=== PATIENT | female | born 1955 | race Caucasian/White ===

== ENCOUNTER 2022-12-22 07:47 | Outpatient (OUT) | payer MEDICARE, MEDICAID, SELFPAY ==
--- NOTE | 2022-12-22 07:56 | CT_ITS ---
[address] [address] Patient Name: TREASURE WOODARD MRN: [id number] date: 1955 Sex: F Assigned Patient Location: CT Current Patient Location: CT Accession/Order Number: [id number] Exam Date: 12/22/2022 08:10 Report Date: 12/22/2022 09:24 At the request of: NON-STAFF PHYSICIAN Procedure: CT chest wo con EXAMINATION: CT chest wo con HISTORY: Screening For Malignant Neoplasm Of Respiratory Organs Z12.2 , nodule COMPARISON: CT chest abdomen pelvis 04/10/2009 TECHNIQUE: Multi-planar CT images were obtained without and/or with IV contrast as indicated by examination type. Axial, Coronal, and Sagittal images. Dose reduction techniques were achieved by using automated exposure control and/or adjustment of mA and/or kV according to patient size and/or use of iterative reconstruction technique. FINDINGS: LUNGS: Stable 4 mm nodule within the anterior lateral left upper lobe. Mild-moderate emphysematous changes bilaterally. No acute infiltrates. PLEURA: No mass, effusion, or pneumothorax. VASCULATURE: No abnormality. RENETTA: No mass or adenopathy. MEDIASTINUM: No mass or adenopathy. CARDIAC: No enlargement, pericardial thickening, or significant calcification. AORTA: No aneurysm or dissection. CHEST WALL: Remote rupture of right breast implant with extravasation. BONES: No bone lesion or fracture. LIMITED ABDOMEN: No suspicious findings Limited images of the upper abdomen. OTHER: Negative. CT/CT chest wo con IMPRESSION: 1. Lung-RADS 2- Benign Appearance or Behavior. Nodules with a very low likelihood of becoming a clinically active cancer due to size or lack of growth. Follow-up CT Chest in 1 year. 2. Stable 4 mm nodule left upper lobe. 3. Remote right breast implant rupture with extravasation. Electronically authenticated by: CLARA BONILLA Date: 12/22/2022 09:24
== END 2022-12-22 07:48 | disposition home or self-care (01) ==
LOC: CT 07:47
DX: Z12.2 Encounter for screening for malignant neoplasm of respiratory organs (principal)
CPT/HCPCS: 71250

== ENCOUNTER 2023-02-23 09:17 | Outpatient (OUT) | payer MEDICARE, MEDICAID, SELFPAY ==
--- OUTSIDE RECORDS SUMMARY | 2023-02-23 09:33 | XMS_ITS | CCD ---
Author Name Unknown Address [address] [facility] [address] [place] [address] Organization [facility] Care Team Providers Care Corporate Vp [employer]vertising & Online Name Role Phone Nina Johnson Primary Care Provider Unavailable Primary Care Provider Unavaildanna schwartz Unavailable Unavailable Unavailable Unavailable Primary Care Provider UnavailMily Obregon Primary Care Provider FRANDY COCHRAN Attending Unavailable ANGELO CRAMER Attending Unavailab NINA Melendez Primary Care Unavailable CLARA SAGASTUME Admitting Unavailable CLARA DUNLAP Consulting Unavailable NINA JOHNSON Attending Unavailable CLARA SAGASTUME Consulting Unavailable JANE WELDON Referring Unavailable FRANDY COCHRAN Referring Unavailable NINA JOHNSON Primary Care Unavailable NILO ARREOLA Referring UnavailNINA Virk Primary Care Unavailable NINA JOHNSON Referring Unavailable NINA JOHNSON Primary Care Unavailable NINA JOHNSON Referring Unavailable NINA JOHNSON Primary Care Unavailable CHARLENE REGAN Admitting Unavailable CHARLENE REGAN Attending Unavailable NINA JOHNSON Admitting Unavailable NINA JOHNSON Attending Unavailable ANGELO CRAMER Attending Unavailab PIYUSH Forde Attending Unavailable NINA JOHNSON Primary Care Unavailable FRANDY COCHRAN Attending Unavailable Nina Johnson Primary Care Provider Mily Lainez CNP Primary Care Provider [phone] Unavailable Primary Care Provider Unavailabl e MISC, DR MARTINEZ Admitting Unavailable MISC, DR MARTINEZ Attending Unavailable MISC, DR MARTINEZ Consulting Unavailable MISC, DR MARTINEZ Admitting Unavailable MISC, DR MARTINEZ Attending Unavailable [place], DR CARLOZ Alcaraz Consulting Unavailable MISC, DR MARTINEZ Consulting Unavailable Mily Lainez CNP Unavailable [phone] Gemini Flores CNP Primary Care Provider GEMINI FLORES Referring Unavailable Mily Lainez CNP Primary Care Provider Allergies Allergy Classification Reported Allergen(s) Allergy Type Date of Onset Reaction(s) Facility (20 sources) Penicillins Propensity to adverse reactions to drug 0 Hives, Nausea And Vomiting [facility] [place], [place] Medications Current Medications Medication Drug Class(es) Dates Sig (Normalized) Sig (Original) acetaminophen 325 mg oral tablet (16 sources) Start: 10-14-2020 Acetaminophen 325 MG Oral Tablet 10/14/2020 Provider: Start: 09-11-2019 acetaminophen (TYLENOL) tablet 650 mg Start: 08-16-2019 acetaminophen (TYLENOL) tablet 650 mg Start: 08-09-2019 End: 08-09-2019 acetaminophen (TYLENOL) tabl et 650 mg ciprofloxacin 500 mg oral tablet (3 sources) Quinolone Antimicrobial Start: 09-12-2019 End: 09-22-2019 take 1 tablet by mouth every twelve hours ciprofloxacin (CIPRO) 500 MG tablet Take 1 tablet by mouth every 12 hours for 10 days 20 tablet 0 09/12/2019 09/22/2019 Active Daily Multivitamin Oral Capsule (20 sources) Start: 05-31-2022 Daily Multivitamin Oral Capsule 05/31/2022 Provider: Gemini Flores CNP Start: 11-16-2021 End: 05-31-2022 Daily Multivitamin Oral Caps ule 11/16/2021 - 05/31/2022 Provider: Gemini Flores CNP Start: 11-16-2021 Daily Multivit razo Oral Capsule 11/16/2021 Provider: Gemini Flores CNP Start: 10-14-2020 End: 11-16-2021 Daily Multivitamin Oral Caps ule 10/14/2020 - 11/16/2021 Provider: Mily Lainez CNP Start: 10-14-2020 Daily Multivit razo Oral Capsule 10/14/2020 Provider: Mily Lainez CNP Start: 10-14-2020 End: 10-14-2020 Daily Multivitamin Oral Caps ule 10/14/2020 - 10/14/2020 Provider: docusate sodium 50 mg / sennosides, fci 8.6 mg oral tablet (13 sources) Start: 01-16-2023 Senexon-S 8.6- 50 MG Oral Tablet 01/16/2023 Provider: Start: 08-06-2019 take 1 tablet by dai th twice daily sennosides-docusate sodium (SENOKOT-S) 8.6-50 MG tablet Take 1 tablet by mouth 2 times daily 60 tablet 1 08/08/2019 Active 0.4 ml enoxaparin sodium 100 mg/ml prefilled syringe (13 sources) Low Molecular Weight Heparin Start: 08-09-2019 enoxaparin (LOVENOX) 40 MG/0.4ML injection Inject 0.4 mLs into the skin daily 14 Syringe 0 08/09/2019 Active Start: 08-07-2019 enoxaparin (LO VENOX) 40 MG/0.4ML injection Inject 0.4 mLs into the skin daily 14 Syringe 0 08/09/2019 Active famotidine 20 mg oral tablet (1 source) Histamine-2 Receptor Antagonist Start: 08-16-2019 take 20 mg by mouth twice daily 20 mg, Oral, 2 TIMES DAILY, First dose on 08/16/19 at 2245 fludrocortisone 0.1 mg oral tablet (12 sources) Start: 08-07-2019 End: 12-07-2019 take 1 tablet by mouth once daily fludrocortisone (FLORINEF) 0.1 MG tablet Take 1 tablet by mouth daily 30 tablet 3 08/09/2019 12/07/2019 Active Handicap Placard MISC (15 sources) Start: 03-20-2016 Handicap Placard MISC by Does not apply route Dx: stroke 2009 Duration: 5 years 1 each 0 03/20/2016 Active LORazepam 0.5 mg oral tablet (20 sources) Benzodiazepine Start: 10-14-2020 Ativan 0.5 MG Oral Tablet 10/14/2020 Provider: Start: 08-16-2019 take 0.25 mg by mout h three times daily 0.25 mg, Oral, 3 TIMES DAILY, First dose on 08/16/19 at 2215 Start: 08-07-2019 take 0.5 mg by mouth twice irma ly 0.5 mg, Oral, 2 TIMES DAILY, First dose on Tamara 08/07/19 at 1415 Start: 07-30-2019 End: 08-29-2019 take 0.5 tablet by mouth three times daily LORazepam (ATIVAN) 0.5 MG tablet Indications: Anxiety Take 0.5 tablets by mouth 3 times daily for 30 days. 45 tablet 0 07/30/2019 08/29/2019 Active take 1 tablet by dai th once daily LORazepam (ATIVAN) 1 MG tablet Take 1 mg by mouth daily 0 Active magnesium hydroxide 80 mg/ml oral suspension (1 source) Start: 08-06-2019 take 30 mL by mouth once daily as needed for constipation 30 mL, Oral, DAILY PRN, Constipation, Starting Sun08/06/19 at 2256 First line therapy for constipation. Post-op Mucinex DM 30-600 MG Oral Tablet Extended Release 12 Hour (20 sources) Start: 10-14-2020 take 30-600 tablets by mouth every twelve hours Mucinex DM 30-600 MG Oral Tablet Extended Release 12 Hour 10/14/2020 Provider: Start: 10-14-2020 End: 10-14-2020 take 30-600 tablets by mouth every twelve hours Mucinex DM 30-600 MG Oral Tablet Extended Release 12 Hour 10/14/2020 - 10/14/2020 Provider: naproxen 500 mg oral tablet (3 sources) Nonsteroidal Anti-inflammatory Drug Start: 11-16-2021 Naproxen 500 MG Oral Tablet 11/16/2021 Provider: Gemini Flores CNP 24 hr nicotine 0.875 mg/hr transdermal system (2 sources) Cholinergic Nicotinic Agonist Start: 07-30-2019 End: 08-07-2019 apply 1 dose transdermal route once daily 1 patch, Transdermal, Administer over 24 Hours, DAILY, First dose on Sun08/07/19 at 0900 Apply new patch to nonhairy, clean, dry skin on the upper body or upper outer arm. Rotate patch sites. Notif y pharmacy if patient or provider prefers patch to be removed at bedtime and replaced in the morning. Haz ardous Medication -- Refer to facility policy for handling and disposal. &n bsp; omeprazole 40 mg delayed release oral capsule (5 sources) Proton Pump Inhibitor Start: 03-06-2016 take 1 capsule by mouth once daily omeprazole (PRILOSEC) 40 MG delayed release capsule TAKE ONE CAPSULE BY MOUTH ONCE DAILY 30 capsule 5 03/06/2016 Active ondansetron (ZOFRAN-ODT) disintegrating tablet 4 mg (1 source) Start: 08-06-2019 ondansetron (ZOFRAN-ODT) disintegrating tablet 4 mg oxyCODONE hydrochloride 5 mg oral tablet (5 sources) Opioid Agonist Start: 08-08-2019 End: 08-13-2019 take 1 tablet by mouth every six hours as needed for pain oxyCODONE (ROXICODONE) 5 MG immediate release tablet Indications: Closed fracture of left hip, initial encounter ([facility]) Take 1 tablet by mouth every 6 hours as needed for Pain for up to 5 days. 20 tablet 0 08/08/2019 08/13/2019 Active Start: 08-06-2019 oxyCODONE (LORI ICODONE) immediate release tablet 5 mg pantoprazole 20 mg delayed release oral tablet (3 sources) Proton Pump Inhibitor Start: 12-05-2022 End: 01-16-2023 Pantoprazole Sodium 20 MG Oral Tablet Delayed Release 01/16/2023 Provider: Mily Lainez CNP polyethylene glycol 3350 30968 mg powder for oral solution (10 sources) Osmotic Laxative Start: 09-11-2019 17 g, Oral, D AILY PRN, Constipation, Starting Tamara 09/11/19 at 2233 First line therapy for constipation Start: 08-06-2019 End: 09-07-2019 take 17 g by mouth once daily as needed for constipation polyethylene glycol (GLYCOLAX) 17 g packet Take 17 g by mouth daily as needed for Constipation 30 each 0 08/08/2019 09/07/2019 Active potassium bicarbonate 20 meq effervescent oral tablet (1 source) Start: 04-13-2019 potassium bica rb-citric acid (EFFER-K) effervescent tablet 40 mEq microencapsulated potassium chloride 20 meq extended release oral tablet (2 sources) Start: 08-17-2019 potassium chlo ride (KLOR-CON M) extended release tablet 20 mEq Start: 08-16-2019 End: 08-16-2019 potassium chloride (KLOR-CON M) extended release tablet 40 mEq Promethazine (3 sources) Phenothiazine Start: 09-11-2019 promethazine ( PHENERGAN) tablet 12.5 mg Start: 08-16-2019 promethazine ( PHENERGAN) tablet 12.5 mg Start: 08-06-2019 promethazine ( PHENERGAN) tablet 12.5 mg QUEtiapine 300 mg oral tablet (20 sources) Atypical Antipsychotic Start: 05-31-2022 SEROque l 300 MG Oral Tablet 05/31/2022 Provider: Start: 03-16-2020 End: 05-31-2022 SEROquel 200 MG Oral Tablet 10/14/2020 - 05/31/2022 Provider: Start: 09-12-2019 take 50 mg by mouth once daily in the morning 50 mg, Oral, EVERY MORNING, First dose on Sun09/12/19 at 0900 Start: 09-11-2019 take 200 mg by mouth once ced y 200 mg, Oral, NIGHTLY, First dose on Tamara 09/11/19 at 2300 Start: 08-17-2019 take 50 mg by mouth once daily in the morning 50 mg, Oral, EVERY MORNING, First dose on 08/17/19 at 0900 Start: 08-16-2019 take 200 mg by mouth once ced y 200 mg, Oral, NIGHTLY, First dose on 08/16/19 at 2245 Start: 08-08-2019 take 50 mg by mouth once daily in the morning 50 mg, Oral, EVERY MORNING, First dose on 08/08/19 at 0900 Start: 08-07-2019 take 200 mg by mouth once ced y 200 mg, Oral, NIGHTLY, First dose on Tamara 08/07/19 at 2100 Start: 07-30-2019 End: 05-31-2022 QUEtiapine Fumarate 50 MG Or al Tablet 09/01/2019 - 10/14/2020 Provider: Start: 07-30-2019 End: 08-07-2019 take 1 tablet by mouth once daily QUEtiapine (SEROQUEL) 200 MG tablet Take 1 tablet by mouth nightly 30 tablet 3 07/30/2019 08/07/2019 Discontinued (LIST CLEANUP) Start: 05-14-2014 End: 08-07-2019 take 2 tablets by mouth once daily QUEtiapine (SEROQUEL) 100 MG tablet Take 200 mg by mouth nightly 0 05/14/2014 08/07/2019 Discontinued (LIST CLEANUP) risperiDONE 2 mg oral tablet (20 sources) Atypical Antipsychotic Start: 10-14-2020 End: 05-31-2022 risperiDONE 2 MG Oral Tablet 07/10/2021 Provider: Start: 10-14-2020 End: 10-14-2020 risperiDONE 0.5 MG Oral Tabl et 10/14/2020 - 10/14/2020 Provider: Start: 09-12-2019 take 1.5 mg by mouth once daily in the morning 1.5 mg, Oral, EVERY MORNING, First dose on Sun09/12/19 at 0900 Start: 09-01-2019 End: 10-14-2020 RisperDAL 1 MG Oral Tablet 03/16/2020 - 10/14/2020 Provider: Start: 08-17-2019 take 1.5 mg by mouth once daily in the morning 1.5 mg, Oral, EVERY MORNING, First dose on Sun08/17/19 at 0900 Start: 08-08-2019 take 1.5 mg by mouth once daily in the morning 1.5 mg, Oral, EVERY MORNING, First dose on Sun08/08/19 at 0900 Start: 07-30-2019 take 1.5 tablets by mouth once daily in the morning risperiDONE (RISPERDAL) 1 MG tablet Take 1.5 tablets by mouth every morning 45 tablet 3 07/30/2019 Active Start: 01-18-2018 take 2 tablets by mo [facility] once daily risperiDONE (RISPERDAL) 3 MG tablet Take 2 tablets by mouth daily 60 tablet 0 01/18/2018 Active sertraline 100 mg oral tablet (20 sources) Serotonin Reuptake Inhibitor Start: 09-01-2019 Zoloft 100 MG Oral Tablet 09/01/2019 Provider: Start: 05-18-2015 End: 08-07-2019 Zoloft 100 MG Oral Tablet Provider: traMADol hydrochloride 50 mg oral tablet (12 sources) Opioid Agonist Start: 08-05-2019 End: 09-04-2019 take 50 mg by mouth four times daily as needed for pain 50 mg, Oral, 4 TIMES DAILY PRN, Pain Moderate (4-6), Pain Severe (7-10), Starting 08/16/19 at 2147 Start: 04-08-2019 End: 05-08-2019 take 1 tablet by mouth four times daily as needed for pain traMADol (ULTRAM) 50 MG tablet Indications: Other chronic pain Take 1 tablet by mouth 4 times daily as needed for Pain for up to 30 days. 120 tablet 0 04/08/2019 05/08/2019 Active take 1 tablet by dai th every six hours as needed for pain traMADol (ULTRAM) 50 MG tablet Take 50 mg by mouth every 6 hours as needed for Pain. 0 Active zinc oxide 0.4 mg/mg paste (4 sources) Start: 09-12-2019 zinc oxide 40 % PSTE paste Apply to buttocks and labia two times daily 0 09/12/2019 Active Start: 09-11-2019 zinc oxide 40 % paste Completed/Discontinued Medications Medication Drug Class(es) Dates Sig (Normalized) Sig (Original) acetaminophen 325 mg / HYDROcodone bitartrate 5 mg oral tablet (1 source) Opioid Agonist Start: 08-16-2019 End: 08-16-2019 HYDROcodone-acetam inophen (NORCO) 5-325 MG per tablet 2 tablet acetaminophen 325 mg / oxyCODONE hydrochloride 5 mg oral tablet (2 sources) Opioid Agonist Start: 08-16-2019 End: 08-16-2019 oxyCODONE-acetamin ophen (PERCOCET) 5-325 MG per tablet 1 tablet Start: 08-08-2019 End: 08-08-2019 oxyCODONE-acetaminophen (PER COCET) 5-325 MG per tablet 1 tablet [id number] 200 actuat albuterol 0.09 mg/actuat metered dose inhaler (20 sources) beta2-Adrenergic Agonist Start: 10-21-2020 End: 01-16-2023 Ventolin HFA 108 (90 Base) MCG/ACT Inhalation Aerosol Solution 10/21/2020 - 10/21/2020 Provider: Mily Lainez CNP Start: 03-16-2020 End: 05-31-2022 Albuterol Sulfate HFA 108 (9 0 Base) MCG/ACT Inhalation Aerosol Solution 10/14/2020 - 11/16/2021 Provider: Mily Lainez CNP Start: 08-07-2019 albuterol sulf ate HFA 108 (90 Base) MCG/ACT inhaler 2 puff Start: 08-07-2019 albuterol (PRO VENTIL) nebulizer solution 2.5 mg Start: 03-07-2019 End: 08-08-2019 take 2 puff(s) by inhalation four times daily albuterol sulfate HFA (PROVENTIL HFA) 108 (90 Base) MCG/ACT inhaler Inhale 2 puffs into the lungs 4 times daily for 7 days 1 Inhaler 0 03/07/2019 08/08/2019 Discontinued (Therapy completed) amoxicillin 500 mg oral tablet (13 sources) Penicillin-class Antibacterial Start: 10-14-2020 End: 10-14-2020 Amoxicillin 500 MG Oral Tablet 10/14/2020 - 10/14/2020 Provider: Mily Lainez CNP aspirin 81 mg oral capsule (20 sources) Platelet Aggregation Inhibitor, Nonsteroidal Anti-inflammatory Drug Start: 10-14-2020 End: 10-14-2020 Aspirin 81 MG Oral Capsule 10/14/2020 - 10/14/2020 Provider: Start: 05-20-2014 End: 05-31-2022 Aspirin 81 MG Oral Tablet De layed Release 10/14/2020 - 11/16/2021 Provider: Mily Lainez CNP atorvastatin 10 mg oral tablet (20 sources) HMG-CoA Reductase Inhibitor Start: 07-30-2019 End: 12-05-2022 Atorvastatin Calcium 10 MG Oral Tablet 09/01/2019 - 10/14/2020 Provider: Start: 04-08-2019 take 1 tablet by dai once daily atorvastatin (LIPITOR) 80 MG tablet Indications: Cerebrovascular accident (CVA) due to thrombosis of precerebral artery (HCC) , Mixed hyperlipidemia , Tobacco dependency Take 1 tablet by mouth daily 90 tablet 3 04/08/2019 Active carbamide peroxide 65 mg/ml otic solution (2 sources) Start: 12-05-2022 End: 01-16-2023 Debrox 6.5% Otic Solution 12/05/2022 - 01/16/2023 Provider: Gemini Flores CNP ceFAZolin 2000 mg injection (1 source) Cephalosporin Antibacterial Start: 08-06-2019 End: 08-06-2019 ceFAZolin (ANCEF) 2 g in dextrose 3 % 50 mL IVPB (duplex) ceFAZolin (ANCEF) 1 g in dextrose 5 % 50 mL IVPB (mini-bag) (1 source) Start: 08-06-2019 End: 08-07-2019 1 g, Intravenous, EVERY 8 HOURS, 3 doses, First dose on Sun08/06/19 at 2315, Last dose on Tamara 08/07/19 at 1515, Post-op cefTRIAXone (ROCEPHIN) 1 g in sterile water 10 mL IV syringe (1 source) Start: 09-11-2019 End: 09-11-2019 cefTRIAXone (ROCEPHIN) 1 g in sterile water 10 mL IV syringe cholecalciferol 0.025 mg oral tablet (20 sources) Vitamin D Start: 10-21-2020 End: 01-16-2023 Vitamin D (Cholecalciferol) 25 MCG (1000 UT) Oral Tablet 11/16/2021 - 05/31/2022 Provider: Gemini Flores [employer] doxycycline hyclate 100 mg oral capsule (13 sources) Tetracycline-class Drug Start: 10-14-2020 End: 01-13-2021 Doxycycline Hyclate 100 MG Oral Capsule 10/14/2020 - 01/13/2021 Provider: Mily Lainez [employer] gabapentin 300 mg oral capsule (20 sources) Anti-epileptic Agent Start: 09-01-2019 End: 10-14-2020 Gabapentin 300 MG Oral Capsule 09/01/2019 - 10/14/2020 Provider: Start: 08-16-2019 take 300 mg by mouth four times daily 300 mg, Oral, 4 TIMES DAILY, First dose on 08/16/19 at 2230 Start: 08-07-2019 take 300 mg by mouth four times daily 300 mg, Oral, 4 TIMES DAILY, First dose on Tamara 08/07/19 at 1700 Start: 04-08-2019 End: 05-08-2019 take 1 capsule by mouth four times daily gabapentin (NEURONTIN) 300 MG capsule Indications: Other chronic pain Take 1 capsule by mouth 4 times daily for 30 days. 120 capsule 1 04/08/2019 05/08/2019 Active iopamidol (ISOVUE-370) 76 % injection 75 mL (1 source) Start: 09-13-2019 End: 09-13-2019 iopamidol (ISOVUE-370) 76 % injection 75 mL 1 ml morphine sulfate 2 mg/ml cartridge (1 source) Opioid Agonist Start: 08-06-2019 End: 08-06-2019 morphine (PF) injection 2 mg ondansetron 4 mg disintegrating oral tablet (20 sources) Serotonin-3 Receptor Antagonist Start: 08-08-2019 End: 10-14-2020 Ondansetron 4 MG Oral Tablet Disintegrating 10/14/2020 - 10/14/2020 Provider: Senna Plus 8.6-50 MG Oral Tablet (20 sources) Start: 01-13-2021 End: 05-31-2022 Senna Plus 8.6-50 MG Oral Tablet 01/13/2021 - 05/31/2022 Provider: Mily Lainez [employer] Start: 01-13-2021 Senna Plus 8.6 -50 MG Oral Tablet 01/13/2021 Provider: Mily Lainez [employer] Start: 10-14-2020 End: 01-13-2021 Senna Plus 8.6-50 MG Oral Ta blet 10/14/2020 - 01/13/2021 Provider: Mily Lainez [employer] Start: 10-14-2020 Senna Plus 8.6 -50 MG Oral Tablet 10/14/2020 Provider: Mily Lainez [employer] Start: 10-14-2020 End: 10-14-2020 Senna Plus 8.6-50 MG Oral Ta blet 10/14/2020 - 10/14/2020 Provider: 50 ml sodium chloride 9 mg/m l injection (19 sources) Start: 09-13-2019 End: 09-13-2019 0.9 % sodium chloride IV jed us 1,905 mL Start: 09-11-2019 10 mL, Intrave nous, EVERY 12 HOURS SCHEDULED (2 times per day), First dose on Tamara 09/11/19 at 2300 Start: 09-11-2019 take 10 mL intraveno us route once as needed 10 mL, Intravenous, PRN, Line Care, After every IV line use, Starting Tamara 09/11/19 at 2233 Start: 09-11-2019 End: 09-12-2019 Intravenous, at 75 mL/hr, CONTINUOUS, Starting Tamara 09/11/19 at 2300 Start: 09-11-2019 End: 09-11-2019 0.9 % NaCl bolus Start: 09-07-2019 0.9 % sodium c hloride infusion Start: 08-16-2019 Intravenous, a t 75 mL/hr, CONTINUOUS, Starting 08/16/19 at 2215 Start: 08-16-2019 10 mL, Intrave nous, EVERY 12 HOURS SCHEDULED (2 times per day), First dose on 08/16/19 at 2215 Start: 08-16-2019 take 10 mL intraveno us route once as needed 10 mL, Intravenous, PRN, Line Care, After every IV line use, Starting 08/16/19 at 2147 Start: 08-08-2019 End: 08-09-2019 0.9 % sodium chloride bolus Start: 08-06-2019 10 mL, Intrave nous, EVERY 12 HOURS SCHEDULED (2 times per day), First dose on Sun08/06/19 at 2315, Post-op Start: 08-06-2019 take 10 mL intravenous route o nce 10 mL, Intravenous, PRN, Line Care, Starting Sun08/06/19 at 2256 After every IV line use Post-op Start: 08-06-2019 End: 08-06-2019 0.9 % sodium chloride bolus Start: 08-06-2019 End: 08-08-2019 0.9 % sodium chloride infusi on Problems Active Problems Problem Classification Problem Date Documented Date Episodic/Chronic Abdominal pain (2 sources) Generalized abdominal pain; Translations: [Generalized abdominal pain] Onset: 12-05-2022 Episodic Acute cerebrovascular disease (15 sources) Thrombotic stroke; Translations: [Cerebral infarction due to thrombosis of unspecified precerebral artery] Onset: 01-19-2015 01-19-2015 Chronic Administrative/social admission (1 source) Total self-care deficit; Translations: [Total self-care deficit] Episodic Anxiety disorders (1 source) Anxiety state; Translations: [Generalized anxiety disorder] Onset: 04-21-2020 04-21-2020 Chronic Chronic obstructive pulmonary disease and bronchiectasis (9 sources) Chronic obstructive lung disease; Translations: [Chronic airway obstruction, not elsewhere classified] Onset: 03-16-2020 Chronic Deficiency and other anemia (1 source) Anemia; Translations: [Anemia, unspecified type] Episodic Disorders of lipid metabolism (15 sources) Mixed hyperlipidemia; Translations: [Mixed hyperlipidemia] Onset: 06-07-2017 06-07-2017 Chronic Esophageal disorders (17 sources) Gastroesophageal reflux disease without esophagitis; Translations: [Gastro-esophageal reflux disease without esophagitis] Onset: 05-20-2014 06-07-2017 Chronic Genitourinary symptoms and ill-defined conditions (15 sources) Mixed urinary incontinence; Translations: [Incontinence] Onset: 01-19-2015 01-19-2015 Chronic Immunizations and screening for infectious disease (20 sources) HIV screening; Translations: [Special screening examination for other specified viral diseases] Onset: 10-14-2020 Episodic Nutritional deficiencies (20 sources) Vitamin D deficiency; Translations: [Vitamin D deficiency, unspecified] Onset: 10-21-2020 Chronic Other circulatory disease (11 sources) History of cardioembolic stroke; Translations: [Personal history of transient ischemic attack (TIA), and cerebral infarction without residual deficits] 08-06-2019 Episodic Other ear and sense organ disorders (8 sources) Hearing loss; Translations: [Unspecified hearing loss] Onset: 01-13-2021 Chronic Other ear and sense organ disorders (9 sources) Impacted cerumen; Translations: [Right external auditory canal structure (body structure)] Onset: 10-14-2020 Episodic Other hereditary and degenerative nervous system conditions (20 sources) Impaired cognition; Translations: [Mild (qualifier value)] Onset: 09-01-2019 Chronic Other hereditary and degenerative nervous system conditions (2 sources) Mild cognitive impairment, so stated; Translations: [Mild cognitive impairment of uncertain or unknown etiology] Onset: 12-05-2022 Chronic Other nervous system disorders (13 sources) Unable to walk; Translations: [Difficulty in walking, not elsewhere classified] Onset: 08-16-2019 08-20-2019 Chronic Other nutritional; endocrine; and metabolic disorders (20 sources) Finding of body mass index; Translations: [Body mass index (observable entity)] Onset: 03-16-2020 Episodic Other screening for suspected conditions (not mental disorders or infectious disease) (20 sources) Encounter for screening for diabetes mellitus; Translations: [Diabetes Risk Test Score] Onset: 10-14-2020 Episodic Residual codes; unclassified (15 sources) Chronic pain; Translations: [Other chronic pain] Onset: 07-20-2017 07-20-2017 Chronic Residual codes; unclassified (1 source) Hallucinations; Translations: [Hallucinations] Episodic Schizophrenia and other psychotic disorders (20 sources) Psychotic disorder; Translations: [Schizophrenia] Onset: 09-01-2019 Chronic Septicemia (except in labor) (1 source) Sepsis; Translations: [Septicemia (HCC)] Episodic Substance-related disorders (20 sources) Tobacco dependence syndrome; Translations: [Nicotine dependence, unspecified, uncomplicated] Onset: 05-20-2014 05-20-2014 Chronic Unclassified (4 sources) Closed fracture of multiple right ribs; Translations: [Closed fracture of multiple ribs of right side, initial encounter] Onset: 09-07-2019 09-07-2019 Unclassified (1 source) History AND physical examination; Translations: [Routine (qualifier value)] Onset: 03-16-2020 Past or Other Problems Problem Classification Problem Date Documented Date Episodic/Chronic Allergic reactions (3 sources) Excoriated eczema; Translations: [Excoriated rash] Onset: 09-11-2019 09-11-2019 Episodic Fluid and electrolyte disorders (1 source) Dehydration; Translations: [Dehydration] Episodic Fracture of neck of femur (hip) (11 sources) Closed fracture of hip; Translations: [Fracture of unspecified part of neck of left femur, initial encounter for closed fracture] Onset: 08-06-2019 08-07-2019 Episodic Fracture of upper limb (1 source) Closed fracture of upper end of humerus; Translations: [Other closed nondisplaced fracture of proximal end of left humerus, initial encounter] Episodic Other connective tissue disease (5 sources) Recurrent falls ; Translations: [Repeated falls] Onset: 07-14-2021 Episodic Other ear and sense organ disorders (9 sources) Impacted cerumen in right ear; Translations: [Impacted cerumen] Onset: 10-14-2020 Episodic Other fractures (1 source) Closed fracture of multiple right ribs; Translations: [Multiple fractures of ribs, right side, initial encounter for closed fracture] Onset: 09-07-2019 09-07-2019 Episodic Other injuries and conditions due to external causes (5 sources) Abrasion AND/OR friction burn of multiple sites; Translations: [Unspecified multiple injuries, initial encounter] Onset: 09-07-2019 09-07-2019 Episodic Other nervous system disorders (5 sources) Impaired cognition; Translations: [Mild Cognitive Impairment] Onset: 09-01-2019 Episodic Other non-traumatic joint disorders (4 sources) Hip pain; Translations: [Arthralgia - Pelvis / Hip / Femur] Onset: 09-01-2019 Episodic Other non-traumatic joint disorders (20 sources) Disorder of hip joint; Translations: [Pain] Onset: 09-01-2019 Episodic Other non-traumatic joint disorders (5 sources) Arthropathy of left hip joint; Translations: [Pain] Onset: 07-14-2021 Episodic Other skin disorders (1 source) Excoriation of skin; Translations: [Rash and other nonspecific skin eruption] Onset: 09-11-2019 09-11-2019 Episodic Residual codes; unclassified (4 sources) Altered mental status; Translations: [Altered mental status, unspecified] Onset: 09-11-2019 09-12-2019 Episodic Residual codes; unclassified (1 source) Family history of malignant neoplasm of breast; Translations: [FAMILY HX MALIG NEOPLASM OF BREAST] Onset: 02-19-2022 Episodic Spondylosis; intervertebral disc disorders; other back problems (15 sources) Chronic low back pain; Translations: [Low back pain] Onset: 05-20-2014 05-20-2014 Episodic Superficial injury; contusion (5 sources) Contusion of orbital tissues; Translations: [Contusion of orbital tissue of left eye] Onset: 09-07-2019 09-07-2019 Episodic Unclassified (10 sources) Patient encounter status; Translations: [Encounter for pre-operative cardiovascular clearance] Resolved: 09-05-2019 08-06-2019 Unclassified (11 sources) Finding of body mass index; Translations: [Body mass index (observable entity)] Onset: 09-01-2019 Urinary tract infections (5 sources) Urinary tract infectious disease; Translations: [Acute cystitis] Onset: 09-11-2019 Resolved: 10-11-2019 09-11-2019 Episodic Results Test Name Value Interpretation Reference Range Facility CBC with Diffon 12-06-2022 Abs. Basophil <0.03 Normal 0.00-0.20 [facility] Comment on above: Performed By: #### C DP, LIPR, CP, TSHX, VD25, VAGP #### [employer] [address] [place] [address] [phone] Project Management Engineer: David Valdes MD Abs.Imm.Granulocyte <0.03 Normal 0.00-0.30 [facility] Comment on above: Performed By: #### C DP, LIPR, CP, TSHX, VD25, VAGP #### [facility] [employer] [address] [place] [id number] Project Management Engineer: David Valdes MD Abs.Neutrophil (Seg) 5.15 k/uL Normal 1.50-8.10 [facility] Comment on above: Performed By: #### C DP, LIPR, CP, TSHX, VD25, VAGP #### [address] [address] Project Management Engineer: David Valdes MD Basophils/100 WBC (Bld) 0 % Normal 0-2 [facility] Comment on above: Performed By: #### C DP, LIPR, CP, TSHX, VD25, VAGP #### [address] [address] Project Management Engineer: David Valdes MD Eosinophils (Bld) [#/Vol] 0.07 10*3/uL Normal 0.00-0.44 [facility] Comment on above: Performed By: #### C DP, LIPR, CP, TSHX, VD25, VAGP #### [address] [address] Project Management Engineer: David Valdes MD Eosinophils/100 WBC (Bld) 1 % Normal 1-4 [facility] Comment on above: Performed By: #### C DP, LIPR, CP, TSHX, VD25, VAGP #### [address] [address] Project Management Engineer: David Valdes MD Erythrocyte distribution width (RBC) [Ratio] 13.2 % Normal 11.8-14.4 [facility] Comment on above: Performed By: #### C DP, LIPR, CP, TSHX, VD25, VAGP #### [address] [address] Project Management Engineer: David Valdes MD Hematocrit (Bld) [Volume fraction] 48.9 % High 36.3-47.1 [facility] Comment on above: Performed By: #### C DP, LIPR, CP, TSHX, VD25, VAGP #### [address] [address] Project Management Engineer: David Valdes MD Hemoglobin (Bld) [Mass/Vol] 15.6 g/dL High 11.9-15.1 [facility] Comment on above: Performed By: #### C DP, LIPR, CP, TSHX, VD25, VAGP #### [address] [address] Project Management Engineer: David Valdes MD Immature granulocytes/100 WBC (Bld) 0 % Normal 0 [facility] Comment on above: Performed By: #### C DP, LIPR, CP, TSHX, VD25, VAGP #### [address] [phone] Project Management Engineer: David Valdes MD Lymphocytes (Bld) [#/Vol] 1.69 10*3/uL Normal 1.10-3.70 [facility] Comment on above: Performed By: #### C DP, LIPR, CP, TSHX, VD25, VAGP #### [place] [address] Project Management Engineer: David Valdes MD Lymphocytes/100 WBC (Bld) 22 % Low 24-43 [facility] Comment on above: Performed By: #### C DP, LIPR, CP, TSHX, VD25, VAGP #### [address] [address] Project Management Engineer: David Valdes MD MCH (RBC) [Entitic mass] 33.7 pg High 25.2-33.5 [facility] Comment on above: Performed By: #### C DP, LIPR, CP, TSHX, VD25, VAGP #### [address] [address] Project Management Engineer: David Valdes MD MCHC (RBC) [Mass/Vol] 31.9 g/dL Normal 28.4-34.8 [facility] Comment on above: Performed By: #### C DP, LIPR, CP, TSHX, VD25, VAGP #### [address] [address] Project Management Engineer: David Valdes MD MCV (RBC) [Entitic vol] 105.6 fL High 82.6-102.9 [facility] Comment on above: Performed By: #### C DP, LIPR, CP, TSHX, VD25, VAGP #### [address] [address] Project Management Engineer: David Valdes MD Monocytes (Bld) [#/Vol] 0.60 10*3/uL Normal 0.10-1.20 [facility] Comment on above: Performed By: #### C DP, LIPR, CP, TSHX, VD25, VAGP #### [address] [address] Project Management Engineer: David Valdes MD Monocytes/100 WBC (Bld) 8 % Normal 3-12 [facility] Comment on above: Performed By: #### C DP, LIPR, CP, TSHX, VD25, VAGP #### [address] [address] Project Management Engineer: David Valdes MD Neutrophil (Seg) 69 % High 36-65 [facility] Comment on above: Performed By: #### C DP, LIPR, CP, TSHX, VD25, VAGP #### [address] [address] Project Management Engineer: David Valdes MD NRBC Automated 0.0 per 100 WBC Normal 0.0 [facility] Comment on above: Performed By: #### C DP, LIPR, CP, TSHX, VD25, VAGP #### [address] [address] Project Management Engineer: David Valdes MD Platelet mean volume (Bld) [Entitic vol] 12.0 fL Normal 8.1-13.5 [facility] Comment on above: Performed By: #### C DP, LIPR, CP, TSHX, VD25, VAGP #### [address] [address] Project Management Engineer: David Valdes MD Platelets (Bld) [#/Vol] 223 10*3/uL Normal 138-453 [facility] Comment on above: Performed By: #### C DP, LIPR, CP, TSHX, VD25, VAGP #### [facility] [employer] [address] [place] [address] Project Management Engineer: David Valdes MD RBC (Bld) [#/Vol] 4.63 10*6/uL Normal 3.95-5.11 [facility] Comment on above: Performed By: #### C DP, LIPR, CP, TSHX, VD25, VAGP #### [address] [address] Project Management Engineer: David Valdes MD RBC morphology finding Nom (Bld) MACROCYTOSIS PRESENT Normal [facility] Comment on above: Performed By: #### C DP, LIPR, CP, TSHX, VD25, VAGP #### [facility] [employer] [address] [place] [id number] Project Management Engineer: David Valdes MD WBC (Bld) [#/Vol] 7.6 10*3/uL Normal 3.5-11.3 [facility] Comment on above: Performed By: #### C DP, LIPR, CP, TSHX, VD25, VAGP #### [address] [address] Project Management Engineer: David Valdes MD Comp Metabolic Profon 2022 Albumin [Mass/Vol] 4.3 g/dL Normal 3.5-5.2 [facility] Comment on above: Performed By: #### C DP, LIPR, CP, TSHX, VD25, VAGP #### [address] [address] Project Management Engineer: David Valdes MD Albumin/Glob Ratio 1.7 Normal 1.0-2.5 [facility] Comment on above: Performed By: #### C DP, LIPR, CP, TSHX, VD25, VAGP #### [address] [address] Project Management Engineer: David Valdes MD Alkaline Phos 111 U/L High 35-104 [facility] Comment on above: Performed By: #### C DP, LIPR, CP, TSHX, VD25, VAGP #### [address] [address] Project Management Engineer: David Valdes MD ALT [Catalytic activity/Vol] 21 U/L Normal 5-33 [facility] Comment on above: Performed By: #### C DP, LIPR, CP, TSHX, VD25, VAGP #### [address] [address] Project Management Engineer: David Valdes MD Anion gap [Moles/Vol] 12 mmol/L Normal 9-17 [facility] Comment on above: Performed By: #### C DP, LIPR, CP, TSHX, VD25, VAGP #### [address] [address] Project Management Engineer: David Valdes MD AST [Catalytic activity/Vol] 17 U/L Normal <32 [facility] Comment on above: Performed By: #### C DP, LIPR, CP, TSHX, VD25, VAGP #### [address] [address] Project Management Engineer: David Valdes MD Bilirubin [Mass/Vol] 0.2 mg/dL Low 0.3-1.2 [facility] Comment on above: Performed By: #### C DP, LIPR, CP, TSHX, VD25, VAGP #### [address] [address] Project Management Engineer: David Valdes MD Calcium [Mass/Vol] 9.4 mg/dL Normal 8.6-10.4 [facility] Comment on above: Performed By: #### C DP, LIPR, CP, TSHX, VD25, VAGP #### [address] [address] Project Management Engineer: David Valdes MD Chloride [Moles/Vol] 103 mmol/L Normal 98-107 [facility] Comment on above: Performed By: #### C DP, LIPR, CP, TSHX, VD25, VAGP #### [address] [address] Project Management Engineer: David Valdes MD CO2 [Moles/Vol] 25 mmol/L Normal 20-31 [facility] Comment on above: Performed By: #### C DP, LIPR, CP, TSHX, VD25, VAGP #### [address] [address] Project Management Engineer: David Valdes MD Creatinine [Mass/Vol] 0.9 mg/dL Normal 0.5-0.9 [facility] Comment on above: Performed By: #### C DP, LIPR, CP, TSHX, VD25, VAGP #### [address] [address] Project Management Engineer: David Valdes MD GFR/1.73 sq M.predicted among non-blacks MDRD (S/P/Bld) [Vol rate/Area] mL/min/{1.73_m2} Normal >60 [facility] Comment on above: Result Comment: These results are not intended for use in patients <18 years of age. eGFR results are calculated without a race factor using the 2020 CKD-EPI equation. Careful clinical correlation is recommended, particularly when comparing to results calculated using previous equations. The CKD-EPI equation is less accurate in patients with extremes of muscle mass, extra-renal metabolism of creatine, excessive creatine ingestion, or following therapy that affects renal tubular secretion. Performed By: #### C DP, LIPR, CP, TSHX, VD25, VAGP #### [address] [address] Project Management Engineer: David Valdes MD Glucose [Mass/Vol] 106 mg/dL High 70-99 [facility] Comment on above: Performed By: #### C DP, LIPR, CP, TSHX, VD25, VAGP #### [address] [address] Project Management Engineer: David Valdes MD Potassium [Moles/Vol] 4.5 mmol/L Normal 3.7-5.3 [facility] Comment on above: Performed By: #### C DP, LIPR, CP, TSHX, VD25, VAGP #### [address] [address] Project Management Engineer: David Valdes MD Protein [Mass/Vol] 6.8 g/dL Normal 6.4-8.3 [facility] Comment on above: Performed By: #### C DP, LIPR, CP, TSHX, VD25, VAGP #### [address] [address] Project Management Engineer: David Valdes MD Sodium [Moles/Vol] 140 mmol/L Normal 135-144 [facility] Comment on above: Performed By: #### C DP, LIPR, CP, TSHX, VD25, VAGP #### [address] [address] Project Management Engineer: David Valdes MD Urea nitrogen [Mass/Vol] 14 mg/dL Normal 8-23 [facility] Comment on above: Performed By: #### C DP, LIPR, CP, TSHX, VD25, VAGP #### [facility] [address] [place] [address] Project Management Engineer: David Valdes MD Laboratory - Chemistry and C hemistry - challengeon 12-06-2022 Albumin [Mass/Vol] 4.3 g/dL (3.5-5.2 ) [facility] Comment on above: Note: Responsible Ob server support technician: CEEV AUTOFILE ([id number]) ALT [Catalytic activity/Vol] 21 U/L (5-33 ) [facility] Comment on above: Note: Responsible Ob server support technician: CEEV AUTOFILE ([id number]) Anion gap [Moles/Vol] 12 mmol/L (9-17 ) [facility] Comment on above: Note: Responsible Ob server support technician: CEEV AUTOFILE ([id number]) AST [Catalytic activity/Vol] 17 U/L (<32 ) [facility] Comment on above: Note: Responsible Ob server support technician: CEEV AUTOFILE ([id number]) Bilirubin [Mass/Vol] 0.2 mg/dL Low (0.3-1.2 ) [facility] Comment on above: Note: Responsible Ob server support technician: CEEV AUTOFILE ([id number]) Calcium [Mass/Vol] 9.4 mg/dL (8.6-10.4 ) [facility] Comment on above: Note: Responsible Ob server support technician: CEEV AUTOFILE ([id number]) Chloride [Moles/Vol] 103 mmol/L (98-107 ) [facility] Comment on above: Note: Responsible Ob server support technician: CEEV AUT[employer]FILE ([id number]) Cholesterol [Mass/Vol] 179 mg/dL (<200 ) [facility] Comment on above: Note: Cholesterol Gu idelines:<200 [id number] Borderline>240 UndesirableResponsible Observer: CEEV AUTOFILE ([id number]) Cholesterol.total/Chol esterol in HDL [Mass ratio] 4.2 {ratio} (<5 ) [facility] Comment on above: Note: Responsible Ob server support technician: CEEV AUTOFILE ([id number]) CO2 [Moles/Vol] 25 mmol/L (20-31 ) [facility] Comment on above: Note: Responsible Ob server support technician: CEEV AUTOFILE ([id number]) Creatinine [Mass/Vol] 0.9 mg/dL (0.5-0.9 ) [facility] Comment on above: Note: Responsible Ob server support technician: CEEV AUTOFILE ([id number]) GFR/1.73 sq M.predicted among non-blacks MDRD (S/P/Bld) [Vol rate/Area] mL/min/{1.73_m2} (>60 ) [facility] Comment on above: Note: These results are not intended for use in patients <18 years of age.eGFR results are calculated without a race factor using the 2020 CKD-EPIequation.Careful clinical correlation is recommended, particularly when comparing toresults calculated using previous equations.The CKD-EPI equation is less accurate in patients with extremes of muscle mass,extra-renal metabolism of creatine, excessive creatine ingestion, or followingtherapy that affects renal tubular secretion.Responsible Observer: CEEV AUTOFILE ([id number]) Glucose [Mass/Vol] 106 mg/dL High (70-99 ) [facility] Comment on above: Note: Responsible Ob server support technician: CEEV [employer]FILE ([id number]) Magnesium [Mass/Vol] 43 mg/dL (>40 ) [facility] Comment on above: Note: HDL Guidelines :<40 [id number] Borderline>59 DesirableResponsible Observer: CEEV AUTOFILE ([id number]) Magnesium [Mass/Vol] 80 mg/dL (0-130 ) [facility] Comment on above: Note: LDL Guidelines :<100 [id number] Near to/above Onqsaervs302-636 Borderline>159 UndesirableDirect (measured) LDL and calculated LDL are not interchangeable tests.Responsible Observer: CEEV AUTOFILE ([id number]) Potassium [Moles/Vol] 4.5 mmol/L (3.7-5.3 ) [facility] Comment on above: Note: Responsible Ob server support technician: CEEV AUTOFILE ([id number]) Protein [Mass/Vol] 6.8 g/dL (6.4-8.3 ) [facility] Comment on above: Note: Responsible Ob server support technician: CEEV AUTOFILE ([id number]) Sodium [Moles/Vol] 140 mmol/L (135-144 ) [facility] Comment on above: Note: Responsible Ob server support technician: CEEV AUTOFILE ([id number]) Triglyceride [Mass/Vol] 278 mg/dL High (<150 ) [facility] Comment on above: Note: Triglyceride G uidelines:<150 [id number] [id number] High>499 Very highBased on AHA Guidelines for fasting triglyceride, November 2011.Responsible Observer: CEEV [employer]FILE ([id number]) Urea nitrogen [Mass/Vol] 14 mg/dL (8-23 ) [facility] Comment on above: Note: Responsible Ob server support technician: CEEV [employer]FILE ([id number]) Laboratory - Hematology and Cell countson 12-06-2022 Basophils/100 WBC (Bld) 0 % (0-2 ) [facility] Comment on above: Note: Responsible Ob server support technician: XNV AUTOFILE (3018) Eosinophils (Bld) [#/Vol] 0.07 10*3/uL (0.00-0.44 ) [facility] Comment on above: Note: Responsible Ob server support technician: XNV AUTOFILE ([id number]) Eosinophils/100 WBC (Bld) 1 % (1-4 ) [facility] Comment on above: Note: Responsible Ob server support technician: XNV AUTOFILE ([id number]) Erythrocyte distribution width (RBC) [Ratio] 13.2 % (11.8-14.4 ) [facility] Comment on above: Note: Responsible Ob server support technician: XNV AUTOFILE ([id number]) Hematocrit (Bld) [Volume fraction] 48.9 % High (36.3-47.1 ) [facility] Comment on above: Note: Responsible Ob server support technician: XNV AUTOFILE ([id number]) Hemoglobin (Bld) [Mass/Vol] 15.6 g/dL High (11.9-15.1 ) [facility] Comment on above: Note: Responsible Ob server support technician: XNV AUTOFILE ([id number]) Immature granulocytes/100 WBC (Bld) 0 % (0 ) [facility] Comment on above: Note: Responsible Ob server support technician: XNV AUTOFILE ([id number]) Lymphocytes (Bld) [#/Vol] 1.69 10*3/uL (1.10-3.70 ) [facility] Comment on above: Note: Responsible Ob server support technician: XNV AUTOFILE (3018) Lymphocytes/100 WBC (Bld) 22 % Low (24-43 ) [facility] Comment on above: Note: Responsible Ob server support technician: XNV AUTOFILE ([id number]) MCH (RBC) [Entitic mass] 33.7 pg High (25.2-33.5 ) [facility] Comment on above: Note: Responsible Ob server support technician: XNV AUTOFILE ([id number]) MCHC (RBC) [Mass/Vol] 31.9 g/dL (28.4-34.8 ) [facility] on above: Note: Responsible Ob server support technician: XNV AUTOFILE ([id number]) MCV (RBC) [Entitic vol] 105.6 fL High (82.6-102.9 ) [facility] Comment on above: Note: Responsible Ob server support technician: XNV AUTOFILE ([id number]) Monocytes (Bld) [#/Vol] 0.60 10*3/uL (0.10-1.20 ) [facility] Comment on above: Note: Responsible Ob server support technician: XNV AUTOFILE ([id number]) Monocytes/100 WBC (Bld) 8 % (3-12 ) [facility] Comment on above: Note: Responsible Ob server support technician: XNV AUTOFILE ([id number]) Platelet mean volume (Bld) [Entitic vol] 12.0 fL (8.1-13.5 ) [facility] Comment on above: Note: Responsible Ob server support technician: XNV AUTOFILE ([id number]) Platelets (Bld) [#/Vol] 223 10*3/uL (138-453 ) [facility] Comment on above: Note: Responsible Ob server support technician: XNV AUTOFILE ([id number]) RBC (Bld) [#/Vol] 4.63 10*6/uL (3.95-5.11 ) [facility] Comment on above: Note: Responsible Ob server support technician: XNV AUTOFILE ([id number]) RBC morphology finding Nom (Bld) MACROCYTOSIS PRESENT [facility] Comment on above: Note: Responsible Ob server support technician: XNV AUTOFILE ([id number]) Segmented neutrophils/100 WBC (Bld) 69 % High (36-65 ) [facility] Comment on above: Note: Responsible Ob server support technician: XNV AUTOFILE ([id number]) WBC (Bld) [#/Vol] 7.6 10*3/uL (3.5-11.3 ) [facility] Comment on above: Note: Responsible Ob server support technician: XNV AUTOFILE ([id number]) Lipid Profileon 12-06-2022 Cholesterol [Mass/Vol] 179 mg/dL Normal <200 [facility] Comment on above: Result Comment: Cholesterol Guidelines: <200 Desirable 200-240 Borderline >240 Undesirable Performed By: #### C DP, LIPR, CP, TSHX, VD25, VAGP #### [facility] [employer] [address] [place] [address] [phone] Project Management Engineer: David Valdes MD Cholesterol in HDL [Mass/Vol] 43 mg/dL Normal >40 [facility] Comment on above: Result Comment: HDL Guidelines: <40 Undesirable 40-59 Borderline >59 Desirable Performed By: #### C DP, LIPR, CP, TSHX, VD25, VAGP #### [facility] [employer] [address] [place] [address] [phone] Project Management Engineer: David Valdes MD Cholesterol in LDL [Mass/Vol] 80 mg/dL Normal 0-130 [facility] Comment on above: Result Comment: LDL Guidelines: <100 Desirable 100-129 Near to/above Desirable 130-159 Borderline >159 Undesirable Direct (measured) LDL and calculated LDL are not interchangeable tests. Performed By: #### C DP, LIPR, CP, TSHX, VD25, VAGP #### [facility] [employer] [address] [place] [address] [phone] Project Management Engineer: David Valdes MD Cholesterol.total/Chol esterol in HDL [Mass ratio] 4.2 {ratio} Normal <5 [facility] Comment on above: Performed By: #### C DP, LIPR, CP, TSHX, VD25, VAGP #### [facility] [employer] [address] [place] [address] [phone] Project Management Engineer: David Valdes MD Triglyceride [Mass/Vol] 278 mg/dL High <150 [facility] Comment on above: Result Comment: Triglyceride Guidelines: <150 Desirable 150-199 Borderline 200-499 High >499 Very high Based on AHA Guidelines for fasting triglyceride, November 2011. Performed By: #### C DP, LIPR, CP, TSHX, VD25, VAGP #### [facility] [address] [phone] Project Management Engineer: David Valdes MD No Panel Informationon 12-06 Abs. Basophil <0.03 k/uL (0.00-0.20 ) [facility] Comment on above: Note: Responsible Ob server support technician: XNV AUTOFILE ([id number]) Abs.Imm.Granulocyte <0.03 k/uL (0.00-0.30 ) [facility] Comment on above: Note: Responsible Ob server support technician: XNV AUTOFILE ([id number]) Abs.Neutrophil (Seg) 5.15 k/uL (1.50-8.10 ) [facility] Comment on above: Note: Responsible Ob server support technician: XNV AUTOFILE ([id number]) Albumin/Glob Ratio 1.7 (1.0-2.5 ) [facility] Comment on above: Note: Responsible Ob server support technician: CEEV AUTOFILE (3003) Alkaline Phos 111 U/L High (35-104 ) [facility] Comment on above: Note: Responsible Ob server support technician: CEEV AUTOFILE (3003) Edyta Negative (NEG ) [facility] Comment on above: Note: for Edyta sp .Method of testing is a DNA probe intended for detection and identification ofCandida species, Gardnerella vaginalis, and Trichomonas vaginalis nucleic acidin vaginal fluid specimens from patients with symptoms of vaginitis/vaginosis.Responsible Observer: LEVON EWING ([id number]) Gardnerella Negative (NEG ) [facility] Comment on above: Note: for Gardnerell a vaginalisResponsible Observer: LEVON EWING ([id number]) NRBC Automated 0.0 per_100_WBC (0.0 ) [facility] Comment on above: Note: Responsible Ob server support technician: XNV AUTOFILE ([id number]) Reported Physicians See Note [facility] Comment on above: Note: Reported Physi cians:Ordering: Silva, GeminiAttending: Tracy Floreseferring: Gemini Flores Source .VAGINAL SWAB [facility] Comment on above: Note: Responsible Ob server support technician: CHIQUITA MAIN ([id number]) Thyroid Stim. Horm. 2.43 uIU/mL (0.30-5.00 ) [facility] Comment on above: Note: Responsible Ob server support technician: CEEV AUTOFILE ([id number]) Trichomonas Negative (NEG ) [facility] Comment on above: Note: for Trichomona s VaginalisResponsible Observer: LEVON EWING ([id number]) Vitamin D 25 OH 58.1 ng/mL (>29.9 ) [facility] Comment on above: Note: Reference Rang e:Vitamin D status RangeDeficiency <20 ng/mLMild Deficiency 20-30 ng/mLSufficiency 30-100 ng/mLToxicity >100 ng/mLResponsible Observer: CEEV AUTOFILE ([id number]) TSH w/reflex to FT4on 2022 Thyroid Stim. Horm. 2.43 uIU/mL Normal 0.30-5.00 [facility] Comment on above: Performed By: #### C DP, LIPR, CP, TSHX, VD25, VAGP #### [facility] [employer] [address] [place], [place] [id number] Project Management Engineer: David Valdes MD Vaginitis DNA Probeon 2022 Edyta Negative Normal NEG [facility] Comment on above: Result Comment: for Edyta sp. Method of testing is a DNA probe intended for detection and identification of Edyta species, Gardnerella vaginalis, and Trichomonas vaginalis nucleic acid in vaginal fluid specimens from patients with symptoms of vaginitis/vaginosis. Performed By: #### C DP, LIPR, CP, TSHX, VD25, VAGP #### [facility] [employer] [address] [place] [id number] Project Management Engineer: David Valdes MD Gardnerella Negative Normal NEG [facility] Comment on above: Result Comment: for Gardnerella vaginalis Performed By: #### C DP, LIPR, CP, TSHX, VD25, VAGP #### [facility] [employer] [facility] [place] [address] Project Management Engineer: David Valdes MD Trichomonas Negative Normal NEG [facility] Comment on above: Result Comment: for Trichomonas Vaginalis Performed By: #### C DP, LIPR, CP, TSHX, VD25, VAGP #### [address] [address] Project Management Engineer: David Valdes MD Source .VAGINAL SWAB Normal [facility] Comment on above: Performed By: #### C DP, LIPR, CP, TSHX, VD25, VAGP #### [address] [address] Project Management Engineer: David Valdes MD Vitamin D 25 OHon 12-06-2022 Vitamin D 25 OH 58.1 ng/mL Normal >29.9 [facility] Comment on above: Result Comment: Reference Range: Vitamin D status Range Deficiency <20 ng/mL Mild Deficiency 20-30 ng/mL Sufficiency 30-100 ng/mL Toxicity >100 ng/mL Performed By: #### C DP, LIPR, CP, TSHX, VD25, VAGP #### [address] [address] Project Management Engineer: David Valdes MD LIPID PROFILEon 05-15-2022 CHOL-HDL RATIO NORM SEE BELOW Normal [facility] Comment on above: Result Comment: 3.3 - 4.4 LOW RISK 4.4 - 7.1 AVERAGE RISK 7.1 - 11.0 MODERATE RISK >11.0 HIGH RISK Performed By: #### L IPID, CMP, TSH #### [facility] [address] [place] [address] Dr. Maury Braden Cholesterol [Mass/Vol] 203 mg/dL Critically high <=200 [facility] Comment on above: Performed By: #### L IPID, CMP, TSH #### [facility] [address] [place], [place] [address] Dr. Maury Braden Cholesterol in HDL [Mass/Vol] 40 mg/dL Normal 40-60 [facility] Comment on above: Performed By: #### L IPID, CMP, TSH #### [facility] [address] [address] [address] Maury Braden Cholesterol in LDL [Mass/Vol] 104.6 mg/dL Normal [facility] Comment on above: Performed By: #### L IPID, CMP, TSH #### [facility] [address] [place] [address] Dr. Maury Braden Cholesterol.total/Chol esterol in HDL [Mass ratio] 5.1 {ratio} Normal [facility] Comment on above: Performed By: #### L IPID, CMP, TSH #### [facility] [address] [address] [address] Maury Braden HDL NORMAL > or = 60 mg/dl - LO W CARDIOVASCULAR RISK <40 mg/dl - HIGH CARDIOVASCULAR RISK Normal [facility] Comment on above: Performed By: #### L IPID, CMP, TSH #### [facility] [address] [place] [address] Dr. Maury Braden LDL CALC NORMAL SEE BELOW Normal [facility] Comment on above: Result Comment: <100 mg/dl OPTIMAL 100 - 129 mg/dl NEAR OR ABOVE OPTIMAL 130 - 159 mg/dl BORDERLINE HIGH 160 - 189 mg/dl HIGH >190 mg/dl VERY HIGH Performed By: #### L IPID, CMP, TSH #### [facility] [address] [address] [address] Maury Braden Triglyceride [Mass/Vol] 292 mg/dL Critically high <=150 [facility] Comment on above: Performed By: #### L IPID, CMP, TSH #### [facility] [address] [address] [address] Maury Braden VLDL CALC 58.4 mg/dL Normal [facility] Comment on above: Performed By: #### L IPID, CMP, TSH #### [facility] [address] [place] [address] Dr. Maury Braden PROF 14(COMP METB)on 023 Albumin [Mass/Vol] 4.0 g/dL Normal 3.4-5.0 [facility] Comment on above: Performed By: #### L IPID, CMP, TSH #### [facility] [address] [place] [address] Dr. Maury Braden Albumin/Globulin [Mass ratio] 1.2 {ratio} Normal [facility] Comment on above: Performed By: #### L IPID, CMP, TSH #### [facility] [address] [address] [address] Maury Braden ALP [Catalytic activity/Vol] 104 U/L Normal 46-116 [facility] Comment on above: Performed By: #### L IPID, CMP, TSH #### [facility] [address] [place] [address] Dr. Maury Braden ALT [Catalytic activity/Vol] 27 U/L Normal 14-59 [facility] Comment on above: Performed By: #### L IPID, CMP, TSH #### [facility] [address] [place] [address] Dr. Maury Braden Anion gap [Moles/Vol] 9.4 mmol/L Normal [facility] Comment on above: Performed By: #### L IPID, CMP, TSH #### [facility] [address] [place] [address] Dr. Maury Braden AST [Catalytic activity/Vol] 18 U/L Normal 15-37 [facility] Comment on above: Performed By: #### L IPID, CMP, TSH #### [facility] [address] [place] [address] Dr. Maury Braden Bilirubin [Mass/Vol] 0.3 mg/dL Normal 0.2-1.0 [facility] Comment on above: Performed By: #### L IPID, CMP, TSH #### [facility] [address] [place] [address] Dr. Maury Braden Calcium [Mass/Vol] 9.4 mg/dL Normal 8.5-10.1 [facility] Comment on above: Performed By: #### L IPID, CMP, TSH #### [facility] [address] [place] [address] Dr. Maury Braden Chloride [Moles/Vol] 107 mmol/L Normal 98-107 [facility] Comment on above: Performed By: #### L IPID, CMP, TSH #### [facility] [address] [address] [address] Maury Braden CO2 [Moles/Vol] 29.0 mmol/L Normal 21.0-32.0 [facility] Comment on above: Performed By: #### L IPID, CMP, TSH #### [facility] [address] [address] [address] Maury Braden Creatinine [Mass/Vol] 0.92 mg/dL Normal 0.55-1.02 [facility] Comment on above: Performed By: #### L IPID, CMP, TSH #### [facility] [address] [address] [address] Maury Braden EGFR-AF TONGAN >60 Normal >=60 [facility] Comment on above: Performed By: #### L IPID, CMP, TSH #### [facility] [address] [address] [address] Maury Braden EGFR-NON AF TONGAN >60 Normal >=60 [facility] Comment on above: Performed By: #### L IPID, CMP, TSH #### [facility] [address] [address] [address] Maury Braden Globulin (S) [Mass/Vol] 3.4 g/dL Normal [facility] Comment on above: Performed By: #### L IPID, CMP, TSH #### [facility] [address] [address] [address] Maury Braden Glucose [Mass/Vol] 91 mg/dL Normal 74-106 [facility] Comment on above: Performed By: #### L IPID, CMP, TSH #### [facility] [address] [address] [address] Maury Braden Potassium [Moles/Vol] 4.4 mmol/L Normal 3.5-5.1 [facility] Comment on above: Performed By: #### L IPID, CMP, TSH #### [facility] [address] [place] [address] Dr. Maury Braden Protein [Mass/Vol] 7.4 g/dL Normal 6.4-8.2 [facility] Comment on above: Performed By: #### L IPID, CMP, TSH #### [facility] [address] [place] [address] Dr. Maury Braden Sodium [Moles/Vol] 141 mmol/L Normal 136-145 [facility] Comment on above: Performed By: #### L IPID, CMP, TSH #### [facility] [address] [place] [address] Dr. Maury Braden Urea nitrogen [Mass/Vol] 14.0 mg/dL Normal 7.0-18.0 [facility] Comment on above: Performed By: #### L IPID, CMP, TSH #### [facility] [address] [place] [address] Dr. Maury Braden Urea nitrogen/Creatinine [Mass ratio] 15.2 mg/mg Normal [facility] Comment on above: Performed By: #### L IPID, CMP, TSH #### [facility] [address] [place] [address] Dr. Maury Braden TSHon 05-15-2022 TSH 1.407 uIU/mL Normal 0.358-3.740 [facility] Comment on above: Performed By: #### L IPID, CMP, TSH #### [facility] [address] [place] [address] Dr. Maury Braden VITAMIN D 25 OHon 05-15-2022 VIT D 25-OH 45.3 ng/mL Normal [facility] Comment on above: Performed By: #### V ITAD #### [facility] [address] [place] [address] Dr. Maury Braden VIT D RANGES SEE BELOW Normal [facility] Comment on above: Result Comment: <20 ng/mL Vit D deficient 20 - <30 ng/mL Vit D insufficient 30 - 100 ng/mL Vit D sufficient >100 ng/mL Potential Toxicity Performed By: #### V ITAD #### [facility] [address] [place] [address] [address] [address] Maury Braden MG MAMM SCREEN 3D BOBO CADon 02-16-2022 MG MAMM SCREEN 3D BOBO CAD Patient: CRISTA WOODARD Exam Date: 02/16/2022 : 1955 Gender:F Ordering : [facility] Admission #: [id number] Family : Order #: [id number] CLICK HERE TO VIEW EXAM RADIOLOGY REPORT PROCEDURE: MAMMOGRAM SCREENING 3D BILATERAL CAD COMPARISON: MG MAMM SCREEN 3D BOBO CAD, 02/15/2021. INDICATIONS: Screening mammography Calculator Name NCI Breast Cancer Risk Assessment Tool 5 Year Breast Cancer Risk 3.40% Lifetime Breast Cancer Risk 12.00% Personal Breast Cancer No Personal Ovarian Cancer No Treatments None Family Cancers Mother with breast cancer at age 19. LOCATION: [facility] BREAST COMPOSITION: Scattered areas fibroglandular density. FINDINGS: DIAGNOSTIC CATEGORY 2--BENIGN FINDING. NO CHANGE FROM COMPARISON. Scattered benign-appearing nodules are present. Scattered benign-appearing calcifications are present. Scattered benign-appearing lymph nodes are present. Minimally partially visualized bilateral calcified breast implants. RIGHT BREAST: No significant suspicious finding. Innumerable hyperdense nodules consistent with implant rupture LEFT BREAST: No significant suspicious finding. RECOMMENDATIONS: ROUTINE MAMMOGRAM AND CLINICAL EVALUATION IN 12 MONTHS. PLEASE NOTE: A NORMAL MAMMOGRAM DOES NOT EXCLUDE THE POSSIBILITY OF BREAST CANCER. A CLINICALLY SUSPICIOUS PALPABLE LUMP SHOULD BE BIOPSIED. Dictated by: Carloz Lee MD on 02/16/2022 at 11:32 Approved by: Carloz Lee MD on 02/16/2022 at 11:34 Normal [facility] Comprehensive Metabolic Pane lOrdered By: Mily Lainez on 10-15-2020 Albumin [Mass/Vol] 4.1 g/dL 3.5 - 5.2 g/dL [employer] Phone: Albumin/Globulin [Mass ratio] 1.6 {ratio} [employer] Phone: ALP (Bld) [Catalytic activity/Vol] 99 U/L 35 - 104 U/L [employer] Phone: ALT [Catalytic activity/Vol] 13 U/L 5 - 33 U/L [employer] Phone: Anion gap [Moles/Vol] 19 mmol/L High 9 - 17 mmol/L [employer] Phone: AST [Catalytic activity/Vol] 17 U/L <32 [employer] Phone: Bilirubin [Mass/Vol] mg/dL Low 0.3 - 1 .2 mg/dL [employer] Phone: Calcium [Mass/Vol] 9.6 mg/dL 8.6 - 10. 4 mg/dL [employer] Phone: Chloride [Moles/Vol] 106 mmol/L 98 - 10 7 mmol/L [employer] Phone: CO2 [Moles/Vol] 18 mmol/L Low 20 - 31 mmol/L [employer] Phone: Creatinine [Mass/Vol] 0.83 mg/dL 0.50 - 0.90 mg/dL [employer] Phone: Free PSA/Total PSA [Mass fraction] 6.7 g/dL 6.4 - 8.3 g/dL [employer] Phone: GFR >60 >60 mL/min [employer] Phone: GFR Non- >60 >60 mL/min [employer] Phone: GFR/1.73 sq M.predicted MDRD (S/P/Bld) [Vol rate/Area] [employer] Phone: Comment on above: Average GFR for 60-6 9 years old: 85 mL/min/1.73sq m Chronic Kidney Disease: <60 mL/min/1.73sq m Kidney failure: <15 mL/min/1.73sq m eGFR calculated using average adult body mass. Additional eGFR calculator available at: http://www.Gingerd/multiple_crcl_2012.htm GFR/1.73 sq M.predicted MDRD (S/P/Bld) [Vol rate/Area] NOT REPORTED [employer] Phone: Glucose [Mass/Vol] 92 mg/dL 70 - 99 mg/dL [employer] Phone: Interpretation and review of laboratory results Abnormal [employer] Phone: Potassium [Moles/Vol] 4.7 mmol/L 3.7 - 5.3 mmol/L [employer] Phone: Sodium [Moles/Vol] 143 mmol/L 135 - 144 mmol/L [employer] Phone: Urea nitrogen (BldV) [Mass/Vol] 9 mg/dL 8 - 23 mg/dL [employer] Phone: Urea nitrogen/Creatinine (Bld) [Mass ratio] NOT REPORTED [employer] Phone: [employer] Phone: Lipid, FastingOrdered By: Sara Lainez on 10-15-2020 Cholesterol [Mass/Vol] 171 mg/dL <200 [employer] Phone: Comment on above: Cholesterol Guidelines: <200 Desirable 200-240 Borderline >240 Undesirable Cholesterol in HDL [Mass/Vol] 41 mg/dL >40 [employer] Phone: Comment on above: HDL Guidelines: <40 Undesirable 40-59 Borderline >59 Desirable Cholesterol in LDL [Mass/Vol] 93 mg/dL 0 - 130 mg/dL [employer] Phone: Comment on above: LDL Guidelines: <100 Desirable 100-129 Near to/above Desirable 130-159 Borderline >159 Undesirable Direct (measured) LDL and calculated LDL are not interchangeable tests. Cholesterol in VLDL [Mass/Vol] NOT REPORTED High 1 - 30 mg/dL [employer] Phone: Cholesterol.total/Chol esterol in HDL [Mass ratio] 4.2 {ratio} <5 [employer] Phone: Interpretation and review of laboratory results Abnormal [employer] Phone: Triglyceride, Fasting 187 mg/dL High <150 [employer] Phone: Comment on above: Triglyceride Guidelines: <150 Desirable 150-199 Borderline 200-499 High >499 Very high Based on AHA Guidelines for fasting triglyceride, November 2011. [employer] Phone: TSH with ReflexOrdered By: Veronica Lainez on 10-15-2020 TSH Qn 1.61 m[IU]/L [employer] Phone: [employer] Phone: Vitamin D 25 HydroxyOrdered By: Mily Lainez on 10-15-2020 Vit D, 25-Hydroxy 30.6 ng/mL 30.0 - 100 .0 ng/mL [employer] Phone: Comment on above: Reference Range: Vitamin D status Range Deficiency <20 ng/mL Mild Deficiency 20-30 ng/mL Sufficiency 30-100 ng/mL Toxicity >100 ng/mL [employer] Phone: CBC Auto DifferentialOrdered By: Mily Lainez on 10-14-2020 Absolute Eos # 0.14 [employer] Phone: Absolute Immature Granulocyte <0.03 [employer] Phone: Absolute Lymph # 2.54 [employer] Phone: Absolute Barrow # 0.67 [employer] Phone: Basophils (Bld) [#/Vol] 10*3/uL [employer] Phone: Basophils/100 WBC (Bld) 0 % 0 - 2 % [employer] Phone: Differential Type NOT REPORTED [employer] Phone: Eosinophils/100 WBC (Bld) 2 % 1 - 4 % [employer] Phone: Hematocrit (Bld) [Volume fraction] 44.8 % 36.3 - 47.1 % [employer] Phone: Hemoglobin.gastrointes tinal spec 1 Ql (Stl) 13.6 g/dL 11.9 - 15.1 g/dL [employer] Phone: Immature granulocytes/100 WBC (Bld) 0 % 0 [employer] Phone: Interpretation and review of laboratory results Abnormal [employer] Phone: Lymphocytes/100 WBC (Bld) 32 % 24 - 43 % [employer] Phone: MCH (RBC) [Entitic mass] 31.1 pg 25.2 - 33.5 pg [employer] Phone: MCHC (RBC) [Mass/Vol] 30.4 g/dL 28.4 - 34.8 g/dL [employer] Phone: MCV (RBC) [Entitic vol] 102.3 fL 82.6 - 102.9 fL [employer] Phone: Monocytes/100 WBC (Bld) 9 % 3 - 12 % [employer] Phone: NRBC Automated 0.0 0.0 per 100 WBC [employer] Phone: Platelet distribution width (Bld) [Ratio] 14.9 % High 11.8 - 14.4 % [employer] Phone: Platelet Estimate NOT REPORTED [employer] Phone: Platelet mean volume (Bld) [Entitic vol] 11.8 fL 8.1 - 13.5 fL [employer] Phone: Platelets (Bld) [#/Vol] 230 10*3/uL [employer] Phone: RBC (Bld) [#/Vol] 4.38 10*6/uL 3.95 - 5.1 1 m/uL [employer] Phone: RBC (Bld) [#/Vol] ANISOCYTOSIS PRESENT [employer] Phone: Segmented neutrophils/100 WBC (Bld) 57 % 36 - 65 % [facility]: Segs Absolute 4.53 [facility] Phone: WBC (Bld) [#/Vol] 7.9 10*3/uL [facility] Phone: WBC (Bld) [#/Vol] NOT REPORTED [facility] Phone: [facility] Phone: Laboratory - Chemistry and C hemistry - challengeOrdered By: Mily Lainez on 10-14-2020 Albumin [Mass/Vol] 4.1 g/dL (3.5-5.2 ) [facility] Work Phone: Comment on above: Note: Responsible Ob server support technician: CCEV AUTOFILE ([id number]) ALT [Catalytic activity/Vol] 13 U/L (5-33 ) [facility] Work Phone: Comment on above: Note: Responsible Ob server support technician: CCEV AUTOFILE ([id number]) Anion gap [Moles/Vol] 19 mmol/L High (9-17 ) [facility] Work Phone: Comment on above: Note: Responsible Ob server support technician: CCEV AUTOFILE ([id number]) AST [Catalytic activity/Vol] 17 U/L (<32 ) [facility] Work Phone: Comment on above: Note: Responsible Ob server support technician: CCEV AUTOFILE ([id number]) Bilirubin [Mass/Vol] mg/dL Low (0.3-1.2 ) [facility] Work Phone: Comment on above: Note: Responsible Ob server support technician: CCEV AUTOFILE ([id number]) Calcium [Mass/Vol] 9.6 mg/dL (8.6-10.4 ) [facility] Work Phone: Comment on above: Note: Responsible Ob server support technician: CCEV AUTOFILE ([id number]) Chloride [Moles/Vol] 106 mmol/L (98-107 ) [facility] Work Phone: Comment on above: Note: Responsible Ob server support technician: CCEV AUTOFILE ([id number]) Cholesterol [Mass/Vol] 171 mg/dL (<200 ) He [facility] Work Phone: Comment on above: Note: Cholesterol Gu idelines:<200 [id number] Borderline>240 UndesirableResponsible Observer: CCEV AUTOFILE ([id number]) Cholesterol.total/Chol esterol in HDL [Mass ratio] 4.2 {ratio} (<5 ) [facility] Work Phone: Comment on above: Note: Responsible Ob server support technician: CCEV AUTOFILE ([id number]) CO2 [Moles/Vol] 18 mmol/L Low (20-31 ) [facility] Work Phone: Comment on above: Note: Responsible Ob server support technician: CCEV AUTOFILE ([id number]) Cobalamin (Vitamin B12) [Mass/Vol] 312 pg/mL (232-1245 ) [facility] Work Phone: Comment on above: Note: Responsible Ob server support technician: CEEV AUTOFILE (3003) Creatinine [Mass/Vol] 0.83 mg/dL (0.50-0.90 ) [facility] Work Phone: Comment on above: Note: Responsible Ob server support technician: CCEV AUTOFILE ([id number]) Glucose [Mass/Vol] 92 mg/dL (70-99 ) [facility] Work Phone: Comment on above: Note: Responsible Ob server support technician: CCEV AUTOFILE ([id number]) Magnesium [Mass/Vol] 41 mg/dL (>40 ) [facility] Work Phone: Comment on above: Note: HDL Guidelines :<40 [id number] Borderline>59 DesirableResponsible Observer: CCEV AUTOFILE ([id number]) Magnesium [Mass/Vol] 93 mg/dL (0-130 ) [facility] Work Phone: Comment on above: Note: LDL Guidelines :<100 [id number] Near to/above [id number] Borderline>159 UndesirableDirect (measured) LDL and calculated LDL are not interchangeable tests.Responsible Observer: CCEV AUTOFILE ([id number]) Magnesium [Mass/Vol] 187 mg/dL High (<150 ) [facility] Work Phone: Comment on above: Note: Triglyceride G uidelines:<150 [id number] [id number] High>499 Very highBased on AHA Guidelines for fasting triglyceride, November 2011.Responsible Observer: CCEV AUTOFILE ([id number]) Potassium [Moles/Vol] 4.7 mmol/L (3.7-5.3 ) [facility] Work Phone: Comment on above: Note: Responsible Ob server support technician: CCEV AUTOFILE (3002) Protein [Mass/Vol] 6.7 g/dL (6.4-8.3 ) [facility] Work Phone: Comment on above: Note: Responsible Ob server support technician: CCEV AUTOFILE (3002) Sodium [Moles/Vol] 143 mmol/L (135-144 ) [facility] Work Phone: Comment on above: Note: Responsible Ob server support technician: CCEV AUTOFILE (3002) Urea nitrogen [Mass/Vol] 9 mg/dL (8-23 ) [facility] Work Phone: Comment on above: Note: Responsible Ob server support technician: CCEV AUTOFILE ([id number]) Laboratory - Hematology and Cell countsOrdered By: Mily Lainez on 10-14-2020 Basophils/100 WBC (Bld) 0 % (0-2 ) [facility] Work Phone: Comment on above: Note: Responsible Ob server support technician: XNV AUTOFILE (3018) Eosinophils (Bld) [#/Vol] 0.14 10*3/uL (0.00-0.44 ) [facility] Work Phone: Comment on above: Note: Responsible Ob server support technician: XNV AUTOFILE (3018) Eosinophils/100 WBC (Bld) 2 % (1-4 ) [facility] Work Phone: Comment on above: Note: Responsible Ob server support technician: XNV AUTOFILE (3018) Erythrocyte distribution width (RBC) [Ratio] 14.9 % High (11.8-14.4 ) [facility] Work Phone: Comment on above: Note: Responsible Ob server support technician: XNV AUTOFILE (3018) Hematocrit (Bld) [Volume fraction] 44.8 % (36.3-47.1 ) [facility] Work Phone: Comment on above: Note: Responsible Ob server support technician: XNV AUTOFILE (3018) Hemoglobin (Bld) [Mass/Vol] 13.6 g/dL (11.9-15.1 ) [facility] Work Phone: Comment on above: Note: Responsible Ob server support technician: XNV AUTOFILE (3018) Immature granulocytes/100 WBC (Bld) 0 % (0 ) [facility] Work Phone: Comment on above: Note: Responsible Ob server support technician: XNV AUTOFILE (3018) Lymphocytes (Bld) [#/Vol] 2.54 10*3/uL (1.10-3.70 ) [facility] Work Phone: Comment on above: Note: Responsible Ob server support technician: XNV AUTOFILE (3018) Lymphocytes/100 WBC (Bld) 32 % (24-43 ) [facility] Work Phone: Comment on above: Note: Responsible Ob server support technician: XNV AUTOFILE (3018) MCH (RBC) [Entitic mass] 31.1 pg (25.2-33.5 ) [facility] Work Phone: Comment on above: Note: Responsible Ob server support technician: XNV AUTOFILE (3018) MCHC (RBC) [Mass/Vol] 30.4 g/dL (28.4-34.8 ) [facility] Work Phone: Comment on above: Note: Responsible Ob server support technician: XNV AUTOFILE (3018) MCV (RBC) [Entitic vol] 102.3 fL (82.6-102.9 ) [facility] Work Phone: Comment on above: Note: Responsible Ob server support technician: XNV AUTOFILE (3018) Monocytes (Bld) [#/Vol] 0.67 10*3/uL (0.10-1.20 ) [facility] Work Phone: Comment on above: Note: Responsible Ob server support technician: XNV AUTOFILE (3018) Monocytes/100 WBC (Bld) 9 % (3-12 ) [facility] Work Phone: Comment on above: Note: Responsible Ob server support technician: XNV AUTOFILE (3018) Platelet mean volume (Bld) [Entitic vol] 11.8 fL (8.1-13.5 ) [facility] Work Phone: Comment on above: Note: Responsible Ob server support technician: XNV AUTOFILE (3018) Platelets (Bld) [#/Vol] 230 10*3/uL (138-453 ) [facility] Work Phone: Comment on above: Note: Responsible Ob server support technician: XNV AUTOFILE (3018) RBC (Bld) [#/Vol] 4.38 10*6/uL (3.95-5.11 ) [facility] Work Phone: Comment on above: Note: Responsible Ob server support technician: XNV AUTOFILE (3018) RBC morphology finding Nom (Bld) ANISOCYTOSIS PRESENT [facility] Work Phone: Comment on above: Note: Responsible Ob server support technician: XNV AUTOFILE (3018) Segmented neutrophils/100 WBC (Bld) 57 % (36-65 ) [facility] Work Phone: Comment on above: Note: Responsible Ob server support technician: XNV AUTOFILE (3018) WBC (Bld) [#/Vol] 7.9 10*3/uL (3.5-11.3 ) [facility] Work Phone: Comment on above: Note: Responsible Ob server support technician: XNV AUTOFILE ([id number]) No Panel InformationOrdered By: Mily Lainez on 10-14-2020 (cont.) See Note [facility] Work Phone: Comment on above: Note: Average GFR fo r 60-69 years old:85 mL/min/1.73sq mChronic Kidney Disease:<60 mL/min/1.73sq mKidney failure:<15 mL/min/1.73sq meGFR calculated using average adult body mass. Additional eGFR calculatoravailable at:http://www.Gingerd/multiple_crcl_2011.htmResponsible Observer: CCEV AUTOFILE (3002) Abs. Basophil <0.03 k/uL (0.00-0.20 ) [facility] Work Phone: Comment on above: Note: Responsible Ob server support technician: XNV AUTOFILE ([id number]) Abs.Imm.Granulocyte <0.03 k/uL (0.00-0.30 ) [facility] Work Phone: Comment on above: Note: Responsible Ob server support technician: XNV AUTOFILE ([id number]) Abs.Neutrophil (Seg) 4.53 k/uL (1.50-8.10 ) [facility] Work Phone: Comment on above: Note: Responsible Ob server support technician: XNV AUTOFILE ([id number]) Albumin/Glob Ratio 1.6 (1.0-2.5 ) [facility] Work Phone: Comment on above: Note: Responsible Ob server support technician: CCEV AUTOFILE ([id number]) Alkaline Phos 99 U/L (35-104 ) [facility] Work Phone: Comment on above: Note: Responsible Ob server support technician: CCEV AUTOFILE ([id number]) Auto Diff Performed NOT REPORTED [facility] Work Phone: BUN/CRE Ratio NOT REPORTED (9-20 ) [facility] Work Phone: Cholesterol,VLDL NOT REPORTED mg/dL (1-30 ) [facility] Work Phone: Folic Acid 17.5 ng/mL (>4.8 ) [facility] Work Phone: Comment on above: Note: Responsible Ob server support technician: CEEV AUTOFILE ([id number]) GFR, Amer >60 mL/min (>60 ) [facility] Work Phone: Comment on above: Note: Responsible Ob server support technician: CCEV AUTOFILE ([id number]) GFR,non Amer >60 mL/min (>60 ) [facility] Work Phone: Comment on above: Note: Responsible Ob server support technician: CCEV AUTOFILE ([id number]) NRBC Automated 0.0 per_100_WBC (0.0 ) [facility] Work Phone: Comment on above: Note: Responsible Ob server support technician: XNV AUTOFILE ([id number]) Platelet Estimate NOT REPORTED [facility] Work Phone: Reported Physicians See Note [facility] Work Phone: Comment on above: Note: Reported Physi cians:Ordering: Von Laineztending: Mily Lainez Referring: Mily Lainez Staging: NOT REPORTED [facility] Work Phone: Thyroid Stim. Horm. 1.61 mIU/L (0.30-5.00 ) [facility] Work Phone: Comment on above: Note: Responsible Ob server support technician: ALFREDO POTTER ([id number]) Vitamin D 25 [place] 30.6 ng/mL (30.0-100.0 ) [facility] Work Phone: Comment on above: Note: Reference Rang e:Vitamin D status RangeDeficiency <20 ng/mLMild Deficiency 20-30 ng/mLSufficiency 30-100 ng/mLToxicity >100 ng/mLResponsible Observer: ALFREDO POTTER ([id number]) WBC Morphology NOT REPORTED [facility] Work Phone: Vitamin B12 & FolateOrdered By: Mily Lainez on 10-14-2020 Cobalamin (Vitamin B12) [Mass/Vol] 312 pg/mL 232 - 1245 pg/mL [facility] [employer] Work Phone: Folate 17.5 ng/mL >4.8 [employer] Work Phone: [employer] Work Phone: Cult, Bloodon 04-26-2020 Cult, Blood Specimen Description .BLOOD Special Requests LAC 20MLS Culture NO GROWTH 5 DAYS Report Status FINAL 04/26/2020 Normal [facility] Comment on above: Performed By: #### C OVID #### [facility] [address] [place] [address] [place] [address] Project Management Engineer: Robert Chin MD Cult,Bloodon 04-26-2020 Cult,Blood Specimen Description .BLOOD Special Requests RH 2 ML Culture NO GROWTH 5 DAYS Report Status FINAL 04/26/2020 Normal [facility] Comment on above: Performed By: #### C OVID #### [address] [place] [address] Project Management Engineer: Robert Chin MD Thyroxine, Freeon 04-22-2020 Thyroxine, Free 1.29 ng/dL Normal 0.93-1.70 [facility] Comment on above: Performed By: #### A LCB #### [facility] [address] [place] [address] Project Management Engineer: Carloz Alvarado MD Acetaminophenon 04-21-2020 Acetaminophen [Mass/Vol] <5 Low 10-30 [facility] Comment on above: Performed By: #### A CET #### [facility] [address] [place] [address] Project Management Engineer: Carloz Alvarado MD Ammoniaon 04-21-2020 Ammonia (P) [Mass/Vol] 20 umol/L Normal 11-41 [facility] Comment on above: Performed By: #### D AU, UAMIC #### [facility] [address] [place], [place] [id number] Project Management Engineer: Carloz Alvarado MD Brain Natri. Peptideon 04-216 Natriuretic peptide B (Bld) [Mass/Vol] 257 pg/mL Normal <300 [facility] Comment on above: Result Comment: Pro- BNP results cannot be compared to BNP results. Performed By: #### C OVID #### [facility] [address] [place], [place] [id number] Project Management Engineer: Robert Chin MD Natriuretic peptide B (Bld) [Mass/Vol] Pro-BNP Reference Range: Normal [facility] Comment on above: Result Comment: Rule Out: <300 [place] Zone: Age <50 300-450 Age 50-75 300-900 Age >75 300-1800 Usually represents mild to moderate HF but other cardiopulmonary causes cannot be ruled out. Rule In: Age <50 >450 Age 50-75 >900 Age >75 >1800 Performed By: #### C OVID #### [facility] [address] [place], [place] 2537783 Project Management Engineer: Robert Chin MD CBC with Diffon 3 Abs. Basophil <0.03 Normal 0.00-0.20 [facility] Comment on above: Performed By: #### A CET, ALCB #### [facility] [address] [place] [address] Project Management Engineer: Robert Chin MD Abs.Imm.Granulocyte <0.03 Normal 0.00-0.30 [facility] Comment on above: Performed By: #### A CET, ALCB #### [facility] [address] [place], [place] [id number] Project Management Engineer: Robert Chin MD Abs.Neutrophil (Seg) 4.27 k/uL Normal 1.50-8.10 [facility] Comment on above: Performed By: #### A CET, ALCB #### [facility] [address] [place] [address] Project Management Engineer: Robert Chin MD Basophils/100 WBC (Bld) 0 % Normal 0-2 [facility] Comment on above: Performed By: #### A CET, ALCB #### [facility] [address] [place] [address] Project Management Engineer: Robert Chin MD Eosinophils (Bld) [#/Vol] 0.05 10*3/uL Normal 0.00-0.44 [facility] Comment on above: Performed By: #### A CET, ALCB #### [address] [place] [address] Project Management Engineer: Robert Chin MD Eosinophils/100 WBC (Bld) 1 % Normal 1-4 [facility] Comment on above: Performed By: #### A CET, ALCB #### [address] [place] [address] Project Management Engineer: Robert Chin MD Erythrocyte distribution width (RBC) [Ratio] 13.1 % Normal 11.8-14.4 [facility] Comment on above: Performed By: #### A CET, ALCB #### [address] [place] [address] Project Management Engineer: Robert Chin MD Hematocrit (Bld) [Volume fraction] 47.1 % Normal 36.3-47.1 [facility] Comment on above: Performed By: #### A CET, ALCB #### [address] [place] [id number] Project Management Engineer: Robert Chin MD Hemoglobin (Bld) [Mass/Vol] 15.0 g/dL Normal 11.9-15.1 [facility] Comment on above: Performed By: #### A CET, ALCB #### [facility] [address] [place], [facility]83 Project Management Engineer: Robert Chin MD Immature granulocytes (Bld) [#/Vol] 0 % Normal 0 [facility] Comment on above: Performed By: #### A CET, ALCB #### [facility] [address] [place], [facility]83 Project Management Engineer: Robert Chin MD Lymphocytes (Bld) [#/Vol] 1.56 10*3/uL Normal 1.10-3.70 [facility] Comment on above: Performed By: #### A CET, ALCB #### [address] [place] [id number] Project Management Engineer: Robert Chin MD Lymphocytes/100 WBC (Bld) 24 % Normal 24-43 [facility] Comment on above: Performed By: #### A CET, ALCB #### [address] [place], [facility]83 Project Management Engineer: Robert Chin MD MCH (RBC) [Entitic mass] 31.1 pg Normal 25.2-33.5 [facility] Comment on above: Performed By: #### A CET, ALCB #### [address] [place] [id number] Project Management Engineer: Robert Chin MD MCHC (RBC) [Mass/Vol] 31.8 g/dL Normal 28.4-34.8 [facility] Comment on above: Performed By: #### A CET, ALCB #### [address] [place] [address] Project Management Engineer: Robert Chin MD MCV (RBC) [Entitic vol] 97.7 fL Normal 82.6-102.9 [facility] Comment on above: Performed By: #### A CET, ALCB #### [address] [place], [facility]83 Project Management Engineer: Robert Chin MD Monocytes (Bld) [#/Vol] 0.64 10*3/uL Normal 0.10-1.20 [facility] Comment on above: Performed By: #### A CET, ALCB #### [facility] [address] [place], [facility]83 Project Management Engineer: Robert Chin MD Monocytes/100 WBC (Bld) 10 % Normal 3-12 [facility] Comment on above: Performed By: #### A CET, ALCB #### [facility] [address] [place] [address] Project Management Engineer: Robert Chin MD Neutrophil (Seg) 65 % Normal 36-65 [facility] Comment on above: Performed By: #### A CET, ALCB #### [address] [place] [id number] Project Management Engineer: Robert Chin MD NRBC Automated 0.0 per 100 WBC Normal 0.0 [facility] Comment on above: Performed By: #### A CET, ALCB #### [address] [place], [facility]83 Project Management Engineer: Robert Chin MD Platelet mean volume (Bld) [Entitic vol] 11.6 fL Normal 8.1-13.5 [facility] Comment on above: Performed By: #### A CET, ALCB #### [address] [place], [facility]83 Project Management Engineer: Robert Chin MD Platelets (Bld) [#/Vol] 184 10*3/uL Normal 138-453 [facility] Comment on above: Performed By: #### A CET, ALCB #### [facility] [address] [place], [facility]83 Project Management Engineer: Robert Chin MD RBC (Bld) [#/Vol] 4.82 10*6/uL Normal 3.95-5.11 [facility] Comment on above: Performed By: #### A CET, ALCB #### [facility] [address] [place], [place] 8697383 Project Management Engineer: Robert Chin MD WBC (Bld) [#/Vol] 6.6 10*3/uL Normal 3.5-11.3 [facility] Comment on above: Performed By: #### A CET, ALCB #### [facility] [address] [place], [place] 235[address] Project Management Engineer: Robert Chin MD Auto Diff Performed NOT REPORTED Normal [facility] Comment on above: Performed By: #### A CET, ALCB #### [facility] [address] [place], [place] [id number] Project Management Engineer: Robert Chin MD Platelets (Bld) [#/Vol] NOT REPORTED Normal [facility] Comment on above: Performed By: #### A CET, ALCB #### [facility] [address] [place], [place] [address] Project Management Engineer: Robert Chin MD RBC morphology finding Nom (Bld) NOT REPORTED Normal [facility] Comment on above: Performed By: #### A CET, ALCB #### [facility] [address] [place], [place] 3468183 Project Management Engineer: Robert Chin MD WBC Morphology NOT REPORTED Normal [facility] Comment on above: Performed By: #### A CET, ALCB #### [facility] [address] [place] [address] Project Management Engineer: Robert Chin MD CT HEAD WO CONTRASTon 2020 CT HEAD WO CONTRAST EXAMINATION: CT OF THE HEAD WITHOUT CONTRAST 04/21/2020 10:15 am TECHNIQUE: CT of the head was performed without the administration of intravenous contrast. Dose modulation, iterative reconstruction, and/or weight based adjustment of the mA/kV was utilized to reduce the radiation dose to as low as reasonably achievable. COMPARISON: 09/11/2019 HISTORY: ORDERING SYSTEM PROVIDED HISTORY: Mental status change TECHNOLOGIST PROVIDED HISTORY: Mental status change Decision Support Exception->Emergency Medical Condition (MA) FINDINGS: BRAIN/VENTRICLES: The ventricular system is normal in size and configuration. There are no intra-axial or extra-axial fluid collections or mass lesions. No acute intracranial hemorrhage or midline shift. Jones/white matter differentiation appears grossly preserved. ORBITS: The visualized portion of the orbits demonstrate no acute abnormality. SINUSES: The visualized paranasal sinuses and mastoid air cells demonstrate no acute abnormality. SOFT TISSUES/SKULL: No acute abnormality of the visualized skull or soft tissues. IMPRESSION: Essentially stable examination. No convincing evidence for acute intracranial pathology. Interpreted by: Bhavin Joseph MD Signed by: Bhavin Joseph MD 04/21/20 Final result Normal [facility] Comp Metabolic Profon 2020 (cont.) Normal [facility] Comment on above: Result Comment: Aver age GFR for 60-69 years old: 85 mL/min/1.73sq m Chronic Kidney Disease: <60 mL/min/1.73sq m Kidney failure: <15 mL/min/1.73sq m eGFR calculated using average adult body mass. Additional eGFR calculator available at: http://www.[employer].Kidamom/multiple_crcl_2012.htm Performed By: #### C OVID #### [facility] [address] [place] [address] Project Management Engineer: Robert Chin MD Albumin [Mass/Vol] 3.3 g/dL Low 3.5-5.2 [facility] Comment on above: Performed By: #### C OVID #### [facility] [address] [place] [address] Project Management Engineer: Robert Chin MD Albumin/Globulin [Mass ratio] 1.4 {ratio} Normal 1.0-2.5 [facility] Comment on above: Performed By: #### C OVID #### [facility] [address] [place] [address] Project Management Engineer: Robert Chin MD Alkaline Phos 96 U/L Normal 35-104 [facility] Comment on above: Performed By: #### C OVID #### [facility] [address] [place], [place] 39[address]83 Project Management Engineer: Robert Chin MD ALT [Catalytic activity/Vol] 6 U/L Normal 5-33 [facility] Comment on above: Performed By: #### C OVID #### [facility] [address] [place], [place] 1336783 Project Management Engineer: Robert Chin MD Anion gap [Moles/Vol] 8 mmol/L Low 9-17 [facility] Comment on above: Performed By: #### C OVID #### [facility] [address] [place], [place] 4547383 Project Management Engineer: Robert Chin MD AST [Catalytic activity/Vol] 9 U/L Normal <32 [facility] Comment on above: Performed By: #### C OVID #### [facility] [address] [place], [place] 2357483 Project Management Engineer: Robert Chin MD Bilirubin Ql (U) 0.19 mg/dL Low 0.3-1.2 [facility] Comment on above: Performed By: #### C OVID #### [facility] [address] [place], [place] 07[address]83 Project Management Engineer: Robert Chin MD BUN/CRE Ratio 16 Normal 9-20 [facility] Comment on above: Performed By: #### C OVID #### [facility] [address] [place], [place] 450[address]83 Project Management Engineer: Robert Chin MD Calcium [Mass/Vol] 8.5 mg/dL Low 8.6-10.4 [facility] Comment on above: Performed By: #### C OVID #### [facility] [address] [place], [place] 884[address]83 Project Management Engineer: Robert Chin MD Chloride [Moles/Vol] 109 mmol/L High 98-107 [facility] Comment on above: Performed By: #### C OVID #### [facility] [address] [place], [place] 0834683 Project Management Engineer: Robert Chin MD CO2 [Moles/Vol] 23 mmol/L Normal 20-31 [facility] Comment on above: Performed By: #### C OVID #### [facility] [address] [place], [place] 1394583 Project Management Engineer: Robert Chin MD Creatinine [Mass/Vol] 0.64 mg/dL Normal 0.50-0.90 [facility] Comment on above: Performed By: #### C OVID #### [facility] [address] [place], [place] 2299583 Project Management Engineer: Robert Chin MD GFR, Amer >60 Normal >60 [facility] Comment on above: Performed By: #### C OVID #### [facility] [address] [place], [place] 5937083 Project Management Engineer: Robert Chin MD GFR,non Amer >60 Normal >60 [facility] Comment on above: Performed By: #### C OVID #### [facility] [address] [place], [place] 69[address]83 Project Management Engineer: Robert Chin MD Glucose [Mass/Vol] 96 mg/dL Normal 70-99 [facility] Comment on above: Performed By: #### C OVID #### [facility] [address] [place], [place] 4407283 Project Management Engineer: Robert Chin MD Potassium [Moles/Vol] 3.8 mmol/L Normal 3.7-5.3 [facility] Comment on above: Performed By: #### C OVID #### [facility] [address] [place], [place] 6822783 Project Management Engineer: Robert Chin MD Protein [Mass/Vol] 5.7 g/dL Low 6.4-8.3 [facility] Comment on above: Performed By: #### C OVID #### [facility] [address] [place], [place] 8755983 Project Management Engineer: Robert Chin MD Sodium [Moles/Vol] 140 mmol/L Normal 135-144 [facility] Comment on above: Performed By: #### C OVID #### [facility] [address] [place], [place] 9273083 Project Management Engineer: Robert Chin MD Staging: Normal [facility] Comment on above: Result Comment: Stag e 1: Some kidney damage normal GFR Stage 2: Mild kidney damage GFR 60-89 Stage 3: Moderate kidney damage GFR 30-59 Stage 4: Severe kidney damage GFR 15-29 Stage 5: Severe kidney damage GFR <15 ESRD - chronic treatment by dialysis or transplant Performed By: #### C OVID #### [facility] [address] [place], [place] 8905383 Project Management Engineer: Robert Chin MD Urea nitrogen [Mass/Vol] 10 mg/dL Normal 8-23 [facility] Comment on above: Performed By: #### C OVID #### [address] [place], [place] [address]12[address]83 Project Management Engineer: Robert Chin MD Drug Scr, Abuse, Uron 2020 Amphetamine(s),Ur Negative Normal NEG [facility] Comment on above: Performed By: #### D AU, UAMIC #### [facility] [address] [place], [place] 3092083 Project Management Engineer: Carloz Alvarado MD Barbiturate(s),Ur Negative Normal NEG [facility] Comment on above: Performed By: #### D AU, UAMIC #### [facility] [address] [place], [place] 9543183 Project Management Engineer: Carloz Alvarado MD Base excess Calc (Bld) [Moles/Vol] Negative Normal NEG [facility] Comment on above: Performed By: #### D AU, UAMIC #### [facility] [address] [place] [address] Project Management Engineer: Calroz Alvarado MD Benzodiazepine(s) Negative Normal [facility] Comment on above: Performed By: #### D AU, UAMIC #### [facility] [address] [place], [place] 5801483 Project Management Engineer: Carloz Alvarado MD Buprenorphrine, Ur Negative Normal NEG [facility] Comment on above: Performed By: #### D AU, UAMIC #### [facility] [address] [place], [place] 768[address]83 Project Management Engineer: Carloz Alvarado MD Cannabinoid(s),Ur Negative Normal [facility] Comment on above: Performed By: #### D AU, UAMIC #### [facility] [address] [place], [facility]83 Project Management Engineer: Carloz Alvarado MD Methadone Ql (U) Negative [facility] Comment on above: Performed By: #### D AU, UAMIC #### [facility] [address] [place], [place] 7558783 Project Management Engineer: Carloz Alvarado MD Methamphetamine, Ur Negative Normal [facility] Comment on above: Performed By: #### D AU, UAMIC #### [facility] [address] [place], [place] 9158183 Project Management Engineer: Carloz Alvarado MD Opiate(s), Ur Negative [facility] Comment on above: Performed By: #### D AU, UAMIC #### [facility] [address] [place], [place] 8896583 Project Management Engineer: Carloz Alvarado MD Oxycodone, Urine Negative Normal [facility] Comment on above: Performed By: #### D AU, UAMIC #### [facility] [address] [place] [address] Project Management Engineer: Carloz Alvarado MD Phencyclidine, Ur Negative Normal NEG [facility] Comment on above: Performed By: #### D AU, UAMIC #### [facility] [address] [place], [place] 4718083 Project Management Engineer: Carloz Alvarado MD Propoxyphene,Urine Negative Normal NEG [facility] Comment on above: Performed By: #### D AU, UAMIC #### [facility] [address] [place] [address] Project Management Engineer: Carloz Alvarado MD Tricyclic antidepressants Screen Ql (U) Negative Normal NEG [facility] Comment on above: Result Comment: Drug screen results are to be used for medical purposes only. All positive results are unconfirmed. Testing for employment or legal uses should be sent to a reference laboratory for confirmation. Performed By: #### D AU, UAMIC #### [facility] [address] [place], [place] [id number] Project Management Engineer: Carloz Alvarado MD Interpretive Info NOT REPORTED Normal [facility] Comment on above: Performed By: #### D AU, UAMIC #### [facility] [address] [place] [address] [place] [address] Project Management Engineer: Carloz Alvarado MD MDMA, Urine NOT REPORTED Normal NEG [facility] Comment on above: Performed By: #### D AU, UAMIC #### [facility] [address] [place] [address] Project Management Engineer: Carloz Alvarado MD Ethanol Alcoholon 04-21-2020 Ethanol [Mass/Vol] mg/dL Normal <10 [facility] Comment on above: Performed By: #### A LCB #### [facility] [address] [place] [address] Project Management Engineer: Carloz Alvarado MD Ethanol percent <0.010 Normal <0.010 [facility] Comment on above: Performed By: #### A LCB #### [facility] [address] [place] [address] [place], [place] 1933483 Project Management Engineer: Carloz Alvarado MD Lactate, Sepsison 04-21-2020 Lactic Acid, Sepsis 1.2 mmol/L Normal 0.5-1.9 [facility] Comment on above: Performed By: #### A CET #### [address] [place], [place] 270[address]383 Project Management Engineer: Carloz Alvarado MD Lactic Acid,Sep Wbld NOT REPORTED Normal 0.5-1.9 [facility] Comment on above: Performed By: #### A CET #### [address] [place], [place] 9316183 Project Management Engineer: Carloz Alvarado MD [id number] 04-21-2020 SARS-CoV-2,Rapid Not Detected Normal NOTDET [facility] Comment on above: Result Comment: Rapid NAAT: The specimen is NEGATIVE for SARS-CoV-2, the novel coronavirus associated with COVID-19. The ID NOW COVID-19 assay is designed to detect the virus that causes COVID-19 in patients with signs and symptoms of infection who are suspected of COVID-19. An individual without symptoms of COVID-19 and who is not shedding SARS-CoV-2 virus would expect to have a negative (not detected) result in this assay. Negative results should be treated as presumptive and, if inconsistent with clinical signs and symptoms or necessary for patient management, should be tested with an alternative molecular assay. Negative results do not preclude SARS-CoV-2 infection and should not be used as the sole basis for patient management decisions. Fact sheet for Healthcare Providers: https://www.fda.gov/media/150558/download Fact sheet for Patients: https://www.fda.gov/media/187077/download Methodology: Isothermal Nucleic Acid Amplification Performed By: #### C OVID #### [address] [place] [address] Project Management Engineer: Robert Chin MD Salicylateon 04-21-2020 Salicylate <1 Low 3-10 [facility] Comment on above: Performed By: #### C OVID #### [facility] [address] [place], [place] [id number] Project Management Engineer: David Valdes MD [facility] [address] [place] [address] Project Management Engineer: Robert Chin MD [facility] [address] [place], [place] [id number] Project Management Engineer: Dennis Amanda MD Thyroid Stim. Horm.on 2020 TSH Qn 1.01 m[IU]/L Normal 0.30-5.00 [facility] Comment on above: Performed By: #### A LCB #### [facility] [address] [place] [address] Project Management Engineer: Carloz Alvarado MD Troponinon 04-21-2020 Troponin I.cardiac [Mass/Vol] 8 ng/L Normal 0-14 [facility] Comment on above: Result Comment: High Sensitivity Troponin values cannot be compared with other Troponin methodologies. Patients with high levels of Biotin oral intake (i.e >5mg/day) may have falsely decreased Troponin levels. Samples collected within 8 hours of biotin intake may require additional information for diagnosis. Performed By: #### C OVID #### [facility] [address] [place] [address] Project Management Engineer: Robert Chin MD Troponin I.cardiac [Mass/Vol] NOT REPORTED Normal [facility] Comment on above: Performed By: #### C OVID #### [facility] [address] [place] [address] Project Management Engineer: Robert Chin MD Urinalysis w/ Microon 2020 ----- Normal [facility] Comment on above: Performed By: #### D AU, UAMIC #### [facility] [address] [place], [facility]83 Project Management Engineer: Carloz Alvarado MD Acetoacetic Acid,Ur Negative Normal [facility] Comment on above: Performed By: #### D AU, UAMIC #### [facility] [address] [place] [address] Project Management Engineer: Carloz Alvarado MD Bacteria LM.HPF (Urine sed) [#/Area] 4+ Abnormal NONE [facility] Comment on above: Performed By: #### D AU, UAMIC #### [address] [place], [facility]83 Project Management Engineer: Carloz Alvarado MD Bilirubin, SemiQt,Ur Negative Normal [facility] Comment on above: Performed By: #### D AU, UAMIC #### [facility] [address] [place] [address] Dr. [place], [facility]83 Project Management Engineer: Carloz Alvarado MD Color (U) YELLOW Normal YEL [facility] Comment on above: Performed By: #### D AU, UAMIC #### [address] [place], [place] [address] Project Management Engineer: Carloz Alvarado MD Epithelial cells LM.HPF (Urine sed) [#/Area] 0 TO 2 Normal 0-25 [facility] Comment on above: Performed By: #### D AU, UAMIC #### [facility] [address] [place] [address] Dr. [place], [place] [address] Project Management Engineer: Carloz Alvarado MD Glucose Ql (U) Negative Normal [facility] Comment on above: Performed By: #### D AU, UAMIC #### [facility] [address] [place] [id number] Project Management Engineer: Carloz Alvarado MD Hemoglobin, Ur Negative Normal [facility] Comment on above: Performed By: #### D AU, UAMIC #### [facility] [address] [place] [address] Dr. [place], [facility]83 Project Management Engineer: Carloz Alvarado MD Leukocyte esterase Test strip Ql (U) Negative Normal NEG [facility] Comment on above: Performed By: #### D AU, UAMIC #### [address] [place], [place] [address]83 Project Management Engineer: Carloz Alvarado MD Nitrite,Ur Positive Abnormal NEG [facility] Comment on above: Performed By: #### D AU, UAMIC #### [address] [place], [facility]83 Project Management Engineer: Carloz Alvarado MD pH (U) 7.0 [pH] Normal 5.0-9.0 [facility] Comment on above: Performed By: #### D AU, UAMIC #### [address] [place], [facility]83 Project Management Engineer: Carloz Alvarado MD Protein Ql (U) Negative Normal NEG [facility] Comment on above: Performed By: #### D AU, UAMIC #### [address] [place], [facility]83 Project Management Engineer: Carloz Alvarado MD RBC (U) [#/Vol] 0 TO 2 Normal 0-2 [facility] Comment on above: Performed By: #### D AU, UAMIC #### [address] [place], [facility]83 Project Management Engineer: Carloz Alvarado MD Specific gravity (U) [Rel density] 1.015 Normal 1.010-1.020 [facility] Comment on above: Performed By: #### D AU, UAMIC #### [address] [place], [place] 377[address]83 Project Management Engineer: Carloz Alvarado MD Turbidity CLEAR Normal CLEAR [facility] Comment on above: Performed By: #### D AU, UAMIC #### [facility] [address] [place], [place] [phone] Project Management Engineer: Carloz Alvarado MD Urobilinogen,Ur Normal Normal NORM [facility] Comment on above: Performed By: #### D AU, UAMIC #### [facility] [address] [place] [address] Project Management Engineer: Carloz Alvarado MD WBC (U) [#/Vol] 10 TO 20 Normal 0-5 [facility] Comment on above: Performed By: #### D AU, UAMIC #### [facility] [address] [place], [place] 6108183 Project Management Engineer: Carloz Alvarado MD Amorphous sediment LM Ql (Urine sed) NOT REPORTED Normal [facility] Comment on above: Performed By: #### D AU, UAMIC #### [facility] [address] [place] [address] Dr. [place], [facility]83 Project Management Engineer: Carloz Alvarado MD Casts LM.LPF (Urine sed) [#/Area] NOT REPORTED Normal [facility] Comment on above: Performed By: #### D MARK, UAMIC #### [address] [place], [facility]83 Project Management Engineer: Carloz Alvarado MD Comment NOT REPORTED Normal [facility] Comment on above: Performed By: #### D AU, UAMIC #### [facility] [address] [place], [facility]83 Project Management Engineer: Carloz Alvarado MD Crystals LM Nom (Urine sed) NOT REPORTED Normal [facility] Comment on above: Performed By: #### D AU, UAMIC #### [facility] [address] [place] [address] Project Management Engineer: Carloz Alvarado MD Epithelial, Renal NOT REPORTED Normal 0 [facility] Comment on above: Performed By: #### D AU, UAMIC #### [facility] [address] [place] [address] Dr. [place], [place] [id number] Project Management Engineer: Carloz Alvarado MD Mucus Strands NOT REPORTED Normal [facility] Comment on above: Performed By: #### D MARK, UAMIC #### [facility] [address] [place], [place] [id number] Project Management Engineer: Carloz Alvarado MD Other Observations NOT REPORTED Normal NREQ [facility] Comment on above: Performed By: #### D MARK, UAMIC #### [facility] [address] [place] [address] Dr. [place], [place] [phone] Project Management Engineer: Carloz Alvarado MD Trichomonas NOT REPORTED Normal [facility] Comment on above: Performed By: #### D MARK, UAMIC #### [address] [place], [place] [address]83 Project Management Engineer: Carloz Alvarado MD Yeast LM Ql (Urine sed) NOT REPORTED Normal [facility] Comment on above: Performed By: #### D MARK, UAMIC #### [address] [place], [place] 8180383 Project Management Engineer: Carloz Alvarado MD Venous Blood Gaseson 021 Body Temp. 37.0 Normal [facility] Comment on above: Performed By: #### A CET #### [address] [place], [place] 3653083 Project Management Engineer: Carloz Alvarado MD HCO3 (Bld) [Moles/Vol] 27.8 mmol/L Normal 24.0-30.0 [facility] Comment on above: Performed By: #### A CET #### [address] [place], [place] 8540483 Project Management Engineer: Carloz Alvarado MD Oxygen (Bld) [Partial pressure] 25.4 mm[Hg] Low 30.0-50.0 [facility] Comment on above: Performed By: #### A CET #### [facility] [address] [place], [place] 775[address]83 Project Management Engineer: Carloz Alvarado MD Oxygen saturation in Blood 45.4 % Low 60.0-85.0 [facility] Comment on above: Performed By: #### A CET #### [facility] [address] [place], [place] 333[address]83 Project Management Engineer: Carloz Alvarado MD pCO2 46.6 Normal 39-55 [facility] Comment on above: Performed By: #### A CET #### [facility] [address] [place], [place] 687[address]83 Project Management Engineer: Carloz Alvarado MD pH (Bld) 7.394 [pH] Normal 7.32-7.42 [facility] Comment on above: Performed By: #### A CET #### [facility] [address] [place], [place] 1050383 Project Management Engineer: Carloz Alvarado MD Positive Base Excess 2.3 mmol/L High 0.0-2.0 [facility] Comment on above: Performed By: #### A CET #### [facility] [address] [place], [place] 4407483 Project Management Engineer: Carloz Alvarado MD Rogelio Test NOT REPORTED Normal [facility] Comment on above: Performed By: #### A CET #### [facility] [address] [place], [place] 906[address]83 Project Management Engineer: Carloz Alvarado MD Carboxy Hgb NOT REPORTED Normal 0.0-5.0 [facility] Comment on above: Performed By: #### A CET #### [facility] [address] [place], [place] 26[address]83 Project Management Engineer: Carloz Alvarado MD FIO2 NOT REPORTED Normal [facility] Comment on above: Performed By: #### A CET #### [facility] [address] [place], [place] 559[address]83 Project Management Engineer: Carloz Alvarado MD Methemoglobin NOT REPORTED Normal 0.0-1.9 [facility] Comment on above: Performed By: #### A CET #### [facility] [address] [place] [address] Project Management Engineer: Carloz Alvarado MD Mode NOT REPORTED Normal [facility] Comment on above: Performed By: #### A CET #### [facility] [address] [place] [address] Project Management Engineer: Carloz Alvarado MD Negative Base Excess NOT REPORTED Normal 0.0-2.0 [facility] Comment on above: Performed By: #### A CET #### [facility] [address] [place] [address] Project Management Engineer: Carloz Alvarado MD Notification Time NOT REPORTED Normal [facility] Comment on above: Performed By: #### A CET #### [facility] [address] [place] [address] Project Management Engineer: Carloz Alvarado MD Notification: NOT REPORTED Normal [facility] Comment on above: Performed By: #### A CET #### [facility] [address] [place], [place] [phone] Project Management Engineer: Carloz Alvarado MD O2 Device/Flow/% NOT REPORTED Normal [facility] Comment on above: Performed By: #### A CET #### [facility] [address] [place] [address] Project Management Engineer: Carloz Alvarado MD Oxyhemoglobin NOT REPORTED Normal 95.0-98.0 [facility] Comment on above: Performed By: #### A CET #### [facility] [address] [place] [address] Project Management Engineer: Carloz Alvarado MD Pco2 Adj'd for Temp. NOT REPORTED Normal 39.0-55.0 [facility] Comment on above: Performed By: #### A CET #### [facility] [address] [place], [place] 47[address]83 Project Management Engineer: Carloz Alvarado MD PEEP/CPAP NOT REPORTED Normal [facility] Comment on above: Performed By: #### A CET #### [facility] [address] [place], [place] 4066283 Project Management Engineer: Carloz Alvarado MD pH Adjst'd for Temp. NOT REPORTED Normal 7.320-7.420 [facility] Comment on above: Performed By: #### A CET #### [facility] [address] [place], [place] 347[address]83 Project Management Engineer: Carloz Alvarado MD pO2 Adj'd for Temp. NOT REPORTED Normal 30.0-50.0 [facility] Comment on above: Performed By: #### A CET #### [facility] [address] [place], [facility]83 Project Management Engineer: Carloz Alvarado MD PSV NOT REPORTED Normal [facility] Comment on above: Performed By: #### A CET #### [address] [place], [facility]83 Project Management Engineer: Carloz Alvarado MD Pt. Position NOT REPORTED Normal [facility] Comment on above: Performed By: #### A CET #### [facility] [address] [place], [facility]83 Project Management Engineer: Carloz Alvarado MD Set Rate NOT REPORTED Normal [facility] Comment on above: Performed By: #### A CET #### [address] [place], [place] 7[address]83 Project Management Engineer: Carloz Alvarado MD Site Drawn NOT REPORTED Normal [facility] Comment on above: Performed By: #### A CET #### [facility] [address] [place], [place] 4514783 Project Management Engineer: Carloz Alvarado MD Text for Respiratory NOT REPORTED Normal [facility] Comment on above: Performed By: #### A CET #### [facility] [address] [place], [place] 737[address]83 Project Management Engineer: Carloz Alvarado MD Total Hb NOT REPORTED Normal 12.0-16.0 [facility] Comment on above: Performed By: #### A CET #### [facility] [address] [place] [address] Project Management Engineer: Carloz Alvarado MD Total Rate NOT REPORTED Normal [facility] Comment on above: Performed By: #### A CET #### [facility] [address] [place], [place] 6853183 Project Management Engineer: Carloz Alvarado MD [place] NOT REPORTED Normal [facility] Comment on above: Performed By: #### A CET #### [facility] [address] [place], [place] 84[address]83 Project Management Engineer: Carloz Alvarado MD XR CHEST 1 VIEWon 04-21-2020 XR CHEST 1 VIEW EXAMINATION: ONE XRAY VIEW OF THE CHEST 04/21/2020 10:16 am COMPARISON: 09/13/2019 HISTORY: ORDERING SYSTEM PROVIDED HISTORY: Mental status change TECHNOLOGIST PROVIDED HISTORY: Mental status change FINDINGS: The cardiac silhouette is normal in size. The lungs are hyperinflated with generalized interstitial prominence, suggestive of underlying COPD. No focal airspace consolidation, sizeable pleural effusion or pneumothorax. Chronic fracture deformity of the proximal left humerus. No acute osseous abnormality identified. IMPRESSION: No convincing evidence for acute cardiopulmonary pathology. Findings suggestive underlying COPD. Interpreted by: Bhavin Joseph MD Signed by: Bhavin Joseph MD 04/21/20 Final result Normal [facility] [id number] 09-22-2019 SARS-CoV-2 Not Detected Normal Not Detected [facility] Comment on above: Result Comment: (NOT E) This test was developed and its performance characteristics determined by [employer]. This test has not been FDA cleared or approved. This test has been authorized by FDA under an Emergency Use Authorization (EUA). This test is only authorized for the duration of time the declaration that circumstances exist justifying the authorization of the emergency use of in vitro diagnostic tests for detection of SARS-CoV-2 virus and/or diagnosis of COVID-19 infection under section 564(b)(1) of the Act, 21 U.S.C. 360bbb-3(b)(1), unless the authorization is terminated or revoked sooner. When diagnostic testing is negative, the possibility of a false negative result should be considered in the context of a patient's recent exposures and the presence of clinical signs and symptoms consistent with COVID-19. An individual without symptoms of COVID-19 and who is not shedding SARS-CoV-2 virus would expect to have a negative (not detected) result in this assay. Performed At: [facility] [address] [facility] [place] [id number] Katt Martin MD Ph:[phone] Performed By: #### C OVID #### [address] [place] [address] Project Management Engineer: Robert Chin MD Cult, Blood 09-18-2019 Cult, Blood Specimen Description .BLOOD Special Requests 2 ML RH Culture NO GROWTH 5 DAYS Report Status FINAL 09/18/2019 [facility] Comment on above: Performed By: #### A LCB #### [address] [place] [address] Project Management Engineer: Carloz Alvarado MD Cult,[facility] 09-18-2019 Cult,Blood Specimen Description .BLOOD Special Requests LAC 8ML Culture NO GROWTH 5 DAYS Report Status FINAL 09/18/2019 [facility] Comment on above: Performed By: #### B C #### [address] [place] [address] Project Management Engineer: Robert Chin MD Cult, Bloodon 09-16-2019 Cult, Blood Specimen Description .BLOOD Special Requests LAC Culture NO GROWTH 5 DAYS Report Status FINAL 09/16/2019 [facility] Comment on above: Performed By: #### A CET #### [facility] [address] [place] [address] Project Management Engineer: Carloz Alvarado MD Cult,Bloodon 09-16-2019 Cult,Blood Specimen Description .BLOOD Special Requests L HAND Culture NO GROWTH 5 DAYS Report Status FINAL 09/16/2019 [facility] Comment on above: Performed By: #### B C #### [facility] [address] [place] [address] Project Management Engineer: Robert Chin MD Cult,Urineon 09-14-2019 Cult,Urine Specimen Description .CATHETERIZED URINE Special Requests NOT REPORTED Culture NO GROWTH Report Status FINAL 09/14/2019 [facility] Comment on above: Performed By: #### A CET, ALCB #### [facility] [address] [place] [address] Project Management Engineer: Robert Chin MD Cult,Urine Specimen Description .CATHETERIZED URINE Special Requests NOT REPORTED Culture KLEBSIELLA PNEUMONIAE 10 to 50,000 CFU/ML Report Status FINAL 09/14/2019 SUSCEPTIBILITY Organism KLEBSIELLA PNEUMONIAE Method TALIA Amikacin NOT REPORTED Ampicillin >=32 RESISTANT Ampicillin/Sulbactam NOT REPORTED Aztreonam <=1 SUSCEPTIBLE Cefazolin <=4 SUSCEPTIBLE Cefazolin sensitivity results can be used to predict the effectiveness of oral cephalosporins (eg. Cephalexin) in uncomplicated Urinary Tract Infections due to E. coli, K. pneumoniae, and P. mirabilis Cefepime NOT REPORTED Ceftriaxone <=1 SUSCEPTIBLE Ciprofloxacin <=0.25 SUSCEPTIBLE Ertapenem NOT REPORTED ESBL NEGATIVE Gentamicin <=1 SUSCEPTIBLE Meropenem NOT REPORTED Nitrofurantoin 128 RESISTANT Tigecycline NOT REPORTED Tobramycin <=1 SUSCEPTIBLE Trimethoprim/Sulfa <=20 SUSCEPTIBLE Piperacillin/Tazobactam <=4 SUSCEPTIBLE [facility] Comment on above: Performed By: #### A CET, ALCB #### [facility] [address] [place] [address] Project Management Engineer: Robert Chin MD APTTon 09-13-2019 aPTT Coag (Bld) [Time] 25.0 s Normal 23.9-33.8 [facility] Comment on above: Result Comment: IV Heparin Therapy Range: 62.0-94.0 Performed By: #### A LCB #### [facility] [address] [place] [address] Project Management Engineer: Carloz Alvarado MD aPTT Coag (Bld) [Time] 25.0 s [place], [place] Comment on above: IV Heparin Therapy Range: 62.0-94.0 CBC auto differentialon 08-0 -2019 Basophils (Bld) [#/Vol] 10*3/uL [place] Basophils/100 WBC (Bld) 0 % 0 - 2 % [place] Differential Type NOT REPORTED [place] Eosinophils (Bld) [#/Vol] 0.28 10*3/uL [place] Eosinophils/100 WBC (Bld) 3 % 1 - 4 % [place] Erythrocyte distribution width (RBC) [Ratio] 14.0 % 11.8 - 14.4 % [place] Hematocrit (Bld) [Volume fraction] 39.9 % 36.3 - 47.1 % [place] Hemoglobin (Bld) [Mass/Vol] 12.2 g/dL 11.9 - 15.1 g/dL [place] Immature granulocytes (Bld) [#/Vol] 0 % 0 [place] Immature granulocytes (Bld) [#/Vol] 0.03 10*3/uL [place] Interpretation and review of laboratory results Abnormal [place] Lymphocytes (Bld) [#/Vol] 1.28 10*3/uL [place] Lymphocytes/100 WBC (Bld) 14 % Low 24 - 43 % [place] MCH (RBC) [Entitic mass] 30.0 pg 25.2 - 33.5 pg [place] MCHC (RBC) [Mass/Vol] 30.6 g/dL 28.4 - 34.8 g/dL [place] MCV (RBC) [Entitic vol] 98.3 fL 82.6 - 102.9 fL [place] Monocytes (Bld) [#/Vol] 0.55 10*3/uL [place] Monocytes/100 WBC (Bld) 6 % 3 - 12 % [place] Platelet mean volume (Bld) [Entitic vol] 11.9 fL 8.1 - 13.5 fL [place] Platelets (Bld) [#/Vol] NOT REPORTED [place] Platelets (Bld) [#/Vol] 247 10*3/uL [place] RBC (Bld) [#/Vol] 4.06 10*6/uL 3.95 - 5.1 1 m/uL [place] RBC morphology finding Nom (Bld) NOT REPORTED [place] Segmented neutrophils/100 WBC (Bld) 77 % High 36 - 65 % [place] Segs Absolute 6.87 [place] WBC (Bld) [#/Vol] 0.0 10*3/uL 0.0 per 10 0 WBC [place] WBC (Bld) [#/Vol] 9.0 10*3/uL [place] WBC Morphology NOT REPORTED [place] CBC with Diffon 09-13-2019 Abs. Basophil <0.03 Normal 0.00-0.20 [facility] Comment on above: Performed By: #### A LCB #### [facility] [address] [place] [address] [place] [address] Project Management Engineer: Carloz Alvarado MD Abs.Imm.Granulocyte 0.03 k/uL Normal 0.00-0.30 [facility] Comment on above: Performed By: #### A LCB #### [address] [place] [address] Project Management Engineer: Carloz Alvarado MD Abs.Neutrophil (Seg) 6.87 k/uL Normal 1.50-8.10 [facility] Comment on above: Performed By: #### A LCB #### [address] [place] [phone] Project Management Engineer: Carloz Alvarado MD Basophils/100 WBC (Bld) 0 % Normal 0-2 [facility] Comment on above: Performed By: #### A LCB #### [facility] [address] [place], [place] [phone] Project Management Engineer: Carloz Alvarado MD Eosinophils (Bld) [#/Vol] 0.28 10*3/uL Normal 0.00-0.44 [facility] Comment on above: Performed By: #### A LCB #### [facility] [address] [place], [place] 460[address]83 Project Management Engineer: Carloz Alvarado MD Eosinophils/100 WBC (Bld) 3 % Normal 1-4 [facility] Comment on above: Performed By: #### A LCB #### [address] [place], [facility]83 Project Management Engineer: Carloz Alvarado MD Erythrocyte distribution width (RBC) [Ratio] 14.0 % Normal 11.8-14.4 [facility] Comment on above: Performed By: #### A LCB #### [address] [place], [place] 0462[address] Project Management Engineer: Carloz Alvarado MD Hematocrit (Bld) [Volume fraction] 39.9 % Normal 36.3-47.1 [facility] Comment on above: Performed By: #### A LCB #### [address] [place], [place] 7823583 Project Management Engineer: Carloz Alvarado MD Hemoglobin (Bld) [Mass/Vol] 12.2 g/dL Normal 11.9-15.1 [facility] Comment on above: Performed By: #### A LCB #### [address] [place] [address] Project Management Engineer: Carloz Alvarado MD Immature granulocytes (Bld) [#/Vol] 0 % Normal 0 [facility] Comment on above: Performed By: #### A LCB #### [facility] [address] [address] [place], [place] [id number] Project Management Engineer: Carloz Alvarado MD Lymphocytes (Bld) [#/Vol] 1.28 10*3/uL Normal 1.10-3.70 [facility] Comment on above: Performed By: #### A LCB #### [facility] [address] [place], [place] [id number] Project Management Engineer: Carloz Alvarado MD Lymphocytes/100 WBC (Bld) 14 % Low 24-43 [facility] Comment on above: Performed By: #### A LCB #### [facility] [address] [place], [place] [id number] Project Management Engineer: Carloz Alvarado MD MCH (RBC) [Entitic mass] 30.0 pg Normal 25.2-33.5 [facility] Comment on above: Performed By: #### A LCB #### [address] [place], [place] [id number] Project Management Engineer: Carloz Alvarado MD MCHC (RBC) [Mass/Vol] 30.6 g/dL Normal 28.4-34.8 [facility] Comment on above: Performed By: #### A LCB #### [address] [place], [facility]83 Project Management Engineer: Carloz Alvarado MD MCV (RBC) [Entitic vol] 98.3 fL Normal 82.6-102.9 [facility] Comment on above: Performed By: #### A LCB #### [address] [place] [address] Project Management Engineer: Carloz Alvarado MD Monocytes (Bld) [#/Vol] 0.55 10*3/uL Normal 0.10-1.20 [facility] Comment on above: Performed By: #### A LCB #### [facility] [address] [place], [place] [id number] Project Management Engineer: Carloz Alvarado MD Monocytes/100 WBC (Bld) 6 % Normal 3-12 [facility] Comment on above: Performed By: #### A LCB #### [facility] [address] [place], [place] [id number] Project Management Engineer: Carloz Alvarado MD Neutrophil (Seg) 77 % High 36-65 [facility] Comment on above: Performed By: #### A LCB #### [facility] [address] [place], [place] 706[address]83 Project Management Engineer: Carloz Alvarado MD NRBC Automated 0.0 per 100 WBC Normal 0.0 [facility] Comment on above: Performed By: #### A LCB #### [address] [place], [place] [id number] Project Management Engineer: Carloz Alvarado MD Platelet mean volume (Bld) [Entitic vol] 11.9 fL Normal 8.1-13.5 [facility] Comment on above: Performed By: #### A LCB #### [address] [place], [place] 235[address]83 Project Management Engineer: Carloz Alvarado MD Platelets (Bld) [#/Vol] 247 10*3/uL Normal 138-453 [facility] Comment on above: Performed By: #### A LCB #### [facility] [address] [place] [address] [place] [place], [place] [id number] Project Management Engineer: Carloz Alvarado MD RBC (Bld) [#/Vol] 4.06 10*6/uL Normal 3.95-5.11 [facility] Comment on above: Performed By: #### A LCB #### [address] [place] [address] Project Management Engineer: Carloz Alvarado MD WBC (Bld) [#/Vol] 9.0 10*3/uL Normal 3.5-11.3 [facility] Comment on above: Performed By: #### A LCB #### [facility] [address] [place] [address] [place], [place] [address] Project Management Engineer: Carloz Alvarado MD Auto Diff Performed NOT REPORTED Normal [facility] Comment on above: Performed By: #### A LCB #### [facility] [address] [place] [address] [place] [address] Project Management Engineer: Carloz Alvarado MD Platelets (Bld) [#/Vol] NOT REPORTED Normal [facility] Comment on above: Performed By: #### A LCB #### [address] [place], [place] [id number] Project Management Engineer: Carloz Alvarado MD RBC morphology finding Nom (Bld) NOT REPORTED Normal [facility] Comment on above: Performed By: #### A LCB #### [facility] [address] [place] [address] [place] [address] Project Management Engineer: Carloz Alvarado MD WBC Morphology NOT REPORTED Normal [facility] Comment on above: Performed By: #### A LCB #### [address] [place], [place] [phone] Project Management Engineer: Carloz Alvarado MD CT ABDOMEN PELVIS W IV CONTR Ronda 09-13-2019 CT ABDOMEN PELVIS W IV CONTRAST EXAMINATION: CT OF THE ABDOMEN AND PELVIS WITH CONTRAST 09/13/2019 12:25 pm TECHNIQUE: CT of the abdomen and pelvis was performed with the administration of intravenous contrast. Multiplanar reformatted images are provided for review. Dose modulation, iterative reconstruction, and/or weight based adjustment of the mA/kV was utilized to reduce the radiation dose to as low as reasonably achievable. COMPARISON: None. HISTORY: ORDERING SYSTEM PROVIDED HISTORY: pain TECHNOLOGIST PROVIDED HISTORY: pain Unresponsive. FINDINGS: Lower Chest: Small right-sided pleural effusion with associated compressive atelectasis involving the right lower lobe. Partially visualized, partially calcified right breast prosthesis with adjacent hyperdense material seen laterally likely relating to extracapsular rupture. Partially visualized left breast prosthesis. Organs: Focal fatty infiltration is seen along the falciform ligament. Gallbladder, portal vein, spleen, pancreas and adrenal glands all appear unremarkable. No enhancing renal mass or hydronephrosis. Abdominal aorta demonstrates mild calcification without aneurysm. GI/Bowel: Stomach is grossly unremarkable. Small bowel appears nondilated. Sigmoid diverticulosis. Descending colon diverticulosis. No acute colonic abnormality. Pelvis: Landaverde catheter is seen decompressing the urinary bladder. Uterus is grossly unremarkable. No adnexal mass. Peritoneum/Retroperitoneu m: No free air, free fluid or lymphadenopathy. Bones/Soft Tissues: Abdominal wall demonstrates no acute findings. Skin reshma/postsurgical changes identified involving the soft tissues of the left lateral pelvis. No fluid collection. Osseous structures demonstrate partially visualized left hip hardware. Degenerative change is seen. IMPRESSION: 1. No acute intra-abdominal process. 2. Small right-sided pleural effusion. 3. Partially visualized, likely extracapsular rupture of the patient's right breast prosthesis. Finding can be confirmed by MRI. 4. Colonic diverticulosis. Interpreted by: Naveed Briones Jr., DO Signed by: Naveed Briones Jr., DO 09/13/19 Final result Normal [facility] CT ABDOMEN PELVIS W IV CONTR AST Additional Contrast? Noneon 09-13-2019 1. No acute intra-abdominal process. 2. Small right-sided pleural effusion. 3. Partially visualized, likely extracapsular rupture of the patient's right breast prosthesis. Finding can be confirmed by MRI. 4. Colonic diverticulosis. [facility] [place], [place] Vishnu, M[facility] Incoming Radiant Results From [employer] - 09/13/2019 1:03 PM EDT EXAMINATION: CT OF THE ABDOMEN AND PELVIS WITH CONTRAST 09/13/2019 12:25 pm TECHNIQUE: CT of the abdomen and pelvis was performed with the administration of intravenous contrast. Multiplanar reformatted images are provided for review. Dose modulation, iterative reconstruction, and/or weight based adjustment of the mA/kV was utilized to reduce the radiation dose to as low as reasonably achievable. COMPARISON: None. HISTORY: ORDERING SYSTEM PROVIDED HISTORY: pain TECHNOLOGIST PROVIDED HISTORY: pain Unresponsive. FINDINGS: Lower Chest: Small right-sided pleural effusion with associated compressive atelectasis involving the right lower lobe. Partially visualized, partially calcified right breast prosthesis with adjacent hyperdense material seen laterally likely relating to extracapsular rupture. Partially visualized left breast prosthesis. Organs: Focal fatty infiltration is seen along the falciform ligament. Gallbladder, portal vein, spleen, pancreas and adrenal glands all appear unremarkable. No enhancing renal mass or hydronephrosis. Abdominal aorta demonstrates mild calcification without aneurysm. GI/Bowel: Stomach is grossly unremarkable. Small bowel appears nondilated. Sigmoid diverticulosis. Descending colon diverticulosis. No acute colonic abnormality. Pelvis: Landaverde catheter is seen decompressing the urinary bladder. Uterus is grossly unremarkable. No adnexal mass. Peritoneum/Retroperitoneu m: No free air, free fluid or lymphadenopathy. Bones/Soft Tissues: Abdominal wall demonstrates no acute findings. Skin reshma/postsurgical changes identified involving the soft tissues of the left lateral pelvis. No fluid collection. Osseous structures demonstrate partially visualized left hip hardware. Degenerative change is seen. IMPRESSION: 1. No acute intra-abdominal process. 2. Small right-sided pleural effusion. 3. Partially visualized, likely extracapsular rupture of the patient's right breast prosthesis. Finding can be confirmed by MRI. 4. Colonic diverticulosis. [place], [place] EXAMINATION: CT OF T ABDOMEN AND PELVIS WITH CONTRAST 09/13/2019 12:25 pm TECHNIQUE: CT of the abdomen and pelvis was performed with the administration of intravenous contrast. Multiplanar reformatted images are provided for review. Dose modulation, iterative reconstruction, and/or weight based adjustment of the mA/kV was utilized to reduce the radiation dose to as low as reasonably achievable. COMPARISON: None. HISTORY: ORDERING SYSTEM PROVIDED HISTORY: pain TECHNOLOGIST PROVIDED HISTORY: pain Unresponsive. FINDINGS: Lower Chest: Small right-sided pleural effusion with associated compressive atelectasis involving the right lower lobe. Partially visualized, partially calcified right breast prosthesis with adjacent hyperdense material seen laterally likely relating to extracapsular rupture. Partially visualized left breast prosthesis. Organs: Focal fatty infiltration is seen along the falciform ligament. Gallbladder, portal vein, spleen, pancreas and adrenal glands all appear unremarkable. No enhancing renal mass or hydronephrosis. Abdominal aorta demonstrates mild calcification without aneurysm. GI/Bowel: Stomach is grossly unremarkable. Small bowel appears nondilated. Sigmoid diverticulosis. Descending colon diverticulosis. No acute colonic abnormality. Pelvis: Landaverde catheter is seen decompressing the urinary bladder. Uterus is grossly unremarkable. No adnexal mass. Peritoneum/Retroperitoneu m: No free air, free fluid or lymphadenopathy. Bones/Soft Tissues: Abdominal wall demonstrates no acute findings. Skin reshma/postsurgical changes identified involving the soft tissues of the left lateral pelvis. No fluid collection. Osseous structures demonstrate partially visualized left hip hardware. Degenerative change is seen. [facility]- [place], [place] Comp Metabolic Pr/rfx MGon 0 09-13-2019 (cont.) Normal [facility] Comment on above: Result Comment: Aver age GFR for 60-69 years old: 85 mL/min/1.73sq m Chronic Kidney Disease: <60 mL/min/1.73sq m Kidney failure: <15 mL/min/1.73sq m eGFR calculated using average adult body mass. Additional eGFR calculator available at: http://www.Gingerd/multiple_crcl_2011.htm Performed By: #### A LCB #### [facility] [address] [place] [address] [place] [address] Project Management Engineer: Carloz Alvarado MD Albumin [Mass/Vol] 3.3 g/dL Low 3.5-5.2 [facility] Comment on above: Performed By: #### A LCB #### [address] [place] [address] Project Management Engineer: Carloz Alvarado MD Albumin/Globulin [Mass ratio] 1.1 {ratio} Normal 1.0-2.5 [facility] Comment on above: Performed By: #### A LCB #### [address] [place] [address] Project Management Engineer: Carloz Alvarado MD Alkaline Phos 142 U/L High 35-104 [facility] Comment on above: Performed By: #### A LCB #### [facility] [address] [place] [address] [place] [address] Project Management Engineer: Carloz Alvarado MD ALT [Catalytic activity/Vol] 12 U/L Normal 5-33 [facility] Comment on above: Performed By: #### A LCB #### [facility] [address] [place], [place] [id number] Project Management Engineer: Carloz Alvarado MD Anion gap [Moles/Vol] 14 mmol/L Normal 9-17 [facility] Comment on above: Performed By: #### A LCB #### [facility] [address] [place], [place] [id number] Project Management Engineer: Carloz Alvarado MD AST [Catalytic activity/Vol] 18 U/L Normal <32 [facility] Comment on above: Performed By: #### A LCB #### [facility] [address] [place], [place] 934[address]83 Project Management Engineer: Carloz Alvarado MD Bilirubin Ql (U) 0.43 mg/dL Normal 0.3-1.2 [facility] Comment on above: Performed By: #### A LCB #### [facility] [address] [place], [place] 0781283 Project Management Engineer: Carloz Alvarado MD BUN/CRE Ratio 19 Normal 9-20 [facility] Comment on above: Performed By: #### A LCB #### [facility] [address] [place], [place] 5853783 Project Management Engineer: Carloz Alvarado MD Calcium [Mass/Vol] 9.2 mg/dL Normal 8.6-10.4 [facility] Comment on above: Performed By: #### A LCB #### [facility] [address] [place], [place] 3662183 Project Management Engineer: Carloz Alvarado MD Chloride [Moles/Vol] 100 mmol/L Normal 98-107 [facility] Comment on above: Performed By: #### A LCB #### [facility] [address] [place], [place] 5228783 Project Management Engineer: Carloz Alvarado MD CO2 [Moles/Vol] 23 mmol/L Normal 20-31 [facility] Comment on above: Performed By: #### A LCB #### [facility] [address] [place], [place] 8015383 Project Management Engineer: Carloz Alvarado MD Creatinine [Mass/Vol] 0.64 mg/dL Normal 0.50-0.90 [facility] Comment on above: Performed By: #### A LCB #### [facility] [address] [place], [place] [id number] Project Management Engineer: Carloz Alvarado MD GFR, Amer >60 Normal >60 [facility] Comment on above: Performed By: #### A LCB #### [facility] [address] [place], [place] 0559383 Project Management Engineer: Carloz Alvarado MD GFR,non Amer >60 Normal >60 [facility] Comment on above: Performed By: #### A LCB #### [facility] [address] [place], [place] [id number] Project Management Engineer: Carloz Alvarado MD Glucose [Mass/Vol] 138 mg/dL High 70-99 [facility] Comment on above: Performed By: #### A LCB #### [facility] [address] [place] [address] Project Management Engineer: Carloz Alvarado MD Potassium [Moles/Vol] 3.7 mmol/L Normal 3.7-5.3 [facility] Comment on above: Performed By: #### A LCB #### [facility] [address] [place], [place] 0[address]83 Project Management Engineer: Carloz Alvarado MD Protein [Mass/Vol] 6.4 g/dL Normal 6.4-8.3 [facility] Comment on above: Performed By: #### A LCB #### [facility] [address] [place], [place] 1906583 Project Management Engineer: Carloz Alvarado MD Sodium [Moles/Vol] 137 mmol/L Normal 135-144 [facility] Comment on above: Performed By: #### A LCB #### [facility] [address] [place] [address] Project Management Engineer: Carloz Alvarado MD Staging: Normal [facility] Comment on above: Result Comment: Stag e 1: Some kidney damage normal GFR Stage 2: Mild kidney damage GFR 60-89 Stage 3: Moderate kidney damage GFR 30-59 Stage 4: Severe kidney damage GFR 15-29 Stage 5: Severe kidney damage GFR <15 ESRD - chronic treatment by dialysis or transplant Performed By: #### A LCB #### [facility] [address] [place] [address] Project Management Engineer: Carloz Alvarado MD Urea nitrogen [Mass/Vol] 12 mg/dL Normal 8-23 [facility] Comment on above: Performed By: #### A LCB #### [facility] [address] [place] [address] Project Management Engineer: Carloz Alvarado MD Comprehensive Metabolic Pane l w/ Reflex to on 09-13-2019 Albumin [Mass/Vol] 3.3 g/dL Low 3.5 - 5.2 g/dL [place] Albumin/Globulin [Mass ratio] 1.1 {ratio} [place] ALP [Catalytic activity/Vol] 142 U/L High 35 - 104 U/L [place] ALT [Catalytic activity/Vol] 12 U/L 5 - 33 U/L [place] Anion gap [Moles/Vol] 14 mmol/L 9 - 17 mmol/L [place] AST [Catalytic activity/Vol] 18 U/L <32 [place] Bilirubin Ql (U) 0.43 mg/dL 0.3 - 1.2 mg/dL [place] Bun/Cre Ratio 19 [place] Calcium [Mass/Vol] 9.2 mg/dL 8.6 - 10. 4 mg/dL [place] Chloride [Moles/Vol] 100 mmol/L 98 - 10 7 mmol/L [place] CO2 [Moles/Vol] 23 mmol/L 20 - 31 mmol/L [place] Creatinine [Mass/Vol] 0.64 mg/dL 0.5 - 0.9 mg/dL [place] GFR >60 >60 mL/min [place] GFR Non- >60 >60 mL/min [place] Glucose [Mass/Vol] 138 mg/dL High 70 - 99 mg/dL [place] Interpretation and review of laboratory results Abnormal [place] Potassium [Moles/Vol] 3.7 mmol/L 3.7 - 5.3 mmol/L [place] Protein [Mass/Vol] 6.4 g/dL 6.4 - 8.3 g/dL [place] Sodium [Moles/Vol] 137 mmol/L 135 - 144 mmol/L [place] Urea nitrogen [Mass/Vol] 12 mg/dL 8 - 23 mg/dL [place] Lactate, Sepsison 09-13-2019 Lactic Acid, Sepsis 1.2 mmol/L Normal 0.5-1.9 [facility] Comment on above: Performed By: #### L ACDS #### [facility] [address] [place] [address] [place] [address] Project Management Engineer: Robert Chin MD Lactic Acid,Sep Wbld NOT REPORTED Normal 0.5-1.9 [facility] Comment on above: Performed By: #### L ACDS #### [facility] [address] [place] [address] Project Management Engineer: Robert Chin MD Lactic Acid, Sepsis 1.2 mmol/L 0.5 - 1. 9 mmol/L [place] Lactic Acid, Sepsis, Whole Blood NOT REPORTED 0.5 - 1.9 mmol/L [place] Metabolic Panelon 09-13-2019 GFR/1.73 sq M predicted among non-blacks MDRD (S/P/Bld) [Vol rate/Area] [place] Comment on above: Stage 1: Some kidney damage normal GFR Stage 2: Mild kidney damage GFR 60-89 Stage 3: Moderate kidney damage GFR 30-59 Stage 4: Severe kidney damage GFR 15-29 Stage 5: Severe kidney damage GFR <15 ESRD - chronic treatment by dialysis or transplant Average GFR for 60-6 9 years old: 85 mL/min/1.73sq m Chronic Kidney Disease: <60 mL/min/1.73sq m Kidney failure: <15 mL/min/1.73sq m eGFR calculated using average adult body mass. Additional eGFR calculator available at: http://www.Gingerd/multiple_crcl_2012.htm Microscopic Urinalysison Amorphous, UA NOT REPORTED None [place] Bacteria, UA RARE None [place] Casts UA NOT REPORTED /LPF [place] Crystals, UA NOT REPORTED None /HPF [place] Epithelial Cells UA 0 TO 2 [place] Interpretation and review of laboratory results Abnormal [place] Mucus, UA 2+ Abnormal None [place] Other Observations UA NOT REPORTED NOT REQ. M [place], [place] RBC (U) [#/Vol] 0 TO 2 [place] Renal Epithelial, UA NOT REPORTED 0 /HPF [place] Trichomonas, UA NOT REPORTED None [place] WBC, UA 0 TO 2 [place] Yeast, UA NOT REPORTED None [place] - [place] PTon 09-13-2019 INR Coag (PPP) [Relative time] 1.2 {INR} Normal [facility] Comment on above: Result Comment: Non-therapeutic Range: INR = 0.9-1.2 Therapeutic Range: Moderate Anticoagulant Intensity: INR = 2.0-3.0 High Anticoagulant Intensity: INR = 2.5-3.5 Performed By: #### A LCB #### [facility] [address] [place] [address] Project Management Engineer: Carloz Alvarado MD PT Coag (PPP) [Time] 15.2 s High 11.5-14.2 [facility] Comment on above: Result Comment: NOTE : NEW REFERENCE RANGE Performed By: #### A LCB #### [facility] [address] [place] [address] Project Management Engineer: Carloz Alvarado MD Procalcitoninon 09-13-2019 Procalcitonin 0.06 ng/mL Normal <0.09 [facility] Comment on above: Result Comment: Suspected Sepsis: <0.50 ng/mL Low likelihood of sepsis. 0.50-2.00 ng/mL Increased likelihood of sepsis. Antibiotics encouraged. >2.00 ng/mL High risk of sepsis/shock. Antibiotics strongly encouraged. Suspected Lower Resp Tract Infections: <0.24 ng/mL Low likelihood of bacterial infection. >0.24 ng/mL Increased likelihood of bacterial infection. Antibiotics encouraged. With successful antibiotic therapy, PCT levels should decrease rapidly. (Half-life of 24 to 36 hours.) Procalcitonin values from samples collected within the first 6 hours of systemic infection may still be low. Retesting may be indicated. Values from day 1 and day 4 can be entered into the Change in Procalcitonin Calculator (www.smycpk-abg-iqbisxqths.com) to determine the patient's Mortality Risk Prognosis In healthy neonates, plasma Procalcitonin (PCT) concentrations increase gradually after , reaching peak values at about 24 hours of age then decrease to normal values below 0.5 ng/mL by 48-72 hours of age. Performed By: #### A LCB #### [facility] [address] [place] [address] Project Management Engineer: Carloz Alvarado MD Protime-INRon 09-13-2019 INR Coag (PPP) [Relative time] 1.2 {INR} [place] Comment on above: Non-therapeutic Range: INR = 0.9-1.2 Therapeutic Range: Moderate Anticoagulant Intensity: INR = 2.0-3.0 High Anticoagulant Intensity: INR = 2.5-3.5 Interpretation and review of laboratory results Abnormal [facility] [place] PT Coag (PPP) [Time] 15.2 s High [facility], [place] Comment on above: NOTE: NEW REFERENCE RANGE Urinalysison 09-13-2019 Bilirubin Urine SMALL Abnormal NEGATIVE [place] Color, UA YELLOW YELLOW [place] Glucose, Ur Negative NEGATIVE [place] Interpretation and review of laboratory results Abnormal [place] Ketones Ql (U) 2+ Abnormal NEGATIVE [place] Leukocyte esterase Test strip Ql (U) Negative NEGATIVE [place] Nitrite, Urine Negative NEGATIVE [place] pH, UA 5.5 [place] Protein (U) [Mass/Vol] Negative NEGATIVE [place] Specific [place], UA >1.030 [place], [place] Turbidity UA CLEAR CLEAR [place] Urinalysis Comments NOT REPORTED [place] Urine Hgb Negative NEGATIVE [place] Urobilinogen, Urine Normal Normal [place] Urinalysis, Routineon 2019 Acetoacetic Acid,Ur 2+ Abnormal NEG [facility] Comment on above: Performed By: #### D AU, UAMIC #### [facility] [address] [place] [address] [place] [address] Project Management Engineer: Carloz Alvarado MD Bilirubin, SemiQt,Ur SMALL Abnormal NEG [facility] Comment on above: Performed By: #### D AU, UAMIC #### [facility] [address] [place] [address] Project Management Engineer: Carloz Alvarado MD Color (U) YELLOW Normal [facility] Comment on above: Performed By: #### D AU, UAMIC #### [facility] [address] [place] [address] Project Management Engineer: Carloz Alvarado MD Glucose Ql (U) Negative Normal [facility] Comment on above: Performed By: #### D AU, UAMIC #### [facility] [address] [place] [address] Project Management Engineer: Carloz Alvarado MD Hemoglobin, Ur Negative Normal NEG [facility] Comment on above: Performed By: #### D AU, UAMIC #### [facility] [address] [place], [place] [id number] Project Management Engineer: Carloz Alvarado MD Leukocyte esterase Test strip Ql (U) Negative Normal NEG [facility] Comment on above: Performed By: #### D AU, UAMIC #### [facility] [address] [place], [place] [id number] Project Management Engineer: Carloz Alvarado MD Nitrite,Ur Negative Normal NEG [facility] Comment on above: Performed By: #### D AU, UAMIC #### [facility] [address] [place] [address] [place], [place] [id number] Project Management Engineer: Carloz Alvarado MD pH (U) 5.5 [pH] Normal 5.0-9.0 [facility] [facility] Comment on above: Performed By: #### D AU, UAMIC #### [facility] [address] [place] [address] [place] [address] Project Management Engineer: Carloz Alvarado MD Protein Ql (U) Negative Normal [facility] Comment on above: Performed By: #### D AU, UAMIC #### [facility] [address] [place] [address] [place], [place] [phone] Project Management Engineer: Carloz Alvarado MD Specific gravity (U) [Rel density] >1.030 High 1.010-1.020 [facility] Comment on above: Performed By: #### D AU, UAMIC #### [facility] [address] [place], [place] [phone] Project Management Engineer: Carloz Alvarado MD Turbidity CLEAR Normal CLEAR [facility] Comment on above: Performed By: #### D AU, UAMIC #### [facility] [address] [place], [place] [phone] Project Management Engineer: Carloz Alvarado MD Urobilinogen,Ur Normal Normal NORM [facility] Comment on above: Performed By: #### D AU, UAMIC #### [facility] [address] [place], [place] [phone] Project Management Engineer: Carloz Alvarado MD Comment NOT REPORTED Normal [facility] Comment on above: Performed By: #### D AU, UAMIC #### [facility] [address] [place] [address] [place] [phone] Project Management Engineer: Carloz Alvarado MD Urinalysis,Microon 0 ----- Normal [facility] Comment on above: Performed By: #### A CET #### [address] [place] [address] Project Management Engineer: Carloz Alvarado MD Bacteria LM.HPF (Urine sed) [#/Area] RARE Normal NONE [facility] Comment on above: Performed By: #### A CET #### [address] [place] [address] Project Management Engineer: Carloz Alvarado MD Epithelial cells LM.HPF (Urine sed) [#/Area] 0 TO 2 Normal 0-25 [facility] Comment on above: Performed By: #### A CET #### [address] [place], [place] [phone] Project Management Engineer: Carolz Alvarado MD Mucus Strands 2+ Abnormal [facility] Comment on above: Performed By: #### A CET #### [facility] [address] [place] [address] [place] [address] Project Management Engineer: Carloz Alvarado MD RBC (U) [#/Vol] 0 TO 2 Normal 0-2 [facility] Comment on above: Performed By: #### A CET #### [address] [place], [place] [phone] Project Management Engineer: Carloz Alvarado MD WBC (U) [#/Vol] 0 TO 2 Normal 0-5 [facility] Comment on above: Performed By: #### A CET #### [facility] [address] [place] [address] Project Management Engineer: Carloz Alvarado MD Amorphous sediment LM Ql (Urine sed) NOT REPORTED Normal [facility] Comment on above: Performed By: #### A CET #### [facility] [address] [place], [place] [phone] Project Management Engineer: Carloz Alvarado MD Casts LM.LPF (Urine sed) [#/Area] NOT REPORTED Normal [facility] Comment on above: Performed By: #### A CET #### [address] [place], [place] [phone] Project Management Engineer: Carloz Alvarado MD Crystals LM Nom (Urine sed) NOT REPORTED Normal [facility] Comment on above: Performed By: #### A CET #### [address] [place], [place] [phone] Project Management Engineer: Carloz Alvarado MD Epithelial, Renal NOT REPORTED Normal 0 [facility] Comment on above: Performed By: #### A CET #### [address] [place], [place] [phone] Project Management Engineer: Carloz Alvarado MD Other Observations NOT REPORTED Normal NREQ [facility] Comment on above: Performed By: #### A CET #### [facility] [address] [place] [address] [place], [place] [phone] Project Management Engineer: Carloz Alvarado MD Trichomonas NOT REPORTED Normal [facility] Comment on above: Performed By: #### A CET #### [facility] [address] [place] [address] Project Management Engineer: Carloz Alvarado MD Yeast LM Ql (Urine sed) NOT REPORTED Normal [facility] Comment on above: Performed By: #### A CET #### [facility] [address] [place] [address] Project Management Engineer: Carloz Alvarado MD XR CHEST PORTABLEon 09-13-19 XR CHEST PORTABLE EXAMINATION: ONE XRAY VIEW OF THE CHEST 09/13/2019 12:35 pm COMPARISON: Chest September 11, 2019. HISTORY: ORDERING SYSTEM PROVIDED HISTORY: unresponsive TECHNOLOGIST PROVIDED HISTORY: unresponsive FINDINGS: Heart appears normal in size. Ill-defined opacity is seen projecting over the right lower lung field. No pneumothorax, large pleural effusion or free air. Questionable subacute fracture involving the left humeral head/neck. IMPRESSION: 1. Ill-defined opacity is seen projecting over the right lower lung field, new since the September 11, 2019 study. Finding could represent overlapping vascular structures, however developing pneumonia cannot be excluded. 2. Questionable subacute fracture involving the left humeral head/neck. Interpreted by: Naveed Briones Jr., DO Signed by: Naveed Briones Jr., DO 09/13/19 Final result Normal [facility] Vishnu, Mhpn Incoming Radiant Results From [facility] - 09/13/2019 12:53 PM EDT EXAMINATION: ONE XRAY VIEW OF THE CHEST 09/13/2019 12:35 pm COMPARISON: Chest September 11, 2019. HISTORY: ORDERING SYSTEM PROVIDED HISTORY: unresponsive TECHNOLOGIST PROVIDED HISTORY: unresponsive FINDINGS: Heart appears normal in size. Ill-defined opacity is seen projecting over the right lower lung field. No pneumothorax, large pleural effusion or free air. Questionable subacute fracture involving the left humeral head/neck. IMPRESSION: 1. Ill-defined opacity is seen projecting over the right lower lung field, new since the September 11, 2019 study. Finding could represent overlapping vascular structures, however developing pneumonia cannot be excluded. 2. Questionable subacute fracture involving the left humeral head/neck. [facility], [place] 1. Ill-defined opaci ty is seen projecting over the right lower lung field, new since the September 11, 2019 study. Finding could represent overlapping vascular structures, however developing pneumonia cannot be excluded. 2. Questionable subacute fracture involving the left humeral head/neck. [facility], [place] EXAMINATION: ONE XRA Y VIEW OF THE CHEST 09/13/2019 12:35 pm COMPARISON: Chest September 11, 2019. HISTORY: ORDERING SYSTEM PROVIDED HISTORY: unresponsive TECHNOLOGIST PROVIDED HISTORY: unresponsive FINDINGS: Heart appears normal in size. Ill-defined opacity is seen projecting over the right lower lung field. No pneumothorax, large pleural effusion or free air. Questionable subacute fracture involving the left humeral head/neck. [facility] Erythrocyte distribution width (RBC) [Ratio] 14.5 % High 11.8-14.4 [facility] Comment on above: Performed By: #### Shaun FLORES UAMIC #### [facility] [address] [place] [address] Dr. [place] [phone] Project Management Engineer: Carloz Alvarado MD Hematocrit (Bld) [Volume fraction] 32.3 % Low 36.3-47.1 [facility] Comment on above: Performed By: #### Shaun FLORES UAMIC #### [address] [place] [phone] Project Management Engineer: Carloz Alvarado MD Hemoglobin (Bld) [Mass/Vol] 10.0 g/dL Low 11.9-15.1 [facility] Comment on above: Performed By: #### Shaun FLORES UAMIC #### [address] [place] [phone] Project Management Engineer: Carloz Alvarado MD MCH (RBC) [Entitic mass] 29.9 pg Normal 25.2-33.5 [facility] Comment on above: Performed By: #### Shaun FLORES UAMIC #### [address] [place] [phone] Project Management Engineer: Carloz Alvarado MD MCHC (RBC) [Mass/Vol] 31.0 g/dL Normal 28.4-34.8 [facility] Comment on above: Performed By: #### Shaun FLORES UAMIC #### [address] [place] [phone] Project Management Engineer: Carloz Alvarado MD MCV (RBC) [Entitic vol] 96.7 fL Normal 82.6-102.9 [facility] Comment on above: Performed By: #### Shaun FLORES, UAMIC #### [facility] [address] [place], [place] [phone] Project Management Engineer: Carloz Alvarado MD NRBC Automated 0.0 per 100 WBC Normal 0.0 [facility] Comment on above: Performed By: #### Shaun FLORES, UAMIC #### [facility] [address] [place] [phone] Project Management Engineer: Carloz Alvarado MD Platelet mean volume (Bld) [Entitic vol] 11.4 fL Normal 8.1-13.5 [facility] Comment on above: Performed By: #### Shaun FLORES, UAMIC #### [address] [place] [phone] Project Management Engineer: Carloz Alvarado MD Platelets (Bld) [#/Vol] 218 10*3/uL Normal 138-453 [facility] Comment on above: Performed By: #### Shaun FLORES, UAMIC #### [address] [place], [place] [phone] Project Management Engineer: Carloz Alvarado MD RBC (Bld) [#/Vol] 3.34 10*6/uL Low 3.95-5.11 [facility] Comment on above: Performed By: #### Shaun FLORES, UAMIC #### [address] [place] [phone] Project Management Engineer: Carloz Alvarado MD WBC (Bld) [#/Vol] 7.0 10*3/uL Normal 3.5-11.3 [facility] Comment on above: Performed By: #### Shaun FLORES, UAMIC #### [facility] [address] [place], [place] [phone] Project Management Engineer: Carloz Alvarado MD Erythrocyte distribution width (RBC) [Ratio] 14.5 % High 11.8 - 14.4 % [place], [place] Hematocrit (Bld) [Volume fraction] 32.3 % Low 36.3 - 47.1 % [place] Hemoglobin (Bld) [Mass/Vol] 10.0 g/dL Low 11.9 - 15.1 g/dL [place] Interpretation and review of laboratory results Abnormal [place] MCH (RBC) [Entitic mass] 29.9 pg 25.2 - 33.5 pg [place] MCHC (RBC) [Mass/Vol] 31.0 g/dL 28.4 - 34.8 g/dL [place] MCV (RBC) [Entitic vol] 96.7 fL 82.6 - 102.9 fL [place] Platelet mean volume (Bld) [Entitic vol] 11.4 fL 8.1 - 13.5 fL [place] Platelets (Bld) [#/Vol] 218 10*3/uL [place] RBC (Bld) [#/Vol] 3.34 10*6/uL Low 3.95 - 5.1 1 m/uL [place] WBC (Bld) [#/Vol] 0.0 10*3/uL 0.0 per 10 0 WBC [place] WBC (Bld) [#/Vol] 7.0 10*3/uL [place] COVID-19on 09-12-2019 SARS-CoV-2 [place] SARS-CoV-2, PCR [place] SARS-CoV-2, Rapid Not Detected Not Detected [place], [place] Comment on above: Rapid NAAT: The specimen is NEGATIVE for SARS-CoV-2, the novel coronavirus associated with COVID-19. Negative results should be treated as presumptive and, if inconsistent with clinical signs and symptoms or necessary for patient management, should be tested with an alternative molecular assay. Negative results do not preclude SARS-CoV-2 infection and should not be used as the sole basis for patient management decisions. Fact sheet for Healthcare Providers: https://www.fda.gov/media/972264/download Fact sheet for Patients: https://www.fda.gov/media/454754/download Methodology: Isothermal Nucleic Acid Amplification Source .NASOPHARYNGEAL SWAB [facility] [place], [place] Comp Metabolic Pr/rfx MGon 0 09-12-2019 (cont.) Normal [facility] Comment on above: Result Comment: Aver age GFR for 60-69 years old: 85 mL/min/1.73sq m Chronic Kidney Disease: <60 mL/min/1.73sq m Kidney failure: <15 mL/min/1.73sq m eGFR calculated using average adult body mass. Additional eGFR calculator available at: http://www.Gingerd/multiple_crcl_2012.htm Performed By: #### Shaun FLORES UAMIC #### [facility] [address] [place] [address] Project Management Engineer: Carloz Alvarado MD Albumin [Mass/Vol] 2.8 g/dL Low 3.5-5.2 [facility] Comment on above: Performed By: #### Shaun FLORES UAMIC #### [facility] [address] [place], [place] 0563483 Project Management Engineer: Carloz Alvarado MD Albumin/Globulin [Mass ratio] 1.2 {ratio} Normal 1.0-2.5 [facility] Comment on above: Performed By: #### Shaun FLORES UAMIC #### [facility] [address] [place] [address] [place]. [place], [place] [phone] Project Management Engineer: Carloz Alvarado MD Alkaline Phos 121 U/L High 35-104 [facility] Comment on above: Performed By: #### Shaun FLORES UAMIC #### [facility] [address] [place], [place] [phone] Project Management Engineer: Carloz Alvarado MD ALT [Catalytic activity/Vol] 12 U/L Normal 5-33 [facility] Comment on above: Performed By: #### Shaun FLORES UAMIC #### [facility] [address] [place] [address] Project Management Engineer: Carloz Alvarado MD Anion gap [Moles/Vol] 10 mmol/L Normal 9-17 [facility] Comment on above: Performed By: #### D AU, UAMIC #### [facility] [address] [place], [place] [phone] Project Management Engineer: Carloz Alvarado MD AST [Catalytic activity/Vol] 9 U/L Normal <32 [facility] Comment on above: Performed By: #### D AU, UAMIC #### [facility] [address] [place], [place] 8926483 Project Management Engineer: Carloz Alvarado MD Bilirubin Ql (U) 0.28 mg/dL Low 0.3-1.2 [facility] Comment on above: Performed By: #### Shaun FLORES, UAMIC #### [facility] [address] [place], [place] [phone] Project Management Engineer: Carloz Alvarado MD BUN/CRE Ratio 35 High 9-20 [facility] Comment on above: Performed By: #### Shaun FLORES, UAMIC #### [facility] [address] [place], [place] [phone] Project Management Engineer: Carloz Alvarado MD Calcium [Mass/Vol] 8.6 mg/dL Normal 8.6-10.4 [facility] Comment on above: Performed By: #### Shaun FLORES, UAMIC #### [facility] [address] [place], [place] 1555183 Project Management Engineer: Carloz Alvarado MD Chloride [Moles/Vol] 108 mmol/L High 98-107 [facility] Comment on above: Performed By: #### Shaun AU, UAMIC #### [facility] [address] [place], [place] [phone] Project Management Engineer: Carloz Alvarado MD CO2 [Moles/Vol] 23 mmol/L Normal 20-31 [facility] Comment on above: Performed By: #### Shaun AU, UAMIC #### [facility] [address] [place], [place] [phone] Project Management Engineer: Carloz Alvarado MD Creatinine [Mass/Vol] 0.48 mg/dL Low 0.50-0.90 [facility] Comment on above: Performed By: #### D AU, UAMIC #### [facility] [address] [place], [place] 7308583 Project Management Engineer: Carloz Alvarado MD GFR, Amer >60 Normal >60 [facility] Comment on above: Performed By: #### D AU, UAMIC #### [facility] [address] [place], [place] [phone] Project Management Engineer: Carloz Alvarado MD GFR,non Amer >60 Normal >60 [facility] Comment on above: Performed By: #### Shaun FLORES, UAMIC #### [facility] [address] [place] [address] [place], [place] 3654783 Project Management Engineer: Carloz Alvarado MD Glucose [Mass/Vol] 102 mg/dL High 70-99 [facility] Comment on above: Performed By: #### D MARK, UAMIC #### [facility] [address] [place] [address] [place]. [place], [place] [phone] Project Management Engineer: Carloz Alvarado MD Potassium [Moles/Vol] 3.4 mmol/L Low 3.7-5.3 [facility] Comment on above: Performed By: #### Shaun FLORES, UAMIC #### [facility] [address] [place] [address] [place]. [place], [place] 1748483 Project Management Engineer: Carloz Alvarado MD Protein [Mass/Vol] 5.2 g/dL Low 6.4-8.3 [facility] Comment on above: Performed By: #### D AU, UAMIC #### [facility] [address] [place] [address] [place]. [place], [place] 1200083 Project Management Engineer: Carloz Alvarado MD Sodium [Moles/Vol] 141 mmol/L Normal 135-144 [facility] Comment on above: Performed By: #### D AU, UAMIC #### [facility] [address] [place] [address] Project Management Engineer: Carloz Alvarado MD Staging: Normal [facility] Comment on above: Result Comment: Stag e 1: Some kidney damage normal GFR Stage 2: Mild kidney damage GFR 60-89 Stage 3: Moderate kidney damage GFR 30-59 Stage 4: Severe kidney damage GFR 15-29 Stage 5: Severe kidney damage GFR <15 ESRD - chronic treatment by dialysis or transplant Performed By: #### D AU, UAMIC #### [facility] [address] [place] [address] Project Management Engineer: Carloz Alvarado MD Urea nitrogen [Mass/Vol] 17 mg/dL Normal 10-04 [facility] Comment on above: Performed By: #### D MARK, UAMIC #### [facility] [address] [place] [address] Project Management Engineer: Carloz Alvarado MD Comprehensive Metabolic Pane l w/ Reflex to [facility] 09-12-2019 Albumin [Mass/Vol] 2.8 g/dL Low 3.5 - 5.2 g/dL [place] Albumin/Globulin [Mass ratio] 1.2 {ratio} [place] ALP [Catalytic activity/Vol] 121 U/L High 35 - 104 U/L [place] ALT [Catalytic activity/Vol] 12 U/L 5 - 33 U/L [place] Anion gap [Moles/Vol] 10 mmol/L 9 - 17 mmol/L [place] AST [Catalytic activity/Vol] 9 U/L <32 [place] Bilirubin Ql (U) 0.28 mg/dL Low 0.3 - 1.2 mg/dL [place] Bun/Cre Ratio 35 High [place] Calcium [Mass/Vol] 8.6 mg/dL 8.6 - 10. 4 mg/dL [place] Chloride [Moles/Vol] 108 mmol/L High 98 - 10 7 mmol/L [place] CO2 [Moles/Vol] 23 mmol/L 20 - 31 mmol/L [place] Creatinine [Mass/Vol] 0.48 mg/dL Low 0.5 - 0.9 mg/dL [place] GFR >60 >60 mL/min [place] GFR Non- >60 >60 mL/min [place] Glucose [Mass/Vol] 102 mg/dL High 70 - 99 mg/dL [place] Interpretation and review of laboratory results Abnormal [place] Potassium [Moles/Vol] 3.4 mmol/L Low 3.7 - 5.3 mmol/L [place] Protein [Mass/Vol] 5.2 g/dL Low 6.4 - 8.3 g/dL [place] Sodium [Moles/Vol] 141 mmol/L 135 - 144 mmol/L [place] Urea nitrogen [Mass/Vol] 17 mg/dL 8 - 23 mg/dL [place] Magnesiumon 09-12-2019 Magnesium [Mass/Vol] 2.0 mg/dL Normal 1.6-2.6 [facility] Comment on above: Performed By: #### D AU, UAMIC #### [facility] [address] [place] [address] Project Management Engineer: Carloz Alvarado MD Magnesium [Mass/Vol] 2.0 mg/dL 1.6 - 2 .6 mg/dL [place] Metabolic Panelon 09-12-2019 GFR/1.73 sq M predicted among non-blacks MDRD (S/P/Bld) [Vol rate/Area] [place] Comment on above: Stage 1: Some kidney damage normal GFR Stage 2: Mild kidney damage GFR 60-89 Stage 3: Moderate kidney damage GFR 30-59 Stage 4: Severe kidney damage GFR 15-29 Stage 5: Severe kidney damage GFR <15 ESRD - chronic treatment by dialysis or transplant Average GFR for 60-6 9 years old: 85 mL/min/1.73sq m Chronic Kidney Disease: <60 mL/min/1.73sq m Kidney failure: <15 mL/min/1.73sq m eGFR calculated using average adult body mass. Additional eGFR calculator available at: http://www.Cogenics.com/multiple_crcl_2012.htm [id number] 09-12-2019 SARS-CoV-2 Normal [facility] Comment on above: Performed By: #### Shaun FLORES UAMIC #### [facility] [address] [place] [address] Project Management Engineer: Carloz Alvardao MD SARS-CoV-2,Rapid Not Detected Normal NOTDET [facility] Comment on above: Result Comment: Rapid NAAT: The specimen is NEGATIVE for SARS-CoV-2, the novel coronavirus associated with COVID-19. Negative results should be treated as presumptive and, if inconsistent with clinical signs and symptoms or necessary for patient management, should be tested with an alternative molecular assay. Negative results do not preclude SARS-CoV-2 infection and should not be used as the sole basis for patient management decisions. Fact sheet for Healthcare Providers: https://www.fda.gov/media/188289/download Fact sheet for Patients: https://www.fda.gov/media/248027/download Methodology: Isothermal Nucleic Acid Amplification Performed By: #### Shaun FLORES UAMIC #### [address] [place] [address] Project Management Engineer: Carloz Alvarado MD SARS-CoV-2 Source .NASOPHARYNGEAL SWAB Normal [facility] Comment on above: Performed By: #### Shaun FLORES UAMIC #### [facility] [address] [place] [address] Project Management Engineer: Carloz Alvarado MD Acetaminophenon 09-11-2019 Acetaminophen [Mass/Vol] <5 Low 10-30 [facility] Comment on above: Performed By: #### Veronica CET, ALCB #### [address] [place] [address] Project Management Engineer: Robert Chin MD Acetaminophen Levelon 2019 Acetaminophen [Mass/Vol] <5 Low 10 - 30 ug/mL [place] Interpretation and review of laboratory results Abnormal [place] Basic Metabolic Panelon 08-14 Anion gap [Moles/Vol] 18 mmol/L High 9 - 17 mmol/L [place] Bun/Cre Ratio 23 High [place] Calcium [Mass/Vol] 9.9 mg/dL 8.6 - 10. 4 mg/dL [place] Chloride [Moles/Vol] 97 mmol/L Low 98 - 10 7 mmol/L [place] CO2 [Moles/Vol] 23 mmol/L 20 - 31 mmol/L [place] Creatinine [Mass/Vol] 0.83 mg/dL 0.5 - 0.9 mg/dL [place] GFR >60 >60 mL/min [place] GFR Non- >60 >60 mL/min [place] Glucose [Mass/Vol] 117 mg/dL High 70 - 99 mg/dL [place] Potassium [Moles/Vol] 3.8 mmol/L 3.7 - 5.3 mmol/L [place] Sodium [Moles/Vol] 138 mmol/L 135 - 144 mmol/L [place] Urea nitrogen [Mass/Vol] 19 mg/dL 8 - 23 mg/dL [place] Basic Metabolic Profon 09-10 (cont.) Normal [facility] Comment on above: Result Comment: Aver age GFR for 60-69 years old: 85 mL/min/1.73sq m Chronic Kidney Disease: <60 mL/min/1.73sq m Kidney failure: <15 mL/min/1.73sq m eGFR calculated using average adult body mass. Additional eGFR calculator available at: http://www.Cogenics.Kidamom/multiple_crcl_2012.htm Performed By: #### C OVID #### [employer] [address] [place] [address] Project Management Engineer: David Valdes MD [facility] [address] [place] [address] Project Management Engineer: Robert Chin MD [facility] [address] [place] [address] Project Management Engineer: Dennis Amanda MD Anion gap [Moles/Vol] 18 mmol/L High 9-17 [facility] Comment on above: Performed By: #### C OVID #### [facility] [address] [place] [address] Project Management Engineer: David Valdes MD [facility] [address] [place], [place] [phone] Project Management Engineer: Robert Chin MD [facility] [address] [place] [address] Project Management Engineer: Dennis Amanda MD BUN/CRE Ratio 23 [facility] 9-20 [facility] Comment on above: Performed By: #### C OVID #### [address] [address] Project Management Engineer: David Valdes MD [facility] [address] [place] [address] [place], [place] [phone] Project Management Engineer: Robert Chin MD [facility] [address] [place] [address] Project Management Engineer: Dennis Amanda MD Calcium [Mass/Vol] 9.9 mg/dL Normal 8.6-10.4 [facility] Comment on above: Performed By: #### C OVID #### [address] [address] Project Management Engineer: David Valdes MD [facility] [address] [place] [address] [place], [place] [id number] Project Management Engineer: Robert Chin MD [facility] [address] [place] [address] Project Management Engineer: Dennis Amanda MD Chloride [Moles/Vol] 97 mmol/L Low 98-107 [facility] Comment on above: Performed By: #### C OVID #### [address] [place] [address] Project Management Engineer: David Valdes MD [facility] [address] [place], [place] [phone] Project Management Engineer: Robert Chin MD [facility] [address] [place] [id number] Project Management Engineer: Dennis Amanda MD CO2 [Moles/Vol] 23 mmol/L Normal 20-31 [facility] Comment on above: Performed By: #### C OVID #### [facility] [address] [place] [address] Project Management Engineer: David Valdes MD [facility] [address] [place], [place] [phone] Project Management Engineer: Robert Chin MD [facility] [address] [place] [address] Project Management Engineer: Dennis Amanda MD Creatinine [Mass/Vol] 0.83 mg/dL Normal 0.50-0.90 [facility] Comment on above: Performed By: #### C OVID #### [facility] [address] [place] [address] Project Management Engineer: David Valdes MD [facility] [address] [place], [place] [phone] Project Management Engineer: Robert Chin MD [facility] [address] [place] [address] Project Management Engineer: Dennis Amanda MD GFR, Amer >60 Normal >60 [facility] Comment on above: Performed By: #### C OVID #### [facility] [address] [place] [address] Project Management Engineer: David Valdes MD [facility] [address] [place], [place] [phone] Project Management Engineer: Robert Chin MD [facility] [address] [place], [place] [phone] Project Management Engineer: Dennis Amanda MD GFR,non Amer >60 Normal >60 [facility] Comment on above: Performed By: #### C OVID #### [facility] [address] [place] [address] Project Management Engineer: David Valdes MD [facility] [address] [place] [address] [place], [place] [phone] Project Management Engineer: Robert Chin MD [facility] [address] [place] [address] Project Management Engineer: Dennis Amanda MD Glucose [Mass/Vol] 117 mg/dL High 70-99 [facility] Comment on above: Performed By: #### C OVID #### [facility] [address] [place] [address] Project Management Engineer: David Valdes MD [facility] [address] [place] [address] [place], [place] [phone] Project Management Engineer: Robert Chin MD [facility] [address] [place] [address] Project Management Engineer: Dennis Amanda MD Potassium [Moles/Vol] 3.8 mmol/L Normal 3.7-5.3 [facility] Comment on above: Performed By: #### C OVID #### [facility] [address] [place] [address] Project Management Engineer: David Valdes MD [facility] [address] [place] [address] [place], [place] [phone] Project Management Engineer: Robert Chin MD [facility] [address] [place] [address] Project Management Engineer: Dennis Amanda MD Sodium [Moles/Vol] 138 mmol/L Normal 135-144 [facility] Comment on above: Performed By: #### C OVID #### [facility] [address] [place] [address] Project Management Engineer: David Valdes MD [facility] [address] [place], [place] [phone] Project Management Engineer: Robert Chin MD [facility] [address] [place] [address] Project Management Engineer: Dennis Amanda MD Staging: Normal [facility] Comment on above: Result Comment: Stag e 1: Some kidney damage normal GFR Stage 2: Mild kidney damage GFR 60-89 Stage 3: Moderate kidney damage GFR 30-59 Stage 4: Severe kidney damage GFR 15-29 Stage 5: Severe kidney damage GFR <15 ESRD - chronic treatment by dialysis or transplant Performed By: #### C OVID #### [facility] [address] [place] [address] Project Management Engineer: David Valdes MD [facility] [address] [place] [address] Dr. [place], [place] [phone] Project Management Engineer: Robert Chin MD [facility] [address] [place] [address] Project Management Engineer: Dennis Amanda MD Urea nitrogen [Mass/Vol] 19 mg/dL Normal 8-23 [facility] Comment on above: Performed By: #### C OVID #### [facility] [address] [place] [address] Project Management Engineer: David Valdes MD [facility] [address] [place] [address] [place], [place] [phone] Project Management Engineer: Robert Chin MD [facility] [address] [place] [address] Project Management Engineer: Dennis Amanda MD CBC Auto Differentialon 07-3 0-2020 Basophils (Bld) [#/Vol] 10*3/uL [place] Basophils/100 WBC (Bld) 0 % 0 - 2 % [place] Differential Type NOT REPORTED [place] Eosinophils (Bld) [#/Vol] 0.12 10*3/uL [place] Eosinophils/100 WBC (Bld) 1 % 1 - 4 % [place] Erythrocyte distribution width (RBC) [Ratio] 14.2 % 11.8 - 14.4 % [place] Hematocrit (Bld) [Volume fraction] 41.4 % 36.3 - 47.1 % [place] Hemoglobin (Bld) [Mass/Vol] 13.0 g/dL 11.9 - 15.1 g/dL [place] Immature granulocytes (Bld) [#/Vol] 0 % 0 [place] Immature granulocytes (Bld) [#/Vol] 0.04 10*3/uL [place] Interpretation and review of laboratory results Abnormal [place] Lymphocytes (Bld) [#/Vol] 1.74 10*3/uL [place] Lymphocytes/100 WBC (Bld) 15 % Low 24 - 43 % [place] MCH (RBC) [Entitic mass] 30.0 pg 25.2 - 33.5 pg [place] MCHC (RBC) [Mass/Vol] 31.4 g/dL 28.4 - 34.8 g/dL [place] MCV (RBC) [Entitic vol] 95.4 fL 82.6 - 102.9 fL [place] Monocytes (Bld) [#/Vol] 0.81 10*3/uL [place] Monocytes/100 WBC (Bld) 7 % 3 - 12 % [place] Platelet mean volume (Bld) [Entitic vol] 11.1 fL 8.1 - 13.5 fL [place] Platelets (Bld) [#/Vol] 344 10*3/uL [place] Platelets (Bld) [#/Vol] NOT REPORTED [place] RBC (Bld) [#/Vol] 4.34 10*6/uL 3.95 - 5.1 1 m/uL [place] RBC morphology finding Nom (Bld) NOT REPORTED [place] Segmented neutrophils/100 WBC (Bld) 77 % High 36 - 65 % [place] Segs Absolute 8.72 High [place] WBC (Bld) [#/Vol] 0.0 10*3/uL 0.0 per 10 0 WBC [place] WBC (Bld) [#/Vol] 11.5 10*3/uL [place] WBC Morphology NOT REPORTED [place] CBC with Diffon 09-11-2019 Abs. Basophil <0.03 Normal 0.00-0.20 [facility] Comment on above: Performed By: #### C OVID #### [facility] [address] [place] [address] Project Management Engineer: David Valdes MD [facility] [address] [place] [address] [place] [phone] Project Management Engineer: Robert Chin MD [facility] [address] [place] [address] Project Management Engineer: Dennis Amanda MD Abs.Imm.Granulocyte 0.04 k/uL Normal 0.00-0.30 [facility] Comment on above: Performed By: #### C OVID #### [facility] [address] [place] [address] Project Management Engineer: David Valdes MD [facility] [address] [place] [address] [place] [address] Project Management Engineer: Robert Chin MD [facility] [address] [place] [address] Project Management Engineer: Dennis Amanda MD Abs.Neutrophil (Seg) 8.72 k/uL High 1.50-8.10 [facility] Comment on above: Performed By: #### C OVID #### [facility] [address] [place] [address] Project Management Engineer: David Valdes MD [facility] [address] [place] [address] Dr. [place] [phone] Project Management Engineer: Robert Chin MD [facility] [address] [place] [address] Project Management Engineer: Dennis Amanda MD Basophils/100 WBC (Bld) 0 % Normal 0-2 [facility] Comment on above: Performed By: #### C OVID #### [address] [address] Project Management Engineer: David Valdes MD [facility] [address] [place] [address] [place], [place] [phone] Project Management Engineer: Robert Chin MD [facility] [address] [place] [address] Project Management Engineer: Dennis Amanda MD Eosinophils (Bld) [#/Vol] 0.12 10*3/uL Normal 0.00-0.44 [facility] Comment on above: Performed By: #### C OVID #### [address] [address] Project Management Engineer: David Valdes MD [facility] [address] [place] [address] [place] [phone] Project Management Engineer: Robert Chin MD [facility] [address] [place] [address] Project Management Engineer: Dennis Amanda MD Eosinophils/100 WBC (Bld) 1 % Normal 1-4 [facility] Comment on above: Performed By: #### C OVID #### [address] [address] Project Management Engineer: David Valdes MD [facility] [address] [place] [address] [place] [phone] Project Management Engineer: Robert Chin MD [facility] [address] [place] [address] Project Management Engineer: Dennis Amanda MD Erythrocyte distribution width (RBC) [Ratio] 14.2 % Normal 11.8-14.4 [facility] Comment on above: Performed By: #### C OVID #### [address] [address] Project Management Engineer: David Valdes MD [facility] [address] [place] [address] Dr. [place] [phone] Project Management Engineer: Robert Chin MD [facility] [address] [place] [address] Project Management Engineer: Dennis Amanda MD Hematocrit (Bld) [Volume fraction] 41.4 % Normal 36.3-47.1 [facility] Comment on above: Performed By: #### C OVID #### [facility] [address] [place] [address] Project Management Engineer: David Valdes MD [facility] [address] [place] [address] [place] [address] Project Management Engineer: Robert hCin MD [facility] [address] [place] [address] Project Management Engineer: Dennis Amanda MD Hemoglobin (Bld) [Mass/Vol] 13.0 g/dL Normal 11.9-15.1 [facility] Comment on above: Performed By: #### C OVID #### [facility] [address] [place] [address] Project Management Engineer: David Valdes MD [facility] [address] [place] [address] Dr. [place], [place] [phone] Project Management Engineer: Robetr Chin MD [facility] [address] [place] [address] Project Management Engineer: Dennis Amanda MD Immature granulocytes (Bld) [#/Vol] 0 % Normal 0 [facility] Comment on above: Performed By: #### C OVID #### [facility] [address] [place] [address] Project Management Engineer: David Valdes MD [facility] [address] [place], [place] [phone] Project Management Engineer: Robert Chin MD [facility] [address] [place] [address] Project Management Engineer: Dennis Amanda MD Lymphocytes (Bld) [#/Vol] 1.74 10*3/uL Normal 1.10-3.70 [facility] Comment on above: Performed By: #### C OVID #### [address] [address] Project Management Engineer: David Valdes MD [facility] [address] [place] [address] Dr. [place] [phone] Project Management Engineer: Robert Chin MD [facility] [address] [place] [address] Project Management Engineer: Dennis Amanda MD Lymphocytes/100 WBC (Bld) 15 % Low 24-43 [facility] Comment on above: Performed By: #### C OVID #### [address] [address] Project Management Engineer: David Valdes MD [facility] [address] [place] [address] Dr. [place] [phone] Project Management Engineer: Robert Chin MD [facility] [address] [place] [address] Project Management Engineer: Dennis Amanda MD MCH (RBC) [Entitic mass] 30.0 pg Normal 25.2-33.5 [facility] Comment on above: Performed By: #### C OVID #### [address] [address] Project Management Engineer: David Valdes MD [facility] [address] [place] [address] Dr. [place] [phone] Project Management Engineer: Robert Chin MD [facility] [address] [place] [address] Project Management Engineer: Dennis Amanda MD MCHC (RBC) [Mass/Vol] 31.4 g/dL Normal 28.4-34.8 [facility] Comment on above: Performed By: #### C OVID #### [address] [address] Project Management Engineer: David Valdes MD [facility] [address] [place] [address] Dr. [place], [place] [phone] Project Management Engineer: Robert Chin MD [facility] [address] [place] [address] Project Management Engineer: Dennis Amanda MD MCV (RBC) [Entitic vol] 95.4 fL Normal 82.6-102.9 [facility] Comment on above: Performed By: #### C OVID #### [facility] [address] [place] [address] Project Management Engineer: David Valdes MD [facility] [address] [place] [address] Dr. [place], [place] [phone] Project Management Engineer: Robert Chin MD [facility] [address] [place] [address] Project Management Engineer: Dennis Amanda MD Monocytes (Bld) [#/Vol] 0.81 10*3/uL Normal 0.10-1.20 [facility] Comment on above: Performed By: #### C OVID #### [facility] [address] [place] [address] Project Management Engineer: David Valdes MD [facility] [address] [place] [address] Dr. [place], [place] [phone] Project Management Engineer: Robert Chin MD [facility] [address] [place] [address] Project Management Engineer: Dennis Amanda MD Monocytes/100 WBC (Bld) 7 % Normal 3-12 [facility] Comment on above: Performed By: #### C OVID #### [facility] [address] [place] [address] Project Management Engineer: David Valdes MD [facility] [address] [place], [place] [phone] Project Management Engineer: Robert Chin MD [facility] [address] [place] [address] Project Management Engineer: Dennis Amanda MD Neutrophil (Seg) 77 % High 36-65 [facility] Comment on above: Performed By: #### C OVID #### [address] [address] Project Management Engineer: David Valdes MD [facility] [address] [place] [address] Dr. [place], [place] [phone] Project Management Engineer: Robert Chin MD [facility] [address] [place] [address] Project Management Engineer: Dennis Amanda MD NRBC Automated 0.0 per 100 WBC Normal 0.0 [facility] Comment on above: Performed By: #### C OVID #### [address] [address] Project Management Engineer: David Valdes MD [facility] [address] [place] [address] Dr. [place] [phone] Project Management Engineer: Robert Chin MD [facility] [address] [place] [address] Project Management Engineer: Dennis Amanda MD Platelet mean volume (Bld) [Entitic vol] 11.1 fL Normal 8.1-13.5 [facility] Comment on above: Performed By: #### C OVID #### [address] [address] Project Management Engineer: David Valdes MD [facility] [address] [place] [address] Dr. [place], [place] [phone] Project Management Engineer: Robert Chin MD [facility] [address] [place] [address] Project Management Engineer: Dennis Amanda MD Platelets (Bld) [#/Vol] 344 10*3/uL Normal 138-453 [facility] Comment on above: Performed By: #### C OVID #### [address] [address] Project Management Engineer: David Valdes MD [facility] [address] [place] [address] [place] [address] Project Management Engineer: Robert Chin MD [facility] [address] [place] [address] Project Management Engineer: Dennis Amanda MD RBC (Bld) [#/Vol] 4.34 10*6/uL Normal 3.95-5.11 [facility] Comment on above: Performed By: #### C OVID #### [address] [address] Project Management Engineer: David Valdes MD [facility] [address] [place] [address] [place] [address] Project Management Engineer: Robert Chin MD [facility] [address] [place] [address] Project Management Engineer: Dennis Amanda MD WBC (Bld) [#/Vol] 11.5 10*3/uL High 3.5-11.3 [facility] Comment on above: Performed By: #### C OVID #### [address] [address] Project Management Engineer: David Valdes MD [facility] [address] [place] [address] [place] [address] Project Management Engineer: Robert Chin MD [facility] [address] [place] [address] Project Management Engineer: Dennis Amanda MD Auto Diff Performed NOT REPORTED Normal [facility] Comment on above: Performed By: #### C OVID #### [facility] [address] [place] [address] Project Management Engineer: David Valdes MD [facility] [address] [place] [address] [place] [address] Project Management Engineer: Robert Chin MD [facility] [address] [place] [address] Project Management Engineer: Dennis Amanda MD Platelets (Bld) [#/Vol] NOT REPORTED Normal [facility] Comment on above: Performed By: #### C OVID #### [place] 600632 [place] [address] Project Management Engineer: David Valdes MD [facility] [address] [place] [address] [place] [address] Project Management Engineer: Robert Chin MD [facility] [address] [place] [address] Project Management Engineer: Dennis Amanda MD RBC morphology finding Nom (Bld) NOT REPORTED Normal [facility] Comment on above: Performed By: #### C OVID #### [address] [address] Project Management Engineer: David Valdes MD [address] [place] [address] Project Management Engineer: Robert Chin MD [facility] [address] [place] [address] Project Management Engineer: Dennis Amanda MD WBC Morphology NOT REPORTED Normal [facility] Comment on above: Performed By: #### C OVID #### [address] [address] Project Management Engineer: David Valdes MD [address] [place] [address] Project Management Engineer: Robert Chin MD [facility] [address] [place] [address] Project Management Engineer: Dennis Amanda MD CT HEAD WO CONTRASTon 2019 CT HEAD WO CONTRAST EXAMINATION: CT OF THE HEAD WITHOUT CONTRAST 09/11/2019 7:52 pm TECHNIQUE: CT of the head was performed without the administration of intravenous contrast. Dose modulation, iterative reconstruction, and/or weight based adjustment of the mA/kV was utilized to reduce the radiation dose to as low as reasonably achievable. COMPARISON: 09/07/2019 HISTORY: ORDERING SYSTEM PROVIDED HISTORY: AMS TECHNOLOGIST PROVIDED HISTORY: AMS FINDINGS: BRAIN/VENTRICLES: There is no acute infarct or acute intracranial hemorrhage present. There is no mass effect or midline shift present. There is diffuse cerebral volume loss. There is mild periventricular hypoattenuation. There is no ventriculomegaly or abnormal extra-axial fluid collection present. ORBITS: Limited evaluation of the orbits is unremarkable. SINUSES: The paranasal sinuses and mastoid air cells are clear. SOFT TISSUES/SKULL: No lytic or blastic osseous lesions are identified. IMPRESSION: Stable appearance of the brain without acute intracranial process identified. Interpreted by: Aurelio Valdes MD Signed by: Aurelio Valdes MD 09/11/19 Final result Normal [facility] EXAMINATION: CT OF T HE HEAD WITHOUT CONTRAST 09/11/2019 7:52 pm TECHNIQUE: CT of the head was performed without the administration of intravenous contrast. Dose modulation, iterative reconstruction, and/or weight based adjustment of the mA/kV was utilized to reduce the radiation dose to as low as reasonably achievable. COMPARISON: 09/07/2019 HISTORY: ORDERING SYSTEM PROVIDED HISTORY: AMS TECHNOLOGIST PROVIDED HISTORY: AMS FINDINGS: BRAIN/VENTRICLES: There is no acute infarct or acute intracranial hemorrhage present. There is no mass effect or midline shift present. There is diffuse cerebral volume loss. There is mild periventricular hypoattenuation. There is no ventriculomegaly or abnormal extra-axial fluid collection present. ORBITS: Limited evaluation of the orbits is unremarkable. SINUSES: The paranasal sinuses and mastoid air cells are clear. SOFT TISSUES/SKULL: No lytic or blastic osseous lesions are identified. [facility] [place] Stable appearance of the brain without acute intracranial process identified. [facility] [place] Vishnu, Mhpn Incoming Radiant Results From [facility] - 09/11/2019 8:34 PM EDT EXAMINATION: CT OF THE HEAD WITHOUT CONTRAST 09/11/2019 7:52 pm TECHNIQUE: CT of the head was performed without the administration of intravenous contrast. Dose modulation, iterative reconstruction, and/or weight based adjustment of the mA/kV was utilized to reduce the radiation dose to as low as reasonably achievable. COMPARISON: 09/07/2019 HISTORY: ORDERING SYSTEM PROVIDED HISTORY: AMS TECHNOLOGIST PROVIDED HISTORY: AMS FINDINGS: BRAIN/VENTRICLES: There is no acute infarct or acute intracranial hemorrhage present. There is no mass effect or midline shift present. There is diffuse cerebral volume loss. There is mild periventricular hypoattenuation. There is no ventriculomegaly or abnormal extra-axial fluid collection present. ORBITS: Limited evaluation of the orbits is unremarkable. SINUSES: The paranasal sinuses and mastoid air cells are clear. SOFT TISSUES/SKULL: No lytic or blastic osseous lesions are identified. IMPRESSION: Stable appearance of the brain without acute intracranial process identified. [place] Ethanolon 09-11-2019 Ethanol [Mass/Vol] mg/dL <10 mg/dL [place] Ethanol percent <0.010 <0.010 % [place] Ethanol Alcoholon 09-11-2019 Ethanol [Mass/Vol] mg/dL Normal <10 [facility] Comment on above: Performed By: #### A CET, ALCB #### [address] [place] [address] Project Management Engineer: Robert Chin MD Ethanol percent <0.010 Normal <0.010 [facility] Comment on above: Performed By: #### A CET, ALCB #### [address] [place] [address] Project Management Engineer: Robert Chin MD Lactate, Sepsison 09-11-2019 Lactic Acid, Sepsis 2.3 mmol/L High 0.5-1.9 [facility] Comment on above: Performed By: #### A CET, ALCB #### [address] [place] [address] Project Management Engineer: Robert Chin MD Lactic Acid,Sep Wbld NOT REPORTED Normal 0.5-1.9 [facility] Comment on above: Performed By: #### A CET, ALCB #### [address] [place] [address] Project Management Engineer: Robert Chin MD Interpretation and review of laboratory results Abnormal [place] Lactic Acid, Sepsis 2.3 mmol/L High 0.5 - 1. 9 mmol/L [place] Lactic Acid, Sepsis, Whole Blood NOT REPORTED 0.5 - 1.9 mmol/L [place] Lactic Acidon 09-11-2019 Lactate [Moles/Vol] 1.4 mmol/L Normal 0.5-2.2 [facility] Comment on above: Performed By: #### D AU, UAMIC #### [facility] [address] [place] [address] Project Management Engineer: Carloz Alvarado MD Lactate [Moles/Vol] NOT REPORTED Normal 0.7-2.1 [facility] Comment on above: Performed By: #### D MARK, UAMIC #### [facility] [address] [place] [address] Project Management Engineer: Carloz Alvarado MD Lactic acid, plasmaon 2019 Lactate [Moles/Vol] 1.4 mmol/L 0.5 - 2. 2 mmol/L [place] Lactic Acid, Whole Blood NOT REPORTED 0.7 - 2.1 mmol/L [place] Metabolic Panelon 09-11-2019 GFR/1.73 sq M predicted among non-blacks MDRD (S/P/Bld) [Vol rate/Area] [place] Comment on above: Average GFR for 60-6 9 years old: 85 mL/min/1.73sq m Chronic Kidney Disease: <60 mL/min/1.73sq m Kidney failure: <15 mL/min/1.73sq m eGFR calculated using average adult body mass. Additional eGFR calculator available at: [email or web address] Stage 1: Some kidney damage normal GFR Stage 2: Mild kidney damage GFR 60-89 Stage 3: Moderate kidney damage GFR 30-59 Stage 4: Severe kidney damage GFR 15-29 Stage 5: Severe kidney damage GFR <15 ESRD - chronic treatment by dialysis or transplant Otheron 09-11-2019 Interpretation and review of laboratory results Abnormal [place], [place] Salicylateon 09-11-2019 Salicylate <1 Low 3-10 [facility] Comment on above: Performed By: #### C OVID #### [facility] [address] [place] [address] Project Management Engineer: David Valdes MD [facility] [address] [place] [address] Project Management Engineer: Robert Chin MD [facility] [address] [place] [address] Project Management Engineer: Dennis Amanda MD Salicylate Lvl <1 Low 3 - 10 mg/dL [place] TSH without Reflexon 020 TSH Qn 2.04 m[IU]/L [place] Thyroid Stim. Horm.on 2019 TSH Qn 2.04 m[IU]/L Normal 0.30-5.00 [facility] Comment on above: Performed By: #### D AU, UAMIC #### [facility] [address] [place] [address] Project Management Engineer: Carloz Alvarado MD Troponinon 09-11-2019 Troponin I.cardiac [Mass/Vol] 14 ng/L Normal 0-14 [facility] Comment on above: Result Comment: High Sensitivity Troponin values cannot be compared with other Troponin methodologies. Patients with high levels of Biotin oral intake (i.e >5mg/day) may have falsely decreased Troponin levels. Samples collected within 8 hours of biotin intake may require additional information for diagnosis. Performed By: #### C OVID #### [facility] [address] [place] [address] Project Management Engineer: Robert Chin MD Troponin I.cardiac [Mass/Vol] NOT REPORTED Normal <0.03 [facility] Comment on above: Performed By: #### C OVID #### [facility] [address] [place] [address] Project Management Engineer: Robert Chin MD Troponin I.cardiac [Mass/Vol] 16 ng/L High 0-14 [facility] Comment on above: Result Comment: High Sensitivity Troponin values cannot be compared with other Troponin methodologies. Patients with high levels of Biotin oral intake (i.e >5mg/day) may have falsely decreased Troponin levels. Samples collected within 8 hours of biotin intake may require additional information for diagnosis. Performed By: #### C OVID #### [facility] [address] [place] [address] Project Management Engineer: David Valdes MD [facility] [address] [place] [id number] Project Management Engineer: Robert Chin MD [facility] [address] [place] [address] Project Management Engineer: Dennis Amanda MD Troponin I.cardiac [Mass/Vol] NOT REPORTED [facility] Comment on above: Performed By: #### C OVID #### [facility] [address] [place] [address] Project Management Engineer: David Valdes MD [facility] [address] [place], [place] [id number] Project Management Engineer: Robert Chin MD [facility] [address] [place] [address] Project Management Engineer: Dennis Amanda MD Troponin I.cardiac [Mass/Vol] NOT REPORTED [place] Troponin T.cardiac [Mass/Vol] NOT REPORTED <0.03 ng/mL [place] Troponin, High Sensitivity 14 ng/L 0 - 14 ng/L [place] Comment on above: High Sensitivity Troponin values cannot be compared with other Troponin methodologies. Patients with high levels of Biotin oral intake (i.e >5mg/day) may have falsely decreased Troponin levels. Samples collected within 8 hours of biotin intake may require additional information for diagnosis. Troponin I.cardiac [Mass/Vol] NOT REPORTED [facility] [employer] [place] Troponin T.cardiac [Mass/Vol] NOT REPORTED <0.03 ng/mL [place] Troponin, High Sensitivity 16 ng/L High 0 - 14 ng/L [place] Comment on above: High Sensitivity Troponin values cannot be compared with other Troponin methodologies. Patients with high levels of Biotin oral intake (i.e >5mg/day) may have falsely decreased Troponin levels. Samples collected within 8 hours of biotin intake may require additional information for diagnosis. Urinalysis w/ Microon 2019 ----- Normal [facility] Comment on above: Performed By: #### C OVID #### [facility] [address] [place] [address] Project Management Engineer: Robert Chin MD Acetoacetic Acid,Ur 2+ Abnormal NEG [facility] Comment on above: Performed By: #### C OVID #### [facility] [address] [place] [address] Project Management Engineer: Robert Chin MD Bacteria LM.HPF (Urine sed) [#/Area] 3+ Abnormal NONE [facility] Comment on above: Performed By: #### C OVID #### [facility] [address] [place] [facility] Project Management Engineer: Robert Chin MD Bilirubin, SemiQt,Ur MODERATE Abnormal NEG [facility] Comment on above: Performed By: #### C OVID #### [facility] [address] [place], [place] [id number] Project Management Engineer: Robert Chin MD Color (U) YELLOW Normal YEL [facility] Comment on above: Performed By: #### C OVID #### [facility] [address] [place] [facility] Project Management Engineer: Robert Chin MD Epithelial cells LM.HPF (Urine sed) [#/Area] 5 TO 10 Normal 0-25 [facility] Comment on above: Performed By: #### C OVID #### [facility] [address] [place], [place] [id number] Project Management Engineer: Robert Chin MD Glucose Ql (U) Negative Normal [facility] Comment on above: Performed By: #### C OVID #### [facility] [address] [place] [address] Project Management Engineer: Robert Chin MD Hemoglobin, Ur Negative Normal NEG [facility] Comment on above: Performed By: #### C OVID #### [facility] [address] [place] [address] Project Management Engineer: Robert Chin MD Leukocyte esterase Test strip Ql (U) Negative Normal NEG [facility] Comment on above: Performed By: #### C OVID #### [facility] [address] [place] [address] Project Management Engineer: Robert Chin MD Nitrite,Ur Positive Abnormal NEG [facility] Comment on above: Performed By: #### C OVID #### [facility] [address] [place] [address] Project Management Engineer: Robert Chin MD pH (U) 5.5 [pH] Normal 5.0-9.0 [facility] Comment on above: Performed By: #### C OVID #### [facility] [address] [place], [place] [id number] Project Management Engineer: Robert Chin MD Protein Ql (U) TRACE Abnormal NEG [facility] Comment on above: Performed By: #### C OVID #### [facility] [address] [place] [address] Project Management Engineer: Robert Chin MD RBC (U) [#/Vol] None Normal 0-2 [facility] Comment on above: Performed By: #### C OVID #### [facility] [address] [place], [place] [id number] Project Management Engineer: Robert Chin MD Specific gravity (U) [Rel density] >1.030 High 1.010-1.020 [facility] Comment on above: Performed By: #### C OVID #### [facility] [address] [place] [address] Project Management Engineer: Robert Chin MD Turbidity CLEAR Normal CLEAR [facility] Comment on above: Performed By: #### C OVID #### [facility] [address] [place], [place] [id number] Project Management Engineer: Robert Chin MD Urobilinogen,Ur Normal Normal NORM [facility] Comment on above: Performed By: #### C OVID #### [facility] [address] [place] [address] Project Management Engineer: Robert Chin MD WBC (U) [#/Vol] 5 TO 10 Normal 0-5 [facility] Comment on above: Performed By: #### C OVID #### [facility] [address] [place], [place] [address] Project Management Engineer: Robert Chin MD Amorphous sediment LM Ql (Urine sed) NOT REPORTED Normal NONE [facility] Comment on above: Performed By: #### C OVID #### [facility] [address] [place], [place] [id number] Project Management Engineer: Robert Chin MD Casts LM.LPF (Urine sed) [#/Area] NOT REPORTED Normal [facility] Comment on above: Performed By: #### C OVID #### [facility] [address] [place], [place] [id number] Project Management Engineer: Robert Chin MD Comment NOT REPORTED Normal [facility] Comment on above: Performed By: #### C OVID #### [facility] [address] [place], [place] [id number] Project Management Engineer: Robert Chin MD Crystals LM Nom (Urine sed) NOT REPORTED Normal NONE [facility] Comment on above: Performed By: #### C OVID #### [facility] [address] [place] [address] Project Management Engineer: Robert Chin MD Epithelial, Renal NOT REPORTED Normal 0 [facility] Comment on above: Performed By: #### C OVID #### [facility] [address] [place] [address] Project Management Engineer: Robert Chin MD Mucus Strands NOT REPORTED Normal [facility] Comment on above: Performed By: #### C OVID #### [facility] [address] [place] [address] Project Management Engineer: Robert Chin MD Other Observations NOT REPORTED Normal NREQ [facility] Comment on above: Performed By: #### C OVID #### [facility] [address] [place] [address] Project Management Engineer: Robert Chin MD Trichomonas NOT REPORTED Normal [facility] Comment on above: Performed By: #### C OVID #### [facility] [address] [place] [address] Project Management Engineer: Robert Chin MD Yeast LM Ql (Urine sed) NOT REPORTED Normal [facility] Comment on above: Performed By: #### C OVID #### [facility] [address] [place] [address] Project Management Engineer: Robert Chin MD Urinalysis with Microscopico n 09-11-2019 Amorphous, UA NOT REPORTED None [facility], [place] Bacteria, UA 3+ Abnormal None [facility] Bilirubin Urine MODERATE Abnormal NEGATIVE [facility] Casts UA NOT REPORTED /LPF [facility] Color, UA YELLOW YELLOW [place] Crystals, UA NOT REPORTED None /HPF [facility] Epithelial Cells UA 5 TO 10 [place] Glucose, Ur Negative NEGATIVE [facility] Interpretation and review of laboratory results Abnormal [facility] Ketones Ql (U) 2+ Abnormal NEGATIVE [facility], [place] Leukocyte esterase Test strip Ql (U) Negative NEGATIVE [facility] Mucus, UA NOT REPORTED None [facility] Nitrite, Urine Positive Abnormal NEGATIVE [facility] Other Observations UA NOT REPORTED NOT REQ. M [facility], [place] pH, UA 5.5 [facility] Protein (U) [Mass/Vol] TRACE Abnormal NEGATIVE [place], [place] RBC (U) [#/Vol] None [place] Renal Epithelial, UA NOT REPORTED 0 /HPF [facility], [place] Specific [place], UA >1.030 High [place], [place] Trichomonas, UA NOT REPORTED None [place] Turbidity UA CLEAR CLEAR [place] Urinalysis Comments NOT REPORTED [place] Urine Hgb Negative NEGATIVE [place] Urobilinogen, Urine Normal Normal [place] WBC, UA 5 TO 10 [place] Yeast, UA NOT REPORTED None [place] XR CHEST 1 VIEWon 09-11-2019 XR CHEST 1 VIEW EXAMINATION: ONE XRAY VIEW OF THE CHEST 09/11/2019 2:07 pm COMPARISON: 09/07/2019 HISTORY: ORDERING SYSTEM PROVIDED HISTORY: Septic work-up TECHNOLOGIST PROVIDED HISTORY: Septic work-up FINDINGS: Calcified breast prostheses are noted bilaterally, increased in the density of the lower lungs. Chronic right rib fractures are seen, with associated pleural thickening, unchanged. No acute focal infiltrate. The cardial pericardial silhouette is unremarkable. No pneumothorax. No free air. No acute bony abnormality. IMPRESSION: No acute abnormality identified. Interpreted by: Panfilo Burrows MD Signed by: Panfilo Burrows MD 09/11/19 Final result Normal [facility] Vishnu, Mhpn Incoming Radiant Results From [facility] [employer] - 09/11/2019 5:15 PM EDT EXAMINATION: ONE XRAY VIEW OF THE CHEST 09/11/2019 2:07 pm COMPARISON: 09/07/2019 HISTORY: ORDERING SYSTEM PROVIDED HISTORY: Septic work-up TECHNOLOGIST PROVIDED HISTORY: Septic work-up FINDINGS: Calcified breast prostheses are noted bilaterally, increased in the density of the lower lungs. Chronic right rib fractures are seen, with associated pleural thickening, unchanged. No acute focal infiltrate. The cardial pericardial silhouette is unremarkable. No pneumothorax. No free air. No acute bony abnormality. IMPRESSION: No acute abnormality identified. [place] EXAMINATION: ONE XRA Y VIEW OF THE CHEST 09/11/2019 2:07 pm COMPARISON: 09/07/2019 HISTORY: ORDERING SYSTEM PROVIDED HISTORY: Septic work-up TECHNOLOGIST PROVIDED HISTORY: Septic work-up FINDINGS: Calcified breast prostheses are noted bilaterally, increased in the density of the lower lungs. Chronic right rib fractures are seen, with associated pleural thickening, unchanged. No acute focal infiltrate. The cardial pericardial silhouette is unremarkable. No pneumothorax. No free air. No acute bony abnormality. [place] No acute abnormality identified. [place] CERVICAL SPINE WO CONTRAS Ton 09-07-2019 CT CERVICAL SPINE WO CONTRAST EXAMINATION: CT OF THE HEAD WITHOUT CONTRAST; CT OF THE CERVICAL SPINE WITHOUT CONTRAST 09/07/2019 2:37 pm; 09/07/2019 2:47 pm TECHNIQUE: CT of the head was performed without the administration of intravenous contrast. Dose modulation, iterative reconstruction, and/or weight based adjustment of the mA/kV was utilized to reduce the radiation dose to as low as reasonably achievable.; CT of the cervical spine was performed without the administration of intravenous contrast. Multiplanar reformatted images are provided for review. Dose modulation, iterative reconstruction, and/or weight based adjustment of the mA/kV was utilized to reduce the radiation dose to as low as reasonably achievable. COMPARISON: None. HISTORY: ORDERING SYSTEM PROVIDED HISTORY: Fall with facial injury on Lovenox TECHNOLOGIST PROVIDED HISTORY: Fall with facial injury on Lovenox; ORDERING SYSTEM PROVIDED HISTORY: Fall with facial injury TECHNOLOGIST PROVIDED HISTORY: Fall with facial injury FINDINGS: HEAD: BRAIN/VENTRICLES: There is no acute intracranial hemorrhage, mass effect or midline shift. No abnormal extra-axial fluid collection. Cortical atrophy is noted. There is no evidence of hydrocephalus. ORBITS: The visualized portion of the orbits demonstrate no acute abnormality. SINUSES: The visualized paranasal sinuses and mastoid air cells demonstrate no acute abnormality. SOFT TISSUES/SKULL: No acute abnormality of the visualized skull or soft tissues. CERVICAL SPINE: BONES/ALIGNMENT: There is no evidence of an acute cervical spine fracture. There is normal alignment of the cervical spine. DEGENERATIVE CHANGES: No significant degenerative changes. SOFT TISSUES: There is no prevertebral soft tissue swelling. Emphysematous changes in the upper lobes are noted. IMPRESSION: No acute CT abnormality identified in the brain. No acute osseous abnormality identified in the cervical spine. Interpreted by: Fransisco Lee MD Signed by: Fransisco Lee MD 09/07/19 Final result Normal [facility] CT FACIAL BONES WO CONTRASTo n 09-07-2019 CT FACIAL BONES WO CONTRAST EXAMINATION: CT OF THE FACE WITHOUT CONTRAST 09/07/2019 2:40 pm TECHNIQUE: CT of the face was performed without the administration of intravenous contrast. Multiplanar reformatted images are provided for review. Dose modulation, iterative reconstruction, and/or weight based adjustment of the mA/kV was utilized to reduce the radiation dose to as low as reasonably achievable. COMPARISON: None HISTORY: ORDERING SYSTEM PROVIDED HISTORY: Fall with left orbit injury TECHNOLOGIST PROVIDED HISTORY: Fall with left orbit injury FINDINGS: FACIAL BONES: No acute facial fracture identified. Curvilinear hyperdense material and presumed ossification overlying the maxillary bones is noted, which may represent sequela of prior procedure or trauma. Midline cleft in the maxilla anteriorly may be developmental versus old dental disease. 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 ORBITS: The globes appear intact. The no retrobulbar hematoma or mass is seen. The orbital meng and rims are intact. SINUSES/MASTOIDS: The paranasal sinuses and mastoid air cells are well aerated. No acute fracture is seen. SOFT TISSUES: No appreciable facial soft tissue swelling is seen. IMPRESSION: No acute facial fracture or orbital trauma identified. Interpreted by: Fransisco Lee MD Signed by: Fransisco Lee MD 09/07/19 Final result Normal [facility] No acute facial frac ture or orbital trauma identified. [facility], [place] EXAMINATION: CT OF T HE FACE WITHOUT CONTRAST 09/07/2019 2:40 pm TECHNIQUE: CT of the face was performed without the administration of intravenous contrast. Multiplanar reformatted images are provided for review. Dose modulation, iterative reconstruction, and/or weight based adjustment of the mA/kV was utilized to reduce the radiation dose to as low as reasonably achievable. COMPARISON: None HISTORY: ORDERING SYSTEM PROVIDED HISTORY: Fall with left orbit injury TECHNOLOGIST PROVIDED HISTORY: Fall with left orbit injury FINDINGS: FACIAL BONES: No acute facial fracture identified. Curvilinear hyperdense material and presumed ossification overlying the maxillary bones is noted, which may represent sequela of prior procedure or trauma. Midline cleft in the maxilla anteriorly may be developmental versus old dental disease. 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 ORBITS: The globes appear intact. The no retrobulbar hematoma or mass is seen. The orbital meng and rims are intact. SINUSES/MASTOIDS: The paranasal sinuses and mastoid air cells are well aerated. No acute fracture is seen. SOFT TISSUES: No appreciable facial soft tissue swelling is seen. [place] Vishnu, Mhpn Incoming Radiant Results From [email or web address] - 09/07/2019 2:58 PM EDT EXAMINATION: CT OF THE FACE WITHOUT CONTRAST 09/07/2019 2:40 pm TECHNIQUE: CT of the face was performed without the administration of intravenous contrast. Multiplanar reformatted images are provided for review. Dose modulation, iterative reconstruction, and/or weight based adjustment of the mA/kV was utilized to reduce the radiation dose to as low as reasonably achievable. COMPARISON: None HISTORY: ORDERING SYSTEM PROVIDED HISTORY: Fall with left orbit injury TECHNOLOGIST PROVIDED HISTORY: Fall with left orbit injury FINDINGS: FACIAL BONES: No acute facial fracture identified. Curvilinear hyperdense material and presumed ossification overlying the maxillary bones is noted, which may represent sequela of prior procedure or trauma. Midline cleft in the maxilla anteriorly may be developmental versus old dental disease. 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 ORBITS: The globes appear intact. The no retrobulbar hematoma or mass is seen. The orbital meng and rims are intact. SINUSES/MASTOIDS: The paranasal sinuses and mastoid air cells are well aerated. No acute fracture is seen. SOFT TISSUES: No appreciable facial soft tissue swelling is seen. IMPRESSION: No acute facial fracture or orbital trauma identified. [place], [place] CT HEAD WO CONTRASTon 2019 CT HEAD WO CONTRAST EXAMINATION: CT OF THE HEAD WITHOUT CONTRAST; CT OF THE CERVICAL SPINE WITHOUT CONTRAST 09/07/2019 2:37 pm; 09/07/2019 2:47 pm TECHNIQUE: CT of the head was performed without the administration of intravenous contrast. Dose modulation, iterative reconstruction, and/or weight based adjustment of the mA/kV was utilized to reduce the radiation dose to as low as reasonably achievable.; CT of the cervical spine was performed without the administration of intravenous contrast. Multiplanar reformatted images are provided for review. Dose modulation, iterative reconstruction, and/or weight based adjustment of the mA/kV was utilized to reduce the radiation dose to as low as reasonably achievable. COMPARISON: None. HISTORY: ORDERING SYSTEM PROVIDED HISTORY: Fall with facial injury on Lovenox TECHNOLOGIST PROVIDED HISTORY: Fall with facial injury on Lovenox; ORDERING SYSTEM PROVIDED HISTORY: Fall with facial injury TECHNOLOGIST PROVIDED HISTORY: Fall with facial injury FINDINGS: HEAD: BRAIN/VENTRICLES: There is no acute intracranial hemorrhage, mass effect or midline shift. No abnormal extra-axial fluid collection. Cortical atrophy is noted. There is no evidence of hydrocephalus. ORBITS: The visualized portion of the orbits demonstrate no acute abnormality. SINUSES: The visualized paranasal sinuses and mastoid air cells demonstrate no acute abnormality. SOFT TISSUES/SKULL: No acute abnormality of the visualized skull or soft tissues. CERVICAL SPINE: BONES/ALIGNMENT: There is no evidence of an acute cervical spine fracture. There is normal alignment of the cervical spine. DEGENERATIVE CHANGES: No significant degenerative changes. SOFT TISSUES: There is no prevertebral soft tissue swelling. Emphysematous changes in the upper lobes are noted. IMPRESSION: No acute CT abnormality identified in the brain. No acute osseous abnormality identified in the cervical spine. Interpreted by: Fransisco Lee MD Signed by: Fransisco Lee MD 09/07/19 Final result Normal [facility] 09-07-[address] abnormal ity identified in the brain. No acute osseous abnormality identified in the cervical spine. [facility], [place] EXAMINATION: CT OF T HE HEAD WITHOUT CONTRAST; CT OF THE CERVICAL SPINE WITHOUT CONTRAST 09/07/2019 2:37 pm; 09/07/2019 2:47 pm TECHNIQUE: CT of the head was performed without the administration of intravenous contrast. Dose modulation, iterative reconstruction, and/or weight based adjustment of the mA/kV was utilized to reduce the radiation dose to as low as reasonably achievable.; CT of the cervical spine was performed without the administration of intravenous contrast. Multiplanar reformatted images are provided for review. Dose modulation, iterative reconstruction, and/or weight based adjustment of the mA/kV was utilized to reduce the radiation dose to as low as reasonably achievable. COMPARISON: None. HISTORY: ORDERING SYSTEM PROVIDED HISTORY: Fall with facial injury on Lovenox TECHNOLOGIST PROVIDED HISTORY: Fall with facial injury on Lovenox; ORDERING SYSTEM PROVIDED HISTORY: Fall with facial injury TECHNOLOGIST PROVIDED HISTORY: Fall with facial injury FINDINGS: HEAD: BRAIN/VENTRICLES: There is no acute intracranial hemorrhage, mass effect or midline shift. No abnormal extra-axial fluid collection. Cortical atrophy is noted. There is no evidence of hydrocephalus. ORBITS: The visualized portion of the orbits demonstrate no acute abnormality. SINUSES: The visualized paranasal sinuses and mastoid air cells demonstrate no acute abnormality. SOFT TISSUES/SKULL: No acute abnormality of the visualized skull or soft tissues. CERVICAL SPINE: BONES/ALIGNMENT: There is no evidence of an acute cervical spine fracture. There is normal alignment of the cervical spine. DEGENERATIVE CHANGES: No significant degenerative changes. SOFT TISSUES: There is no prevertebral soft tissue swelling. Emphysematous changes in the upper lobes are noted. [facility]- [place], [place] Vishnu, Mhpn Incoming Radiant Results From TRData/TuTanda - 09/07/2019 2:54 PM EDT EXAMINATION: CT OF THE HEAD WITHOUT CONTRAST; CT OF THE CERVICAL SPINE WITHOUT CONTRAST 09/07/2019 2:37 pm; 09/07/2019 2:47 pm TECHNIQUE: CT of the head was performed without the administration of intravenous contrast. Dose modulation, iterative reconstruction, and/or weight based adjustment of the mA/kV was utilized to reduce the radiation dose to as low as reasonably achievable.; CT of the cervical spine was performed without the administration of intravenous contrast. Multiplanar reformatted images are provided for review. Dose modulation, iterative reconstruction, and/or weight based adjustment of the mA/kV was utilized to reduce the radiation dose to as low as reasonably achievable. COMPARISON: None. HISTORY: ORDERING SYSTEM PROVIDED HISTORY: Fall with facial injury on Lovenox TECHNOLOGIST PROVIDED HISTORY: Fall with facial injury on Lovenox; ORDERING SYSTEM PROVIDED HISTORY: Fall with facial injury TECHNOLOGIST PROVIDED HISTORY: Fall with facial injury FINDINGS: HEAD: BRAIN/VENTRICLES: There is no acute intracranial hemorrhage, mass effect or midline shift. No abnormal extra-axial fluid collection. Cortical atrophy is noted. There is no evidence of hydrocephalus. ORBITS: The visualized portion of the orbits demonstrate no acute abnormality. SINUSES: The visualized paranasal sinuses and mastoid air cells demonstrate no acute abnormality. SOFT TISSUES/SKULL: No acute abnormality of the visualized skull or soft tissues. CERVICAL SPINE: BONES/ALIGNMENT: There is no evidence of an acute cervical spine fracture. There is normal alignment of the cervical spine. DEGENERATIVE CHANGES: No significant degenerative changes. SOFT TISSUES: There is no prevertebral soft tissue swelling. Emphysematous changes in the upper lobes are noted. IMPRESSION: No acute CT abnormality identified in the brain. No acute osseous abnormality identified in the cervical spine. [facility] [place] XR CHEST 1 VIEWon 09-07-2019 XR CHEST 1 VIEW EXAMINATION: ONE XRAY VIEW OF THE CHEST 09/07/2019 2:34 pm COMPARISON: 08/16/2019 HISTORY: ORDERING SYSTEM PROVIDED HISTORY: Syncopal episode TECHNOLOGIST PROVIDED HISTORY: Syncopal episode FINDINGS: Normal heart size and pulmonary vasculature. No focal consolidations, pleural effusions, or pneumothorax. Acute appearing nondisplaced fractures of the lateral right 4th and 6th ribs. IMPRESSION: Acute appearing nondisplaced fractures of the lateral right 4th and 6th ribs. Interpreted by: Wicho Wray MD Signed by: Wicho Wray MD 09/07/19 Final result Normal [facility] Acute appearing nondisplaced fractures of the lateral right 4th and 6th ribs. [place], [place] Vishnu, Mhpn Incoming Radiant Results From [facility]Pacs - 09/07/2019 2:55 PM EDT EXAMINATION: ONE XRAY VIEW OF THE CHEST 09/07/2019 2:34 pm COMPARISON: 08/16/2019 HISTORY: ORDERING SYSTEM PROVIDED HISTORY: Syncopal episode TECHNOLOGIST PROVIDED HISTORY: Syncopal episode FINDINGS: Normal heart size and pulmonary vasculature. No focal consolidations, pleural effusions, or pneumothorax. Acute appearing nondisplaced fractures of the lateral right 4th and 6th ribs. IMPRESSION: Acute appearing nondisplaced fractures of the lateral right 4th and 6th ribs. [place] EXAMINATION: ONE XRA Y VIEW OF THE CHEST 09/07/2019 2:34 pm COMPARISON: 08/16/2019 HISTORY: ORDERING SYSTEM PROVIDED HISTORY: Syncopal episode TECHNOLOGIST PROVIDED HISTORY: Syncopal episode FINDINGS: Normal heart size and pulmonary vasculature. No focal consolidations, pleural effusions, or pneumothorax. Acute appearing nondisplaced fractures of the lateral right 4th and 6th ribs. [place] COVID-19on 08-20-2019 SARS-CoV-2 [place] SARS-CoV-2, PCR Not Detected Not Detected [place] Comment on above: (NOTE) The Aptima SARS-CoV-2 assay is a nucleic acid amplification test intended for the qualitative detection of RNA from SARS-CoV-2 isolated and purified from nasopharyngeal (DRAWING HAND), nasal and oropharyngeal (OP) swab specimens from patients with signs and symptoms of infection who are suspected of COVID-19. Results are for the identification of SARS-CoV-2 RNA. The SARS-CoV-2 RNA is generally detectable in nasopharyngeal and oropharyngeal swabs during the acute phase of infection. The Aptima SARS-CoV-2 Assay on the Hunter [employer] Hunter Fusion system is intended for use by laboratory personnel specifically instructed and trained in the operation of the Hunter [employer] Hunter Fusion system. The Aptima SARS-CoV-2 assay is only for use under the Food and Drug Administration Emergency Use Authorization. Testing is limited to laboratories certified under the Clinical Laboratory Improvement Amendments of 1988 (CLIA), 42 U.S.C. 263a, to perform high complexity tests. Not Detected: Not detected does not preclude SARS-CoV-2 infection and should not be used as the sole basis for patient management decisions. Not detected results must be combined with clinical observations, patient history, and epidemiological information. The above 1 analytes were performed by [address] [place] [address] SARS-CoV-2, Rapid [place], [place] Source .NASOPHARYNGEAL SWAB [place] [id number] 08-20-2019 SARS-CoV-2 Not Detected Normal Not Detected [facility] Comment on above: Result Comment: (NOT E) The Aptima SARS-CoV-2 assay is a nucleic acid amplification test intended for the qualitative detection of RNA from SARS-CoV-2 isolated and purified from nasopharyngeal (DRAWING HAND), nasal and oropharyngeal (OP) swab specimens from patients with signs and symptoms of infection who are suspected of COVID-19. Results are for the identification of SARS-CoV-2 RNA. The SARS-CoV-2 RNA is generally detectable in nasopharyngeal and oropharyngeal swabs during the acute phase of infection. The Aptima SARS-CoV-2 Assay on the Hunter [employer] Hunter Fusion system is intended for use by laboratory personnel specifically instructed and trained in the operation of the Hunter [employer] Hunter Fusion system. The Aptima SARS-CoV-2 assay is only for use under the Food and Drug Administration Emergency Use Authorization. Testing is limited to laboratories certified under the Clinical Laboratory Improvement Amendments of 1988 (CLIA), 42 U.S.C. ???263a, to perform high complexity tests. Not Detected: Not detected does not preclude SARS-CoV-2 infection and should not be used as the sole basis for patient management decisions. Not detected results must be combined with clinical observations, patient history, and epidemiological information. The above 1 analytes were performed by [address] [address] Performed By: #### C OVID #### [address] [address] Project Management Engineer: Daivd Valdes MD [address] [place], [place] [id number] Project Management Engineer: Robert Chin MD [facility] [address] [place] [address] Project Management Engineer: Dennis Amanda MD SARS-CoV-2,Rapid [facility] Comment on above: Performed By: #### C OVID #### [address] [address] Project Management Engineer: David Valdes MD [address] [place] [address] Project Management Engineer: Robert Chin MD [facility] [address] [place] [address] Project Management Engineer: Dennis Amanda MD SARS-CoV-2 [facility] Comment on above: Performed By: #### C OVID #### [address] [address] Project Management Engineer: David Valdes MD [facility] [address] [place] [address] [place] [address] Project Management Engineer: Robert Chin MD [facility] [address] [place] [address] Project Management Engineer: Dennis Amanda MD [id number] 08-19-2019 SARS-CoV-2 Source .NASOPHARYNGEAL SWAB [facility] Comment on above: Performed By: #### C OVID #### [address], [place] [id number] Project Management Engineer: David Valdes MD [facility] [address] [place] [address] Project Management Engineer: Robert Chin MD [facility] [address] [place], [place] [id number] Project Management Engineer: Dennis Amanda MD Basic Metab w/rfx MGon 08-16 Potassium [Moles/Vol] 3.4 mmol/L Low 3.7-5.3 [facility] Comment on above: Performed By: #### D MARK, UAMIC #### [facility] [address] [place] [address] Project Management Engineer: Carloz Alvarado MD (cont.) [facility] Comment on above: Result Comment: Aver age GFR for 60-69 years old: 85 mL/min/1.73sq m Chronic Kidney Disease: <60 mL/min/1.73sq m Kidney failure: <15 mL/min/1.73sq m eGFR calculated using average adult body mass. Additional eGFR calculator available at: http://www.Gingerd/multiple_crcl_2012.htm Performed By: #### D AU, UAMIC #### [facility] [address] [place] [address] Project Management Engineer: Carloz Alvarado MD Anion gap [Moles/Vol] 11 mmol/L Normal 9-17 [facility] Comment on above: Performed By: #### D AU, UAMIC #### [facility] [address] [place] [address] Project Management Engineer: Carloz Alvarado MD BUN/CRE Ratio 27 High 9-20 [facility] Comment on above: Performed By: #### D AU, UAMIC #### [facility] [address] [place] [address] Project Management Engineer: Carloz Alvarado MD Calcium [Mass/Vol] 8.2 mg/dL Low 8.6-10.4 [facility] Comment on above: Performed By: #### D AU, UAMIC #### [facility] [address] [place], [place] [phone] Project Management Engineer: Carloz Alvarado MD Chloride [Moles/Vol] 105 mmol/L Normal 98-107 [facility] Comment on above: Performed By: #### D AU, UAMIC #### [facility] [address] [place], [place] [id number] Project Management Engineer: Carloz Alvarado MD CO2 [Moles/Vol] 21 mmol/L Normal 20-31 [facility] Comment on above: Performed By: #### D AU, UAMIC #### [facility] [address] [place], [place] [phone] Project Management Engineer: Carloz Alvarado MD Creatinine [Mass/Vol] 0.51 mg/dL Normal 0.50-0.90 [facility] Comment on above: Performed By: #### D AU, UAMIC #### [facility] [address] [place], [place] [phone] Project Management Engineer: Carloz Alvarado MD GFR, Amer >60 Normal >60 [facility] Comment on above: Performed By: #### D AU, UAMIC #### [facility] [address] [place], [place] [phone] Project Management Engineer: Carloz Alvarado MD GFR,non Amer >60 Normal >60 [facility] Comment on above: Performed By: #### D AU, UAMIC #### [facility] [address] [place], [place] [phone] Project Management Engineer: Carloz Alvarado MD Glucose [Mass/Vol] 109 mg/dL High 70-99 [facility] Comment on above: Performed By: #### D AU, UAMIC #### [facility] [address] [place] [address] Project Management Engineer: Carloz Alvarado MD Sodium [Moles/Vol] 137 mmol/L Normal 135-144 [facility] Comment on above: Performed By: #### D MARK, UAMIC #### [facility] [address] [place], [place] [id number] Project Management Engineer: Carloz Alvarado MD Staging: Normal [facility] Comment on above: Result Comment: Stag e 1: Some kidney damage normal GFR Stage 2: Mild kidney damage GFR 60-89 Stage 3: Moderate kidney damage GFR 30-59 Stage 4: Severe kidney damage GFR 15-29 Stage 5: Severe kidney damage GFR <15 ESRD - chronic treatment by dialysis or transplant Performed By: #### Shaun FLORES UAMIC #### [facility] [address] [place] [address] Project Management Engineer: Carloz Alvarado MD Urea nitrogen [Mass/Vol] 14 mg/dL Normal 8-23 [facility] Comment on above: Performed By: #### D MARK, UAMIC #### [facility] [address] [place] [address] Project Management Engineer: Carloz Alvarado MD Basic Metabolic Panel w/ Ref antwon to MGon 08-17-2019 Anion gap [Moles/Vol] 11 mmol/L 9 - 17 mmol/L [place] Bun/Cre Ratio 27 High [place] Calcium [Mass/Vol] 8.2 mg/dL Low 8.6 - 10. 4 mg/dL [place] Chloride [Moles/Vol] 105 mmol/L 98 - 10 7 mmol/L [place] CO2 [Moles/Vol] 21 mmol/L 20 - 31 mmol/L [place] Creatinine [Mass/Vol] 0.51 mg/dL 0.5 - 0.9 mg/dL [place] GFR >60 >60 mL/min [place] GFR Non- >60 >60 mL/min [place] Glucose [Mass/Vol] 109 mg/dL High 70 - 99 mg/dL [place] Interpretation and review of laboratory results Abnormal [place] Potassium [Moles/Vol] 3.4 mmol/L Low 3.7 - 5.3 mmol/L [place] Sodium [Moles/Vol] 137 mmol/L 135 - 144 mmol/L [place] Urea nitrogen [Mass/Vol] 14 mg/dL 8 - 23 mg/dL [place] Cult,Urineon 08-17-2019 Cult,Urine Specimen Description .CLEAN CATCH URINE Special Requests NOT REPORTED Culture NO GROWTH Report Status FINAL 08/17/2019 Normal [facility] Comment on above: Performed By: #### A LCB #### [facility] [address] [place] [address] Project Management Engineer: Carloz Alvarado MD Magnesiumon 08-17-2019 Magnesium [Mass/Vol] 2.3 mg/dL Normal 1.6-2.6 [facility] Comment on above: Performed By: #### D AU, UAMIC #### [facility] [address] [place] [address] Project Management Engineer: Carloz Alvarado MD Magnesium [Mass/Vol] 2.3 mg/dL 1.6 - 2 .6 mg/dL [place] Metabolic Panelon 08-17-2019 GFR/1.73 sq M predicted among non-blacks MDRD (S/P/Bld) [Vol rate/Area] [place] Comment on above: Stage 1: Some kidney damage normal GFR Stage 2: Mild kidney damage GFR 60-89 Stage 3: Moderate kidney damage GFR 30-59 Stage 4: Severe kidney damage GFR 15-29 Stage 5: Severe kidney damage GFR <15 ESRD - chronic treatment by dialysis or transplant Average GFR for 60-6 9 years old: 85 mL/min/1.73sq m Chronic Kidney Disease: <60 mL/min/1.73sq m Kidney failure: <15 mL/min/1.73sq m eGFR calculated using average adult body mass. Additional eGFR calculator available at: http://www.Cogenics.Kidamom/multiple_crcl_2012.htm CBC Auto Differentialon - Basophils (Bld) [#/Vol] 10*3/uL [place] Differential Type NOT REPORTED [place] Immature granulocytes (Bld) [#/Vol] 0.04 10*3/uL [place] Interpretation and review of laboratory results Abnormal [place] Platelets (Bld) [#/Vol] NOT REPORTED [place] RBC morphology finding Nom (Bld) NOT REPORTED [place] Segmented neutrophils/100 WBC (Bld) 71 % High 36 - 65 % [place] Segs Absolute 6.71 [place] WBC (Bld) [#/Vol] 0.2 10*3/uL High 0.0 per 10 0 WBC [place] WBC Morphology NOT REPORTED [place] CBC with Diffon 08-16-2019 Abs. Basophil <0.03 Normal 0.00-0.20 [facility] Comment on above: Performed By: #### A CET #### [facility] [address] [place] [address] [place] [address] Project Management Engineer: Carloz Alvarado MD Abs.Imm.Granulocyte 0.04 k/uL Normal 0.00-0.30 [facility] Comment on above: Performed By: #### A CET #### [facility] [address] [place] [address] [place] [address] Project Management Engineer: Carloz Alvarado MD Abs.Neutrophil (Seg) 6.71 k/uL Normal 1.50-8.10 [facility] Comment on above: Performed By: #### A CET #### [facility] [address] [place] [address] Project Management Engineer: Carloz Alvarado MD Neutrophil (Seg) 71 % High 36-65 [facility] Comment on above: Performed By: #### A CET #### [facility] [address] [place] [address] Project Management Engineer: Carloz Alvarado MD NRBC Automated 0.2 per 100 WBC High 0.0 [facility] Comment on above: Performed By: #### A CET #### [facility] [address] [place] [address] [place] [address] Project Management Engineer: Carloz Alvarado MD Auto Diff Performed NOT REPORTED Normal [facility] Comment on above: Performed By: #### A CET #### [address] [place], [place] [phone] Project Management Engineer: Carloz Alvarado MD Platelets (Bld) [#/Vol] NOT REPORTED Normal [facility] Comment on above: Performed By: #### A CET #### [address] [place], [place] [phone] Project Management Engineer: Carloz Alvarado MD RBC morphology finding Nom (Bld) NOT REPORTED Normal [facility] Comment on above: Performed By: #### A CET #### [address] [place], [place] [phone] Project Management Engineer: Carloz Alvarado MD WBC Morphology NOT REPORTED Normal [facility] Comment on above: Performed By: #### A CET #### [address] [place], [place] [address] Project Management Engineer: Carloz Alvarado MD Basophils/100 WBC (Bld) 0 % Normal 0-2 [place] Comment on above: Performed By: #### A CET #### [address] [place], [place] [phone] Project Management Engineer: Carloz Alvarado MD Eosinophils (Bld) [#/Vol] 0.09 10*3/uL Normal 0.00-0.44 [place] Comment on above: Performed By: #### A CET #### [address] [place] [address] Project Management Engineer: Carloz Alvarado MD Eosinophils/100 WBC (Bld) 1 % Normal 1-4 [place] Comment on above: Performed By: #### A CET #### [address] [place] [id number] Project Management Engineer: Carloz Alvarado MD Erythrocyte distribution width (RBC) [Ratio] 14.6 % High 11.8-14.4 [place] Comment on above: Performed By: #### A CET #### [address] [place] [id number] Project Management Engineer: Carloz Alvarado MD Hematocrit (Bld) [Volume fraction] 30.0 % Low 36.3-47.1 [place] Comment on above: Performed By: #### A CET #### [address] [place] [phone] Project Management Engineer: Carloz Alvarado MD Hemoglobin (Bld) [Mass/Vol] 9.5 g/dL Low 11.9-15.1 [place] Comment on above: Performed By: #### A CET #### [address] [place] [phone] Project Management Engineer: Carloz Alvarado MD Immature granulocytes (Bld) [#/Vol] 0 % Normal 0 [place] Comment on above: Performed By: #### A CET #### [address] [place] [id number] Project Management Engineer: Carloz Alvarado MD Lymphocytes (Bld) [#/Vol] 1.80 10*3/uL Normal 1.10-3.70 [place] Comment on above: Performed By: #### A CET #### [address] [place] [id number] Project Management Engineer: Carloz Alvarado MD Lymphocytes/100 WBC (Bld) 19 % Low 24-43 [place] Comment on above: Performed By: #### A CET #### [address] [place] [phone] Project Management Engineer: Carloz Alvarado MD MCH (RBC) [Entitic mass] 31.3 pg Normal 25.2-33.5 [place] Comment on above: Performed By: #### A CET #### [address] [place] [id number] Project Management Engineer: Carloz Alvarado MD MCHC (RBC) [Mass/Vol] 31.7 g/dL Normal 28.4-34.8 [place], [place] Comment on above: Performed By: #### A CET #### [address] [place] [phone] Project Management Engineer: Carloz Alvarado MD MCV (RBC) [Entitic vol] 98.7 fL Normal 82.6-102.9 [place] Comment on above: Performed By: #### A CET #### [address] [place] [phone] Project Management Engineer: Carloz Alvarado MD Monocytes (Bld) [#/Vol] 0.86 10*3/uL Normal 0.10-1.20 [place] Comment on above: Performed By: #### A CET #### [address] [place] [phone] Project Management Engineer: Craloz Alvarado MD Monocytes/100 WBC (Bld) 9 % Normal 3-12 [place] Comment on above: Performed By: #### A CET #### [address] [place] [phone] Project Management Engineer: Carloz Alvarado MD Platelet mean volume (Bld) [Entitic vol] 10.3 fL Normal 8.1-13.5 [place] Comment on above: Performed By: #### A CET #### [address] [place] [address] Project Management Engineer: Carloz Alvarado MD Platelets (Bld) [#/Vol] 569 10*3/uL High 138-453 [place] Comment on above: Performed By: #### A CET #### [facility] [address] [place] [address] Project Management Engineer: Carloz Alvarado MD RBC (Bld) [#/Vol] 3.04 10*6/uL Low 3.95-5.11 [place] Comment on above: Performed By: #### A CET #### [facility] [address] [place] [address] Project Management Engineer: Carloz Alvarado MD WBC (Bld) [#/Vol] 9.5 10*3/uL Normal 3.5-11.3 [place] Comment on above: Performed By: #### A CET #### [facility] [address] [place] [address] [place] [address] Project Management Engineer: Carloz Alvarado MD CKon 08-16-2019 Total CK 102 U/L 26 - 192 U/L [place] COVID-19on 08-16-2019 SARS-CoV-2 [place] SARS-CoV-2, PCR [place] SARS-CoV-2, Rapid Not Detected Not Detected [place], [place] Comment on above: Rapid NAAT: The specimen is NEGATIVE for SARS-CoV-2, the novel coronavirus associated with COVID-19. Negative results should be treated as presumptive and, if inconsistent with clinical signs and symptoms or necessary for patient management, should be tested with an alternative molecular assay. Negative results do not preclude SARS-CoV-2 infection and should not be used as the sole basis for patient management decisions. Fact sheet for Healthcare Providers: https://www.fda.gov/media/252803/download Fact sheet for Patients: https://www.fda.gov/media/311827/download Methodology: Isothermal Nucleic Acid Amplification Source .NASOPHARYNGEAL SWAB [place], [place] CT HEAD WO CONTRASTon 2019 CT HEAD WO CONTRAST EXAMINATION: CT OF THE HEAD WITHOUT CONTRAST 08/16/2019 11:12 am TECHNIQUE: CT of the head was performed without the administration of intravenous contrast. Dose modulation, iterative reconstruction, and/or weight based adjustment of the mA/kV was utilized to reduce the radiation dose to as low as reasonably achievable. COMPARISON: 08/06/2019 HISTORY: ORDERING SYSTEM PROVIDED HISTORY: altered TECHNOLOGIST PROVIDED HISTORY: altered FINDINGS: BRAIN/VENTRICLES: There is prominence of the ventricles and cortical sulci consistent with cortical volume loss. No midline shift. Basal cisterns are normally outlined. There is no evidence for acute infarct. No acute intra or extra-axial hemorrhage. ORBITS: The visualized portion of the orbits demonstrate no acute abnormality. SINUSES: The visualized paranasal sinuses and mastoid air cells demonstrate no acute abnormality. SOFT TISSUES/SKULL: No acute abnormality of the visualized skull or soft tissues. IMPRESSION: No acute intracranial abnormality. Mild cerebral atrophy. Interpreted by: Tani Wooten MD Signed by: Tani Wooten MD 08/16/19 Final result Normal [facility] CT Head WO Contraston 2019 Vishnu, pn Incoming Radiant Results From [email or web address]/[email or web address] - 08/16/2019 11:45 AM EDT EXAMINATION: CT OF THE HEAD WITHOUT CONTRAST 08/16/2019 11:12 am TECHNIQUE: CT of the head was performed without the administration of intravenous contrast. Dose modulation, iterative reconstruction, and/or weight based adjustment of the mA/kV was utilized to reduce the radiation dose to as low as reasonably achievable. COMPARISON: 08/06/2019 HISTORY: ORDERING SYSTEM PROVIDED HISTORY: altered TECHNOLOGIST PROVIDED HISTORY: altered FINDINGS: BRAIN/VENTRICLES: There is prominence of the ventricles and cortical sulci consistent with cortical volume loss. No midline shift. Basal cisterns are normally outlined. There is no evidence for acute infarct. No acute intra or extra-axial hemorrhage. ORBITS: The visualized portion of the orbits demonstrate no acute abnormality. SINUSES: The visualized paranasal sinuses and mastoid air cells demonstrate no acute abnormality. SOFT TISSUES/SKULL: No acute abnormality of the visualized skull or soft tissues. IMPRESSION: No acute intracranial abnormality. Mild cerebral atrophy. [place] EXAMINATION: CT OF T HE HEAD WITHOUT CONTRAST 08/16/2019 11:12 am TECHNIQUE: CT of the head was performed without the administration of intravenous contrast. Dose modulation, iterative reconstruction, and/or weight based adjustment of the mA/kV was utilized to reduce the radiation dose to as low as reasonably achievable. COMPARISON: 08/06/2019 HISTORY: ORDERING SYSTEM PROVIDED HISTORY: altered TECHNOLOGIST PROVIDED HISTORY: altered FINDINGS: BRAIN/VENTRICLES: There is prominence of the ventricles and cortical sulci consistent with cortical volume loss. No midline shift. Basal cisterns are normally outlined. There is no evidence for acute infarct. No acute intra or extra-axial hemorrhage. ORBITS: The visualized portion of the orbits demonstrate no acute abnormality. SINUSES: The visualized paranasal sinuses and mastoid air cells demonstrate no acute abnormality. SOFT TISSUES/SKULL: No acute abnormality of the visualized skull or soft tissues. [place], [place] No acute intracrania l abnormality. Mild cerebral atrophy. [place] Comp Metabolic Pr/rfx MGon 0 08-16-2019 Albumin [Mass/Vol] 3.5 g/dL Normal 3.5-5.2 [facility] Comment on above: Performed By: #### B C #### [facility] [address] [place] [address] Project Management Engineer: Robert Chin MD Albumin/Globulin [Mass ratio] 1.2 {ratio} Normal 1.0-2.5 [facility] Comment on above: Performed By: #### B C #### [facility] [address] [place] [address] Project Management Engineer: Robert Chin MD Alkaline Phos 86 U/L Normal 35-104 [facility] Comment on above: Performed By: #### B C #### [facility] [address] [place] [address] Project Management Engineer: Robert Chin MD ALT [Catalytic activity/Vol] 31 U/L Normal 5-33 [facility] Comment on above: Performed By: #### B C #### [facility] [address] [place] [address] Project Management Engineer: Robert Chin MD Anion gap [Moles/Vol] 12 mmol/L Normal 9-17 [facility] Comment on above: Performed By: #### B C #### [facility] [address] [place], [place] [id number] Project Management Engineer: Robert Chin MD AST [Catalytic activity/Vol] 20 U/L Normal <32 [facility] Comment on above: Performed By: #### B C #### [facility] [address] [place], [place] [id number] Project Management Engineer: Robert Chin MD Bilirubin Ql (U) 0.60 mg/dL Normal 0.3-1.2 [facility] Comment on above: Performed By: #### B C #### [facility] [address] [place], [place] [phone] Project Management Engineer: Robert Chin MD BUN/CRE Ratio 28 High 9-20 [facility] Comment on above: Performed By: #### B C #### [facility] [address] [place], [place] [phone] Project Management Engineer: Robert Chin MD Calcium [Mass/Vol] 9.2 mg/dL Normal 8.6-10.4 [facility] Comment on above: Performed By: #### B C #### [facility] [address] [place] [id number] Project Management Engineer: Robert Chin MD Chloride [Moles/Vol] 100 mmol/L Normal 98-107 [facility] Comment on above: Performed By: #### B C #### [facility] [address] [place], [place] [id number] Project Management Engineer: Robert Chin MD CO2 [Moles/Vol] 24 mmol/L Normal 20-31 [facility] Comment on above: Performed By: #### B C #### [facility] [address] [place], [place] [id number] Project Management Engineer: Robert Chin MD Creatinine [Mass/Vol] 0.60 mg/dL Normal 0.50-0.90 [facility] Comment on above: Performed By: #### B C #### [facility] [address] [place], [place] 6766083 Project Management Engineer: Robert Chin MD GFR, Amer >60 Normal >60 [facility] Comment on above: Performed By: #### B C #### [facility] [address] [place], [place] [id number] Project Management Engineer: Robert Chin MD GFR,non Amer >60 Normal >60 [facility] Comment on above: Performed By: #### B C #### [facility] [address] [place], [place] [phone] Project Management Engineer: Robert Chin MD Glucose [Mass/Vol] 126 mg/dL High 70-99 [facility] Comment on above: Performed By: #### B C #### [facility] [address] [place], [place] [phone] Project Management Engineer: Robert Chin MD Potassium [Moles/Vol] 3.1 mmol/L Low 3.7-5.3 [facility] Comment on above: Performed By: #### B C #### [facility] [address] [place], [place] [id number] Project Management Engineer: Robert Chin MD Protein [Mass/Vol] 6.5 g/dL Normal 6.4-8.3 [facility] Comment on above: Performed By: #### B C #### [facility] [address] [place] [id number] Project Management Engineer: Robert Chin MD Sodium [Moles/Vol] 136 mmol/L Normal 135-144 [facility] Comment on above: Performed By: #### B C #### [facility] [address] [place], [place] [phone] Project Management Engineer: Robert Chin MD Urea nitrogen [Mass/Vol] 17 mg/dL Normal 8-23 [facility] Comment on above: Performed By: #### B C #### [facility] [address] [place] [address] Project Management Engineer: Robert Chin MD (cont.) [facility] Comment on above: Result Comment: Aver age GFR for 60-69 years old: 85 mL/min/1.73sq m Chronic Kidney Disease: <60 mL/min/1.73sq m Kidney failure: <15 mL/min/1.73sq m eGFR calculated using average adult body mass. Additional eGFR calculator available at: http://www.Gingerd/multiple_crcl_2012.htm Performed By: #### B C #### [facility] [address] [place] [address] Project Management Engineer: Robert Chin MD Staging: [facility] Comment on above: Result Comment: Stag e 1: Some kidney damage normal GFR Stage 2: Mild kidney damage GFR 60-89 Stage 3: Moderate kidney damage GFR 30-59 Stage 4: Severe kidney damage GFR 15-29 Stage 5: Severe kidney damage GFR <15 ESRD - chronic treatment by dialysis or transplant Performed By: #### B C #### [facility] [address] [place] [address] Project Management Engineer: Robert Chin MD Comprehensive Metabolic Pane l w/ Reflex to MGon 08-16-2019 Albumin [Mass/Vol] 3.5 g/dL 3.5 - 5.2 g/dL [place] Albumin/Globulin [Mass ratio] 1.2 {ratio} [place] ALP [Catalytic activity/Vol] 86 U/L 35 - 104 U/L [place] ALT [Catalytic activity/Vol] 31 U/L 5 - 33 U/L [place] Anion gap [Moles/Vol] 12 mmol/L 9 - 17 mmol/L [place] AST [Catalytic activity/Vol] 20 U/L <32 [place] Bilirubin Ql (U) 0.60 mg/dL 0.3 - 1.2 mg/dL [place] Bun/Cre Ratio 28 High [place] Calcium [Mass/Vol] 9.2 mg/dL 8.6 - 10. 4 mg/dL [place] Chloride [Moles/Vol] 100 mmol/L 98 - 10 7 mmol/L [place] CO2 [Moles/Vol] 24 mmol/L 20 - 31 mmol/L [place] Creatinine [Mass/Vol] 0.6 mg/dL 0.5 - 0.9 mg/dL [place] GFR >60 >60 mL/min [place] GFR Non- >60 >60 mL/min [place] Glucose [Mass/Vol] 126 mg/dL High 70 - 99 mg/dL [place] Interpretation and review of laboratory results Abnormal [place] Potassium [Moles/Vol] 3.1 mmol/L Low 3.7 - 5.3 mmol/L [place] Protein [Mass/Vol] 6.5 g/dL 6.4 - 8.3 g/dL [place] Sodium [Moles/Vol] 136 mmol/L 135 - 144 mmol/L [place] Urea nitrogen [Mass/Vol] 17 mg/dL 8 - 23 mg/dL [place] Creatine Kinaseon 08-16-2019 CK [Catalytic activity/Vol] 102 U/L Normal 26-192 [facility] Comment on above: Performed By: #### B C #### [facility] [address] [place] [address] Project Management Engineer: Robert Chin MD Magnesiumon 08-16-2019 Magnesium [Mass/Vol] 2.4 mg/dL Normal 1.6-2.6 [facility] Comment on above: Performed By: #### B C #### [facility] [address] [place] [address] Project Management Engineer: Robert Chin MD Magnesium [Mass/Vol] 2.4 mg/dL 1.6 - 2 .6 mg/dL [place] Metabolic Panelon 08-16-2019 GFR/1.73 sq M predicted among non-blacks MDRD (S/P/Bld) [Vol rate/Area] [place] Comment on above: Stage 1: Some kidney damage normal GFR Stage 2: Mild kidney damage GFR 60-89 Stage 3: Moderate kidney damage GFR 30-59 Stage 4: Severe kidney damage GFR 15-29 Stage 5: Severe kidney damage GFR <15 ESRD - chronic treatment by dialysis or transplant Average GFR for 60-6 9 years old: 85 mL/min/1.73sq m Chronic Kidney Disease: <60 mL/min/1.73sq m Kidney failure: <15 mL/min/1.73sq m eGFR calculated using average adult body mass. Additional eGFR calculator available at: http://www.Gingerd/multiple_crcl_2012.htm [id number] 08-16-2019 SARS-CoV-2 Normal [facility] Comment on above: Performed By: #### A CET #### [facility] [address] [place] [address] Project Management Engineer: Carloz Alvarado MD SARS-CoV-2,Rapid Not Detected [facility] Comment on above: Result Comment: Rapid NAAT: The specimen is NEGATIVE for SARS-CoV-2, the novel coronavirus associated with COVID-19. Negative results should be treated as presumptive and, if inconsistent with clinical signs and symptoms or necessary for patient management, should be tested with an alternative molecular assay. Negative results do not preclude SARS-CoV-2 infection and should not be used as the sole basis for patient management decisions. Fact sheet for Healthcare Providers: https://www.fda.gov/media/398919/download Fact sheet for Patients: https://www.fda.gov/media/770886/download Methodology: Isothermal Nucleic Acid Amplification Performed By: #### A CET #### [facility] [address] [place] [address] Project Management Engineer: Carloz Alvarado MD SARS-CoV-2 Source .NASOPHARYNGEAL SWAB Normal [facility] Comment on above: Performed By: #### A CET #### [facility] [address] [place], [place] 6[address]83 Project Management Engineer: Carloz Alvarado MD Troponinon 08-16-2019 Troponin I.cardiac [Mass/Vol] 10 ng/L Normal 0-14 [facility] Comment on above: Result Comment: High Sensitivity Troponin values cannot be compared with other Troponin methodologies. Patients with high levels of Biotin oral intake (i.e >5mg/day) may have falsely decreased Troponin levels. Samples collected within 8 hours of biotin intake may require additional information for diagnosis. Performed By: #### B C #### [facility] [address] [place] [address] Project Management Engineer: Robert Chin MD Troponin I.cardiac [Mass/Vol] NOT REPORTED Normal [facility] Comment on above: Performed By: #### B C #### [facility] [address] [place] [id number] Project Management Engineer: Robert Chin MD Troponin I.cardiac [Mass/Vol] NOT REPORTED [place] Troponin T.cardiac [Mass/Vol] NOT REPORTED <0.03 ng/mL [place] Troponin, High Sensitivity 10 ng/L 0 - 14 ng/L [place] Comment on above: High Sensitivity Troponin values cannot be compared with other Troponin methodologies. Patients with high levels of Biotin oral intake (i.e >5mg/day) may have falsely decreased Troponin levels. Samples collected within 8 hours of biotin intake may require additional information for diagnosis. Urinalysis, Routineon 2019 Acetoacetic Acid,Ur Negative Normal NEG [facility] Comment on above: Performed By: #### D AU, UAMIC #### [facility] [address] [place] [address] Project Management Engineer: Carloz Alvarado MD Bilirubin, SemiQt,Ur Negative Normal NEG [facility] Comment on above: Performed By: #### D AU, UAMIC #### [facility] [address] [place], [place] [phone] Project Management Engineer: Carloz Alvarado MD Color (U) YELLOW Normal YEL [facility] Comment on above: Performed By: #### D AU, UAMIC #### [facility] [address] [place], [place] [phone] Project Management Engineer: Carloz Alvarado MD Glucose Ql (U) Negative Normal [facility] Comment on above: Performed By: #### D AU, UAMIC #### [facility] [address] [place], [place] [phone] Project Management Engineer: Carloz Alvarado MD Hemoglobin, Ur Negative Normal [facility] Comment on above: Performed By: #### D AU, UAMIC #### [facility] [address] [place] [address] [place]. [place], [place] [phone] Project Management Engineer: Carloz Alvarado MD Leukocyte esterase Test strip Ql (U) Negative Normal [facility] Comment on above: Performed By: #### D AU, UAMIC #### [facility] [address] [place] [address] Dr. [place], [place] 1514683 Project Management Engineer: Carloz Alvarado MD Nitrite,Ur Negative Normal [facility] Comment on above: Performed By: #### D AU, UAMIC #### [facility] [address] [place] [address] [place], [place] [phone] Project Management Engineer: Carloz Alvarado MD pH (U) 5.5 [pH] Normal 5.0-9.0 [facility] Comment on above: Performed By: #### D AU, UAMIC #### [facility] [address] [place], [place] 0[address]83 Project Management Engineer: Carloz Alvarado MD Protein Ql (U) Negative Normal [facility] Comment on above: Performed By: #### D AU, UAMIC #### [facility] [address] [place], [place] [address]994[address] Project Management Engineer: Carloz Alvarado MD Specific gravity (U) [Rel density] >1.030 High 1.010-1.020 [facility] Comment on above: Performed By: #### D AU, UAMIC #### [facility] [address] [place], [place] 5609[address] Project Management Engineer: Carloz Alvarado MD Turbidity CLEAR Normal CLEAR [facility] Comment on above: Performed By: #### D AU, UAMIC #### [facility] [address] [place], [place] 5577483 Project Management Engineer: Carloz Alvarado MD Urobilinogen,Ur Normal Normal NORM [facility] Comment on above: Performed By: #### D AU, UAMIC #### [facility] [address] [place] [address] Project Management Engineer: Carloz Alvarado MD Comment NOT REPORTED Normal [facility] Comment on above: Performed By: #### D AU, UAMIC #### [facility] [address] [place] [address] [place] [address] Project Management Engineer: Carloz Alvarado MD Urinalysis, reflex to micros copicon 08-16-2019 Bilirubin Urine Negative NEGATIVE [facility] [place], [place] Color, UA YELLOW YELLOW [facility], [place] Glucose, Ur Negative NEGATIVE [facility] [place] Interpretation and review of laboratory results Abnormal [facility] [place] Ketones Ql (U) Negative NEGATIVE [facility] [place] Leukocyte esterase Test strip Ql (U) Negative NEGATIVE [facility] [place] Nitrite, Urine Negative NEGATIVE [facility] [place] pH, UA 5.5 [facility] [place] Protein (U) [Mass/Vol] Negative NEGATIVE [facility] [place] Specific [place], UA >1.030 High [facility]- [place] Turbidity UA CLEAR CLEAR [facility], [place] Urinalysis Comments NOT REPORTED [facility] Urine Hgb Negative NEGATIVE [facility] Urobilinogen, Urine Normal Normal [place] XR CHEST PORTABLEon 08-16-19 20 XR CHEST PORTABLE EXAMINATION: ONE X-RAY VIEW OF THE CHEST 08/16/2019 11:20 am COMPARISON: August 06, 2019 HISTORY: ORDERING SYSTEM PROVIDED HISTORY: Confusion TECHNOLOGIST PROVIDED HISTORY: Confusion Initial evaluation, acute confusion. FINDINGS: The cardiomediastinal silhouette is normal in size. The lungs are clear without acute infiltrate. No pleural effusion or pneumothorax is present. No subdiaphragmatic free air. IMPRESSION: No acute cardiopulmonary process. Interpreted by: Carloz Bedoya MD Signed by: Carloz Bedoya MD 08/16/19 Final result Normal [facility] No acute cardiopulmo nary process. [place], [place] Vishnu, Mhpn Incoming Radiant Results From [employer]/[email or web address] - 08/16/2019 11:59 AM EDT EXAMINATION: ONE X-RAY VIEW OF THE CHEST 08/16/2019 11:20 am COMPARISON: August 06, 2019 HISTORY: ORDERING SYSTEM PROVIDED HISTORY: Confusion TECHNOLOGIST PROVIDED HISTORY: Confusion Initial evaluation, acute confusion. FINDINGS: The cardiomediastinal silhouette is normal in size. The lungs are clear without acute infiltrate. No pleural effusion or pneumothorax is present. No subdiaphragmatic free air. IMPRESSION: No acute cardiopulmonary process. [place] EXAMINATION: ONE X-R AY VIEW OF THE CHEST 08/16/2019 11:20 am COMPARISON: August 06, 2019 HISTORY: ORDERING SYSTEM PROVIDED HISTORY: Confusion TECHNOLOGIST PROVIDED HISTORY: Confusion Initial evaluation, acute confusion. FINDINGS: The cardiomediastinal silhouette is normal in size. The lungs are clear without acute infiltrate. No pleural effusion or pneumothorax is present. No subdiaphragmatic free air. [place] CBCon 08-12-2019 Erythrocyte distribution width (RBC) [Ratio] 14.5 % High 11.8-14.4 [facility] Comment on above: Performed By: #### A CET #### [facility] [address] [place] [address] Project Management Engineer: Carloz Alvarado MD Hematocrit (Bld) [Volume fraction] 28.8 % Low 36.3-47.1 [facility] Comment on above: Performed By: #### A CET #### [facility] [address] [place] [address] [place] [address] Project Management Engineer: Carloz Alvarado MD Hemoglobin (Bld) [Mass/Vol] 9.2 g/dL Low 11.9-15.1 [facility] Comment on above: Performed By: #### A CET #### [address] [place] [facility] Project Management Engineer: Carloz Alvarado MD MCH (RBC) [Entitic mass] 31.4 pg Normal 25.2-33.5 [facility] Comment on above: Performed By: #### A CET #### [address] [place] [address] Project Management Engineer: Carloz Alvarado MD MCHC (RBC) [Mass/Vol] 31.9 g/dL Normal 28.4-34.8 [facility] Comment on above: Performed By: #### A CET #### [address] [place] [address] Project Management Engineer: Carloz Alvarado MD MCV (RBC) [Entitic vol] 98.3 fL Normal 82.6-102.9 [facility] Comment on above: Performed By: #### A CET #### [address] [place] [address] Project Management Engineer: Carloz Alvarado MD NRBC Automated 0.0 per 100 WBC Normal 0.0 [facility] Comment on above: Performed By: #### A CET #### [address] [place] [address] Project Management Engineer: Carloz Alvarado MD Platelet mean volume (Bld) [Entitic vol] 10.6 fL Normal 8.1-13.5 [facility] Comment on above: Performed By: #### A CET #### [address] [place] [address] Project Management Engineer: Carloz Alvarado MD Platelets (Bld) [#/Vol] 249 10*3/uL Normal 138-453 [facility] Comment on above: Performed By: #### A CET #### [facility] [address] [place] [address] Project Management Engineer: Carloz Alvarado MD RBC (Bld) [#/Vol] 2.93 10*6/uL Low 3.95-5.11 [facility] Comment on above: Performed By: #### A CET #### [facility] [address] [place] [address] Project Management Engineer: Carloz Alvarado MD WBC (Bld) [#/Vol] 5.3 10*3/uL Normal 3.5-11.3 [facility] Comment on above: Performed By: #### A CET #### [facility] [address] [place] [address] Project Management Engineer: Carloz Alvarado MD Erythrocyte distribution width (RBC) [Ratio] 14.5 % High 11.8 - 14.4 % [place] Hematocrit (Bld) [Volume fraction] 28.8 % Low 36.3 - 47.1 % [place] Hemoglobin (Bld) [Mass/Vol] 9.2 g/dL Low 11.9 - 15.1 g/dL [place] Interpretation and review of laboratory results Abnormal [place] MCH (RBC) [Entitic mass] 31.4 pg 25.2 - 33.5 pg [place] MCHC (RBC) [Mass/Vol] 31.9 g/dL 28.4 - 34.8 g/dL [place] MCV (RBC) [Entitic vol] 98.3 fL 82.6 - 102.9 fL [place] Platelet mean volume (Bld) [Entitic vol] 10.6 fL 8.1 - 13.5 fL [place] Platelets (Bld) [#/Vol] 249 10*3/uL [place] RBC (Bld) [#/Vol] 2.93 10*6/uL Low 3.95 - 5.1 1 m/uL [place] WBC (Bld) [#/Vol] 5.3 10*3/uL [place] WBC (Bld) [#/Vol] 0.0 10*3/uL 0.0 per 10 0 WBC [place] Comp Metabolic Profon 2019 (cont.) Normal [facility] Comment on above: Result Comment: Aver age GFR for 60-69 years old: 85 mL/min/1.73sq m Chronic Kidney Disease: <60 mL/min/1.73sq m Kidney failure: <15 mL/min/1.73sq m eGFR calculated using average adult body mass. Additional eGFR calculator available at: http://www.Gingerd/multiple_crcl_2012.htm Performed By: #### A CET #### [facility] [address] [place] [address] [place] [address] Project Management Engineer: Carloz Alvarado MD Albumin [Mass/Vol] 2.7 g/dL Low 3.5-5.2 [facility] Comment on above: Performed By: #### A CET #### [facility] [address] [place] [address] [place] [address] Project Management Engineer: Carloz Alvarado MD Albumin/Globulin [Mass ratio] 1.0 {ratio} Normal 1.0-2.5 [facility] Comment on above: Performed By: #### A CET #### [facility] [address] [place] [address] Project Management Engineer: Carloz Alvarado MD Alkaline Phos 55 U/L Normal 35-104 [facility] Comment on above: Performed By: #### A CET #### [facility] [address] [place] [address] Project Management Engineer: Carloz Alvarado MD ALT [Catalytic activity/Vol] 14 U/L Normal 5-33 [facility] Comment on above: Performed By: #### A CET #### [facility] [address] [place] [address] Project Management Engineer: Carloz Alvarado MD Anion gap [Moles/Vol] 12 mmol/L Normal 9-17 [facility] Comment on above: Performed By: #### A CET #### [facility] [address] [place], [place] 6583683 Project Management Engineer: Carloz Alvarado MD AST [Catalytic activity/Vol] 16 U/L Normal <32 [facility] Comment on above: Performed By: #### A CET #### [facility] [address] [place] [address] Project Management Engineer: Carloz Alvarado MD Bilirubin Ql (U) 0.51 mg/dL Normal 0.3-1.2 [facility] Comment on above: Performed By: #### A CET #### [facility] [address] [place], [place] 5661483 Project Management Engineer: Carloz Alvarado MD BUN/CRE Ratio 20 Normal 9-20 [facility] Comment on above: Performed By: #### A CET #### [address] [place], [place] 8977083 Project Management Engineer: Carloz Alvarado MD Calcium [Mass/Vol] 8.5 mg/dL Low 8.6-10.4 [facility] Comment on above: Performed By: #### A CET #### [facility] [address] [place], [place] 8623683 Project Management Engineer: Carloz Alvarado MD Chloride [Moles/Vol] 105 mmol/L Normal 98-107 [facility] Comment on above: Performed By: #### A CET #### [facility] [address] [place], [place] 3165683 Project Management Engineer: Carloz Alvarado MD CO2 [Moles/Vol] 24 mmol/L Normal 20-31 [facility] Comment on above: Performed By: #### A CET #### [facility] [address] [place], [place] 6111283 Project Management Engineer: Carloz Alvarado MD Creatinine [Mass/Vol] 0.60 mg/dL Normal 0.50-0.90 [facility] Comment on above: Performed By: #### A CET #### [facility] [address] [place], [place] [id number] Project Management Engineer: Carloz Alvarado MD GFR, Amer >60 Normal >60 [facility] Comment on above: Performed By: #### A CET #### [facility] [address] [place], [place] [id number] Project Management Engineer: Carloz Alvarado MD GFR,non Amer >60 Normal >60 [facility] [facility] Comment on above: Performed By: #### A CET #### [facility] [address] [place], [place] [id number] Project Management Engineer: Carloz Alvarado MD Glucose [Mass/Vol] 118 mg/dL High 70-99 [facility] Comment on above: Performed By: #### A CET #### [facility] [address] [place], [place] [id number] Project Management Engineer: Carloz Alvarado MD Potassium [Moles/Vol] 3.6 mmol/L Low 3.7-5.3 [facility] Comment on above: Performed By: #### A CET #### [facility] [address] [place], [place] [id number] Project Management Engineer: Carloz Alvarado MD Protein [Mass/Vol] 5.5 g/dL Low 6.4-8.3 [facility] Comment on above: Performed By: #### A CET #### [facility] [address] [place] [address] Project Management Engineer: Carloz Alvarado MD Sodium [Moles/Vol] 141 mmol/L Normal 135-144 [facility] Comment on above: Performed By: #### A CET #### [facility] [address] [place] [address] Project Management Engineer: Carloz Alvarado MD Staging: Normal [facility] Comment on above: Result Comment: Stag e 1: Some kidney damage normal GFR Stage 2: Mild kidney damage GFR 60-89 Stage 3: Moderate kidney damage GFR 30-59 Stage 4: Severe kidney damage GFR 15-29 Stage 5: Severe kidney damage GFR <15 ESRD - chronic treatment by dialysis or transplant Performed By: #### A CET #### [facility] [address] [place] [address] Project Management Engineer: Carloz Alvarado MD Urea nitrogen [Mass/Vol] 12 mg/dL Normal 8-23 [facility] Comment on above: Performed By: #### A CET #### [facility] [address] [place] [address] Project Management Engineer: Carloz Alvarado MD Comprehensive Met[facility] 08-12-2019 Albumin [Mass/Vol] 2.7 g/dL Low 3.5 - 5.2 g/dL [place] Albumin/Globulin [Mass ratio] 1.0 {ratio} [place] ALP [Catalytic activity/Vol] 55 U/L 35 - 104 U/L [place] ALT [Catalytic activity/Vol] 14 U/L 5 - 33 U/L [place] Anion gap [Moles/Vol] 12 mmol/L 9 - 17 mmol/L [place] AST [Catalytic activity/Vol] 16 U/L <32 [place] Bilirubin Ql (U) 0.51 mg/dL 0.3 - 1.2 mg/dL [place] Bun/Cre Ratio 20 [place] Calcium [Mass/Vol] 8.5 mg/dL Low 8.6 - 10. 4 mg/dL [place] Chloride [Moles/Vol] 105 mmol/L 98 - 10 7 mmol/L [place] CO2 [Moles/Vol] 24 mmol/L 20 - 31 mmol/L [place] Creatinine [Mass/Vol] 0.6 mg/dL 0.5 - 0.9 mg/dL [place] GFR >60 >60 mL/min [place] GFR Non- >60 >60 mL/min [place] Glucose [Mass/Vol] 118 mg/dL High 70 - 99 mg/dL [place] Interpretation and review of laboratory results Abnormal [place] Potassium [Moles/Vol] 3.6 mmol/L Low 3.7 - 5.3 mmol/L [place] Protein [Mass/Vol] 5.5 g/dL Low 6.4 - 8.3 g/dL [place] Sodium [Moles/Vol] 141 mmol/L 135 - 144 mmol/L [place] Urea nitrogen [Mass/Vol] 12 mg/dL 8 - 23 mg/dL [place] Metabolic Panelon 08-12-2019 GFR/1.73 sq M predicted among non-blacks MDRD (S/P/Bld) [Vol rate/Area] [place] Comment on above: Average GFR for 60-6 9 years old: 85 mL/min/1.73sq m Chronic Kidney Disease: <60 mL/min/1.73sq m Kidney failure: <15 mL/min/1.73sq m eGFR calculated using average adult body mass. Additional eGFR calculator available at: http://www.[employer].Kidamom/multiple_crcl_2012.htm Stage 1: Some kidney damage normal GFR Stage 2: Mild kidney damage GFR 60-89 Stage 3: Moderate kidney damage GFR 30-59 Stage 4: Severe kidney damage GFR 15-29 Stage 5: Severe kidney damage GFR <15 ESRD - chronic treatment by dialysis or transplant [facility] 08-09-2019 Erythrocyte distribution width (RBC) [Ratio] 15.6 % High 11.8-14.4 [facility] Comment on above: Performed By: #### D YAMILA FLORES #### [facility] [address] [place], [place] [id number] Project Management Engineer: Carloz Alvarado MD Hematocrit (Bld) [Volume fraction] 24.9 % Low 36.3-47.1 [facility] Comment on above: Performed By: #### D MARK, UAMIC #### [facility] [address] [place], [place] [id number] Project Management Engineer: Carloz Alvarado MD Hemoglobin (Bld) [Mass/Vol] 8.1 g/dL Low 11.9-15.1 [facility] Comment on above: Performed By: #### Shaun FLORES, UAMIC #### [facility] [address] [place] [id number] Project Management Engineer: Carloz Alvarado MD MCH (RBC) [Entitic mass] 31.5 pg Normal 25.2-33.5 [facility] Comment on above: Performed By: #### Shaun FLORES, UAMIC #### [facility] [address] [place] [address] [place]. [place] [phone] Project Management Engineer: Carloz Alvarado MD MCHC (RBC) [Mass/Vol] 32.5 g/dL Normal 28.4-34.8 [facility] Comment on above: Performed By: #### Shaun FLORES, UAMIC #### [facility] [address] [place] [address] Dr. [place], [place] [id number] Project Management Engineer: Carloz Alvarado MD MCV (RBC) [Entitic vol] 96.9 fL Normal 82.6-102.9 [facility] Comment on above: Performed By: #### D MARK, UAMIC #### [facility] [address] [place], [place] [id number] Project Management Engineer: Carloz Alvarado MD NRBC Automated 0.0 per 100 WBC Normal 0.0 [facility] Comment on above: Performed By: #### Shaun FLORES, UAMIC #### [facility] [address] [place] [id number] Project Management Engineer: Carloz Alvarado MD Platelets (Bld) [#/Vol] See Reflexed IPF Result Normal 138-453 [facility] Comment on above: Performed By: #### D MARK, UAMIC #### [facility] [address] [place], [place] [id number] Project Management Engineer: Carloz Alvarado MD RBC (Bld) [#/Vol] 2.57 10*6/uL Low 3.95-5.11 [facility] Comment on above: Performed By: #### D MARK, UAMIC #### [facility] [address] [place], [place] [phone] Project Management Engineer: Carloz Alvarado MD WBC (Bld) [#/Vol] 7.1 10*3/uL Normal 3.5-11.3 [facility] Comment on above: Performed By: #### Shaun FLORES, UAMIC #### [facility] [address] [place], [place] [phone] Project Management Engineer: Carloz Alvarado MD Platelet mean volume (Bld) [Entitic vol] NOT REPORTED Normal 8.1-13.5 [facility] Comment on above: Performed By: #### Shaun FLORES, UAMIC #### [facility] [address] [place], [place] [phone] Project Management Engineer: Carloz Alvarado MD Erythrocyte distribution width (RBC) [Ratio] 15.6 % High 11.8 - 14.4 % [place] Hematocrit (Bld) [Volume fraction] 24.9 % Low 36.3 - 47.1 % [place] Hemoglobin (Bld) [Mass/Vol] 8.1 g/dL Low 11.9 - 15.1 g/dL [place] Interpretation and review of laboratory results Abnormal [place] MCH (RBC) [Entitic mass] 31.5 pg 25.2 - 33.5 pg [place] MCHC (RBC) [Mass/Vol] 32.5 g/dL 28.4 - 34.8 g/dL [place] MCV (RBC) [Entitic vol] 96.9 fL 82.6 - 102.9 fL [place] Platelet mean volume (Bld) [Entitic vol] NOT REPORTED 8.1 - 13.5 fL [place] Platelets (Bld) [#/Vol] See Reflexed IPF Result [place] RBC (Bld) [#/Vol] 2.57 10*6/uL Low 3.95 - 5.1 1 m/uL [place] WBC (Bld) [#/Vol] 7.1 10*3/uL [place] WBC (Bld) [#/Vol] 0.0 10*3/uL 0.0 per 10 0 WBC [place] CBC Auto Differentialon 07-14 Basophils (Bld) [#/Vol] 10*3/uL [place] Basophils/100 WBC (Bld) 0 % 0 - 2 % [place] Differential Type NOT REPORTED [place] Eosinophils (Bld) [#/Vol] 10*3/uL [place] Eosinophils/100 WBC (Bld) 0 % Low 1 - 4 % [place] Erythrocyte distribution width (RBC) [Ratio] 15.5 % High 11.8 - 14.4 % [place] Hematocrit (Bld) [Volume fraction] 28.6 % Low 36.3 - 47.1 % [place] Hemoglobin (Bld) [Mass/Vol] 9.4 g/dL Low 11.9 - 15.1 g/dL [place] Immature granulocytes (Bld) [#/Vol] 0 % 0 [place] Immature granulocytes (Bld) [#/Vol] 0.03 10*3/uL [place] Interpretation and review of laboratory results Abnormal [place] Lymphocytes (Bld) [#/Vol] 1.19 10*3/uL [place] Lymphocytes/100 WBC (Bld) 15 % Low 24 - 43 % [place] MCH (RBC) [Entitic mass] 31.1 pg 25.2 - 33.5 pg [place] MCHC (RBC) [Mass/Vol] 32.9 g/dL 28.4 - 34.8 g/dL [place] MCV (RBC) [Entitic vol] 94.7 fL 82.6 - 102.9 fL [place] Monocytes (Bld) [#/Vol] 0.68 10*3/uL [place] Monocytes/100 WBC (Bld) 9 % 3 - 12 % [place] Platelet mean volume (Bld) [Entitic vol] 11.2 fL 8.1 - 13.5 fL [place] Platelets (Bld) [#/Vol] 152 10*3/uL [place] Platelets (Bld) [#/Vol] NOT REPORTED [place] RBC (Bld) [#/Vol] 3.02 10*6/uL Low 3.95 - 5.1 1 m/uL [place] RBC morphology finding Nom (Bld) NOT REPORTED [place] Segmented neutrophils/100 WBC (Bld) 76 % High 36 - 65 % [place] Segs Absolute 5.95 [place] WBC (Bld) [#/Vol] 7.9 10*3/uL [place] WBC (Bld) [#/Vol] 0.0 10*3/uL 0.0 per 10 0 WBC [place] WBC Morphology NOT REPORTED [place] CBC with Diffon 08-09-2019 Abs. Basophil <0.03 Normal 0.00-0.20 [facility] Comment on above: Performed By: #### A CET #### [facility] [address] [place] [address] Project Management Engineer: Carloz Alvarado MD Abs.Imm.Granulocyte 0.03 k/uL Normal 0.00-0.30 [facility] Comment on above: Performed By: #### A CET #### [facility] [address] [place] [address] Project Management Engineer: Carloz Alvarado MD Abs.Neutrophil (Seg) 5.95 k/uL Normal 1.50-8.10 [facility] Comment on above: Performed By: #### A CET #### [address] [place] [address] Project Management Engineer: Carloz Alvarado MD Basophils/100 WBC (Bld) 0 % Normal 0-2 [facility] Comment on above: Performed By: #### A CET #### [address] [place] [address] Project Management Engineer: Carloz Alvarado MD Eosinophils (Bld) [#/Vol] 10*3/uL Normal 0.00-0.44 [facility] Comment on above: Performed By: #### A CET #### [address] [place], [facility]83 Project Management Engineer: Carloz Alvarado MD Eosinophils/100 WBC (Bld) 0 % Low 1-4 [facility] Comment on above: Performed By: #### A CET #### [address] [place] [address] Project Management Engineer: Carloz Alvarado MD Erythrocyte distribution width (RBC) [Ratio] 15.5 % High 11.8-14.4 [facility] Comment on above: Performed By: #### A CET #### [address] [place], [facility]83 Project Management Engineer: Carloz Alvarado MD Hematocrit (Bld) [Volume fraction] 28.6 % Low 36.3-47.1 [facility] Comment on above: Performed By: #### A CET #### [address] [place] [address] Project Management Engineer: Carloz Alvarado MD Hemoglobin (Bld) [Mass/Vol] 9.4 g/dL Low 11.9-15.1 [facility] Comment on above: Performed By: #### A CET #### [facility] [address] [place], [place] [phone] Project Management Engineer: Carloz Alvarado MD Immature granulocytes (Bld) [#/Vol] 0 % Normal 0 [facility] Comment on above: Performed By: #### A CET #### [facility] [address] [place], [place] [id number] Project Management Engineer: Carloz Alvarado MD Lymphocytes (Bld) [#/Vol] 1.19 10*3/uL Normal 1.10-3.70 [facility] Comment on above: Performed By: #### A CET #### [address] [place] [address] Project Management Engineer: Carloz Alvarado MD Lymphocytes/100 WBC (Bld) 15 % Low 24-43 [facility] Comment on above: Performed By: #### A CET #### [address] [place], [place] 2431383 Project Management Engineer: Carloz Alvarado MD MCH (RBC) [Entitic mass] 31.1 pg Normal 25.2-33.5 [facility] Comment on above: Performed By: #### A CET #### [address] [place] [address] Project Management Engineer: Carloz Alvarado MD MCHC (RBC) [Mass/Vol] 32.9 g/dL Normal 28.4-34.8 [facility] Comment on above: Performed By: #### A CET #### [address] [place] [address] Project Management Engineer: Carloz Alvarado MD MCV (RBC) [Entitic vol] 94.7 fL Normal 82.6-102.9 [facility] Comment on above: Performed By: #### A CET #### [address] [place] [address] Project Management Engineer: Carloz Alvarado MD Monocytes (Bld) [#/Vol] 0.68 10*3/uL Normal 0.10-1.20 [facility] Comment on above: Performed By: #### A CET #### [facility] [address] [place], [place] [id number] Project Management Engineer: Carloz Alvarado MD Monocytes/100 WBC (Bld) 9 % Normal 3-12 [facility] Comment on above: Performed By: #### A CET #### [facility] [address] [place] [address] Project Management Engineer: Carloz Alvarado MD Neutrophil (Seg) 76 % High 36-65 [facility] Comment on above: Performed By: #### A CET #### [address] [place], [place] 4169983 Project Management Engineer: Carloz Alvarado MD NRBC Automated 0.0 per 100 WBC Normal 0.0 [facility] Comment on above: Performed By: #### A CET #### [address] [place], [place] 5263283 Project Management Engineer: Carloz Alvarado MD Platelet mean volume (Bld) [Entitic vol] 11.2 fL Normal 8.1-13.5 [facility] Comment on above: Performed By: #### A CET #### [address] [place], [place] 9435783 Project Management Engineer: Carloz Alvarado MD Platelets (Bld) [#/Vol] 152 10*3/uL Normal 138-453 [facility] Comment on above: Performed By: #### A CET #### [facility] [address] [place], [place] [phone] Project Management Engineer: Carloz Alvarado MD RBC (Bld) [#/Vol] 3.02 10*6/uL Low 3.95-5.11 [facility] Comment on above: Performed By: #### A CET #### [facility] [address] [place], [place] 2602283 Project Management Engineer: Carloz Alvarado MD WBC (Bld) [#/Vol] 7.9 10*3/uL Normal 3.5-11.3 [facility] Comment on above: Performed By: #### A CET #### [facility] [address] [place] [address] Project Management Engineer: Carloz Alvarado MD Auto Diff Performed NOT REPORTED Normal [facility] Comment on above: Performed By: #### A CET #### [address] [place] [address]83 Project Management Engineer: Carloz Alvarado MD Platelets (Bld) [#/Vol] NOT REPORTED Normal [facility] Comment on above: Performed By: #### A CET #### [address] [place] [address]83 Project Management Engineer: Carloz Alvarado MD RBC morphology finding Nom (Bld) NOT REPORTED Normal [facility] Comment on above: Performed By: #### A CET #### [address] [place] [address]83 Project Management Engineer: Carloz Alvarado MD WBC Morphology NOT REPORTED Normal [facility] Comment on above: Performed By: #### A CET #### [address] [place] 239[address]83 Project Management Engineer: Carloz Alvarado MD Hemoglobin and hematocrit, b loodon 08-09-2019 Hematocrit (Bld) [Volume fraction] 24.8 % Low 36.3 - 47.1 % [place] Hemoglobin (Bld) [Mass/Vol] 8.0 g/dL Low 11.9 - 15.1 g/dL [place] Interpretation and review of laboratory results Abnormal [place] Hgb/Hcton 08-09-2019 Hematocrit (Bld) [Volume fraction] 24.8 % Low 36.3-47.1 [facility] Comment on above: Performed By: #### Shaun FLORES UAMIC #### [facility] [address] [place] [address] Project Management Engineer: Carloz Alvarado MD Hemoglobin (Bld) [Mass/Vol] 8.0 g/dL Low 11.9-15.1 [facility] Comment on above: Performed By: #### Shaun FLORES UAMIC #### [facility] [address] [place] [address] Project Management Engineer: Carloz Alvarado MD Immature Platelet Fractionon 08-09-2019 Interpretation and review of laboratory results Abnormal [place] Platelet, Fluorescence [address] [place], [place] Platelet, Immature Fraction 3.0 % 1.1 - 10.3 % [place] PLT, Immature Fract.on 08-08 Platelet, Fluoresc. 114 k/uL Low 138-453 [facility] Comment on above: Performed By: #### Shaun FLORES UAMIC #### [facility] [address] [place] [address] Project Management Engineer: Carloz Alvarado MD PLT, Immature Fract. 3.0 % Normal 1.1-10.3 [facility] Comment on above: Performed By: #### Shaun FLORES UAMIC #### [facility] [address] [place] [address] Project Management Engineer: Carloz Alvarado MD Basic Metabolic Panelon 07-14 Anion gap [Moles/Vol] 13 mmol/L 9 - 17 mmol/L [place] Bun/Cre Ratio 19 [place] Calcium [Mass/Vol] 7.6 mg/dL Low 8.6 - 10. 4 mg/dL [place] Chloride [Moles/Vol] 105 mmol/L 98 - 10 7 mmol/L [place] CO2 [Moles/Vol] 17 mmol/L Low 20 - 31 mmol/L [place] Creatinine [Mass/Vol] 0.75 mg/dL 0.5 - 0.9 mg/dL [place] GFR >60 >60 mL/min [place] GFR Non- >60 >60 mL/min [place] Glucose [Mass/Vol] 106 mg/dL High 70 - 99 mg/dL [place] Interpretation and review of laboratory results Abnormal [place] Potassium [Moles/Vol] 3.9 mmol/L 3.7 - 5.3 mmol/L [place] Sodium [Moles/Vol] 135 mmol/L 135 - 144 mmol/L [place] Urea nitrogen [Mass/Vol] 14 mg/dL 8 - 23 mg/dL [place] Basic Metabolic Profon 08-07 (cont.) Normal [facility] Comment on above: Result Comment: Aver age GFR for 60-69 years old: 85 mL/min/1.73sq m Chronic Kidney Disease: <60 mL/min/1.73sq m Kidney failure: <15 mL/min/1.73sq m eGFR calculated using average adult body mass. Additional eGFR calculator available at: http://www.[employer].Kidamom/multiple_crcl_2012.htm Performed By: #### D MARK, UAMIC #### [facility] [address] [place] [address] Project Management Engineer: Carloz Alvarado MD Anion gap [Moles/Vol] 13 mmol/L Normal - [facility] Comment on above: Performed By: #### D AU, UAMIC #### [facility] [address] [place] [address] Project Management Engineer: Carloz Alvarado MD BUN/CRE Ratio 19 Normal - [facility] Comment on above: Performed By: #### D AU, UAMIC #### [facility] [address] [place] [address] Project Management Engineer: Carloz Alvarado MD Calcium [Mass/Vol] 7.6 mg/dL Low 8.6-10.4 [facility] Comment on above: Performed By: #### D AU, UAMIC #### [facility] [address] [place], [place] 1022583 Project Management Engineer: Carloz Alvarado MD Chloride [Moles/Vol] 105 mmol/L Normal 98-107 [facility] Comment on above: Performed By: #### D AU, UAMIC #### [facility] [address] [place], [place] 55[address]83 Project Management Engineer: Carloz Alvarado MD CO2 [Moles/Vol] 17 mmol/L Low 20-31 [facility] Comment on above: Performed By: #### D AU, UAMIC #### [facility] [address] [place], [place] 8825383 Project Management Engineer: Carloz Alvarado MD Creatinine [Mass/Vol] 0.75 mg/dL Normal 0.50-0.90 [facility] Comment on above: Performed By: #### D AU, UAMIC #### [facility] [address] [place], [place] 3974383 Project Management Engineer: Carloz Alvarado MD GFR, Amer >60 Normal >60 [facility] Comment on above: Performed By: #### D AU, UAMIC #### [facility] [address] [place], [place] 8949683 Project Management Engineer: Carloz Alvarado MD GFR,non Amer >60 Normal >60 [facility] Comment on above: Performed By: #### D AU, UAMIC #### [facility] [address] [place], [place] 1869683 Project Management Engineer: Carloz Alvarado MD Glucose [Mass/Vol] 106 mg/dL High 70-99 [facility] Comment on above: Performed By: #### D AU, UAMIC #### [facility] [address] [place], [place] [phone] Project Management Engineer: Carloz Alvarado MD Potassium [Moles/Vol] 3.9 mmol/L Normal 3.7-5.3 [facility] Comment on above: Performed By: #### Shaun FLORES, UAMIC #### [facility] [address] [place] [address] Project Management Engineer: Carloz Alvarado MD Sodium [Moles/Vol] 135 mmol/L Normal 135-144 [facility] Comment on above: Performed By: #### Shaun FLORES, UAMIC #### [facility] [address] [place] [address] Project Management Engineer: Carloz Alvarado MD Staging: Normal [facility] Comment on above: Result Comment: Stag e 1: Some kidney damage normal GFR Stage 2: Mild kidney damage GFR 60-89 Stage 3: Moderate kidney damage GFR 30-59 Stage 4: Severe kidney damage GFR 15-29 Stage 5: Severe kidney damage GFR <15 ESRD - chronic treatment by dialysis or transplant Performed By: #### Shaun FLORES, UAMIC #### [facility] [address] [place] [address] Project Management Engineer: Carloz Alvarado MD Urea nitrogen [Mass/Vol] 14 mg/dL Normal 8-23 [facility] Comment on above: Performed By: #### Shaun FLORES UAMIC #### [facility] [address] [place] [address] Project Management Engineer: Carloz Alvarado MD [place]on 08-08-2019 Erythrocyte distribution width (RBC) [Ratio] 13.8 % Normal 11.8-14.4 [facility] Comment on above: Performed By: #### Shaun FLORES UAMIC #### [facility] [address] [place] [address] Project Management Engineer: Carloz Alvarado MD Hematocrit (Bld) [Volume fraction] 27.1 % Low 36.3-47.1 [facility] Comment on above: Performed By: #### Shaun FLORES, UAMIC #### [facility] [address] [place], [place] [phone] Project Management Engineer: Carloz Alvarado MD Hemoglobin (Bld) [Mass/Vol] 8.1 g/dL Low 11.9-15.1 [facility] Comment on above: Performed By: #### Shaun FLORES, UAMIC #### [facility] [address] [place], [place] [id number] Project Management Engineer: Carloz Alvarado MD MCH (RBC) [Entitic mass] 32.0 pg Normal 25.2-33.5 [facility] Comment on above: Performed By: #### Shaun FLORES, UAMIC #### [address] [place], [facility]83 Project Management Engineer: Carloz Alvarado MD MCHC (RBC) [Mass/Vol] 29.9 g/dL Normal 28.4-34.8 [facility] Comment on above: Performed By: #### Shaun FLORES, UAMIC #### [address] [place], [facility]83 Project Management Engineer: Carloz Alvarado MD MCV (RBC) [Entitic vol] 107.1 fL High 82.6-102.9 [facility] Comment on above: Performed By: #### Shaun FLORES, UAMIC #### [address] [place], [facility]83 Project Management Engineer: Carloz Alvarado MD NRBC Automated 0.0 per 100 WBC Normal 0.0 [facility] Comment on above: Performed By: #### Shaun FLORES, UAMIC #### [facility] [address] [place] [address] Dr. [place] [facility]83 Project Management Engineer: Carloz Alvarado MD Platelets (Bld) [#/Vol] See Reflexed IPF Result Normal 138-453 [facility] Comment on above: Performed By: #### Shaun FLORES, UAMIC #### [facility] [address] [place] [id number] Project Management Engineer: Carloz Alvarado MD RBC (Bld) [#/Vol] 2.53 10*6/uL Low 3.95-5.11 [facility] Comment on above: Performed By: #### D AU, UAMIC #### [facility] [address] [place], [place] [phone] Project Management Engineer: Carloz Alvarado MD WBC (Bld) [#/Vol] 8.7 10*3/uL Normal 3.5-11.3 [facility] Comment on above: Performed By: #### D MARK, UAMIC #### [facility] [address] [place] [id number] Project Management Engineer: Carloz Alvarado MD Platelet mean volume (Bld) [Entitic vol] NOT REPORTED Normal 8.1-13.5 [facility] Comment on above: Performed By: #### D MARK, UAMIC #### [facility] [address] [place] [address] Dr. [place] [phone] Project Management Engineer: Carloz Alvarado MD Erythrocyte distribution width (RBC) [Ratio] 13.8 % 11.8 - 14.4 % [place] Hematocrit (Bld) [Volume fraction] 27.1 % Low 36.3 - 47.1 % [place] Hemoglobin (Bld) [Mass/Vol] 8.1 g/dL Low 11.9 - 15.1 g/dL [place] Interpretation and review of laboratory results Abnormal [place] MCH (RBC) [Entitic mass] 32.0 pg 25.2 - 33.5 pg [place] MCHC (RBC) [Mass/Vol] 29.9 g/dL 28.4 - 34.8 g/dL [place] MCV (RBC) [Entitic vol] 107.1 fL High 82.6 - 102.9 fL [place] Platelet mean volume (Bld) [Entitic vol] NOT REPORTED 8.1 - 13.5 fL [place] Platelets (Bld) [#/Vol] See Reflexed IPF Result [place] RBC (Bld) [#/Vol] 2.53 10*6/uL Low 3.95 - 5.1 1 m/uL [place] WBC (Bld) [#/Vol] 8.7 10*3/uL [place] WBC (Bld) [#/Vol] 0.0 10*3/uL 0.0 per 10 0 WBC [place] Immature Platelet Fractionon 08-08-2019 Interpretation and review of laboratory results Abnormal [place] Platelet, Fluorescence 51 Low Me [place], [place] Platelet, Immature Fraction 5.0 % 1.1 - 10.3 % [place] Metabolic Panelon 08-08-2019 GFR/1.73 sq M predicted among non-blacks MDRD (S/P/Bld) [Vol rate/Area] [place] Comment on above: Average GFR for 60-6 9 years old: 85 mL/min/1.73sq m Chronic Kidney Disease: <60 mL/min/1.73sq m Kidney failure: <15 mL/min/1.73sq m eGFR calculated using average adult body mass. Additional eGFR calculator available at: http://www.Gingerd/multiple_crcl_2012.htm Stage 1: Some kidney damage normal GFR Stage 2: Mild kidney damage GFR 60-89 Stage 3: Moderate kidney damage GFR 30-59 Stage 4: Severe kidney damage GFR 15-29 Stage 5: Severe kidney damage GFR <15 ESRD - chronic treatment by dialysis or transplant PLT, Immature Fract.on 08-07 Platelet, Fluoresc. 51 k/uL Low 138-453 [facility] Comment on above: Performed By: #### D AU UAMIC #### [facility] [address] [place] [address] Project Management Engineer: Carloz Alvarado MD PLT, Immature Fract. 5.0 % Normal 1.1-10.3 [facility] Comment on above: Performed By: #### Shaun FLORES UAMIC #### [facility] [address] [place] [address] Project Management Engineer: Carloz Alvarado MD Type + Screenon 08-08-2019 Type + Screen Sample Expiration 08/11/2019,2359 Arm Band Number [id number] ABO/Rh(D) A POSITIVE Antibody Screen NEGATIVE Unit Number [id number] Blood Component Type Leukocyte Reduced Red Cell Unit Division 00 Status of Unit TRANSFUSED Transfusion Status OK TO TRANSFUSE Crossmatch Result COMPATIBLE [facility] Comment on above: Performed By: #### C OVID #### [facility] [address] [place] [address] Project Management Engineer: Robert Chin MD Type + Screen Sample Expiration 08/11/2019,2359 Arm Band Number [id number] ABO/Rh(D) A POSITIVE Antibody Screen NEGATIVE Unit Number [id number] Blood Component Type Leukocyte Reduced Red Cell Unit Division 00 Status of Unit REL FROM ALLOC Transfusion Status OK TO TRANSFUSE Crossmatch Result COMPATIBLE [facility] Comment on above: Performed By: #### C OVID #### [facility] [address] [place], [place] [id number] Project Management Engineer: David Valdes MD [facility] [address] [place] [address] Project Management Engineer: Robert Chin MD [facility] [address] [place], [place] [phone] Project Management Engineer: Dennis Amanda MD Basic Metabolic Panelon 07-14 Anion gap [Moles/Vol] 14 mmol/L 9 - 17 mmol/L [place] Bun/Cre Ratio 21 High [place] Calcium [Mass/Vol] 7.7 mg/dL Low 8.6 - 10. 4 mg/dL [place] Chloride [Moles/Vol] 105 mmol/L 98 - 10 7 mmol/L [place] CO2 [Moles/Vol] 18 mmol/L Low 20 - 31 mmol/L [place] Creatinine [Mass/Vol] 0.86 mg/dL 0.5 - 0.9 mg/dL [place] GFR >60 >60 mL/min [place] GFR Non- >60 >60 mL/min [place] Glucose [Mass/Vol] 164 mg/dL High 70 - 99 mg/dL [place] Interpretation and review of laboratory results Abnormal [place] Potassium [Moles/Vol] 4.6 mmol/L 3.7 - 5.3 mmol/L [place] Sodium [Moles/Vol] 137 mmol/L 135 - 144 mmol/L [place] Urea nitrogen [Mass/Vol] 18 mg/dL 8 - 23 mg/dL [place] Basic Metabolic Profon 08-06 (cont.) Normal [facility] Comment on above: Result Comment: Aver age GFR for 60-69 years old: 85 mL/min/1.73sq m Chronic Kidney Disease: <60 mL/min/1.73sq m Kidney failure: <15 mL/min/1.73sq m eGFR calculated using average adult body mass. Additional eGFR calculator available at: http://www.Gingerd/multiple_crcl_2012.htm Performed By: #### C OVID #### [facility] [address] [place] [address] Project Management Engineer: David Valdes MD [facility] [address] [place] [address] Project Management Engineer: Robert Chin MD [facility] [address] [place], [place] [phone] Project Management Engineer: Dennis Amanda MD Anion gap [Moles/Vol] 14 mmol/L Normal 9-17 [facility] Comment on above: Performed By: #### C OVID #### [facility] [address] [place] [address] Project Management Engineer: David Valdes MD [facility] [address] [place] [address] Project Management Engineer: Robert Chin MD [facility] [address] [place] [address] Project Management Engineer: Dennis Amanda MD BUN/CRE Ratio 21 High 9-20 [facility] Comment on above: Performed By: #### C OVID #### [facility] [address] [place] [address] Project Management Engineer: David Valdes MD [facility] [address] [place] [address] Dr. [place], [place] [phone] Project Management Engineer: Robert Chin MD [facility] [address] [place] [address] Project Management Engineer: Dennis Amanda MD Calcium [Mass/Vol] 7.7 mg/dL Low 8.6-10.4 [facility] Comment on above: Performed By: #### C OVID #### [facility] [address] [place] [address] Project Management Engineer: David Valdes MD [facility] [address] [place] [address] [place], [place] [phone] Project Management Engineer: Robert Chin MD [facility] [address] [place] [address] Project Management Engineer: Dennis Amanda MD Chloride [Moles/Vol] 105 mmol/L Normal 98-107 [facility] Comment on above: Performed By: #### C OVID #### [facility] [address] [place] [address] Project Management Engineer: David Valdes MD [facility] [address] [place] [address] [place], [place] [phone] Project Management Engineer: Robert Chin MD [facility] [address] [place] [address] Project Management Engineer: Dennis Amanda MD CO2 [Moles/Vol] 18 mmol/L Low 20-31 [facility] Comment on above: Performed By: #### C OVID #### [facility] [address] [place] [address] Project Management Engineer: David Valdes MD [facility] [address] [place], [place] [phone] Project Management Engineer: Robert Chin MD [facility] [address] [place] [address] Project Management Engineer: Dennis Amanda MD Creatinine [Mass/Vol] 0.86 mg/dL Normal 0.50-0.90 [facility] Comment on above: Performed By: #### C OVID #### [facility] [address] [place] [address] Project Management Engineer: David Valdes MD [facility] [address] [place], [place] [phone] Project Management Engineer: Robert Chin MD [facility] [address] [place] [address] Project Management Engineer: Dennis Amanda MD GFR, Amer >60 Normal >60 [facility] Comment on above: Performed By: #### C OVID #### [facility] [address] [place] [address] Project Management Engineer: David Valdes MD [facility] [address] [place], [place] [phone] Project Management Engineer: Robert Chin MD [facility] [address] [place] [address] Project Management Engineer: Dennis Amanda MD GFR,non Amer >60 Normal >60 [facility] Comment on above: Performed By: #### C OVID #### [facility] [address] [place] [address] Project Management Engineer: David Valdes MD [facility] [address] [place], [place] [phone] Project Management Engineer: Robert Chin MD [facility] [address] [place] [address] Project Management Engineer: Dennis Amanda MD Glucose [Mass/Vol] 164 mg/dL High 70-99 [facility] Comment on above: Performed By: #### C OVID #### [facility] [address] [place] [address] Project Management Engineer: David Valdes MD [facility] [address] [place], [place] [phone] Project Management Engineer: Robert Chin MD [facility] [address] [place] [address] Project Management Engineer: Dennis Amanda MD Potassium [Moles/Vol] 4.6 mmol/L Normal 3.7-5.3 [facility] Comment on above: Performed By: #### C OVID #### [facility] [address] [place] [address] Project Management Engineer: David Valdes MD [facility] [address] [place] [address] [place], [place] [phone] Project Management Engineer: Robert Chin MD [facility] [address] [place] [address] Project Management Engineer: Dennis Amanda MD Sodium [Moles/Vol] 137 mmol/L Normal 135-144 [facility] Comment on above: Performed By: #### C OVID #### [facility] [address] [place] [address] Project Management Engineer: David Valdes MD [facility] [address] [place] [address] [place], [place] [phone] Project Management Engineer: Robert Chin MD [facility] [address] [place] [address] Project Management Engineer: Dennis Amanda MD Staging: Normal [facility] Comment on above: Result Comment: Stag e 1: Some kidney damage normal GFR Stage 2: Mild kidney damage GFR 60-89 Stage 3: Moderate kidney damage GFR 30-59 Stage 4: Severe kidney damage GFR 15-29 Stage 5: Severe kidney damage GFR <15 ESRD - chronic treatment by dialysis or transplant Performed By: #### C OVID #### [address] [address] Project Management Engineer: David Valdes MD [facility] [address] [place] [address] Project Management Engineer: Robert Chin MD [facility] [address] [place], [place] [phone] Project Management Engineer: Dennis Amanda MD Urea nitrogen [Mass/Vol] 18 mg/dL Normal 8-23 [facility] Comment on above: Performed By: #### C OVID #### [facility] [address] [place] [address] Project Management Engineer: David Valdes MD [facility] [address] [place] [address] Project Management Engineer: Robert Chin MD [facility] [address] [place], [place] [phone] Project Management Engineer: Dennis Amanda MD CBC auto differentialon 07-14 Basophils (Bld) [#/Vol] 10*3/uL [place] Basophils/100 WBC (Bld) 0 % 0 - 2 % [place] Differential Type NOT REPORTED [place] Eosinophils (Bld) [#/Vol] 10*3/uL [place] Eosinophils/100 WBC (Bld) 0 % Low 1 - 4 % [place] Erythrocyte distribution width (RBC) [Ratio] 13.5 % 11.8 - 14.4 % [place] Hematocrit (Bld) [Volume fraction] 31.6 % Low 36.3 - 47.1 % [place] Hemoglobin (Bld) [Mass/Vol] 10.2 g/dL Low 11.9 - 15.1 g/dL [place] Immature granulocytes (Bld) [#/Vol] 0.04 10*3/uL [place] Immature granulocytes (Bld) [#/Vol] 0 % 0 [place] Interpretation and review of laboratory results Abnormal [place] Lymphocytes (Bld) [#/Vol] 0.92 10*3/uL Low [place] Lymphocytes/100 WBC (Bld) 9 % Low 24 - 43 % [place] MCH (RBC) [Entitic mass] 32.0 pg 25.2 - 33.5 pg [place] MCHC (RBC) [Mass/Vol] 32.3 g/dL 28.4 - 34.8 g/dL [place] MCV (RBC) [Entitic vol] 99.1 fL 82.6 - 102.9 fL [place] Monocytes (Bld) [#/Vol] 0.64 10*3/uL [place] Monocytes/100 WBC (Bld) 6 % 3 - 12 % [place] Platelet mean volume (Bld) [Entitic vol] NOT REPORTED 8.1 - 13.5 fL [place] Platelets (Bld) [#/Vol] See Reflexed IPF Result [place] Platelets (Bld) [#/Vol] NOT REPORTED [place] RBC (Bld) [#/Vol] 3.19 10*6/uL Low 3.95 - 5.1 1 m/uL [place] RBC morphology finding Nom (Bld) NOT REPORTED [place] Segmented neutrophils/100 WBC (Bld) 85 % High 36 - 65 % [place] Segs Absolute 9.10 [place] WBC (Bld) [#/Vol] 10.7 10*3/uL [place] WBC (Bld) [#/Vol] 0.0 10*3/uL 0.0 per 10 0 WBC [place] WBC Morphology NOT REPORTED [place] CBC with Diffon 08-07-2019 Abs. Basophil <0.03 Normal 0.00-0.20 [facility] Comment on above: Performed By: #### C OVID #### [facility] [address] [place] [address] Project Management Engineer: David Valdes MD [facility] [address] [place], [place] [phone] Project Management Engineer: Robert Chin MD [facility] [address] [place] [address] Project Management Engineer: Dennis Amanda MD Abs.Imm.Granulocyte 0.04 k/uL Normal 0.00-0.30 [facility] Comment on above: Performed By: #### C OVID #### [address] [address] Project Management Engineer: David Valdes MD [facility] [address] [place] [address] Dr. [place] [phone] Project Management Engineer: Robert Chin MD [facility] [address] [place] [address] Project Management Engineer: Dennis Amanda MD Abs.Neutrophil (Seg) 9.10 k/uL High 1.50-8.10 [facility] Comment on above: Performed By: #### C OVID #### [address] [address] Project Management Engineer: David Valdes MD [facility] [address] [place] [address] [place] [address] Project Management Engineer: Robert Chin MD [facility] [address] [place] [address] Project Management Engineer: Dennis Amanda MD Basophils/100 WBC (Bld) 0 % Normal 0-2 [facility] Comment on above: Performed By: #### C OVID #### [address] [address] Project Management Engineer: David Valdes MD [facility] [address] [place] [address] Dr. [place] [phone] Project Management Engineer: Robert Chin MD [facility] [address] [place] [address] Project Management Engineer: Dennis Amanda MD Eosinophils (Bld) [#/Vol] 10*3/uL Normal 0.00-0.44 [facility] Comment on above: Performed By: #### C OVID #### [facility] [address] [place] [address] Project Management Engineer: David Valdes MD [facility] [address] [place] [address] Dr. [place], [place] [phone] Project Management Engineer: Robert Chin MD [facility] [address] [place] [address] Project Management Engineer: Dennis Amanda MD Eosinophils/100 WBC (Bld) 0 % Low 1-4 [facility] Comment on above: Performed By: #### C OVID #### [facility] [address] [place] [address] Project Management Engineer: David Valdes MD [facility] [address] [place] [address] Dr. [place], [place] [phone] Project Management Engineer: Robert Chin MD [facility] [address] [place] [address] Project Management Engineer: Dennis Amanda MD Erythrocyte distribution width (RBC) [Ratio] 13.5 % Normal 11.8-14.4 [facility] Comment on above: Performed By: #### C OVID #### [facility] [address] [place] [address] Project Management Engineer: David Valdes MD [facility] [address] [place] [address] Dr. [place], [place] [phone] Project Management Engineer: Robert Chin MD [facility] [address] [place] [address] Project Management Engineer: Dennis Amanda MD Hematocrit (Bld) [Volume fraction] 31.6 % Low 36.3-47.1 [facility] Comment on above: Performed By: #### C OVID #### [facility] [address] [place] [address] Project Management Engineer: David Valdes MD [facility] [address] [place] [address] [place], [place] [phone] Project Management Engineer: Robert Chin MD [facility] [address] [place] [address] Project Management Engineer: Dennis Amanda MD Hemoglobin (Bld) [Mass/Vol] 10.2 g/dL Low 11.9-15.1 [facility] Comment on above: Performed By: #### C OVID #### [address] [address] Project Management Engineer: David Valdes MD [facility] [address] [place] [phone] Project Management Engineer: Robert Chin MD [facility] [address] [place] [address] Project Management Engineer: Dennis Amanda MD Immature granulocytes (Bld) [#/Vol] 0 % Normal 0 [facility] Comment on above: Performed By: #### C OVID #### [facility] [address] [place] [address] Project Management Engineer: David Valdes MD [facility] [address] [place] [address] [place] [phone] Project Management Engineer: Robert Chin MD [facility] [address] [place] [address] Project Management Engineer: Dennis Amanda MD Lymphocytes (Bld) [#/Vol] 0.92 10*3/uL Low 1.10-3.70 [facility] Comment on above: Performed By: #### C OVID #### [address] [place] [place] [address] Project Management Engineer: David Valdes MD [facility] [address] [place] [phone] Project Management Engineer: Robert Chin MD [facility] [address] [place] [address] Project Management Engineer: Dennis Amanda MD Lymphocytes/100 WBC (Bld) 9 % Low 24-43 [facility] Comment on above: Performed By: #### C OVID #### [facility] [address] [place] [address] Project Management Engineer: David Valdes MD [address] [place], [place] 417[address] Project Management Engineer: Robert Chin MD [facility] [address] [place] [address] Project Management Engineer: Dennis Amanda MD MCH (RBC) [Entitic mass] 32.0 pg Normal 25.2-33.5 [facility] Comment on above: Performed By: #### C OVID #### [facility] [address] [place] [address] Project Management Engineer: David Valdes MD [address] [place] [address] Project Management Engineer: Robert Chin MD [facility] [address] [place] [address] Project Management Engineer: Dennis Amanda MD MCHC (RBC) [Mass/Vol] 32.3 g/dL Normal 28.4-34.8 [facility] Comment on above: Performed By: #### C OVID #### [facility] [address] [place] [address] Project Management Engineer: David Valdes MD [address] [place] [phone] Project Management Engineer: Robert Chin MD [facility] [address] [place] [address] Project Management Engineer: Dennis Amanda MD MCV (RBC) [Entitic vol] 99.1 fL Normal 82.6-102.9 [facility] Comment on above: Performed By: #### C OVID #### [facility] [address] [place] [address] Project Management Engineer: David Valdes MD [facility] [address] [place] [address] Dr. [place], [place] [phone] Project Management Engineer: Robert Chin MD [facility] [address] [place] [address] Project Management Engineer: Dennis Amanda MD Monocytes (Bld) [#/Vol] 0.64 10*3/uL Normal 0.10-1.20 [facility] Comment on above: Performed By: #### C OVID #### [facility] [address] [place] [address] Project Management Engineer: David Valdes MD [facility] [address] [place] [address] [place] [address] Project Management Engineer: Robert Chin MD [facility] [address] [place] [address] Project Management Engineer: Dennis Amanda MD Monocytes/100 WBC (Bld) 6 % Normal 3-12 [facility] Comment on above: Performed By: #### C OVID #### [facility] [address] [place] [address] Project Management Engineer: David Valdes MD [facility] [address] [place] [address] Dr. [place], [place] [phone] Project Management Engineer: Robert Chin MD [facility] [address] [place] [address] Project Management Engineer: Dennis Amanda MD Neutrophil (Seg) 85 % High 36-65 [facility] Comment on above: Performed By: #### C OVID #### [facility] [address] [place] [address] Project Management Engineer: David Valdes MD [facility] [address] [place], [place] 1824183 Project Management Engineer: Robert Chin MD [facility] [address] [place] [address] Project Management Engineer: Dennis Amanda MD NRBC Automated 0.0 per 100 WBC Normal 0.0 [facility] Comment on above: Performed By: #### C OVID #### [facility] [address] [place] [address] Project Management Engineer: David Valdes MD [facility] [address] [place] [address] [place], [place] 1965283 Project Management Engineer: Robert Chin MD [facility] [address] [place] [address] Project Management Engineer: Dennis Amanda MD Platelets (Bld) [#/Vol] See Reflexed IPF Result Normal 138-453 [facility] Comment on above: Performed By: #### C OVID #### [facility] [address] [place] [address] Project Management Engineer: David Valdes MD [facility] [address] [place] [address] [place] [address] Project Management Engineer: Robert Chin MD [facility] [address] [place] [address] Project Management Engineer: Dennis Amanda MD RBC (Bld) [#/Vol] 3.19 10*6/uL Low 3.95-5.11 [facility] Comment on above: Performed By: #### C OVID #### [facility] [address] [place] [address] Project Management Engineer: David Valdes MD [facility] [address] [place] [address] Dr. [place], [place] [phone] Project Management Engineer: Robert Chin MD [facility] [address] [place] [address] Project Management Engineer: Dennis Amanda MD WBC (Bld) [#/Vol] 10.7 10*3/uL Normal 3.5-11.3 [facility] Comment on above: Performed By: #### C OVID #### [facility] [address] [place] [address] Project Management Engineer: David Valdes MD [facility] [address] [place] [address] [place] [address] Project Management Engineer: Robert Chin MD [facility] [address] [place] [address] Project Management Engineer: Dennis Amanda MD Auto Diff Performed NOT REPORTED Normal [facility] Comment on above: Performed By: #### C OVID #### [address] [address] Project Management Engineer: David Valdes MD [facility] [address] [place] [address] Dr. [place], [place] [phone] Project Management Engineer: Robert Chin MD [facility] [address] [place] [address] Project Management Engineer: Dennis Amanda MD Platelet mean volume (Bld) [Entitic vol] NOT REPORTED Normal 8.1-13.5 [facility] Comment on above: Performed By: #### C OVID #### [address] [address] Project Management Engineer: David Valdes MD [facility] [address] [place] [address] Dr. [place], [place] [phone] Project Management Engineer: Robert Chin MD [facility] [address] [place] [address] Project Management Engineer: Dennis Amanda MD Platelets (Bld) [#/Vol] NOT REPORTED Normal [facility] Comment on above: Performed By: #### C OVID #### [address] [address] [address] Project Management Engineer: David Valdes MD [facility] [address] [place] [address] Dr. [place], [place] [id number] Project Management Engineer: Robert Chin MD [facility] [address] [place] [address] Project Management Engineer: Dennis Amanda MD RBC morphology finding Nom (Bld) NOT REPORTED Normal [facility] Comment on above: Performed By: #### C OVID #### [facility] [address] [place] [address] Project Management Engineer: David Valdes MD [facility] [address] [place], [place] [id number] Project Management Engineer: Robert Chin MD [facility] [address] [place], [place] [id number] Project Management Engineer: Dennis Amanda MD WBC Morphology NOT REPORTED Normal [facility] Comment on above: Performed By: #### C OVID #### [facility] [address] [place] [address] Project Management Engineer: David Valdes MD [facility] [address] [place] [address] [place], [place] [id number] Project Management Engineer: Robert Chin MD [facility] [address] [place], [place] [id number] Project Management Engineer: Dennis Amanda MD Cult,Urineon 08-07-2019 Cult,Urine Specimen Description .VOIDED URINE Special Requests NOT REPORTED Culture STREPTOCOCCI, BETA HEMOLYTIC GROUP B 10 to 50,000 CFU/ML Report Status FINAL 08/07/2019 Normal [facility] Comment on above: Performed By: #### A CET, ALCB #### [facility] [address] [place] [address] [place], [place] [id number] Project Management Engineer: Robert Chin MD Culture, Urineon 08-07-2019 Culture STREPTOCOCCI, BETA HEMOLYTIC GROUP B 10 to 50,000 CFU/ML Abnormal [place], [place] Interpretation and review of laboratory results Abnormal [place] Special Requests NOT REPORTED [place] Specimen Description .VOIDED URINE M [place], [place] Echocardiogram complete 2D w ith doppler with coloron 08-07-2019 [facility] Transthoracic Echocardiography Report (TTE) Patient Name VANCE Date of Study 08/07/2019 CRISTA Matos Date of 1955 Gender Female Age 64 year(s) Race Room Number 0315 Height: 63 inch, 160.02 cm Corporate ID [id number] Weight: 160 pounds, 72.6 kg # Patient Acct [id number] BSA: 1.76 m^2 BMI: 28.34 # kg/m^2 MR # [id number] [employer] Screen Watcher Silva [place] Interpreting Physician Clara Dunlap Fellow Referring Nurse Caitlyn Vincent, HOST/HOSTESS [employer] Practitioner Interpreting Referring Physician Fellow Type of Study TTE procedure:2D Echocardiogram, M-Mode, Doppler, Color Doppler. Procedure Date Date: 08/07/2019 Start: 10:54 AM Study Location: [facility] Indications:Syncope. History / Tech. Comments: Syncope PMHX: Breast implants. Patient Status: Inpatient Height: 63 inches Weight: 160 pounds BSA: 1.76 m^2 BMI: 28.34 kg/m^2 CONCLUSIONS Summary Poor image quality, likely due to patient body habitus and/or lung disease. Global left ventricular function is difficult to assess but appears normal with an estimated EF of >60%. No significant left ventricular hypertrophy and with normal left ventricular cavity size. Unable to assess specific wall motion abnormalities due to image quality. No significant valvular disease was seen. No clear evidence of diastolic dysfunction was seen. Anterior free space seen consistent with a small pericardial effusion or fat pad. No previous studies were available for comparison. No significant cardiac cause of syncope was identified from this study. Signature - - - - FINDINGS Left Atrium Left atrium is normal in size. Left Ventricle Poor image quality, likely due to patient body habitus and/or lung disease. Global left ventricular function is difficult to assess but appears normal with an estimated EF of >60%. No significant left ventricular hypertrophy and with normal left ventricular cavity size. Unable to assess specific wall motion abnormalities due to image quality. Right Atrium Right atrium is normal in size. Right Ventricle Normal right ventricular size and function. Mitral Valve Normal mitral valve structure and function. Aortic Valve Normal aortic valve structure and function without stenosis or regurgitation. Tricuspid Valve Normal tricuspid valve structure and function. Pulmonic Valve Technically difficult visualization of the pulmonic valve, no abnormality seen. Pericardial Effusion Anterior free space seen consistent with a small pericardial effusion or fat pad. Miscellaneous Normal aortic root diameter. No clear evidence of diastolic dysfunction was seen. M-mode / 2D Measurements & Calculations: LVIDd:3.33 cm(3.7 - 5.6 cm) Aortic Root:2.87 cm(2.0 - 3.7 cm) LVIDs:2.54 cm(2.2 - 4.0 cm) LA Dimension: 2.76 cm(1.9 - 4.0 cm) IVSd:0.93 cm(0.6 - 1.1 cm) AV Cusp Separation: 1.47 cm LVPWd:0.93 cm(0.6 - 1.1 cm) Fractional Shortenin.72 % Estimated LVEF (%): 62 % Mitral: Aortic Valve Area (P1/2-Time): 4.4 cm^2 Peak Velocity: 1.46 m/s Peak E-Wave: 0.65 m/s Mean Velocity: 1.12 m/s Peak A-Wave: 1.02 m/s Peak Gradient: 8.49 mmHg E/A Ratio: 0.64 Mean Gradient: 5.46 mmHg Peak Gradient: 1.69 mmHg Acceleration Time: 45.58 msec P1/2t: 50.04 msec AV VTI: 21.79 cm Diastology / Tissue Doppler Lateral Wall E' velocity:0.15 m/s Lateral Wall E/E':4.38 [facility] [place], [place] Vishnu, Mhpn Incoming C ardio Results From Cpacs/Ge - 08/07/2019 12:52 PM EDT [facility] Transthoracic Echocardiography Report (TTE) Patient Name VANCE Date of Study 08/07/2019 CRISTA Matos Date of 1955 Gender Female Age 64 year(s) Race Room Number 0315 Height: 63 inch, 160.02 cm Corporate ID [id number] Weight: 160 pounds, 72.6 kg # Patient Acct [id number] BSA: 1.76 m^2 BMI: 28.34 # kg/m^2 MR # [id number] [employer] Screen Watcher Silva Angeles Interpreting Physician Clara Dunlap Fellow Referring Nurse Caitlyn Vincent CNP Practitioner Interpreting Referring Physician Fellow Type of Study TTE procedure:2D Echocardiogram, M-Mode, Doppler, Color Doppler. Procedure Date Date: 08/07/2019 Start: 10:54 AM Study Location: [facility] Indications:Syncope. History / Tech. Comments: Syncope PMHX: Breast implants. Patient Status: Inpatient Height: 63 inches Weight: 160 pounds BSA: 1.76 m^2 BMI: 28.34 kg/m^2 CONCLUSIONS Summary Poor image quality, likely due to patient body habitus and/or lung disease. Global left ventricular function is difficult to assess but appears normal with an estimated EF of >60%. No significant left ventricular hypertrophy and with normal left ventricular cavity size. Unable to assess specific wall motion abnormalities due to image quality. No significant valvular disease was seen. No clear evidence of diastolic dysfunction was seen. Anterior free space seen consistent with a small pericardial effusion or fat pad. No previous studies were available for comparison. No significant cardiac cause of syncope was identified from this study. Signature - - - - FINDINGS Left Atrium Left atrium is normal in size. Left Ventricle Poor image quality, likely due to patient body habitus and/or lung disease. Global left ventricular function is difficult to assess but appears normal with an estimated EF of >60%. No significant left ventricular hypertrophy and with normal left ventricular cavity size. Unable to assess specific wall motion abnormalities due to image quality. Right Atrium Right atrium is normal in size. Right Ventricle Normal right ventricular size and function. Mitral Valve Normal mitral valve structure and function. Aortic Valve Normal aortic valve structure and function without stenosis or regurgitation. Tricuspid Valve Normal tricuspid valve structure and function. Pulmonic Valve Technically difficult visualization of the pulmonic valve, no abnormality seen. Pericardial Effusion Anterior free space seen consistent with a small pericardial effusion or fat pad. Miscellaneous Normal aortic root diameter. No clear evidence of diastolic dysfunction was seen. M-mode / 2D Measurements & Calculations: LVIDd:3.33 cm(3.7 - 5.6 cm) Aortic Root:2.87 cm(2.0 - 3.7 cm) LVIDs:2.54 cm(2.2 - 4.0 cm) LA Dimension: 2.76 cm(1.9 - 4.0 cm) IVSd:0.93 cm(0.6 - 1.1 cm) AV Cusp Separation: 1.47 cm LVPWd:0.93 cm(0.6 - 1.1 cm) Fractional Shortenin.72 % Estimated LVEF (%): 62 % Mitral: Aortic Valve Area (P1/2-Time): 4.4 cm^2 Peak Velocity: 1.46 m/s Peak E-Wave: 0.65 m/s Mean Velocity: 1.12 m/s Peak A-Wave: 1.02 m/s Peak Gradient: 8.49 mmHg E/A Ratio: 0.64 Mean Gradient: 5.46 mmHg Peak Gradient: 1.69 mmHg Acceleration Time: 45.58 msec P1/2t: 50.04 msec AV VTI: 21.79 cm Diastology / Tissue Doppler Lateral Wall E' velocity:0.15 m/s Lateral Wall E/E':4.38 [place] Hemoglobin A1Con 08-07-2019 HbA1c (Bld) [Mass fraction] 97 mg/dL Normal [facility] Comment on above: Result Comment: The ADA and AACC recommend providing the estimated average glucose result to permit better patient understanding of their HBA1c result. Performed By: #### A CET #### [facility] [address] [place] [address] Project Management Engineer: Carloz Alvarado MD HbA1c (Bld) [Mass fraction] 5.0 % Normal 4.8-5.9 [facility] Comment on above: Performed By: #### A CET #### [facility] [address] [place] [address] Project Management Engineer: Carloz Alvarado MD Hemoglobin A1con 08-07-2019 Glucose [Mass/Vol] 97 mg/dL [place], [place] Comment on above: The ADA and AACC rec ommend providing the estimated average glucose result to permit better patient understanding of their HBA1c result. HbA1c (Bld) [Mass fraction] 5.0 % 4.8 - 5.9 % [place] Immature Platelet Fractionon 08-07-2019 Interpretation and review of laboratory results Abnormal [place], [place] Platelet, Fluorescence [address] [place], [place] Platelet, Immature Fraction 4.7 % 1.1 - 10.3 % [place] Metabolic Panelon 08-07-2019 GFR/1.73 sq M predicted among non-blacks MDRD (S/P/Bld) [Vol rate/Area] [place], [place] Comment on above: Average GFR for 60-6 9 years old: 85 mL/min/1.73sq m Chronic Kidney Disease: <60 mL/min/1.73sq m Kidney failure: <15 mL/min/1.73sq m eGFR calculated using average adult body mass. Additional eGFR calculator available at: http://www.Gingerd/multiple_crcl_2012.htm Stage 1: Some kidney damage normal GFR Stage 2: Mild kidney damage GFR 60-89 Stage 3: Moderate kidney damage GFR 30-59 Stage 4: Severe kidney damage GFR 15-29 Stage 5: Severe kidney damage GFR <15 ESRD - chronic treatment by dialysis or transplant Otheron 08-07-2019 EXAMINATION: 2 XRAY VIEWS OF THE LEFT ANKLE; 2 XRAY VIEWS OF THE LEFT FEMUR; 2 XRAY VIEWS OF THE LEFT TIBIA AND FIBULA 08/06/2019 5:37 pm; 08/06/2019 5:38 pm COMPARISON: None. HISTORY: ORDERING SYSTEM PROVIDED HISTORY: fall TECHNOLOGIST PROVIDED HISTORY: fall; ORDERING SYSTEM PROVIDED HISTORY: fall TECHNOLOGIST PROVIDED HISTORY: X-ray injured hip and pelvis - add femur if pain and/or swelling is distal to the hip fall FINDINGS: Left femur: Acute traumatic fracture is present through the intertrochanteric left proximal femur with proximal migration of the femoral shaft. The mid and distal left femur are intact. Left leg: The tibia and fibula are intact. No acute fracture. Left ankle: Ankle mortise is symmetric. Talar dome is intact. Distal tibia and fibula are intact. No acute fracture or dislocation. [place], [place] Vishnu, Mhpn Incoming Radiant Results From [facility]/Pacs - 08/07/2019 9:08 AM EDT EXAMINATION: 2 XRAY VIEWS OF THE LEFT ANKLE; 2 XRAY VIEWS OF THE LEFT FEMUR; 2 XRAY VIEWS OF THE LEFT TIBIA AND FIBULA 08/06/2019 5:37 pm; 08/06/2019 5:38 pm COMPARISON: None. HISTORY: ORDERING SYSTEM PROVIDED HISTORY: fall TECHNOLOGIST PROVIDED HISTORY: fall; ORDERING SYSTEM PROVIDED HISTORY: fall TECHNOLOGIST PROVIDED HISTORY: X-ray injured hip and pelvis - add femur if pain and/or swelling is distal to the hip fall FINDINGS: Left femur: Acute traumatic fracture is present through the intertrochanteric left proximal femur with proximal migration of the femoral shaft. The mid and distal left femur are intact. Left leg: The tibia and fibula are intact. No acute fracture. Left ankle: Ankle mortise is symmetric. Talar dome is intact. Distal tibia and fibula are intact. No acute fracture or dislocation. IMPRESSION: 1. Intertrochanteric left proximal femur fracture again identified. 2. No acute fracture in the mid-distal left femur. 3. Normal left leg radiographs. 4. Normal left ankle radiographs. [place], [place] 1. Intertrochanteric left proximal femur fracture again identified. 2. No acute fracture in the mid-distal left femur. 3. Normal left leg radiographs. 4. Normal left ankle radiographs. [place], [place] PLT, Immature Fract.on 08-06 Platelet, Fluoresc. 119 k/uL Low 138-453 [facility] Comment on above: Performed By: #### C OVID #### [facility] [employer] [address] [place], [place] [id number] Project Management Engineer: David Valdes MD [facility] [address] [place] [address] Project Management Engineer: Robert Chin MD [facility] [address] [facility] [place] [address] Project Management Engineer: Dennis Amanda MD PLT, Immature Fract. 4.7 % Normal 1.1-10.3 [facility] Comment on above: Performed By: #### C OVID #### [facility] [address] [place] [address] Project Management Engineer: David Valdes MD [facility] [address] [place] [address] Project Management Engineer: Robert Chin MD [facility] [address] [place], [place] [id number] Project Management Engineer: Dennis Amanda MD PTon 08-07-2019 INR Coag (PPP) [Relative time] 1.0 {INR} Normal [facility] Comment on above: Result Comment: Non-therapeutic Range: INR = 0.9-1.2 Therapeutic Range: Moderate Anticoagulant Intensity: INR = 2.0-3.0 High Anticoagulant Intensity: INR = 2.5-3.5 Performed By: #### Shaun FLORES, UAMIC #### [facility] [address] [place] [address] Project Management Engineer: Carloz Alvarado MD PT Coag (PPP) [Time] 13.5 s Normal 11.8-14.6 [facility] Comment on above: Performed By: #### D MARK, UAMIC #### [facility] [address] [place] [address] Project Management Engineer: Carloz Alvarado MD Protime-INRon 08-07-2019 INR Coag (PPP) [Relative time] 1.0 {INR} [place], [place] Comment on above: Non-therapeutic Range: INR = 0.9-1.2 Therapeutic Range: Moderate Anticoagulant Intensity: INR = 2.0-3.0 High Anticoagulant Intensity: INR = 2.5-3.5 PT Coag (PPP) [Time] 13.5 s [place], [place] XR ANKLE LEFT (2 VIEWS)on XR ANKLE LEFT (2 VIEWS) EXAMINATION: 2 XRAY VIEWS OF THE LEFT ANKLE; 2 XRAY VIEWS OF THE LEFT FEMUR; 2 XRAY VIEWS OF THE LEFT TIBIA AND FIBULA 08/06/2019 5:37 pm; 08/06/2019 5:38 pm COMPARISON: None. HISTORY: ORDERING SYSTEM PROVIDED HISTORY: fall TECHNOLOGIST PROVIDED HISTORY: fall; ORDERING SYSTEM PROVIDED HISTORY: fall TECHNOLOGIST PROVIDED HISTORY: X-ray injured hip and pelvis - add femur if pain and/or swelling is distal to the hip fall FINDINGS: Left femur: Acute traumatic fracture is present through the intertrochanteric left proximal femur with proximal migration of the femoral shaft. The mid and distal left femur are intact. Left leg: The tibia and fibula are intact. No acute fracture. Left ankle: Ankle mortise is symmetric. Talar dome is intact. Distal tibia and fibula are intact. No acute fracture or dislocation. IMPRESSION: 1. Intertrochanteric left proximal femur fracture again identified. 2. No acute fracture in the mid-distal left femur. 3. Normal left leg radiographs. 4. Normal left ankle radiographs. Interpreted by: Ken Rae MD Signed by: Ken Rae MD 08/07/19 Final result Normal [facility] XR FEMUR LEFT (MIN 2 VIEWS)o n 08-07-2019 XR FEMUR LEFT (MIN 2 VIEWS) EXAMINATION: 2 XRAY VIEWS OF THE LEFT ANKLE; 2 XRAY VIEWS OF THE LEFT FEMUR; 2 XRAY VIEWS OF THE LEFT TIBIA AND FIBULA 08/06/2019 5:37 pm; 08/06/2019 5:38 pm COMPARISON: None. HISTORY: ORDERING SYSTEM PROVIDED HISTORY: fall TECHNOLOGIST PROVIDED HISTORY: fall; ORDERING SYSTEM PROVIDED HISTORY: fall TECHNOLOGIST PROVIDED HISTORY: X-ray injured hip and pelvis - add femur if pain and/or swelling is distal to the hip fall FINDINGS: Left femur: Acute traumatic fracture is present through the intertrochanteric left proximal femur with proximal migration of the femoral shaft. The mid and distal left femur are intact. Left leg: The tibia and fibula are intact. No acute fracture. Left ankle: Ankle mortise is symmetric. Talar dome is intact. Distal tibia and fibula are intact. No acute fracture or dislocation. IMPRESSION: 1. Intertrochanteric left proximal femur fracture again identified. 2. No acute fracture in the mid-distal left femur. 3. Normal left leg radiographs. 4. Normal left ankle radiographs. Interpreted by: Ken Rae MD Signed by: Ken Rae MD 08/07/19 Final result Normal [facility] XR TIBIA FIBULA LEFT (2 VIEW S)on 08-07-2019 XR TIBIA FIBULA LEFT (2 VIEWS) EXAMINATION: 2 XRAY VIEWS OF THE LEFT ANKLE; 2 XRAY VIEWS OF THE LEFT FEMUR; 2 XRAY VIEWS OF THE LEFT TIBIA AND FIBULA 08/06/2019 5:37 pm; 08/06/2019 5:38 pm COMPARISON: None. HISTORY: ORDERING SYSTEM PROVIDED HISTORY: fall TECHNOLOGIST PROVIDED HISTORY: fall; ORDERING SYSTEM PROVIDED HISTORY: fall TECHNOLOGIST PROVIDED HISTORY: X-ray injured hip and pelvis - add femur if pain and/or swelling is distal to the hip fall FINDINGS: Left femur: Acute traumatic fracture is present through the intertrochanteric left proximal femur with proximal migration of the femoral shaft. The mid and distal left femur are intact. Left leg: The tibia and fibula are intact. No acute fracture. Left ankle: Ankle mortise is symmetric. Talar dome is intact. Distal tibia and fibula are intact. No acute fracture or dislocation. IMPRESSION: 1. Intertrochanteric left proximal femur fracture again identified. 2. No acute fracture in the mid-distal left femur. 3. Normal left leg radiographs. 4. Normal left ankle radiographs. Interpreted by: Ken Rae MD Signed by: Ken Rae MD 08/07/19 Final result Normal [facility] APTTon 08-06-2019 aPTT Coag (Bld) [Time] 20.9 s Low 24.0-36.0 [facility] Comment on above: Result Comment: IV Heparin Therapy Range: 62.0-94.0 Performed By: #### B C #### [facility] [address] [place] [address] Project Management Engineer: Robert Chin MD aPTT Coag (Bld) [Time] 20.9 s [place], [place] Comment on above: IV Heparin Therapy Range: 62.0-94.0 Interpretation and review of laboratory results Abnormal [place], [place] Basic Metabolic Panelon 07-14 Anion gap [Moles/Vol] 14 mmol/L 9 - 17 mmol/L [place] Bun/Cre Ratio 18 [place] Calcium [Mass/Vol] 8.9 mg/dL 8.6 - 10. 4 mg/dL [place] Chloride [Moles/Vol] 100 mmol/L 98 - 10 7 mmol/L [place] CO2 [Moles/Vol] 22 mmol/L 20 - 31 mmol/L [place] Creatinine [Mass/Vol] 0.95 mg/dL High 0.5 - 0.9 mg/dL [place] GFR >60 >60 mL/min [place], [place] GFR Non- 59 mL/min Low >60 [place] Glucose [Mass/Vol] 166 mg/dL High 70 - 99 mg/dL [place] Interpretation and review of laboratory results Abnormal [place] Potassium [Moles/Vol] 4.0 mmol/L 3.7 - 5.3 mmol/L [place] Sodium [Moles/Vol] 136 mmol/L 135 - 144 mmol/L [place] Urea nitrogen [Mass/Vol] 17 mg/dL 8 - 23 mg/dL [place] Basic Metabolic Profon 08-05 (cont.) Normal [facility] Comment on above: Result Comment: Aver age GFR for 60-69 years old: 85 mL/min/1.73sq m Chronic Kidney Disease: <60 mL/min/1.73sq m Kidney failure: <15 mL/min/1.73sq m eGFR calculated using average adult body mass. Additional eGFR calculator available at: http://www.Gingerd/multiple_crcl_2012.htm Performed By: #### B C #### [facility] [address] [place] [address] Project Management Engineer: Robert Chin MD Anion gap [Moles/Vol] 14 mmol/L Normal - [facility] Comment on above: Performed By: #### B C #### [facility] [address] [place] [address] Project Management Engineer: Robert Chin MD BUN/CRE Ratio 18 Normal - [facility] Comment on above: Performed By: #### B C #### [facility] [address] [place] [address] Project Management Engineer: Robert Chin MD Calcium [Mass/Vol] 8.9 mg/dL Normal 8.6-10.4 [facility] Comment on above: Performed By: #### B C #### [facility] [address] [place], [place] [id number] Project Management Engineer: Robert Chin MD Chloride [Moles/Vol] 100 mmol/L Normal 98-107 [facility] Comment on above: Performed By: #### B C #### [facility] [address] [place], [place] [id number] Project Management Engineer: Robert Chin MD CO2 [Moles/Vol] 22 mmol/L Normal 20-31 [facility] Comment on above: Performed By: #### B C #### [facility] [address] [place], [place] [id number] Project Management Engineer: Robert Chin MD Creatinine [Mass/Vol] 0.95 mg/dL High 0.50-0.90 [facility] Comment on above: Performed By: #### B C #### [facility] [address] [place], [place] [id number] Project Management Engineer: Robert Chin MD GFR, Amer >60 Normal >60 [facility] Comment on above: Performed By: #### B C #### [facility] [address] [place], [place] [id number] Project Management Engineer: Robert Chin MD GFR,non Amer 59 mL/min Low >60 [facility] Comment on above: Performed By: #### B C #### [facility] [address] [place] [address] Project Management Engineer: Robert Chin MD Glucose [Mass/Vol] 166 mg/dL High 70-99 [facility] Comment on above: Performed By: #### B C #### [facility] [address] [place] [address] Project Management Engineer: Robert Chin MD Potassium [Moles/Vol] 4.0 mmol/L Normal 3.7-5.3 [facility] Comment on above: Performed By: #### B C #### [facility] [address] [place], [place] [id number] Project Management Engineer: Robert Chin MD Sodium [Moles/Vol] 136 mmol/L Normal 135-144 [facility] Comment on above: Performed By: #### B C #### [facility] [address] [place], [place] [id number] Project Management Engineer: Robert Chin MD Staging: Normal [facility] Comment on above: Result Comment: Stag e 1: Some kidney damage normal GFR Stage 2: Mild kidney damage GFR 60-89 Stage 3: Moderate kidney damage GFR 30-59 Stage 4: Severe kidney damage GFR 15-29 Stage 5: Severe kidney damage GFR <15 ESRD - chronic treatment by dialysis or transplant Performed By: #### B C #### [facility] [address] [place], [place] [id number] Project Management Engineer: Robert Chin MD Urea nitrogen [Mass/Vol] 17 mg/dL Normal 8-23 [facility] Comment on above: Performed By: #### B C #### [address] [place], [place] [id number] Project Management Engineer: Robert Chin MD CBCon 08-06-2019 Erythrocyte distribution width (RBC) [Ratio] 13.4 % Normal 11.8-14.4 [facility] Comment on above: Performed By: #### B C #### [facility] [address] [place], [place] [id number] Project Management Engineer: Robert Chin MD Hematocrit (Bld) [Volume fraction] 40.8 % Normal 36.3-47.1 [facility] Comment on above: Performed By: #### B C #### [facility] [address] [place] [address] Project Management Engineer: Robert Chin MD Hemoglobin (Bld) [Mass/Vol] 12.8 g/dL Normal 11.9-15.1 [facility] Comment on above: Performed By: #### B C #### [facility] [address] [place] [address] Project Management Engineer: Robert Chin MD MCH (RBC) [Entitic mass] 31.9 pg Normal 25.2-33.5 [facility] Comment on above: Performed By: #### B C #### [facility] [address] [place], [facility]83 Project Management Engineer: Robert Chin MD MCHC (RBC) [Mass/Vol] 31.4 g/dL Normal 28.4-34.8 [facility] Comment on above: Performed By: #### B C #### [address] [place], [facility]83 Project Management Engineer: Robert Chin MD MCV (RBC) [Entitic vol] 101.7 fL Normal 82.6-102.9 [facility] Comment on above: Performed By: #### B C #### [address] [place], [facility]83 Project Management Engineer: Robert Chin MD NRBC Automated 0.0 per 100 WBC Normal 0.0 [facility] Comment on above: Performed By: #### B C #### [address] [place], [facility]83 Project Management Engineer: Robert Chin MD Platelet mean volume (Bld) [Entitic vol] 11.0 fL Normal 8.1-13.5 [facility] Comment on above: Performed By: #### B C #### [address] [place], [facility]83 Project Management Engineer: Robert Chin MD Platelets (Bld) [#/Vol] 243 10*3/uL Normal 138-453 [facility] Comment on above: Performed By: #### B C #### [facility] [address] [place] [address] Project Management Engineer: Robert Chin MD RBC (Bld) [#/Vol] 4.01 10*6/uL Normal 3.95-5.11 [facility] Comment on above: Performed By: #### B C #### [facility] [address] [place] [address] Project Management Engineer: Robert Chin MD WBC (Bld) [#/Vol] 17.8 10*3/uL High 3.5-11.3 [facility] Comment on above: Performed By: #### B C #### [facility] [address] [place] [address] Project Management Engineer: Robert Chin MD Erythrocyte distribution width (RBC) [Ratio] 13.4 % 11.8 - 14.4 % [place] Hematocrit (Bld) [Volume fraction] 40.8 % 36.3 - 47.1 % [place] Hemoglobin (Bld) [Mass/Vol] 12.8 g/dL 11.9 - 15.1 g/dL [place] Interpretation and review of laboratory results Abnormal [place] MCH (RBC) [Entitic mass] 31.9 pg 25.2 - 33.5 pg [place] MCHC (RBC) [Mass/Vol] 31.4 g/dL 28.4 - 34.8 g/dL [place] MCV (RBC) [Entitic vol] 101.7 fL 82.6 - 102.9 fL [place] Platelet mean volume (Bld) [Entitic vol] 11.0 fL 8.1 - 13.5 fL [place] Platelets (Bld) [#/Vol] 243 10*3/uL [place] RBC (Bld) [#/Vol] 4.01 10*6/uL 3.95 - 5.1 1 m/uL [place] WBC (Bld) [#/Vol] 17.8 10*3/uL [place] WBC (Bld) [#/Vol] 0.0 10*3/uL 0.0 per 10 0 WBC [place] CKon 08-06-2019 Total CK 98 U/L 26 - 192 U/L [place] COVID-19on 08-06-2019 SARS-CoV-2 [place] SARS-CoV-2, PCR [place] SARS-CoV-2, Rapid Not Detected Not Detected [place], [place] Comment on above: Rapid NAAT: The specimen is NEGATIVE for SARS-CoV-2, the novel coronavirus associated with COVID-19. Negative results should be treated as presumptive and, if inconsistent with clinical signs and symptoms or necessary for patient management, should be tested with an alternative molecular assay. Negative results do not preclude SARS-CoV-2 infection and should not be used as the sole basis for patient management decisions. Fact sheet for Healthcare Providers: https://www.fda.gov/media/552887/download Fact sheet for Patients: https://www.fda.gov/media/924964/download Methodology: Isothermal Nucleic Acid Amplification Source .NASOPHARYNGEAL SWAB [place] CT CERVICAL SPINE WO CONTRAS Ton 08-06-2019 CT CERVICAL SPINE WO CONTRAST EXAMINATION: CT OF THE CERVICAL SPINE WITHOUT CONTRAST 08/06/2019 4:30 pm TECHNIQUE: CT of the cervical spine was performed without the administration of intravenous contrast. Multiplanar reformatted images are provided for review. Dose modulation, iterative reconstruction, and/or weight based adjustment of the mA/kV was utilized to reduce the radiation dose to as low as reasonably achievable. COMPARISON: None. HISTORY: ORDERING SYSTEM PROVIDED HISTORY: fall TECHNOLOGIST PROVIDED HISTORY: fall FINDINGS: BONES/ALIGNMENT: There is no acute fracture or traumatic malalignment. DEGENERATIVE CHANGES: No significant degenerative changes. SOFT TISSUES: There is no prevertebral soft tissue swelling. Mild emphysema. IMPRESSION: No acute abnormality of the cervical spine. Interpreted by: Ken Rae MD Signed by: Ken Rae MD 08/06/19 Final result Normal [facility] CT Cervical Spine WO Contras ton 08-06-2019 Vishnu, Mhpn Incoming Radiant Results From [employer] - 08/06/2019 4:53 PM EDT EXAMINATION: CT OF THE CERVICAL SPINE WITHOUT CONTRAST 08/06/2019 4:30 pm TECHNIQUE: CT of the cervical spine was performed without the administration of intravenous contrast. Multiplanar reformatted images are provided for review. Dose modulation, iterative reconstruction, and/or weight based adjustment of the mA/kV was utilized to reduce the radiation dose to as low as reasonably achievable. COMPARISON: None. HISTORY: ORDERING SYSTEM PROVIDED HISTORY: fall TECHNOLOGIST PROVIDED HISTORY: fall FINDINGS: BONES/ALIGNMENT: There is no acute fracture or traumatic malalignment. DEGENERATIVE CHANGES: No significant degenerative changes. SOFT TISSUES: There is no prevertebral soft tissue swelling. Mild emphysema. IMPRESSION: No acute abnormality of the cervical spine. [place] No acute abnormality of the cervical spine. [place] EXAMINATION: CT OF T HE CERVICAL SPINE WITHOUT CONTRAST 08/06/2019 4:30 pm TECHNIQUE: CT of the cervical spine was performed without the administration of intravenous contrast. Multiplanar reformatted images are provided for review. Dose modulation, iterative reconstruction, and/or weight based adjustment of the mA/kV was utilized to reduce the radiation dose to as low as reasonably achievable. COMPARISON: None. HISTORY: ORDERING SYSTEM PROVIDED HISTORY: fall TECHNOLOGIST PROVIDED HISTORY: fall FINDINGS: BONES/ALIGNMENT: There is no acute fracture or traumatic malalignment. DEGENERATIVE CHANGES: No significant degenerative changes. SOFT TISSUES: There is no prevertebral soft tissue swelling. Mild emphysema. [place] CT HEAD WO CONTRASTon 2019 CT HEAD WO CONTRAST EXAMINATION: CT OF THE HEAD WITHOUT CONTRAST 08/06/2019 4:29 pm TECHNIQUE: CT of the head was performed without the administration of intravenous contrast. Dose modulation, iterative reconstruction, and/or weight based adjustment of the mA/kV was utilized to reduce the radiation dose to as low as reasonably achievable. COMPARISON: 04/13/2019 HISTORY: ORDERING SYSTEM PROVIDED HISTORY: fall, recent cva TECHNOLOGIST PROVIDED HISTORY: fall, recent cva FINDINGS: BRAIN/VENTRICLES: There is no acute intracranial hemorrhage, mass effect or midline shift. No abnormal extra-axial fluid collection. The jones-white differentiation is maintained without evidence of an acute infarct. There is no evidence of hydrocephalus. Mild generalized brain parenchymal volume loss. ORBITS: The visualized portion of the orbits demonstrate no acute abnormality. SINUSES: The visualized paranasal sinuses and mastoid air cells demonstrate no acute abnormality. SOFT TISSUES/SKULL: No acute abnormality of the visualized skull or soft tissues. IMPRESSION: No acute intracranial abnormality. Interpreted by: Ken Rae MD Signed by: Ken Rae MD 08/06/19 Final result Normal [facility] CT Head WO Contraston 2019 EXAMINATION: CT OF T HE HEAD WITHOUT CONTRAST 08/06/2019 4:29 pm TECHNIQUE: CT of the head was performed without the administration of intravenous contrast. Dose modulation, iterative reconstruction, and/or weight based adjustment of the mA/kV was utilized to reduce the radiation dose to as low as reasonably achievable. COMPARISON: 04/13/2019 HISTORY: ORDERING SYSTEM PROVIDED HISTORY: fall, recent cva TECHNOLOGIST PROVIDED HISTORY: fall, recent cva FINDINGS: BRAIN/VENTRICLES: There is no acute intracranial hemorrhage, mass effect or midline shift. No abnormal extra-axial fluid collection. The jones-white differentiation is maintained without evidence of an acute infarct. There is no evidence of hydrocephalus. Mild generalized brain parenchymal volume loss. ORBITS: The visualized portion of the orbits demonstrate no acute abnormality. SINUSES: The visualized paranasal sinuses and mastoid air cells demonstrate no acute abnormality. SOFT TISSUES/SKULL: No acute abnormality of the visualized skull or soft tissues. [facility]- [place], [place] Vishnu, Mhpn Incoming Radiant Results From [facility] - 08/06/2019 4:49 PM EDT EXAMINATION: CT OF THE HEAD WITHOUT CONTRAST 08/06/2019 4:29 pm TECHNIQUE: CT of the head was performed without the administration of intravenous contrast. Dose modulation, iterative reconstruction, and/or weight based adjustment of the mA/kV was utilized to reduce the radiation dose to as low as reasonably achievable. COMPARISON: 04/13/2019 HISTORY: ORDERING SYSTEM PROVIDED HISTORY: fall, recent cva TECHNOLOGIST PROVIDED HISTORY: fall, recent cva FINDINGS: BRAIN/VENTRICLES: There is no acute intracranial hemorrhage, mass effect or midline shift. No abnormal extra-axial fluid collection. The jones-white differentiation is maintained without evidence of an acute infarct. There is no evidence of hydrocephalus. Mild generalized brain parenchymal volume loss. ORBITS: The visualized portion of the orbits demonstrate no acute abnormality. SINUSES: The visualized paranasal sinuses and mastoid air cells demonstrate no acute abnormality. SOFT TISSUES/SKULL: No acute abnormality of the visualized skull or soft tissues. IMPRESSION: No acute intracranial abnormality. [place] No acute intracrania l abnormality. [place] Creatine Kinaseon 08-06-2019 CK [Catalytic activity/Vol] 98 U/L Normal 26-192 [facility] Comment on above: Performed By: #### D AU, UAMIC #### [facility] [address] [place] [address] Project Management Engineer: Carloz Alvarado MD EKG 12 Leadon 08-06-2019 Atrial Rate 88 BPM [place] P [place] 74 degrees [place] P-R Interval 132 ms [facility], [place] Q-T Interval 398 ms [facility] QRS Duration 78 ms [place] QTc Calculation (Bazett) 481 ms [place] R [place] 48 degrees [facility], [place] T [place] 58 degrees [facility] Ventricular Rate 88 BPM [place] Poor data qualit y, interpretation may be adversely affected Normal sinus rhythm Nonspecific ST abnormality Abnormal ECG When compared with ECG of 19-MAY-2016 12:09, Nonspecific T wave abnormality, improved in Anterior leads Confirmed by CLARA DUNLAP ([id number]) on 08/06/2019 10:31:00 PM [place] Vishnu, Mhpn Incoming E kg Results From [facility] [place] - 08/06/2019 10:31 PM EDT Poor data quality, interpretation may be adversely affected Normal sinus rhythm Nonspecific ST abnormality Abnormal ECG When compared with ECG of 19-MAY-2016 12:09, Nonspecific T wave abnormality, improved in Anterior leads Confirmed by CLARA DUNLAP ([id number]) on 08/06/2019 10:31:00 PM [place] Metabolic Panelon 08-06-2019 GFR/1.73 sq M predicted among non-blacks MDRD (S/P/Bld) [Vol rate/Area] [place] Comment on above: Stage 1: Some kidney damage normal GFR Stage 2: Mild kidney damage GFR 60-89 Stage 3: Moderate kidney damage GFR 30-59 Stage 4: Severe kidney damage GFR 15-29 Stage 5: Severe kidney damage GFR <15 ESRD - chronic treatment by dialysis or transplant Average GFR for 60-6 9 years old: 85 mL/min/1.73sq m Chronic Kidney Disease: <60 mL/min/1.73sq m Kidney failure: <15 mL/min/1.73sq m eGFR calculated using average adult body mass. Additional eGFR calculator available at: http://www.Gingerd/multiple_crcl_2012.htm Microscopic Urinalysison Amorphous, UA NOT REPORTED None [place] Bacteria, UA NOT REPORTED None [place] Casts UA NOT REPORTED /LPF [place] Crystals, UA NOT REPORTED None /HPF [place] Epithelial Cells UA 2 TO 5 [place] Interpretation and review of laboratory results Abnormal [place] Mucus, UA 3+ Abnormal None [place] Other Observations UA NOT REPORTED NOT REQ. M [place], [place] RBC (U) [#/Vol] 0 TO 2 [place] Renal Epithelial, UA NOT REPORTED 0 /HPF [place], [place] Trichomonas, UA NOT REPORTED None [place] WBC, UA 10 TO 20 [place] Yeast, UA NOT REPORTED None [place] PTon 08-06-2019 INR Coag (PPP) [Relative time] 1.0 {INR} Normal [facility] Comment on above: Result Comment: Non-therapeutic Range: INR = 0.9-1.2 Therapeutic Range: Moderate Anticoagulant Intensity: INR = 2.0-3.0 High Anticoagulant Intensity: INR = 2.5-3.5 Performed By: #### B C #### [facility] [address] [place] [address] Project Management Engineer: Robert Chin MD PT Coag (PPP) [Time] 13.5 s Normal 11.8-14.6 [facility] Comment on above: Performed By: #### B C #### [facility] [address] [place] [address] Project Management Engineer: Robert Chin MD Protime-INRon 08-06-2019 INR Coag (PPP) [Relative time] 1.0 {INR} [place] Comment on above: Non-therapeutic Range: INR = 0.9-1.2 Therapeutic Range: Moderate Anticoagulant Intensity: INR = 2.0-3.0 High Anticoagulant Intensity: INR = 2.5-3.5 PT Coag (PPP) [Time] 13.5 s [place] [id number] 08-06-2019 SARS-CoV-2 [facility] Comment on above: Performed By: #### C OVID #### [facility] [address] [place] [address] Project Management Engineer: Robert Chin MD SARS-CoV-2 [facility] Comment on above: Performed By: #### C OVID #### [facility] [address] [place] [address] Project Management Engineer: Robert Chin MD SARS-CoV-2,Rapid Not Detected [facility] Comment on above: Result Comment: Rapid NAAT: The specimen is NEGATIVE for SARS-CoV-2, the novel coronavirus associated with COVID-19. Negative results should be treated as presumptive and, if inconsistent with clinical signs and symptoms or necessary for patient management, should be tested with an alternative molecular assay. Negative results do not preclude SARS-CoV-2 infection and should not be used as the sole basis for patient management decisions. Fact sheet for Healthcare Providers: https://www.fda.gov/media/078417/download Fact sheet for Patients: https://www.fda.gov/media/772901/download Methodology: Isothermal Nucleic Acid Amplification Performed By: #### C OVID #### [facility] [address] [place] [address] Project Management Engineer: Robert Chin MD SARS-CoV-2 Source .NASOPHARYNGEAL SWAB [facility] Comment on above: Performed By: #### C OVID #### [facility] [address] [place] [address] Project Management Engineer: Robert Chin MD UA w/Reflex Cultureon 2019 Acetoacetic Acid,Ur 1+ Abnormal NEG [facility] Comment on above: Performed By: #### B C #### [facility] [address] [place] [address] Project Management Engineer: Robert Chni MD Bilirubin, SemiQt,Ur Negative Normal [facility] Comment on above: Performed By: #### B C #### [facility] [address] [place] [address] Project Management Engineer: Robert Chin MD Color (U) YELLOW Normal YEL [facility] Comment on above: Performed By: #### B C #### [facility] [address] [place] [address] Project Management Engineer: Robert Chin MD Glucose Ql (U) Negative Normal [facility] Comment on above: Performed By: #### B C #### [facility] [address] [place] [address] Project Management Engineer: Robert Chin MD Hemoglobin, Ur Negative Normal [facility] Comment on above: Performed By: #### B C #### [facility] [address] [place], [place] [id number] Project Management Engineer: Robert Chin MD Leukocyte esterase Test strip Ql (U) SMALL Abnormal NEG [facility] Comment on above: Performed By: #### B C #### [facility] [address] [place] [address] Project Management Engineer: Robert Chin MD Nitrite,Ur Negative Normal [facility] Comment on above: Performed By: #### B C #### [facility] [address] [place] [address] Project Management Engineer: Robert Chin MD pH (U) 6.0 [pH] Normal 5.0-9.0 [facility] Comment on above: Performed By: #### B C #### [facility] [address] [place], [place] [id number] Project Management Engineer: Robert Chin MD Protein Ql (U) Negative Normal NEG [facility] Comment on above: Performed By: #### B C #### [facility] [address] [place], [place] [id number] Project Management Engineer: Robert Chin MD Specific gravity (U) [Rel density] >1.030 High 1.010-1.020 [facility] Comment on above: Performed By: #### B C #### [facility] [address] [place] [id number] Project Management Engineer: Robert Chin MD Turbidity CLEAR Normal CLEAR [facility] Comment on above: Performed By: #### B C #### [facility] [address] [place], [place] [id number] Project Management Engineer: Robert Chin MD Urobilinogen,Ur Normal Normal NORM [facility] Comment on above: Performed By: #### B C #### [facility] [address] [place], [place] [id number] Project Management Engineer: Robert Chin MD Comment NOT REPORTED Normal [facility] Comment on above: Performed By: #### B C #### [facility] [address] [place] [address] Project Management Engineer: Robert Chin MD Urinalysis Reflex to Culture on 08-06-2019 Bilirubin Urine Negative NEGATIVE [facility] [place], [place] Color, UA YELLOW YELLOW [facility] [place], [place] Glucose, Ur Negative NEGATIVE [facility] [place] Interpretation and review of laboratory results Abnormal [facility] [place] Ketones Ql (U) 1+ Abnormal NEGATIVE [facility] [place] Leukocyte esterase Test strip Ql (U) SMALL Abnormal NEGATIVE [facility] [place] Nitrite, Urine Negative NEGATIVE [facility] [place] pH, UA 6.0 [facility] [place] Protein (U) [Mass/Vol] Negative NEGATIVE Me [facility] [place], [place] Specific [place], UA >1.030 High [facility] [place] Turbidity UA CLEAR CLEAR [place] Urinalysis Comments NOT REPORTED [facility] [place] Urine Hgb Negative NEGATIVE [facility] [place] Urobilinogen, Urine Normal Normal [facility], [place] Urinalysis,Microon 0 ----- Normal [facility] Comment on above: Performed By: #### C OVID #### [facility] [address] [place] [address] Project Management Engineer: David Valdes MD [facility] [address] [place] [address] [place] [address] Project Management Engineer: oRbert Chin MD [facility] [address] [place] [address] Project Management Engineer: Dennis Amanda MD Epithelial cells LM.HPF (Urine sed) [#/Area] 2 TO 5 Normal 0-25 [facility] Comment on above: Performed By: #### C OVID #### [facility] [address] [place] [address] Project Management Engineer: David Valdes MD [facility] [address] [place] [address] [place], [place] [id number] Project Management Engineer: Robert Chin MD [facility] [address] [place] [address] Project Management Engineer: Dennis Amanda MD Mucus Strands 3+ Abnormal NONE [facility] Comment on above: Performed By: #### C OVID #### [facility] [address] [place] [address] Project Management Engineer: David Valdes MD [facility] [address] [place] [address] [place] [address] Project Management Engineer: Robert Chin MD [facility] [address] [place] [address] Project Management Engineer: Dennis Amanda MD RBC (U) [#/Vol] 0 TO 2 Normal 0-2 [facility] Comment on above: Performed By: #### C OVID #### [address] [address] Project Management Engineer: David Valdes MD [facility] [address] [place] [address] [place], [place] [id number] Project Management Engineer: Robert Chin MD [facility] [address] [place] [address] Project Management Engineer: Dennis Amanda MD WBC (U) [#/Vol] 10 TO 20 Normal 0-5 [facility] Comment on above: Performed By: #### C OVID #### [address] [address] Project Management Engineer: David Valdes MD [facility] [address] [place] [address] [place] [id number] Project Management Engineer: Robert Chin MD [facility] [address] [place] [address] Project Management Engineer: Dennis Amanda MD Amorphous sediment LM Ql (Urine sed) NOT REPORTED Normal [facility] Comment on above: Performed By: #### C OVID #### [address] [address] Project Management Engineer: David Valdes MD [facility] [address] [place] [address] Dr. [place], [place] [id number] Project Management Engineer: Robert Chin MD [facility] [address] [place] [address] Project Management Engineer: Dennis Amanda MD Bacteria LM.HPF (Urine sed) [#/Area] NOT REPORTED Normal [facility] Comment on above: Performed By: #### C OVID #### [address] [address] Project Management Engineer: David Valdes MD [facility] [address] [place] [address] [place] [address] Project Management Engineer: Robert Chin MD [facility] [address] [place] [address] Project Management Engineer: Dennis Amanda MD Casts LM.LPF (Urine sed) [#/Area] NOT REPORTED Normal [facility] Comment on above: Performed By: #### C OVID #### [facility] [address] [place] [address] Project Management Engineer: David Valdes MD [facility] [address] [place] [address] Project Management Engineer: Robert Chin MD [facility] [address] [place] [address] Project Management Engineer: Dennis Amanda MD Crystals LM Nom (Urine sed) NOT REPORTED Normal NONE [facility] Comment on above: Performed By: #### C OVID #### [facility] [address] [place] [address] Project Management Engineer: David Valdes MD [facility] [address] [place] [address] Project Management Engineer: Robert Chin MD [facility] [address] [place] [address] Project Management Engineer: Dennis Amanda MD Epithelial, Renal NOT REPORTED Normal 0 [facility] Comment on above: Performed By: #### C OVID #### [facility] [address] [place] [address] Project Management Engineer: David Valdes MD [facility] [address] [place] [address] Project Management Engineer: Robert Chin MD [facility] [address] [place] [address] Project Management Engineer: Dennis Amanda MD Other Observations NOT REPORTED Normal NREQ [facility] Comment on above: Performed By: #### C OVID #### [facility] [address] [place] [address] Project Management Engineer: David Valdes MD [facility] [address] [place], [place] [id number] Project Management Engineer: Robert Chin MD [facility] [address] [place] [address] Project Management Engineer: Dennis Amanda MD Trichomonas NOT REPORTED Normal [facility] Comment on above: Performed By: #### C OVID #### [facility] [address] [place] [address] Project Management Engineer: David Valdes MD [facility] [address] [place], [place] 1898[address] Project Management Engineer: Robert Chin MD [facility] [address] [place] [address] Project Management Engineer: Dennis Amanda MD Yeast LM Ql (Urine sed) NOT REPORTED Normal [facility] Comment on above: Performed By: #### C OVID #### [facility] [address] [place] [address] Project Management Engineer: David Valdes MD [facility] [address] [place] [address] Dr. [place], [place] [id number] Project Management Engineer: Robert Chin MD [facility] [address] [place] [address] Project Management Engineer: Dennis Amanda MD XR CHEST PORTABLEon 08-06-19 20 XR CHEST PORTABLE EXAMINATION: ONE XRAY VIEW OF THE CHEST 08/06/2019 4:50 pm COMPARISON: 13 April 2019 HISTORY: ORDERING SYSTEM PROVIDED HISTORY: fall TECHNOLOGIST PROVIDED HISTORY: fall FINDINGS: AP portable view of the chest time stamped at 1638 hours demonstrates normal cardiac size. Heart size is normal. No vascular congestion, focal consolidation, effusion, or pneumothorax is noted. Osseous and mediastinal structures are age-appropriate. Findings of generalized COPD are noted. Bilateral breast implants are present. Osseous structures are stable. Mediastinal contours are unremarkable. IMPRESSION: No acute cardiopulmonary process in this patient with findings of COPD and bilateral breast implants. Interpreted by: Matilde Thomas MD Signed by: Matilde Thomas MD 08/06/19 Final result Normal [facility] No acute cardiopulmo nary process in this patient with findings of COPD and bilateral breast implants. [facility] ME EXAMINATION: ONE XRA Y VIEW OF THE CHEST 08/06/2019 4:50 pm COMPARISON: 13 April 2019 HISTORY: ORDERING SYSTEM PROVIDED HISTORY: fall TECHNOLOGIST PROVIDED HISTORY: fall FINDINGS: AP portable view of the chest time stamped at 1638 hours demonstrates normal cardiac size. Heart size is normal. No vascular congestion, focal consolidation, effusion, or pneumothorax is noted. Osseous and mediastinal structures are age-appropriate. Findings of generalized COPD are noted. Bilateral breast implants are present. Osseous structures are stable. Mediastinal contours are unremarkable. [place], [place] Vishnu, Mhpn Incoming Radiant Results From TRData/TuTanda - 08/06/2019 5:01 PM EDT EXAMINATION: ONE XRAY VIEW OF THE CHEST 08/06/2019 4:50 pm COMPARISON: 13 April 2019 HISTORY: ORDERING SYSTEM PROVIDED HISTORY: fall TECHNOLOGIST PROVIDED HISTORY: fall FINDINGS: AP portable view of the chest time stamped at 1638 hours demonstrates normal cardiac size. Heart size is normal. No vascular congestion, focal consolidation, effusion, or pneumothorax is noted. Osseous and mediastinal structures are age-appropriate. Findings of generalized COPD are noted. Bilateral breast implants are present. Osseous structures are stable. Mediastinal contours are unremarkable. IMPRESSION: No acute cardiopulmonary process in this patient with findings of COPD and bilateral breast implants. [place] XR HIP 2-3 VW W PELVIS LEFTo n 08-06-2019 XR HIP 2-3 VW W PELVIS LEFT EXAMINATION: ONE XRAY VIEW OF THE PELVIS AND TWO XRAY VIEWS LEFT HIP 08/06/2019 4:48 pm COMPARISON: None. HISTORY: ORDERING SYSTEM PROVIDED HISTORY: pain s/p fall TECHNOLOGIST PROVIDED HISTORY: pain s/p fall FINDINGS: Mild osteopenia is noted. The patient has a comminuted inter trochanteric fracture of the left hip with lateral angulation. Femoral heads are well circumscribed and situated within the acetabula. Mild degenerative changes are present in both hips. Symphysis pubis is normal in width. SI joints are symmetrical. IMPRESSION: Comminuted inter trochanteric fracture of the left hip with lateral angulation. No dislocation. Interpreted by: Matilde Thomas MD Signed by: Matilde Thomas MD 08/06/19 Final result Normal [facility] EXAMINATION: ONE XRA Y VIEW OF THE PELVIS AND TWO XRAY VIEWS LEFT HIP 08/06/2019 4:48 pm COMPARISON: None. HISTORY: ORDERING SYSTEM PROVIDED HISTORY: pain s/p fall TECHNOLOGIST PROVIDED HISTORY: pain s/p fall FINDINGS: Mild osteopenia is noted. The patient has a comminuted inter trochanteric fracture of the left hip with lateral angulation. Femoral heads are well circumscribed and situated within the acetabula. Mild degenerative changes are present in both hips. Symphysis pubis is normal in width. SI joints are symmetrical. [place] Vishnu, Mhpn Incoming Radiant Results From [employer]/[email or web address] - 08/06/2019 5:02 PM EDT EXAMINATION: ONE XRAY VIEW OF THE PELVIS AND TWO XRAY VIEWS LEFT HIP 08/06/2019 4:48 pm COMPARISON: None. HISTORY: ORDERING SYSTEM PROVIDED HISTORY: pain s/p fall TECHNOLOGIST PROVIDED HISTORY: pain s/p fall FINDINGS: Mild osteopenia is noted. The patient has a comminuted inter trochanteric fracture of the left hip with lateral angulation. Femoral heads are well circumscribed and situated within the acetabula. Mild degenerative changes are present in both hips. Symphysis pubis is normal in width. SI joints are symmetrical. IMPRESSION: Comminuted inter trochanteric fracture of the left hip with lateral angulation. No dislocation. [facility] [place] Comminuted inter trochanteric fracture of the left hip with lateral angulation. No dislocation. [facility] [place] XR HIP LEFT (1 VIEW)on 08-05 XR HIP LEFT (1 VIEW) EXAMINATION: SPOT FLUOROSCOPIC IMAGES 08/06/2019 9:24 pm TECHNIQUE: Fluoroscopy was provided by the radiology department for procedure. Radiologist was not present during examination. FLUOROSCOPY DOSE AND TYPE OR TIME AND EXPOSURES: Time: 108.1 seconds Dose: 7441.7 mGy-cm2, DAP Exposures/Images: 5 the COMPARISON: None HISTORY: ORDERING SYSTEM PROVIDED HISTORY: Left hip pinning in OR TECHNOLOGIST PROVIDED HISTORY: Left hip pinning in OR Intraprocedural imaging. FINDINGS: 5 spot images of the hip were obtained. Images document fixation of left hip. IMPRESSION: Intraprocedural fluoroscopic spot images as above. See separate procedure report for more information. Interpreted by: Jeremy Salcedo MD Signed by: Jeremy Salcedo MD 08/06/19 Final result Normal [facility] Intraprocedural fluoroscopic spot images as above. See separate procedure report for more information. [facility] Incoming Radiant Results From [employer]/Pacs - 08/06/2019 9:33 PM EDT EXAMINATION: SPOT FLUOROSCOPIC IMAGES 08/06/2019 9:24 pm TECHNIQUE: Fluoroscopy was provided by the radiology department for procedure. Radiologist was not present during examination. FLUOROSCOPY DOSE AND TYPE OR TIME AND EXPOSURES: Time: 108.1 seconds Dose: 7441.7 mGy-cm2, DAP Exposures/Images: 5 the COMPARISON: None HISTORY: ORDERING SYSTEM PROVIDED HISTORY: Left hip pinning in OR TECHNOLOGIST PROVIDED HISTORY: Left hip pinning in OR Intraprocedural imaging. FINDINGS: 5 spot images of the hip were obtained. Images document fixation of left hip. IMPRESSION: Intraprocedural fluoroscopic spot images as above. See separate procedure report for more information. [facility] ME EXAMINATION: SPOT FLUOROSCOPIC IMAGES 08/06/2019 9:24 pm TECHNIQUE: Fluoroscopy was provided by the radiology department for procedure. Radiologist was not present during examination. FLUOROSCOPY DOSE AND TYPE OR TIME AND EXPOSURES: Time: 108.1 seconds Dose: 7441.7 mGy-cm2, DAP Exposures/Images: 5 the COMPARISON: None HISTORY: ORDERING SYSTEM PROVIDED HISTORY: Left hip pinning in OR TECHNOLOGIST PROVIDED HISTORY: Left hip pinning in OR Intraprocedural imaging. FINDINGS: 5 spot images of the hip were obtained. Images document fixation of left hip. [facility] [place] XR HUMERUS LEFT (MIN 2 VIEWS )on 08-06-2019 XR HUMERUS LEFT (MIN 2 VIEWS) EXAMINATION: TWO XRAY VIEWS OF THE LEFT HUMERUS 08/06/2019 4:49 pm COMPARISON: None. HISTORY: ORDERING SYSTEM PROVIDED HISTORY: pain s/p fall TECHNOLOGIST PROVIDED HISTORY: pain s/p fall FINDINGS: There is a mildly impacted fracture of proximal left humerus. There is degenerative change of the left shoulder and left elbow joint spaces. The surrounding soft tissues are unremarkable. The visualized left lung is without acute process. IMPRESSION: Mildly impacted fracture of the proximal left humerus. Interpreted by: Jay Zuniga MD Signed by: Jay Zuniga MD 08/06/19 Final result Normal [facility] Cholesterol in LDL [Mass/Vol] Mildly impacted fracture of the proximal left humerus. [facility] [employer] ME EXAMINATION: TWO XRA Y VIEWS OF THE LEFT HUMERUS 08/06/2019 4:49 pm COMPARISON: None. HISTORY: ORDERING SYSTEM PROVIDED HISTORY: pain s/p fall TECHNOLOGIST PROVIDED HISTORY: pain s/p fall FINDINGS: There is a mildly impacted fracture of proximal left humerus. There is degenerative change of the left shoulder and left elbow joint spaces. The surrounding soft tissues are unremarkable. The visualized left lung is without acute process. [facility] [place] V[facility]nu, M[facility]pn Incoming Radiant Results From [employer]/Pacs - 08/06/2019 5:01 PM EDT EXAMINATION: TWO XRAY VIEWS OF THE LEFT HUMERUS 08/06/2019 4:49 pm COMPARISON: None. HISTORY: ORDERING SYSTEM PROVIDED HISTORY: pain s/p fall TECHNOLOGIST PROVIDED HISTORY: pain s/p fall FINDINGS: There is a mildly impacted fracture of proximal left humerus. There is degenerative change of the left shoulder and left elbow joint spaces. The surrounding soft tissues are unremarkable. The visualized left lung is without acute process. IMPRESSION: Mildly impacted fracture of the proximal left humerus. [facility] [employer] [place] XR SHOULDER LEFT (MIN 2 VIEW S)on 08-06-2019 XR SHOULDER LEFT (MIN 2 VIEWS) EXAMINATION: THREE XRAY VIEWS OF THE LEFT SHOULDER 08/06/2019 4:38 pm COMPARISON: None. HISTORY: ORDERING SYSTEM PROVIDED HISTORY: pain s/p fall TECHNOLOGIST PROVIDED HISTORY: pain s/p fall FINDINGS: There is a mildly impacted fracture of the proximal left humerus. There is degenerative change of the left shoulder joint spaces. The surrounding soft tissues are unremarkable. The visualized left lung is without acute process. IMPRESSION: Mildly impacted fracture of the proximal left humerus. Interpreted by: Jay Zuniga MD Signed by: Jay Zuniga MD 08/06/19 Final result Normal [facility] Cholesterol in LDL [Mass/Vol] Mildly impacted fracture of the proximal left humerus. [facility] [employer] EXAMINATION: THREE X RAY VIEWS OF THE LEFT SHOULDER 08/06/2019 4:38 pm COMPARISON: None. HISTORY: ORDERING SYSTEM PROVIDED HISTORY: pain s/p fall TECHNOLOGIST PROVIDED HISTORY: pain s/p fall FINDINGS: There is a mildly impacted fracture of the proximal left humerus. There is degenerative change of the left shoulder joint spaces. The surrounding soft tissues are unremarkable. The visualized left lung is without acute process. [facility] Incoming Radiant Results From TRData/TuTanda - 08/06/2019 5:00 PM EDT EXAMINATION: THREE XRAY VIEWS OF THE LEFT SHOULDER 08/06/2019 4:38 pm COMPARISON: None. HISTORY: ORDERING SYSTEM PROVIDED HISTORY: pain s/p fall TECHNOLOGIST PROVIDED HISTORY: pain s/p fall FINDINGS: There is a mildly impacted fracture of the proximal left humerus. There is degenerative change of the left shoulder joint spaces. The surrounding soft tissues are unremarkable. The visualized left lung is without acute process. IMPRESSION: Mildly impacted fracture of the proximal left humerus. [facility] CBCon [facility] Erythrocyte distribution width (RBC) [Ratio] 13.4 % Normal 11.8-14.4 [facility] Comment on above: Performed By: #### A CET, ALCB #### [facility] [address] [place] [address] [place] [address] Project Management Engineer: Robert Chin MD Hematocrit (Bld) [Volume fraction] 40.4 % Normal 36.3-47.1 [facility] Comment on above: Performed By: #### A CET, ALCB #### [address] [place] [address] Project Management Engineer: Robert Chin MD Hemoglobin (Bld) [Mass/Vol] 13.0 g/dL Normal 11.9-15.1 [facility] Comment on above: Performed By: #### A CET, ALCB #### [facility] [address] [place] [address] Project Management Engineer: Robert Chin MD MCH (RBC) [Entitic mass] 31.6 pg Normal 25.2-33.5 [facility] Comment on above: Performed By: #### A CET, ALCB #### [facility] [address] [place] [address] Project Management Engineer: Robert Chin MD MCHC (RBC) [Mass/Vol] 32.2 g/dL Normal 28.4-34.8 [facility] Comment on above: Performed By: #### A CET, ALCB #### [facility] [address] [place], [place] [id number] Project Management Engineer: Robert Chin MD MCV (RBC) [Entitic vol] 98.3 fL Normal 82.6-102.9 [facility] Comment on above: Performed By: #### A CET, ALCB #### [facility] [address] [place], [facility]83 Project Management Engineer: Robert Chin MD NRBC Automated 0.0 per 100 WBC Normal 0.0 [facility] Comment on above: Performed By: #### A CET, ALCB #### [address] [place], [facility]83 Project Management Engineer: Robert Chin MD Platelet mean volume (Bld) [Entitic vol] 11.3 fL Normal 8.1-13.5 [facility] Comment on above: Performed By: #### A CET, ALCB #### [address] [place], [facility]83 Project Management Engineer: Robert Chin MD Platelets (Bld) [#/Vol] 257 10*3/uL Normal 138-453 [facility] Comment on above: Performed By: #### A CET, ALCB #### [address] [place], [facility]83 Project Management Engineer: Robert Chin MD RBC (Bld) [#/Vol] 4.11 10*6/uL Normal 3.95-5.11 [facility] Comment on above: Performed By: #### A CET, ALCB #### [address] [place], [place] [id number] Project Management Engineer: Robert Chin MD WBC (Bld) [#/Vol] 4.7 10*3/uL Normal 3.5-11.3 [facility] Comment on above: Performed By: #### A JAMEY PETERSB #### [facility] [address] [place] [address] Project Management Engineer: Robert Chin MD Erythrocyte distribution width (RBC) [Ratio] 13.4 % 11.8 - 14.4 % [place] Hematocrit (Bld) [Volume fraction] 40.4 % 36.3 - 47.1 % [place] Hemoglobin (Bld) [Mass/Vol] 13.0 g/dL 11.9 - 15.1 g/dL [place] MCH (RBC) [Entitic mass] 31.6 pg 25.2 - 33.5 pg [place] MCHC (RBC) [Mass/Vol] 32.2 g/dL 28.4 - 34.8 g/dL [place] MCV (RBC) [Entitic vol] 98.3 fL 82.6 - 102.9 fL [place] Platelet mean volume (Bld) [Entitic vol] 11.3 fL 8.1 - 13.5 fL [place] Platelets (Bld) [#/Vol] 257 10*3/uL [place] RBC (Bld) [#/Vol] 4.11 10*6/uL 3.95 - 5.1 1 m/uL [place] WBC (Bld) [#/Vol] 0.0 10*3/uL 0.0 per 10 0 WBC [place] WBC (Bld) [#/Vol] 4.7 10*3/uL [place] Comp Metabolic Profon 2019 (cont.) Normal [facility] Comment on above: Result Comment: Aver age GFR for 60-69 years old: 85 mL/min/1.73sq m Chronic Kidney Disease: <60 mL/min/1.73sq m Kidney failure: <15 mL/min/1.73sq m eGFR calculated using average adult body mass. Additional eGFR calculator available at: http://www.[employer].Kidamom/multiple_crcl_2011.htm Performed By: #### A CET, ALCB #### [facility] [address] [place], [place] [id number] Project Management Engineer: Robert Chin MD Albumin [Mass/Vol] 3.8 g/dL Normal 3.5-5.2 [facility] Comment on above: Performed By: #### A CET, ALCB #### [facility] [address] [place], [place] [phone] Project Management Engineer: Robert Chin MD Albumin/Globulin [Mass ratio] 1.4 {ratio} Normal 1.0-2.5 [facility] Comment on above: Performed By: #### A CET, ALCB #### [facility] [address] [place], [place] [id number] Project Management Engineer: Robert Chin MD Alkaline Phos 118 U/L High 35-104 [facility] Comment on above: Performed By: #### A CET, ALCB #### [facility] [address] [place], [place] [phone] Project Management Engineer: Robert Chin MD ALT [Catalytic activity/Vol] 17 U/L Normal 5-33 [facility] Comment on above: Performed By: #### A CET, ALCB #### [facility] [address] [place], [place] [phone] Project Management Engineer: Robert Chin MD Anion gap [Moles/Vol] 13 mmol/L Normal 9-17 [facility] Comment on above: Performed By: #### A CET, ALCB #### [facility] [address] [place], [place] [id number] Project Management Engineer: Robert Chin MD AST [Catalytic activity/Vol] 16 U/L Normal <32 [facility] Comment on above: Performed By: #### A CET, ALCB #### [facility] [address] [place] [address] Project Management Engineer: Robert Chin MD Bilirubin Ql (U) 0.19 mg/dL Low 0.3-1.2 [facility] Comment on above: Performed By: #### A CET, ALCB #### [facility] [address] [place] [address] Project Management Engineer: Robert Chin MD BUN/CRE Ratio 10 Normal 9-20 [facility] Comment on above: Performed By: #### A CET, ALCB #### [facility] [address] [place] [address] Project Management Engineer: Robert Chin MD Calcium [Mass/Vol] 9.4 mg/dL Normal 8.6-10.4 [facility] Comment on above: Performed By: #### A CET, ALCB #### [facility] [address] [place] [address] Project Management Engineer: Robert Chin MD Chloride [Moles/Vol] 106 mmol/L Normal 98-107 [facility] Comment on above: Performed By: #### A CET, ALCB #### [facility] [address] [place] [address] Project Management Engineer: Robert Chin MD CO2 [Moles/Vol] 23 mmol/L Normal 20-31 [facility] Comment on above: Performed By: #### A CET, ALCB #### [facility] [address] [place] [address] Project Management Engineer: Robert Chin MD Creatinine [Mass/Vol] 1.02 mg/dL High 0.50-0.90 [facility] Comment on above: Performed By: #### A CET, ALCB #### [facility] [address] [place] [address] Project Management Engineer: Robert Chin MD GFR, Amer >60 Normal >60 [facility] Comment on above: Performed By: #### A CET, ALCB #### [facility] [address] [place], [place] [phone] Project Management Engineer: Robert Chin MD GFR,non Amer 55 mL/min Low >60 [facility] Comment on above: Performed By: #### A CET, ALCB #### [facility] [address] [place], [place] [phone] Project Management Engineer: Robert Chin MD Glucose [Mass/Vol] 114 mg/dL High 70-99 [facility] Comment on above: Performed By: #### A CET, ALCB #### [facility] [address] [place], [place] [phone] Project Management Engineer: Robert Chin MD Potassium [Moles/Vol] 3.8 mmol/L Normal 3.7-5.3 [facility] Comment on above: Performed By: #### A CET, ALCB #### [facility] [address] [place], [place] [phone] Project Management Engineer: Robert Chin MD Protein [Mass/Vol] 6.6 g/dL Normal 6.4-8.3 [facility] Comment on above: Performed By: #### A CET, ALCB #### [facility] [address] [place], [place] [phone] Project Management Engineer: Robert Chin MD Sodium [Moles/Vol] 142 mmol/L Normal 135-144 [facility] Comment on above: Performed By: #### A CET, ALCB #### [facility] [address] [place], [place] [id number] Project Management Engineer: Robert Chin MD Staging: Normal [facility] Comment on above: Result Comment: Stag e 1: Some kidney damage normal GFR Stage 2: Mild kidney damage GFR 60-89 Stage 3: Moderate kidney damage GFR 30-59 Stage 4: Severe kidney damage GFR 15-29 Stage 5: Severe kidney damage GFR <15 ESRD - chronic treatment by dialysis or transplant Performed By: #### A CET, ALCB #### [facility] [address] [place] [address] Project Management Engineer: Robert Chin MD Urea nitrogen [Mass/Vol] 10 mg/dL Normal 8-23 [facility] Comment on above: Performed By: #### A CET, ALCB #### [facility] [address] [place] [address] Project Management Engineer: Robert Chin MD Comprehensive Metabolic Pane laurie 05-29-2019 Albumin [Mass/Vol] 3.8 g/dL 3.5 - 5.2 g/dL [place] Albumin/Globulin [Mass ratio] 1.4 {ratio} [place] ALP [Catalytic activity/Vol] 118 U/L High 35 - 104 U/L [place] ALT [Catalytic activity/Vol] 17 U/L 5 - 33 U/L [place] Anion gap [Moles/Vol] 13 mmol/L 9 - 17 mmol/L [place] AST [Catalytic activity/Vol] 16 U/L <32 [place] Bilirubin Ql (U) 0.19 mg/dL Low 0.3 - 1.2 mg/dL [place] Bun/Cre Ratio 10 [place] Calcium [Mass/Vol] 9.4 mg/dL 8.6 - 10. 4 mg/dL [place] Chloride [Moles/Vol] 106 mmol/L 98 - 10 7 mmol/L [place] CO2 [Moles/Vol] 23 mmol/L 20 - 31 mmol/L [place] Creatinine [Mass/Vol] 1.02 mg/dL High 0.5 - 0.9 mg/dL [place] GFR >60 >60 mL/min [place] GFR Non- 55 mL/min Low >60 [place] Glucose [Mass/Vol] 114 mg/dL High 70 - 99 mg/dL [place] Potassium [Moles/Vol] 3.8 mmol/L 3.7 - 5.3 mmol/L [place] Protein [Mass/Vol] 6.6 g/dL 6.4 - 8.3 g/dL [place] Sodium [Moles/Vol] 142 mmol/L 135 - 144 mmol/L [place] Urea nitrogen [Mass/Vol] 10 mg/dL 8 - 23 mg/dL [place] Hemoglobin A1Con 05-29-2019 HbA1c (Bld) [Mass fraction] 103 mg/dL Normal [facility] Comment on above: Result Comment: The ADA and AACC recommend providing the estimated average glucose result to permit better patient understanding of their HBA1c result. Performed By: #### A CET, ALCB #### [facility] [address] [place] [address] Project Management Engineer: Roebrt Chin MD HbA1c (Bld) [Mass fraction] 5.2 % Normal 4.8-5.9 [place] Comment on above: Performed By: #### A CET, ALCB #### [facility] [address] [place] [address] Project Management Engineer: Robert Chin MD Glucose [Mass/Vol] 103 mg/dL [place] Comment on above: The ADA and AACC rec ommend providing the estimated average glucose result to permit better patient understanding of their HBA1c result. Lipid Panelon 05-29-2019 Cholesterol [Mass/Vol] 168 mg/dL <200 [place] Comment on above: Cholesterol Guidelines: <200 Desirable 200-240 Borderline >240 Undesirable Cholesterol in HDL [Mass/Vol] 35 mg/dL Low >40 [place] Comment on above: HDL Guidelines: <40 Undesirable 40-59 Borderline >59 Desirable Cholesterol in LDL [Mass/Vol] 108 mg/dL 0 - 130 mg/dL [place] Comment on above: LDL Guidelines: <100 Desirable 100-129 Near to/above Desirable 130-159 Borderline >159 Undesirable Direct (measured) LDL and calculated LDL are not interchangeable tests. Cholesterol in VLDL [Mass/Vol] NOT REPORTED 1 - 30 mg/dL [place] Cholesterol.total/Chol esterol in HDL [Mass ratio] 4.8 {ratio} <5 [place] Triglyceride [Mass/Vol] 124 mg/dL <150 [place] Comment on above: Triglyceride Guidelines: <150 Desirable 150-199 Borderline 200-499 High >499 Very high Based on AHA Guidelines for fasting triglyceride, November 2011. Lipid Profileon 05-29-2019 Cholesterol [Mass/Vol] 168 mg/dL Normal <200 [facility] Comment on above: Result Comment: Cholesterol Guidelines: <200 Desirable 200-240 Borderline >240 Undesirable Performed By: #### A CET, ALCB #### [facility] [address] [place] [address] Project Management Engineer: Robert Chin MD Cholesterol in HDL [Mass/Vol] 35 mg/dL Low >40 [facility] Comment on above: Result Comment: HDL Guidelines: <40 Undesirable 40-59 Borderline >59 Desirable Performed By: #### A CET, ALCB #### [facility] [address] [place] [address] Project Management Engineer: Robert Chin MD Cholesterol in LDL [Mass/Vol] 108 mg/dL Normal 0-130 [facility] [facility] Comment on above: Result Comment: LDL Guidelines: <100 Desirable 100-129 Near to/above Desirable 130-159 Borderline >159 Undesirable Direct (measured) LDL and calculated LDL are not interchangeable tests. Performed By: #### A CET, ALCB #### [facility] [address] [place] [address] [place] [address] Project Management Engineer: Robert Chin MD Cholesterol.total/Chol esterol in HDL [Mass ratio] 4.8 {ratio} Normal <5 [facility] Comment on above: Performed By: #### A CET, ALCB #### [facility] [address] [place] [address] Project Management Engineer: Robert Chin MD Triglyceride [Mass/Vol] 124 mg/dL Normal <150 [facility] Comment on above: Result Comment: Triglyceride Guidelines: <150 Desirable 150-199 Borderline 200-499 High >499 Very high Based on AHA Guidelines for fasting triglyceride, November 2011. Performed By: #### A CET, ALCB #### [facility] [address] [place] [address] Project Management Engineer: Robert Chin MD Cholesterol in VLDL [Mass/Vol] NOT REPORTED Normal 1-30 [facility] Comment on above: Performed By: #### A CET, ALCB #### [facility] [address] [place] [address] Project Management Engineer: Robert Chin MD Metabolic Panelon 05-29-2019 GFR/1.73 sq M predicted among non-blacks MDRD (S/P/Bld) [Vol rate/Area] [place] Comment on above: Average GFR for 60-6 9 years old: 85 mL/min/1.73sq m Chronic Kidney Disease: <60 mL/min/1.73sq m Kidney failure: <15 mL/min/1.73sq m eGFR calculated using average adult body mass. Additional eGFR calculator available at: http://www.Gingerd/multiple_crcl_2012.htm Stage 1: Some kidney damage normal GFR Stage 2: Mild kidney damage GFR 60-89 Stage 3: Moderate kidney damage GFR 30-59 Stage 4: Severe kidney damage GFR 15-29 Stage 5: Severe kidney damage GFR <15 ESRD - chronic treatment by dialysis or transplant Otheron 05-29-2019 Interpretation and review of laboratory results Abnormal [place] Lipid Panelon 05-13-2019 Cholesterol [Mass/Vol] 225 mg/dL High <200 [place], [place] Comment on above: Cholesterol Guidelines: <200 Desirable 200-240 Borderline >240 Undesirable Cholesterol in HDL [Mass/Vol] 32 mg/dL Low >40 [place] Comment on above: HDL Guidelines: <40 Undesirable 40-59 Borderline >59 Desirable Cholesterol in LDL [Mass/Vol] 165 mg/dL High 0 - 130 mg/dL [place] Comment on above: LDL Guidelines: <100 Desirable 100-129 Near to/above Desirable 130-159 Borderline >159 Undesirable Direct (measured) LDL and calculated LDL are not interchangeable tests. Cholesterol in VLDL [Mass/Vol] NOT REPORTED 1 - 30 mg/dL [place] Cholesterol.total/Chol esterol in HDL [Mass ratio] 7 {ratio} High <5 [place] Interpretation and review of laboratory results Abnormal [place] Triglyceride [Mass/Vol] 140 mg/dL <150 [place] Comment on above: Triglyceride Guidelines: <150 Desirable 150-199 Borderline 200-499 High >499 Very high Based on AHA Guidelines for fasting triglyceride, November 2011. Lipid Profileon 05-13-2019 Cholesterol [Mass/Vol] 225 mg/dL High <200 [facility] Comment on above: Result Comment: Cholesterol Guidelines: <200 Desirable 200-240 Borderline >240 Undesirable Performed By: #### A LCB #### [facility] [address] [place] [address] [place] [address] Project Management Engineer: Carloz Alvarado MD Cholesterol in HDL [Mass/Vol] 32 mg/dL Low >40 [facility] Comment on above: Result Comment: HDL Guidelines: <40 Undesirable 40-59 Borderline >59 Desirable Performed By: #### A LCB #### [facility] [address] [place] [address] [place] [address] Project Management Engineer: Carloz Alvarado MD Cholesterol in LDL [Mass/Vol] 165 mg/dL High 0-130 [facility] Comment on above: Result Comment: LDL Guidelines: <100 Desirable 100-129 Near to/above Desirable 130-159 Borderline >159 Undesirable Direct (measured) LDL and calculated LDL are not interchangeable tests. Performed By: #### A LCB #### [facility] [address] [place] [address] Project Management Engineer: Carloz Alvarado MD Cholesterol.total/Chol esterol in HDL [Mass ratio] 7.0 {ratio} High <5 [facility] Comment on above: Performed By: #### A LCB #### [facility] [address] [place] [address] Project Management Engineer: Carloz Alvarado MD Triglyceride [Mass/Vol] 140 mg/dL Normal <150 [facility] Comment on above: Result Comment: Triglyceride Guidelines: <150 Desirable 150-199 Borderline 200-499 High >499 Very high Based on AHA Guidelines for fasting triglyceride, November 2011. Performed By: #### A LCB #### [facility] [address] [place] [address] Project Management Engineer: Carloz Alvarado MD Cholesterol in VLDL [Mass/Vol] NOT REPORTED Normal 1-30 [facility] Comment on above: Performed By: #### A LCB #### [facility] [address] [place] [address] Project Management Engineer: Carloz Alvarado MD Lipid Panelon 04-17-2019 Cholesterol [Mass/Vol] 209 mg/dL High <200 [place] Comment on above: Cholesterol Guidelines: <200 Desirable 200-240 Borderline >240 Undesirable Cholesterol in HDL [Mass/Vol] 32 mg/dL Low >40 [place] Comment on above: HDL Guidelines: <40 Undesirable 40-59 Borderline >59 Desirable Cholesterol in LDL [Mass/Vol] 129 mg/dL 0 - 130 mg/dL [place] Comment on above: LDL Guidelines: <100 Desirable 100-129 Near to/above Desirable 130-159 Borderline >159 Undesirable Direct (measured) LDL and calculated LDL are not interchangeable tests. Cholesterol in VLDL [Mass/Vol] NOT REPORTED High 1 - 30 mg/dL [place] Cholesterol.total/Chol esterol in HDL [Mass ratio] 6.5 {ratio} High <5 [place] Interpretation and review of laboratory results Abnormal [place] Triglyceride [Mass/Vol] 240 mg/dL High <150 [place] Comment on above: Triglyceride Guidelines: <150 Desirable 150-199 Borderline 200-499 High >499 Very high Based on AHA Guidelines for fasting triglyceride, November 2011. CBC Auto Differentialon Basophils (Bld) [#/Vol] 10*3/uL [place] Basophils/100 WBC (Bld) 0 % 0 - 2 % [place] Differential Type NOT REPORTED [place] Eosinophils (Bld) [#/Vol] 0.03 10*3/uL [place] Eosinophils/100 WBC (Bld) 1 % 1 - 4 % [place] Erythrocyte distribution width (RBC) [Ratio] 12.8 % 11.8 - 14.4 % [place] Hematocrit (Bld) [Volume fraction] 43.0 % 36.3 - 47.1 % [place] Hemoglobin (Bld) [Mass/Vol] 13.9 g/dL 11.9 - 15.1 g/dL [place] Immature granulocytes (Bld) [#/Vol] 10*3/uL [place] Immature granulocytes (Bld) [#/Vol] 0 % 0 [place] Interpretation and review of laboratory results Abnormal [place] Lymphocytes (Bld) [#/Vol] 1.44 10*3/uL [place] Lymphocytes/100 WBC (Bld) 22 % Low 24 - 43 % [place] MCH (RBC) [Entitic mass] 31.8 pg 25.2 - 33.5 pg [place] MCHC (RBC) [Mass/Vol] 32.3 g/dL 28.4 - 34.8 g/dL [place] MCV (RBC) [Entitic vol] 98.4 fL 82.6 - 102.9 fL [place] Monocytes (Bld) [#/Vol] 0.55 10*3/uL [place] Monocytes/100 WBC (Bld) 8 % 3 - 12 % [place] Platelet mean volume (Bld) [Entitic vol] 10.7 fL 8.1 - 13.5 fL [place] Platelets (Bld) [#/Vol] NOT REPORTED [place] Platelets (Bld) [#/Vol] 257 10*3/uL [place] RBC (Bld) [#/Vol] 4.37 10*6/uL 3.95 - 5.1 1 m/uL [place] RBC morphology finding Nom (Bld) NOT REPORTED [place] Segmented neutrophils/100 WBC (Bld) 69 % High 36 - 65 % [place] Segs Absolute 4.55 [place] WBC (Bld) [#/Vol] 0.0 10*3/uL 0.0 per 10 0 WBC [place] WBC (Bld) [#/Vol] 6.6 10*3/uL [place] WBC Morphology NOT REPORTED [place] Comprehensive Metabolic Pane laurie 04-16-2019 Albumin [Mass/Vol] 4.2 g/dL 3.5 - 5.2 g/dL [place] Albumin/Globulin [Mass ratio] 1.4 {ratio} [place] ALP [Catalytic activity/Vol] 123 U/L High 35 - 104 U/L [place] ALT [Catalytic activity/Vol] 16 U/L 5 - 33 U/L [place] Anion gap [Moles/Vol] 12 mmol/L 9 - 17 mmol/L [place] AST [Catalytic activity/Vol] 15 U/L <32 [place] Bilirubin Ql (U) 0.45 mg/dL 0.3 - 1.2 mg/dL [place] Bun/Cre Ratio 25 [place] Calcium [Mass/Vol] 9.1 mg/dL 8.6 - 10. 4 mg/dL [place] Chloride [Moles/Vol] 104 mmol/L 98 - 10 7 mmol/L [place] CO2 [Moles/Vol] 24 mmol/L 20 - 31 mmol/L [place] Creatinine [Mass/Vol] 0.76 mg/dL 0.5 - 0.9 mg/dL [place] GFR >60 >60 mL/min [place] GFR Non- >60 >60 mL/min [place] Glucose [Mass/Vol] 105 mg/dL High 70 - 99 mg/dL [place] Interpretation and review of laboratory results Abnormal [place] Potassium [Moles/Vol] 4.2 mmol/L 3.7 - 5.3 mmol/L [place] Protein [Mass/Vol] 7.1 g/dL 6.4 - 8.3 g/dL [place] Sodium [Moles/Vol] 140 mmol/L 135 - 144 mmol/L [place] Urea nitrogen [Mass/Vol] 19 mg/dL 8 - 23 mg/dL [place] Metabolic Panelon 04-16-2019 GFR/1.73 sq M predicted among non-blacks MDRD (S/P/Bld) [Vol rate/Area] [place] Comment on above: Stage 1: Some kidney damage normal GFR Stage 2: Mild kidney damage GFR 60-89 Stage 3: Moderate kidney damage GFR 30-59 Stage 4: Severe kidney damage GFR 15-29 Stage 5: Severe kidney damage GFR <15 ESRD - chronic treatment by dialysis or transplant Average GFR for 60-6 9 years old: 85 mL/min/1.73sq m Chronic Kidney Disease: <60 mL/min/1.73sq m Kidney failure: <15 mL/min/1.73sq m eGFR calculated using average adult body mass. Additional eGFR calculator available at: http://www.Gingerd/multiple_crcl_2012.htm Acetaminophen levelon 2019 Acetaminophen [Mass/Vol] <5 Low 10 - 30 ug/mL [place] Interpretation and review of laboratory results Abnormal [place] Ammoniaon 04-13-2019 Ammonia (P) [Mass/Vol] 19 umol/L 11 - 51 umol/L [place] Blood gas, venouson 04-13-19 20 Rogelio Test NOT REPORTED [place] aPTT Coag (Bld) [Time] NOT REPORTED [place] Carboxyhemoglobin 0 - 5 % [place] FIO2 NOT REPORTED [place] HCO3, Venous 26.9 mmol/L 24 - 30 mmol/L [place] Interpretation and review of laboratory results Abnormal [place] Methemoglobin NOT REPORTED 0 - 1.9 % [place] Mode NOT REPORTED [place] Negative Base Excess, Robert NOT REPORTED 0 - 2 mmol/L [place] NOTIFICATION NOT [place]PORTED [place] NOTIFICATION TIME NOT REPORTED [place] O2 Device/Flow/% NOT REPORTED [place] Oxygen saturation in Blood 36.9 % Low 60 - 85 % [place] Oxyhemoglobin NOT REPORTED 95 - 98 % [place] pCO2, Robert 45.5 [place] pCO2, Robert, Temp Adj NOT REPORTED [place], [place] Peep/Cpap NOT REPORTED [place] pH, Robert 7.389 [place] pH, Robert, Temp Adj NOT REPORTED [place] pO2, Robert 22.1 Low [place] pO2, Robert, Temp Adj NOT REPORTED [place] Positive Base Excess, Robert 1.4 mmol/L 0 - 2 mmol/L [place] PSV NOT REPORTED [place] Pt. Position NOT REPORTED [place] Sample Site NOT REPORTED [place] Set Rate NOT REPORTED [place] Text for Respiratory NOT REPORTED [place] Total Hb NOT REPORTED 12 - 16 g/dl [place] Total Rate NOT REPORTED [place] VT NOT REPORTED [place] CBC Auto Differentialon 03-0 Basophils (Bld) [#/Vol] 10*3/uL [place] Basophils/100 WBC (Bld) 0 % 0 - 2 % [place] Differential Type NOT REPORTED [place] Eosinophils (Bld) [#/Vol] 0.06 10*3/uL [place] Eosinophils/100 WBC (Bld) 1 % 1 - 4 % [place] Erythrocyte distribution width (RBC) [Ratio] 13.2 % 11.8 - 14.4 % [place] Hematocrit (Bld) [Volume fraction] 40.0 % 36.3 - 47.1 % [place] Hemoglobin (Bld) [Mass/Vol] 13.0 g/dL 11.9 - 15.1 g/dL [place] Immature granulocytes (Bld) [#/Vol] 10*3/uL [place] Immature granulocytes (Bld) [#/Vol] 0 % 0 [place] Interpretation and review of laboratory results Abnormal [place] Lymphocytes (Bld) [#/Vol] 1.26 10*3/uL [place] Lymphocytes/100 WBC (Bld) 18 % Low 24 - 43 % [place] MCH (RBC) [Entitic mass] 32.0 pg 25.2 - 33.5 pg [place] MCHC (RBC) [Mass/Vol] 32.5 g/dL 28.4 - 34.8 g/dL [place] MCV (RBC) [Entitic vol] 98.5 fL 82.6 - 102.9 fL [place] Monocytes (Bld) [#/Vol] 0.61 10*3/uL [place] Monocytes/100 WBC (Bld) 9 % 3 - 12 % [place] Platelet mean volume (Bld) [Entitic vol] 10.2 fL 8.1 - 13.5 fL [place] Platelets (Bld) [#/Vol] 227 10*3/uL [place] Platelets (Bld) [#/Vol] NOT REPORTED [place] RBC (Bld) [#/Vol] 4.06 10*6/uL 3.95 - 5.1 1 m/uL [place] RBC morphology finding Nom (Bld) NOT REPORTED [place] Segmented neutrophils/100 WBC (Bld) 72 % High 36 - 65 % [place] Segs Absolute 4.94 [place] WBC (Bld) [#/Vol] 6.9 10*3/uL [place] WBC (Bld) [#/Vol] 0.0 10*3/uL 0.0 per 10 0 WBC [place] WBC Morphology NOT REPORTED [place] CT Head WO Contraston 2019 EXAMINATION: CT OF T HE HEAD WITHOUT CONTRAST 04/13/2019 8:13 pm TECHNIQUE: CT of the head was performed without the administration of intravenous contrast. Dose modulation, iterative reconstruction, and/or weight based adjustment of the mA/kV was utilized to reduce the radiation dose to as low as reasonably achievable. COMPARISON: July 23, 2018 HISTORY: ORDERING SYSTEM PROVIDED HISTORY: confusion TECHNOLOGIST PROVIDED HISTORY: confusion FINDINGS: BRAIN/VENTRICLES: There is no acute intracranial hemorrhage, mass effect or midline shift. No abnormal extra-axial fluid collection. The jones-white differentiation is maintained without evidence of an acute infarct. There is no evidence of hydrocephalus. Generalized atrophy is again noted. ORBITS: The visualized portion of the orbits demonstrate no acute abnormality. SINUSES: The visualized paranasal sinuses and mastoid air cells demonstrate no acute abnormality. SOFT TISSUES/SKULL: No acute abnormality of the visualized skull or soft tissues. [place] Vishnu, Mhpn Incoming Radiant Results From TRData/TuTanda - 04/13/2019 8:29 PM EST EXAMINATION: CT OF THE HEAD WITHOUT CONTRAST 04/13/2019 8:13 pm TECHNIQUE: CT of the head was performed without the administration of intravenous contrast. Dose modulation, iterative reconstruction, and/or weight based adjustment of the mA/kV was utilized to reduce the radiation dose to as low as reasonably achievable. COMPARISON: July 23, 2018 HISTORY: ORDERING SYSTEM PROVIDED HISTORY: confusion TECHNOLOGIST PROVIDED HISTORY: confusion FINDINGS: BRAIN/VENTRICLES: There is no acute intracranial hemorrhage, mass effect or midline shift. No abnormal extra-axial fluid collection. The jones-white differentiation is maintained without evidence of an acute infarct. There is no evidence of hydrocephalus. Generalized atrophy is again noted. ORBITS: The visualized portion of the orbits demonstrate no acute abnormality. SINUSES: The visualized paranasal sinuses and mastoid air cells demonstrate no acute abnormality. SOFT TISSUES/SKULL: No acute abnormality of the visualized skull or soft tissues. IMPRESSION: No acute intracranial abnormality. [place] No acute intracrania l abnormality. [place] Comprehensive Metabolic Pane l w/ Reflex to MGon 04-13-2019 Albumin [Mass/Vol] 3.9 g/dL 3.5 - 5.2 g/dL [place] Albumin/Globulin [Mass ratio] 1.4 {ratio} [place] ALP [Catalytic activity/Vol] 121 U/L High 35 - 104 U/L [place] ALT [Catalytic activity/Vol] 13 U/L 5 - 33 U/L [place] Anion gap [Moles/Vol] 11 mmol/L 9 - 17 mmol/L [place] AST [Catalytic activity/Vol] 14 U/L <32 [place] Bilirubin Ql (U) 0.17 mg/dL Low 0.3 - 1.2 mg/dL [place] Bun/Cre Ratio 13 [place] Calcium [Mass/Vol] 8.9 mg/dL 8.6 - 10. 4 mg/dL [place] Chloride [Moles/Vol] 102 mmol/L 98 - 10 7 mmol/L [place] CO2 [Moles/Vol] 23 mmol/L 20 - 31 mmol/L [place] Creatinine [Mass/Vol] 0.63 mg/dL 0.5 - 0.9 mg/dL [place] GFR >60 >60 mL/min [place] GFR Non- >60 >60 mL/min [place] Glucose [Mass/Vol] 121 mg/dL High 70 - 99 mg/dL [place] Interpretation and review of laboratory results Abnormal [place] Potassium [Moles/Vol] 3.5 mmol/L Low 3.7 - 5.3 mmol/L [place] Protein [Mass/Vol] 6.7 g/dL 6.4 - 8.3 g/dL [place] Sodium [Moles/Vol] 136 mmol/L 135 - 144 mmol/L [place] Urea nitrogen [Mass/Vol] 8 mg/dL 8 - 23 mg/dL [place] Ethanolon 04-13-2019 Ethanol [Mass/Vol] mg/dL <10 mg/dL [place] Ethanol percent <0.010 <0.010 % [place] Magnesiumon 04-13-2019 Magnesium [Mass/Vol] 2.3 mg/dL 1.6 - 2 .6 mg/dL [place] Metabolic Panelon 04-13-2019 GFR/1.73 sq M predicted among non-blacks MDRD (S/P/Bld) [Vol rate/Area] [place] Comment on above: Stage 1: Some kidney damage normal GFR Stage 2: Mild kidney damage GFR 60-89 Stage 3: Moderate kidney damage GFR 30-59 Stage 4: Severe kidney damage GFR 15-29 Stage 5: Severe kidney damage GFR <15 ESRD - chronic treatment by dialysis or transplant Average GFR for 60-6 9 years old: 85 mL/min/1.73sq m Chronic Kidney Disease: <60 mL/min/1.73sq m Kidney failure: <15 mL/min/1.73sq m eGFR calculated using average adult body mass. Additional eGFR calculator available at: http://www.Gingerd/multiple_crcl_2012.htm Salicylateon 04-13-2019 Interpretation and review of laboratory results Abnormal [facility] [employer] Salicylate Lvl <1 Low 3 - 10 mg/dL [facility] [employer] TSH without Reflexon 020 Interpretation and review of laboratory results Abnormal [facility] [employer] TSH Qn 5.75 m[IU]/L High [facility] [employer] Urinalysis, reflex to micros copicon 04-13-2019 Bilirubin Urine Negative NEGATIVE [facility] Color, UA YELLOW YELLOW [facility] Glucose, Ur Negative NEGATIVE [facility] Ketones Ql (U) Negative NEGATIVE [facility] [employer] Leukocyte esterase Test strip Ql (U) Negative NEGATIVE [facility] Nitrite, Urine Negative NEGATIVE [facility] [employer] pH, UA 6.0 [facility] [employer] Protein (U) [Mass/Vol] Negative NEGATIVE Me [facility] Specific [place], UA 1.010 [facility] Turbidity UA CLEAR CLEAR [facility] Urinalysis Comments NOT REPORTED [facility] Urine Hgb Negative NEGATIVE [facility] Urobilinogen, Urine Normal Normal [facility] XR CHEST PORTABLEon 04-13-19 20 Vishnu, Mhpn Incoming Radiant Results From [email or web address]/[email or web address] - 04/13/2019 8:16 PM EST EXAMINATION: ONE XRAY VIEW OF THE CHEST 04/13/2019 7:06 pm COMPARISON: 05/20/2016 HISTORY: ORDERING SYSTEM PROVIDED HISTORY: confusion TECHNOLOGIST PROVIDED HISTORY: confusion FINDINGS: The lungs are clear. The cardiac and mediastinal contours are normal. There is no pleural effusion or pneumothorax. No acute osseous abnormality is identified. Thoracic levoscoliosis is redemonstrated. IMPRESSION: No acute cardiopulmonary abnormality. [place] No acute cardiopulmo nary abnormality. [place] EXAMINATION: ONE XRA Y VIEW OF THE CHEST 04/13/2019 7:06 pm COMPARISON: 05/20/2016 HISTORY: ORDERING SYSTEM PROVIDED HISTORY: confusion TECHNOLOGIST PROVIDED HISTORY: confusion FINDINGS: The lungs are clear. The cardiac and mediastinal contours are normal. There is no pleural effusion or pneumothorax. No acute osseous abnormality is identified. Thoracic levoscoliosis is redemonstrated. [place] Vital Signs Date Time Vital Sign Value Performing Clinician Irma alejo 01-16-2023 09:02-0500 Body height 156.21 cm Mily Lainez [employer]OST[employer] Work Phone: [facility] Work Phone: 01-16-2023 09:02-0500 Body mass index (BMI) [Ratio] 27.9 kg/m2 Mily Lainez [employer] Work Phone: [facility] Work Phone: 01-16-2023 09:02-0500 Body surface area Derived from formula 1.7 m2 Mily Lainez CNP Work Phone: [facility] Work Phone: 01-16-2023 09:02-0500 Body weight 68.04 kg Milyveronica Lainez [employer] Work Phone: [facility] Work Phone: 01-16-2023 09:02-0500 Diastolic blood pressure 81 mm[Hg] Mily Migel HUGHES Work Phone: [facility] Work Phone: 01-16-2023 09:02-0500 Heart rate 115 /min Milyveronica Lainez [employer] Work Phone: [facility] Work Phone: 01-16-2023 09:02-0500 SaO2% (BldA) [Mass fraction] 93 % Mily Lainez CNP Work Phone: [facility] Work Phone: 01-16-2023 09:02-0500 Systolic blood pressure 122 mm[Hg] Mily Lainez CNP Work Phone: [facility] Work Phone: 12-05-2022 10:06-0400 Body height 156.21 cm Mily Lainez CNP Work Phone: [facility] Work Phone: 12-05-2022 10:06-0400 Body mass index (BMI) [Ratio] 28.1 kg/m2 Mily Lainez CNP Work Phone: [facility] Work Phone: 12-05-2022 10:06-0400 Body surface area Derived from formula 1.7 m2 Mily Lainez CNP Work Phone: [facility] Work Phone: 12-05-2022 10:06-0400 Body temperature 98 [degF] Mily Lainez CNP Work Phone: [facility] Work Phone: 12-05-2022 10:06-0400 Body weight 68.49 kg Mily Lainez CNP Work Phone: [facility] Work Phone: 12-05-2022 10:06-0400 Diastolic blood pressure 80 mm[Hg] Mily Lainez CNP Work Phone: [facility] Work Phone: 12-05-2022 10:06-0400 Heart rate 108 /min Mily Lainez CNP Work Phone: [facility] Work Phone: 12-05-2022 10:06-0400 SaO2% (BldA) [Mass fraction] 95 % Mily Lainez CNP Work Phone: [facility] Work Phone: 12-05-2022 10:06-0400 Systolic blood pressure 119 mm[Hg] Mily Lainez CNP Work Phone: [facility] Work Phone: 05-31-2022 10:18-0400 Body height 156.21 cm Mily Lainez CNP Work Phone: [facility] Work Phone: 05-31-2022 10:18-0400 Body mass index (BMI) [Ratio] 27.6 kg/m2 Mily Lainez CNP Work Phone: [facility] Work Phone: 05-31-2022 10:18-0400 Body surface area Derived from formula 1.7 m2 Mily Lainez CNP Work Phone: [facility] Work Phone: 05-31-2022 10:18-0400 Body temperature 98.3 [degF] Mily Lainez CNP Work Phone: [facility] Work Phone: 05-31-2022 10:18-0400 Body weight 67.31 kg Mily Lainez CNP Work Phone: [facility] Work Phone: 05-31-2022 10:18-0400 Diastolic blood pressure 64 mm[Hg] Mily Lainez CNP Work Phone: [facility] Work Phone: 05-31-2022 10:18-0400 Heart rate 110 /min Mily Lainez CNP Work Phone: [facility] Work Phone: 05-31-2022 10:18-0400 SaO2% (BldA) [Mass fraction] 97 % Mily Lainez CNP Work Phone: [facility] Work Phone: 05-31-2022 10:18-0400 Systolic blood pressure 103 mm[Hg] Mily Lainez CNP Work Phone: [facility] Work Phone: 11-16-2021 10:56-0400 Body height 156.21 cm Mily Lainez CNP Work Phone: [facility] Work Phone: 11-16-2021 10:56-0400 Body mass index (BMI) [Ratio] 29.5 kg/m2 Mily Lainez CNP Work Phone: [facility] Work Phone: 11-16-2021 10:56-0400 Body surface area Derived from formula 1.72 m2 Mily Lainez CNP Work Phone: [facility] Work Phone: 11-16-2021 10:56-0400 Body temperature 98.2 [degF] Mily Lainez CNP Work Phone: [facility] Work Phone: 11-16-2021 10:56-0400 Body weight 71.94 kg Mily Lainez CNP Work Phone: [facility] Work Phone: 11-16-2021 10:56-0400 Diastolic blood pressure 62 mm[Hg] Mily Lainez CNP Work Phone: [facility] Work Phone: 11-16-2021 10:56-0400 Heart rate 102 /min Mily Lainez CNP Work Phone: [facility] [facility] Work [facility]: 11-16-2021 10:56-0400 SaO2% (BldA) [Mass fraction] 96 % Mily Lainez CNP Work Phone: [facility] Work Phone: 11-16-2021 10:56-0400 Systolic blood pressure 104 mm[Hg] Mily Lainez CNP Work Phone: [facility] Work Phone: 08-16-2021 13:34-0400 Body height 156.21 cm Mily Lainez CNP Work Phone: [facility] Work Phone: 08-16-2021 13:34-0400 Body mass index (BMI) [Ratio] 29.2 kg/m2 Mily Lainez CNP Work Phone: [facility] Work Phone: 08-16-2021 13:34-0400 Body surface area Derived from formula 1.71 m2 Mily Lainez CNP Work Phone: [facility] Work Phone: 08-16-2021 13:34-0400 Body temperature 96.6 [degF] Mily Lainez CNP Work Phone: [facility] Work Phone: 08-16-2021 13:34-0400 Body weight 71.22 kg Mily Lainez CNP Work Phone: [facility] Work Phone: 08-16-2021 13:34-0400 Diastolic blood pressure 86 mm[Hg] Mily Lainez CNP Work Phone: [facility] Work Phone: 08-16-2021 13:34-0400 Heart rate 96 /min Mily Lainez CNP Work Phone: [facility] Work Phone: 08-16-2021 13:34-0400 Heart Rate Rhythm 1 1 Mily Lainez CNP Work Phone: [facility] Work Phone: 08-16-2021 13:34-0400 SaO2% (BldA) [Mass fraction] 98 % Mily Lainez CNP Work Phone: [facility] Work Phone: 08-16-2021 13:34-0400 Systolic blood pressure 114 mm[Hg] Mily Lainez CNP Work Phone: [facility] Work Phone: 07-14-2021 11:04-0400 Body height 156.21 cm Mily Lainez CNP Work Phone: [facility] Work Phone: 07-14-2021 11:04-0400 Body mass index (BMI) [Ratio] 28.7 kg/m2 Mily Lainez CNP Work Phone: [facility] Work Phone: 07-14-2021 11:04-0400 Body surface area Derived from formula 1.7 m2 Mily Lainez CNP Work Phone: [facility] Work Phone: 07-14-2021 11:04-0400 Body temperature 97.6 [degF] Mily Lainez CNP Work Phone: [facility] Work Phone: 07-14-2021 11:04-0400 Body weight 69.95 kg Mily Lainez CNP Work Phone: [facility] Work Phone: 07-14-2021 11:04-0400 Diastolic blood pressure 82 mm[Hg] Mily Lainez CNP Work Phone: [facility] Work Phone: 07-14-2021 11:04-0400 Heart rate 98 /min Mily Lainez CNP Work Phone: [facility] Work Phone: 07-14-2021 11:04-0400 Heart Rate Rhythm 1 1 Mily Lainez CNP Work Phone: [facility] Work Phone: 07-14-2021 11:04-0400 SaO2% (BldA) [Mass fraction] 97 % Mily Lainez CNP Work Phone: [facility] Work Phone: 07-14-2021 11:04-0400 Systolic blood pressure 108 mm[Hg] Mily Lainez CNP Work Phone: [facility] Work Phone: 01-13-2021 10:29-0500 Body height 156.21 cm Mily Lainez CNP Work Phone: [facility] Work Phone: 01-13-2021 10:29-0500 Body mass index (BMI) [Ratio] 25.8 kg/m2 Mily Lainez CNP Work Phone: [facility] Work Phone: 01-13-2021 10:29-0500 Body surface area Derived from formula 1.63 m2 Mily Lainez CNP Work Phone: [facility] Work Phone: 01-13-2021 10:29-0500 Body temperature 97.3 [degF] Mily Lainez CNP Work Phone: [facility] Work Phone: 01-13-2021 10:29-0500 Body weight 62.87 kg Mily Lainez CNP Work Phone: [facility] Work Phone: 01-13-2021 10:29-0500 Diastolic blood pressure 62 mm[Hg] Mily Lainez CNP Work Phone: [facility] Work Phone: 01-13-2021 10:29-0500 Heart rate 96 /min Mily Lainez CNP Work Phone: [facility] Work Phone: 01-13-2021 10:29-0500 Respiratory rate 18 /min Mily Lainez CNP Work Phone: [facility] Work Phone: 01-13-2021 10:29-0500 SaO2% (BldA) [Mass fraction] 99 % Mily Lainez CNP Work Phone: [facility] Work Phone: 01-13-2021 10:29-0500 Systolic blood pressure 104 mm[Hg] Mily Lainez CNP Work Phone: [facility] Work Phone: 10-14-2020 10:31-0400 Body height 156.21 cm Mily Lainez CNP Work Phone: [facility] Work Phone: 10-14-2020 10:31-0400 Body mass index (BMI) [Ratio] 27.8 kg/m2 Mily Lainez CNP Work Phone: [facility] Work Phone: 10-14-2020 10:31-0400 Body surface area Derived from formula 1.68 m2 Mily Lainez CNP Work Phone: [facility] Work Phone: 10-14-2020 10:31-0400 Body temperature 95.2 [degF] Mily Lainez CNP Work Phone: [facility] Work Phone: 10-14-2020 10:31-0400 Body weight 67.77 kg Mily Lainez CNP Work Phone: [facility] Work Phone: 10-14-2020 10:31-0400 Diastolic blood pressure 60 mm[Hg] Mily Lainez [employer] Work Phone: [facility] Work Phone: 10-14-2020 10:31-0400 Heart rate 96 /min Mily Lainez [employer] Work Phone: [facility] Work Phone: 10-14-2020 10:31-0400 Respiratory rate 18 /min Mily Lainez [employer] Work Phone: [facility] Work Phone: 10-14-2020 10:31-0400 SaO2% (BldA) [Mass fraction] 96 % Mily Lainez [employer] Work Phone: [facility] Work Phone: 10-14-2020 10:31-0400 Systolic blood pressure 102 mm[Hg] Mily Lainez CNP Work Phone: [facility] Work Phone: 04-21-2020 13:25-0500 Respiratory rate NOT REPORTED [facility] Comment on above: Performed By: #### ACET #### [facility] [place] [address] Project Management Engineer: Carloz Alvarado MD 03-16-2020 15:37-0500 BMI (Body Mass Index) 28.3 kg/m2 Mily Lainez [facility] Work Phone: 03-16-2020 15:37-0500 Body Temperature 97.1 [degF] Mily Lainez [facility] Work Phone: 03-16-2020 15:37-0500 Body weight 68.95 kg Mily Lainez [facility] Work Phone: 03-16-2020 15:37-0500 BP Diastolic 82 mm[Hg] [facility] Work Phone: 03-16-2020 15:37-0500 BP Systolic 122 mm[Hg] [facility] Work Phone: 03-16-2020 15:37-0500 BSA (Body Surface Area) 1.69 m2 [facility] Work Phone: 03-16-2020 15:37-0500 Height 156.21 cm [facility] Work Phone: 03-16-2020 15:37-0500 Pulse (Heart Rate) 92 /min [facility] Work Phone: 03-16-2020 15:37-0500 Pulse Oximetry 95 % [facility] Work Phone: 03-16-2020 15:37-0500 Respiratory Rate 18 /min [facility] Work Phone: 03-16-2020 15:37-0500 SaO2% (BldA) [Mass fraction] 95 % [facility] Work Phone: [facility] Work Phone: 09-13-2019 14:31-0400 BP Diastolic 60 mm[Hg] [facility] [place] 09-13-2019 14:31-0400 BP Systolic 98 mm[Hg] [facility], [place] 09-13-2019 14:31-0400 Pulse (Heart Rate) 114 /[facility] [place] 09-13-2019 14:31-0400 Pulse Oximetry 94 % [facility] 09-13-2019 11:00-0400 BMI (Body Mass Index) 24.8 kg/m2 Fr[facility] 09-13-2019 11:00-0400 Body Temperature 97.2 [degF] Frandy Johnson [facility], [place] 09-13-2019 11:00-0400 Body weight 63.5 kg Frandy Johnson [facility] 09-13-2019 11:00-0400 Respiratory Rate 28 /min Frandy Johnson [facility], [place] 09-12-2019 07:15-0400 Body Temperature 98.4 [degF] Angelo Johnson [facility], [place] 09-12-2019 07:15-0400 BP Diastolic 57 mm[Hg] Angelo Cramer [facility], [place] 09-12-2019 07:15-0400 BP Systolic 117 mm[Hg] Aneglo Cramer [facility], [place] 09-12-2019 07:15-0400 Pulse (Heart Rate) 96 /min [facility] [place] 09-12-2019 07:15-0400 Pulse Oximetry 97 % Angelo Cramer [facility], [place] 09-12-2019 07:15-0400 Respiratory Rate 18 /min Angelo Johnson [facility], [place] 09-12-2019 04:08-0400 BMI (Body Mass Index) 24.46 kg/m2 [facility] [place] 09-12-2019 04:08-0400 Body weight 62.64 kg Angelo Cramer [facility], [place] 09-11-2019 22:20-0400 Height 160 cm Angelo Cramer [facility] 09-07-2019 14:19-0400 Body Temperature 98.29 [degF] Angelo Johnson [facility], [place] 09-07-2019 14:19-0400 BP Diastolic 74 mm[Hg] Angelo Cramer [facility], [place] 09-07-2019 14:19-0400 BP Systolic 128 mm[Hg] Angelo Cramer [facility], [place] 09-07-2019 14:19-0400 Pulse (Heart Rate) 118 /min [facility] [place] 09-07-2019 14:19-0400 Pulse Oximetry 94 % Angelo Cramer [facility], [place] 09-07-2019 14:19-0400 Respiratory Rate 18 /min Angelo Johnson [facility], [place] 09-01-2019 10:36-0400 BMI (Body Mass Index) 19.5 kg/m2 [facility] Work Phone: Comment on above: per patient report 09-01-2019 10:36-0400 Body weight 49.9 kg [facility] Work Phone: Comment on above: per patient report 09-01-2019 10:36-0400 BSA (Body Surface Area) 1.5 m2 [facility] Work Phone: Comment on above: per patient report 09-01-2019 10:36-0400 Height 160.02 cm [facility] Work Phone: Comment on above: per patient report 08-20-2019 15:23-0400 Body Temperature 98.71 [degF] [facility] [place] 08-20-2019 15:23-0400 BP Diastolic 61 mm[Hg] Frandy [employer] [facility] [place] 08-20-2019 15:23-0400 BP Systolic 111 mm[Hg] Frandy [employer] [facility] [place] 08-20-2019 15:23-0400 Pulse (Heart Rate) 81 /min [facility] [place] 08-20-2019 15:23-0400 Pulse Oximetry 94 % [facility] [place] 08-20-2019 15:23-0400 Respiratory Rate 18 /min [facility] [place] 08-20-2019 03:30-0400 BMI (Body Mass Index) 27.53 kg/m2 [facility] [place] 08-20-2019 03:30-0400 Body weight 72.76 kg [facility] [place] 08-20-2019 03:30-0400 Height 162.6 cm [facility] [place] 08-16-2019 17:16-0400 BP Diastolic 42 mm[Hg] Piyush [facility], [place] 08-16-2019 17:16-0400 BP Systolic 109 mm[Hg] Piyush [facility], [place] 08-16-2019 17:16-0400 Pulse Oximetry 92 % Piyush [facility], [place] 08-16-2019 10:02-0400 Body Temperature 98.91 [degF] Piyush [facility], [place] 08-16-2019 09:54-0400 Pulse (Heart Rate) 91 /min [facility], [place] 08-16-2019 09:54-0400 Respiratory Rate 18 /min Piyush [facility], [place] 08-09-2019 05:17-0400 BP Diastolic 45 mm[Hg] [facility], [place] 08-09-2019 05:17-0400 BP Systolic 98 mm[Hg] [facility], [place] 08-09-2019 02:34-0400 Pulse (Heart Rate) 94 /min [facility], [place] 08-09-2019 02:33-0400 Pulse Oximetry 94 % [facility] 08-09-2019 00:00-0400 Body Temperature 99.39 [degF] [facility] 08-08-2019 18:34-0400 BMI (Body Mass Index) 28.15 kg/m2 Fr[facility] 08-08-2019 18:34-0400 Body weight 74.39 kg Frandy [facility] 08-08-2019 18:34-0400 Height 162.6 cm Fr[facility] 08-08-2019 16:00-0400 BP Diastolic 37 mm[Hg] [facility], [place] 08-08-2019 16:00-0400 BP Systolic 88 mm[Hg] [facility], [place] 08-08-2019 16:00-0400 Pulse (Heart Rate) 118 /min [facility], [place] 08-08-2019 10:45-0400 Body Temperature 97.59 [degF] Clara Johnson [facility], [place] 08-08-2019 10:45-0400 Respiratory Rate 16 /min Clara Johnson [facility], [place] 08-08-2019 09:23-0400 Pulse Oximetry 94 % lCara Johnson [facility], [place] 08-08-2019 05:00-0400 BMI (Body Mass Index) 28.2 kg/m2 [facility], [place] 08-08-2019 05:00-0400 Body weight 74.53 kg [facility], [place] 08-07-2019 09:17-0400 Height 162.6 cm [facility], [place] 04-13-2019 22:30-0500 BP Diastolic 71 mm[Hg] [facility] [place] 04-13-2019 22:30-0500 BP Systolic 127 mm[Hg] [place] 04-13-2019 22:30-0500 Pulse (Heart Rate) 84 /min [facility] [place] 04-13-2019 22:30-0500 Pulse Oximetry 96 % [facility] [place] 04-13-2019 22:30-0500 Respiratory Rate 18 /min [facility] [place] 04-13-2019 20:19-0500 Respiratory rate NOT REPORTED Frandy Sammie Johnson [place], [place] 04-13-2019 18:03-0500 BMI (Body Mass Index) 26.57 kg/m2 [facility] [place] 04-13-2019 18:03-0500 Body Temperature 97.7 [degF] Fr[place] 04-13-2019 18:03-0500 Body weight 68.04 kg Frandy Sammie Johnson [facility], [place] Encounters Encounter Date Encounter Type Care Provider Facility Start: 12-05-2022 End: 12-05-2022 Encounter for preprocedural laboratory examination Gemini Flores CNP Work Phone: [facility] Work Phone: Start: 12-05-2022 End: 12-06-2022 ambulatory GEMINI FLORES [facility] Start: 12-05-2022 End: 12-06-2022 Encounter for general adult medical examination with abnormal findings GEMINI FLORES [facility] Start: 12-05-2022 End: 01-16-2023 [facility]QHC visit, estab pt Gemini Flores CNP Work Phone: [facility] Work Phone: Start: 05-31-2022 End: 05-31-2022 General Mimi Brock LPCC-S Work Phone: [facility] Work Phone: Start: 05-31-2022 End: 05-31-2022 [facility]QHC visit, estab pt Gemini Flores CNP Work Phone: [facility] Work Phone: Start: 05-19-2022 Encounter for genera l adult medical examination with abnormal findings DR DOCTOR HOOKS [facility] Start: 05-15-2022 End: 05-15-[address] DOCTOR HOOKS Facility:[facility] Start: 05-15-2022 End: 05-15-2022 Encounter for general adult medical examination with abnormal findings DR DOCTOR HOOKS Facility:[facility] Start: 02-16-2022 End: 02-17-[address] DOCTOR HOOKS Facility:[facility] Start: 11-16-2021 End: 11-16-2021 FQHC visit, estab pt Mimi Brock LPCC-S Work Phone: [facility] Work Phone: Start: 11-16-2021 End: 11-16-2021 Adult health examination Gemini Flores CNP Work Phone: [facility] Work Phone: Start: 11-16-2021 End: 11-16-2021 [facility] visit, estab pt Gemini Flores CNP Work Phone: [facility] Work Phone: Start: 08-16-2021 End: 08-16-2021 FQHC visit, estab pt Mily Lainez [employer] Work Phone: [facility] Work Phone: Start: 07-14-2021 End: 07-14-2021 [facility]QHC visit, estab pt Mimi Brock [facility] Work Phone: [facility] Work Phone: Start: 07-14-2021 End: 07-14-2021 Adult health examination Mily Lainez [employer] Work Phone: [facility] Work Phone: Start: 07-14-2021 End: 07-14-2021 [facility]QHC visit, estab pt Mimi Brock [facility] Work Phone: [facility] Work Phone: Start: 01-13-2021 End: 01-13-2021 General Mily Lainez [employer] Work Phone: [facility] Work Phone: Start: 01-13-2021 End: 01-13-2021 Adult health examination Mily Lainez [employer] Work Phone: [facility] Work Phone: Start: 01-13-2021 End: 01-13-2021 [facility]QHC visit, estab pt Tatyana Todd LPC-S Work Phone: [facility] Work Phone: Start: 01-13-2021 End: 01-13-2021 Patient encounter procedure Mily Lainez [employer] Work Phone: [facility] Work Phone: Start: 10-14-2020 End: 10-14-2020 General Mily Lainez [employer] Work Phone: [facility] Work Phone: Start: 10-14-2020 End: 10-14-2020 Subsequent hospital visit by physician MATIAS [facility] Start: 10-14-2020 End: 10-14-2020 FQ visit, estab pt Shante ALLEN Work Phone: [facility] Work Phone: Start: 10-14-2020 End: 10-14-2020 FQ visit, estab pt Mily Lainez [employer] Work Phone: [facility] Work Phone: Start: 10-14-2020 End: 10-14-2020 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 Mily Migel [employer] Work Phone: [facility] Work Phone: Start: 10-14-2020 End: 10-14-2020 General Mily Migel [employer] Work Phone: [facility] Work Phone: Start: 04-21-2020 End: 04-22-2020 Emergency department patient visit ANGELO CRAMER [facility] Start: 03-16-2020 End: 03-16-2020 Established patient Mily Lainez Work Phone: [facility] Work Phone: Start: 03-16-2020 End: 03-16-2020 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 Mily Lainez [employer] Work Phone: [facility] Work Phone: Start: 09-19-2019 End: 09-20-2019 Patient encounter procedure JANE WELDON [facility] Start: 09-13-2019 Emergency department patient visit FRANDY COCHRAN [facility] Start: 09-13-2019 End: 09-13-2019 Emergency department patient visit Frandy Cochran Work Phone: [facility] ED Comment on above: Dehydration (Primary Dx) Start: 09-11-2019 End: 09-12-2019 Evaluation and management of inpatient NINA JOHNSON [facility] Start: 09-11-2019 End: 09-12-2019 Evaluation and management of inpatient Angelo Cramer [facility] Comment on above: Altered mental statu s, unspecified altered mental status type (Primary Dx); Excoriated rash; Acute cystitis without hematuria; Septicemia (HCC) Start: 09-07-2019 End: 09-07-2019 Emergency department patient visit BESSEMER [facility] Start: 09-07-2019 End: 09-07-2019 Emergency department patient visit [facility] ED Comment on above: Closed fracture of m ultiple ribs of right side, initial encounter (Primary Dx); Contusion of left orbit, initial encounter; Multiple abrasions Start: 09-01-2019 End: 09-01-2019 Telemedicine consultation with patient Mily Lainez Work Phone: [facility] Work Phone: Start: 08-16-2019 End: 08-20-2019 Evaluation and management of inpatient CHARLENE REGAN [facility] Start: 08-16-2019 End: 08-20-2019 Evaluation and management of inpatient Frandy Cochran Work Phone: [facility] Comment on above: Cannot walk (Primary Dx) Start: 08-16-2019 End: 08-16-2019 Emergency department patient visit PIYUSH BLUE [facility] Start: 08-16-2019 End: 08-16-2019 Emergency department patient visit Piyush Blue Work Phone: [facility] ED Comment on above: Hallucinations (Prim rosalva Dx); Total self-care deficit Start: 08-12-2019 End: 08-13-2019 Patient encounter procedure NILO ARREOLA [facility] Start: 08-12-2019 End: 08-12-2019 Subsequent hospital visit by physician Nina Johnson [facility] Start: 08-09-2019 End: 08-10-2019 Patient encounter procedure FRANDY COCHRAN [facility] Start: 08-09-2019 End: 08-09-2019 Subsequent hospital visit by physician Nina Johnson [facility] Start: 08-08-2019 End: 08-09-2019 Emergency department patient visit [facility] Start: 08-08-2019 End: 08-09-2019 Emergency department patient visit Frandygopi Cochran Work Phone: [facility] ED Comment on above: Anemia, unspecified type (Primary Dx) Start: 08-06-2019 End: 08-08-2019 Evaluation and management of inpatient [facility] Start: 08-06-2019 End: 08-08-2019 Evaluation and management of inpatient Clara Sagastume Work Phone: [facility] Comment on above: Closed fracture of l eft hip, initial encounter (HCC) (Primary Dx); Other closed nondisplaced fracture of proximal end of left humerus, initial encounter Start: 05-29-2019 End: 05-30-2019 Patient encounter procedure [facility] Start: 05-29-2019 End: 05-29-2019 Subsequent hospital visit by physician Nina Johnson [facility] Start: 05-13-2019 End: 05-14-2019 Patient encounter procedure [facility] Start: 05-13-2019 End: 05-13-2019 Subsequent hospital visit by physician Nina Johnson [facility] Start: 04-17-2019 End: 04-17-2019 Subsequent hospital visit by physician Nina Johnson [facility] Start: 04-16-2019 End: 04-16-2019 Subsequent hospital visit by physician Nina Johnson [facility] Start: 04-13-2019 End: 04-14-2019 Emergency department patient visit Frandygopi Cochran Work Phone: [facility] ED Comment on above: Psychosis, unspecifi ed psychosis type (HCC) (Primary Dx); Schizophrenia, unspecified type (HCC) End: 09-05-2019 Patient encounter status [facility] [employer] Procedures Date Procedure Procedure Detail Performing Clinician Start: 01-16-2023 Current tobacco smoker Mily Lainez [employer] Work Phone: Start: 01-16-2023 FQHC visit, estab pt An ruel Migel [employer] Work Phone: Start: 01-16-2023 Most recent diastoli c blood pressure 80-89 mm hg Mily Lainez CNP Work Phone: Start: 01-16-2023 Most recent systolic blood pressure <130 mm hg Mily Lainez [employer] Work Phone: Start: 01-16-2023 Pneumococcal Prevnar 20 Mily Laienz [employer] Work Phone: Start: 01-16-2023 Pt scrnd tobacco use rcvd tobacco cessation talk Mily Lainez [employer] Work Phone: Start: 12-05-2022 Hemoglobin glycosylated a1c Gemini Flores CNP Work Phone: Start: 12-05-2022 Most recent hemoglob in a1c level < 7.0% Gemini Flores CNP Work Phone: Start: 12-05-2022 Urnls dip stick/tabl et rgnt non-auto w/o micrscp Gemini Flores CNP Work Phone: Start: 05-31-2022 Current tobacco smoker Gemini Flores CNP Work Phone: Start: 05-31-2022 FQHC visit, estab pt Ca james Flores CNP Work Phone: Start: 05-31-2022 Hepatitis c antibody Ca james Flores CNP Work Phone: Start: 05-31-2022 Most recent diastoli c blood pressure < 80 mm hg Gemini Flores CNP Work Phone: Start: 05-31-2022 Most recent systolic blood pressure <130 mm hg Gemini Flores CNP Work Phone: Start: 05-31-2022 Pt scrnd tobacco use rcvd tobacco cessation talk Gemini Flores CNP Work Phone: Start: 11-16-2021 Current tobacco smoker Gemini Flores CNP Work Phone: Start: 11-16-2021 Most recent diastoli c blood pressure < 80 mm hg Gemini Flores CNP Work Phone: Start: 11-16-2021 Most recent systolic blood pressure <130 mm hg Gemini Flores [employer] Work Phone: Start: 11-16-2021 Psychotherapy w/timo ent 30 minutes Mimi Brock LP[facility]S Work Phone: Start: 11-16-2021 Pt scrnd tobacco use rcvd tobacco cessation talk Gemini Flores [employer] Work Phone: Start: 08-16-2021 FQHC visit, estab pt An ruel Lainez [employer] Work Phone: Start: 08-16-2021 Most recent diastoli c blood pressure 80-89 mm hg Mily Migel [employer] Work Phone: Start: 08-16-2021 Most recent systolic blood pressure <130 mm hg Milyveronica Lainez [employer] Work Phone: Start: 07-14-2021 [facility]QHC visit, MH estab pt [facility] Work [facility]: Start: 07-14-2021 Imm. administration COVID19 Moderna Booster 2 Low Dose Mily Lainez [employer] Work Phone: Start: 07-14-2021 Most recent diastoli c blood pressure 80-89 mm hg Mily Lainez [employer] Work Phone: Start: 07-14-2021 Most recent systolic blood pressure <130 mm hg Mily Migel [employer] Work Phone: Start: 07-14-2021 Psychotherapy w/timo ent 30 minutes Miminirmala Brock LPCC-S Work Phone: Start: 07-14-2021 SARS-CoV-2 vaccine, 0.25ml Moderna Low Dose Mily Lainez [employer] Work Phone: Start: 03-15-2021 Audiology Mily rodriguez [employer] Work Phone: Start: 01-13-2021 FQHC visit, MH estab pt Tatyana Todd [facility] Work Phone: Start: 01-13-2021 Imm. administration COVID19 Moderna Booster Low Dose Mily Lainez [employer]OST[employer]ESS [employer] Work Phone: Start: 01-13-2021 Psychotherapy w/timo ent 30 minutes Tatyana Todd [facility] Work Phone: Start: 01-13-2021 Removal impacted cer umen instrumentation jodee Lainez HOST[employer] Work Phone: Start: 01-13-2021 SARS-CoV-2 vaccine, 0.25ml Moderna Low Dose Mily Lainez HOST[employer] Work Phone: Start: 10-14-2020 FQHC visit, MH estab pt Shante ALLEN Work Phone: Start: 10-14-2020 Pt-focused hlth risk assmt score doc stnd instrm Mily Lainez [employer]OST[employer] Work Phone: Start: 10-14-2020 Removal impacted cer umen instrumentation jodee Lainez [employer]OST[employer] Work Phone: Start: 10-14-2020 Hemoglobin glycosylated a1c Mily Lainez [employer] Work Phone: Start: 10-14-2020 Hepatitis c antibody An ruel Lainez [employer] Work Phone: Start: 10-14-2020 VITAMIN B12 & FOLATE An ruel Lainez 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 [employer]OUND Work Phone: Start: 03-16-2020 FQHC visit, estab pt An ruel Lainez [employer] Work Phone: Start: 09-19-2019 COVID-19 AMBULATORY ETA N EITCHES Start: 09-13-2019 Ct abdomen & pelvis w/contrast material FRANDY EITCHES Start: 09-13-2019 Culture bacterial bl ood aerobic w/id isolates FRANDY EITCHES Start: 09-13-2019 Radiologic exam ches t single view Caitlyn Vincent Work Phone: Start: 09-13-2019 CULTURE, BLOOD 1 FRANDY E ITCHES Start: 09-13-2019 Blood count complete auto&auto difrntl wbc FRANDY EITCHES Start: 09-13-2019 Culture bacterial quanttative colony count urine FRANDY EITCHES Start: 09-13-2019 Procalcitonin (pct) ETA N EITCHES Start: 09-13-2019 Prothrombin time FRANDY E ITCHES Start: 09-13-2019 Thromboplastin time partial plasma/whole blood FRANDY EITCHES Start: 09-13-2019 Urinalysis microscopic only FRANDY EITCHES Start: 09-13-2019 Urnls dip stick/tabl et rgnt auto w/o microscopy FRANDY EITCHES Start: 09-13-2019 CATHETER REMOVAL FRANDY E ITCHES Start: 09-13-2019 INSERT LANDAVERDE CATHETER E GARDUNO EITCHES Start: 09-13-2019 Assay of lactate FRANDY E ITCHES Start: 09-13-2019 Ecg routine ecg w/le ast 12 lds w/i&r FRANDY EITCHES Start: 09-13-2019 INITIATE OXYGEN THER APY PROTOCOL FRANDY EITCHES Start: 09-13-2019 Ct abdomen & pelvis w/contrast material Caitlyn Vincent Work Phone: Start: 09-13-2019 LACTATE, SEPSIS Caitlyn Prescotters Work Phone: Start: 09-13-2019 Blood count complete auto&auto difrntl wbc Caitlyn Martin Acrinta Work Phone: Start: 09-13-2019 Prothrombin time Silvino Prescotters Work Phone: Start: 09-13-2019 Thromboplastin time partial plasma/whole blood Caitlyn Vincent Work Phone: Start: 09-13-2019 Urinalysis microscopic only Caitlyn Vincent Work Phone: Start: 09-13-2019 Urnls dip stick/tabl et rgnt auto w/o microscopy Caitlyn Vincent Work Phone: Start: 09-13-2019 Oxygen therapy Caitlyn Prescotters Work Phone: Start: 09-13-2019 Ecg routine ecg w/le ast 12 lds w/i&r Caitlyn Prescotters Work Phone: Start: 09-12-2019 COVID-19 FRANDY EITCH ES Start: 09-12-2019 DISCHARGE PATIENT FRANDY EITCHES Start: 09-12-2019 COVID-19 Caitlyn Vincent Work Phone: Start: 09-12-2019 INITIATE OXYGEN THER APY PROTOCOL FRANDY EITCHES Start: 09-12-2019 Assay of magnesium FRANDY EITCHES Start: 09-12-2019 Blood count complete auto&auto difrntl wbc FRANDY EITCHES Start: 09-12-2019 Blood count complete automated FRANDY EITCHES Start: 09-12-2019 Assay of magnesium Nina Johnson Work Phone: Start: 09-12-2019 Blood count complete auto&auto difrntl wbc Nina Johnson Work Phone: Start: 09-12-2019 Blood count complete automated Nina Johnson Work Phone: Start: 09-12-2019 REASON FOR NO MECHAN ICAL VTE PROPHYLAXIS FRANDY EITCHES Start: 09-12-2019 DIET GENERAL FRANDY EITCH ES Start: 09-12-2019 FULL CODE FRANDY EITCH ES Start: 09-12-2019 INITIATE OXYGEN THER APY PROTOCOL FRANDY EITCHES Start: 09-12-2019 IP CONSULT TO CASE MANAGEMENT FRANDY EITCHES Start: 09-12-2019 NOTIFY PHYSICIAN (SPECIFY) FRANDY EITCHES Start: 09-12-2019 PULSE OXIMETRY SPOT CHECK FRANDY EITCHES Start: 09-12-2019 VITAL SIGNS FRANDY EITCH ES Start: 09-11-2019 PATIENT STATUS (FROM ED OR OR/PROCEDURAL) FRANDY EITCHES Start: 09-11-2019 Intermittent pulse oximetry Nina Johnson Work Phone: Start: 09-11-2019 Ct head/brain w/o co ntrast material FRANDY EITCHES Start: 09-11-2019 Assay of lactate FRANDY E ITCHES Start: 09-11-2019 Assay of troponin quantitative FRANDY EITCHES Start: 09-11-2019 Ct head/brain w/o co ntrast material Jay Jay Soto Work Phone: Start: 09-11-2019 Assay of acetaminophen FRANDY EITCHES Start: 09-11-2019 Assay of ethanol FRANDY E ITCHES Start: 09-11-2019 Assay of salicylate ETA N EITCHES Start: 09-11-2019 Assay of thyroid sti mulating hormone tsh FRANDY EITCHES Start: 09-11-2019 Basic metabolic pane l calcium total FRANDY EITCHES Start: 09-11-2019 Blood count complete auto&auto difrntl wbc FRANDY EITCHES Start: 09-11-2019 Culture bacterial bl ood aerobic w/id isolates FRANDY EITCHES Start: 09-11-2019 Assay of lactate Jay Jay Soto Work Phone: Start: 09-11-2019 CULTURE, BLOOD 1 FRANDY E ITCHES Start: 09-11-2019 Radiologic exam ches t single view FRANDY EITCH Start: 09-11-2019 Culture bacterial quanttative colony count urine FRANDY EITCH Start: 09-11-2019 Assay of troponin quantitative Angelo Cramer Start: 09-11-2019 Assay of acetaminophen Angelo Cramer Start: 09-11-2019 Assay of ethanol Michae hailey VossCramer Start: 09-11-2019 Assay of salicylate Talia hacelia Cramer Start: 09-11-2019 Assay of thyroid sti mulating hormone tsh Angelo Cramer Start: 09-11-2019 Assay of troponin quantitative Angelo Cramer Start: 09-11-2019 Basic metabolic pane l calcium total Angelo Cramer Start: 09-11-2019 Blood count complete auto&auto difrntl wbc Angelo Cramer Start: 09-11-2019 Culture bacterial bl ood aerobic w/id isolates Angelo Cramer Start: 09-11-2019 LACTATE, SEPSIS Angelo Cramer Start: 09-11-2019 CULTURE, BLOOD 1 Jaswindershy hailey VossCramer Start: 09-11-2019 Radiologic exam ches t single view Angelo Fonsecak Start: 09-11-2019 Urnls dip stick/tabl et reagent auto microscopy Angelo Cramer Start: 09-07-2019 Radiologic exam ches t single view FRANDY EITAY Start: 09-07-2019 Ct cervical spine w/ o contrast material FRANDY EITCHES Start: 09-07-2019 Ct maxillofacial w/o contrast material FRANDY EITCHES Start: 09-07-2019 Ct head/brain w/o co ntrast material FRANDY EITCHES Start: 09-07-2019 Assay of troponin quantitative FRANDY EITCHES Start: 09-07-2019 Basic metabolic pane l calcium total FRANDY EITCHES Start: 09-07-2019 Blood count complete auto&auto difrntl wbc FRANDY EITCHES Start: 09-07-2019 Ecg routine ecg w/le ast 12 lds w/i&r FRANDY EITCHES Start: 09-07-2019 ORTHOSTATIC BLOOD CA ESSURE AND PULSE FRANDY EITCHES Start: 09-07-2019 TELEMETRY MONITORING ET AN EITCHES Start: 09-07-2019 Urnls dip stick/tabl et reagent auto microscopy FRANDY EITCHES Start: 09-07-2019 VITAL SIGNS FRANDY EITCH ES Start: 09-07-2019 Radiologic exam ches t single view Angelo Cramer Start: 09-07-2019 Ct cervical spine w/ o contrast material Angelo Cramer Start: 09-07-2019 Ct maxillofacial w/o contrast material Angelo Cramer Start: 09-07-2019 Ct head/brain w/o co ntrast material Angelo Cramer Start: 09-01-2019 HYPERLIPIDEMIA Start: 09-01-2019 past medical/surgica l history [use for free text] Start: 09-01-2019 Services furnished v ia telehealth in a [facility] or [facility] Mily Lainez Work Phone: Start: 08-20-2019 INCENTIVE SPIROMETRY RT FRANDY EITCHES Start: 08-20-2019 DISCHARGE PATIENT FRANDY EITCHES Start: 08-20-2019 INCENTIVE SPIROMETRY RT FRANDY EITCHES Start: 08-20-2019 INCENTIVE SPIROMETRY RT FRANDY EITCHES Start: 08-20-2019 INCENTIVE SPIROMETRY RT FRANDY EITCHES Start: 08-20-2019 INCENTIVE SPIROMETRY RT FRANDY EITCHES Start: 08-20-2019 INITIATE OXYGEN THER APY PROTOCOL FRANDY EITCHES Start: 08-20-2019 INCENTIVE SPIROMETRY RT FRANDY EITCHES Start: 08-20-2019 INTAKE AND OUTPUT FRANDY EITCHES Start: 08-20-2019 INCENTIVE SPIROMETRY RT FRANDY EITCHES Start: 08-19-2019 INCENTIVE SPIROMETRY RT FRANDY EITCHES Start: 08-19-2019 INCENTIVE SPIROMETRY RT FRANDY EITCHES Start: 08-19-2019 INCENTIVE SPIROMETRY RT FRANDY EITCHES Start: 08-19-2019 INCENTIVE SPIROMETRY RT FRANDY EITCHES Start: 08-19-2019 COVID-19 FRANDY EITCH ES Start: 08-19-2019 INCENTIVE SPIROMETRY RT FRANDY EITCHES Start: 08-19-2019 COVID-19 Caitlyn Vincent Work Phone: Start: 08-19-2019 INCENTIVE SPIROMETRY RT FRANDY EITCHES Start: 08-19-2019 INCENTIVE SPIROMETRY RT FRANDY EITCHES Start: 08-19-2019 INITIATE OXYGEN THER APY PROTOCOL FRANDY EITCHES Start: 08-19-2019 INCENTIVE SPIROMETRY RT FRANDY EITCHES Start: 08-19-2019 INTAKE AND OUTPUT FRANDY EITCHES Start: 08-19-2019 INCENTIVE SPIROMETRY RT FRANDY EITCHES Start: 08-18-2019 INCENTIVE SPIROMETRY RT FRANDY EITCHES Start: 08-18-2019 INCENTIVE SPIROMETRY RT FRANDY EITCHES Start: 08-18-2019 INCENTIVE SPIROMETRY RT FRANDY EITCHES Start: 08-18-2019 CATHETER REMOVAL FRANDY E ITCHES Start: 08-18-2019 INCENTIVE SPIROMETRY RT FRANDY EITCHES Start: 08-18-2019 INCENTIVE SPIROMETRY RT FRANDY EITCHES Start: 08-18-2019 INCENTIVE SPIROMETRY RT FRANDY EITCHES Start: 08-18-2019 DIETARY NUTRITION SUPPLEMENTS FRANDY EITCHES Start: 08-18-2019 INCENTIVE SPIROMETRY RT FRANDY EITCHES Start: 08-18-2019 INITIATE OXYGEN THER APY PROTOCOL FRANDY EITCHES Start: 08-18-2019 INCENTIVE SPIROMETRY RT FRANDY EITCHES Start: 08-18-2019 INTAKE AND OUTPUT FRANDY EITCHES Start: 08-18-2019 INCENTIVE SPIROMETRY RT FRANDY EITCHES Start: 08-17-2019 INCENTIVE SPIROMETRY RT FRANDY EITCHES Start: 08-17-2019 INCENTIVE SPIROMETRY RT FRANDY EITCHES Start: 08-17-2019 INCENTIVE SPIROMETRY RT FRANDY EITCHES Start: 08-17-2019 INCENTIVE SPIROMETRY RT FRANDY EITCHES Start: 08-17-2019 INCENTIVE SPIROMETRY RT FRANDY EITCHES Start: 08-17-2019 OT EVAL AND TREAT FRANDY EITCHES Start: 08-17-2019 PT EVAL AND TREAT FRANDY EITCHES Start: 08-17-2019 INCENTIVE SPIROMETRY RT FRANDY EITCHES Start: 08-17-2019 INCENTIVE SPIROMETRY RT FRANDY EITCHES Start: 08-17-2019 INITIATE OXYGEN THER APY PROTOCOL FRANDY EITCHES Start: 08-17-2019 INCENTIVE SPIROMETRY RT FRANDY EITCHES Start: 08-17-2019 Assay of magnesium FRANDY EITCHES Start: 08-17-2019 Comprehensive metabo lic panel FRANDY EITCHES Start: 08-17-2019 Assay of magnesium Tu Regan Work Phone: Start: 08-17-2019 BASIC METABOLIC PANE L W/ REFLEX TO MG FOR LOW K Charlene Regan Work Phone: Start: 08-17-2019 DAILY WEIGHTS FRANDY EITC HES Start: 08-17-2019 INTAKE AND OUTPUT FRANDY EITCHES Start: 08-17-2019 IP CONSULT TO SOCIAL WORK FRANDY EITCHES Start: 08-17-2019 IP CONSULT TO [facility] FRANDY EITCHES Start: 08-16-2019 ELEVATE HEELS OFF OF BED FRANDY EITCHES Start: 08-16-2019 HEAD OF BED 60 DEGRE ES OR LESS FRANDY EITCHES Start: 08-16-2019 NURSING COMMUNICATION E GARDUNO EIJULIUSES Start: 08-16-2019 TURN PATIENT FRANDY EITCH ES Start: 08-16-2019 INCENTIVE SPIROMETRY RT FRANDY EITCHES Start: 08-16-2019 IP CONSULT TO CASE MANAGEMENT FRANDY EITCHES Start: 08-16-2019 OT EVAL AND TREAT FRANDY EITCHES Start: 08-16-2019 PT EVAL AND TREAT FRANDY EITCHES Start: 08-16-2019 REASON FOR NO MECHAN ICAL VTE PROPHYLAXIS FRANDY EITCHES Start: 08-16-2019 DIET GENERAL FRANDY EITCH ES Start: 08-16-2019 FULL CODE FRANDY EITCH ES Start: 08-16-2019 INITIATE OXYGEN THER APY PROTOCOL FRANDY EITCHES Start: 08-16-2019 INTAKE AND OUTPUT FRANDY EITCHES Start: 08-16-2019 NOTIFY PHYSICIAN (SPECIFY) FRANDY EITCHES Start: 08-16-2019 VITAL SIGNS FRANDY EITCH ES Start: 08-16-2019 PATIENT STATUS (DIRECT) FRANDY EITCHES Start: 08-16-2019 PATIENT STATUS (FROM ED OR OR/PROCEDURAL) FRANDY EITCHES Start: 08-16-2019 COVID-19 FRANDY EITCH ES Start: 08-16-2019 [object Object] FRANDY EI TCHES Start: 08-16-2019 COVID-19 Piyush Blue Work Phone: Start: 08-16-2019 Radiologic exam ches t single view FRANDY EITCHES Start: 08-16-2019 Ct head/brain w/o co ntrast material FRANDY EITCHES Start: 08-16-2019 CATHETER REMOVAL FRANDY E ITCHES Start: 08-16-2019 INSERT LANDAVERDE CATHETER E GARDUNO EITCHES Start: 08-16-2019 Culture bacterial quanttative colony count urine FRANDY EITCHES Start: 08-16-2019 Urnls dip stick/tabl et rgnt auto w/o microscopy FRANDY EITCHES Start: 08-16-2019 Ecg routine ecg w/le ast 12 lds w/i&r FRANDY EITCHES Start: 08-16-2019 Assay of magnesium FRANDY EITCHES Start: 08-16-2019 Assay of troponin quantitative FRANDY EITCHES Start: 08-16-2019 Blood count complete auto&auto difrntl wbc FRANDY EITCHES Start: 08-16-2019 Creatine kinase total E GARDUNO EITCHES Start: 08-16-2019 Radiologic exam ches t single view Piyush Blue Work Phone: Start: 08-16-2019 Ct head/brain w/o co ntrast material Piyush Blue Work Phone: Start: 08-16-2019 Urnls dip stick/tabl et rgnt auto w/o microscopy Piyush Blue Work Phone: Start: 08-16-2019 Ecg routine ecg w/le ast 12 lds w/i&r Piyush Blue Work Phone: Start: 08-16-2019 Assay of magnesium Anil Blue Work Phone: Start: 08-16-2019 Assay of troponin quantitative Piyush Blue Work Phone: Start: 08-16-2019 Blood count complete auto&auto difrntl wbc Piyush Blue Work Phone: Start: 08-16-2019 Creatine kinase total A tam Blue Work Phone: Start: 08-12-2019 Blood count complete automated FRANDY EITCHJAC Start: 08-12-2019 Comprehensive metabo lic panel FRANDY EITCHES Start: 08-12-2019 Blood count complete automated Nilo Paula Arreola Work Phone: Start: 08-12-2019 Comprehensive metabo lic panel Nilohailey Arreola Work Phone: Start: 08-09-2019 Blood count complete auto&auto difrntl wbc FRANDY EITCHES Start: 08-09-2019 Blood count complete auto&auto difrntl wbc Frandygopi Earlyjac Work Phone: Start: 08-09-2019 Blood count complete automated FRANDY EITCHES Start: 08-09-2019 Reticulated platelet assay FRANDY EITCHES Start: 08-09-2019 Blood count complete automated Frandygopi Earlyjac Work Phone: Start: 08-09-2019 IMMATURE PLATELET FRACTION Frandy E Sammie Work Phone: Start: 08-09-2019 HEMOGLOBIN AND HEMAT OCRIT, BLOOD FRANDY EITCHES Start: 08-09-2019 TRANSFUSE RED BLOOD CELLS FRANDY EITCHES Start: 08-09-2019 Blood count hemoglobin Frandy E Murieljuliusjac Work Phone: Start: 08-09-2019 TRANSFUSE RED BLOOD CELLS Frandy E Murieltchjac Work Phone: Start: 08-08-2019 TYPE AND SCREEN FRANDY EI TCHES Start: 08-08-2019 PREPARE RBC (CROSSMATCH) FRANDY EITCHES Start: 08-08-2019 TRANSFUSION REACTION MANAGEMENT FRANDY EITCHES Start: 08-08-2019 VERIFY INFORMED CONSENT FRANDY EITCHES Start: 08-08-2019 VITAL SIGNS PER HOFF SFUSION PROTOCOL FRANDY EITCHES Start: 08-08-2019 Blood typing serologic abo Frandygopi Cochran Work Phone: Start: 08-08-2019 DISCHARGE PATIENT FRANDY EITCHES Start: 08-08-2019 TYPE AND SCREEN FRANDY EI TCHES Start: 08-08-2019 TRANSFUSION REACTION MANAGEMENT FRANDY EITCHES Start: 08-08-2019 VERIFY INFORMED CONSENT FRANDY EITCHES Start: 08-08-2019 PREPARE RBC (CROSSMATCH) FRANDY EITCHES Start: 08-08-2019 VITAL SIGNS PER HOFF SFUSION PROTOCOL FRANDY EITCHES Start: 08-08-2019 INITIATE OXYGEN THER APY PROTOCOL FRANDY EITCHES Start: 08-08-2019 STRAIGHT CATH FRANDY EITC HES Start: 08-08-2019 Basic metabolic pane l calcium total FRANDY EITCHES Start: 08-08-2019 Blood count complete automated FRANDY EITCHES Start: 08-08-2019 Reticulated platelet assay FRANDY EITCHES Start: 08-08-2019 Basic metabolic pane l calcium total Caitlyn Veronica Acrinta Work Phone: Start: 08-08-2019 Blood count complete automated Clara Sagastume Work Phone: Start: 08-08-2019 IMMATURE PLATELET FRACTION Caitlyn Veronica Acrinta Work Phone: Start: 08-08-2019 CATHETER REMOVAL FRANDY E ITCHES Start: 08-08-2019 INCENTIVE SPIROMETRY NURSING FRANDY EITCHES Start: 08-08-2019 INTAKE AND OUTPUT FRANDY EITCHES Start: 08-07-2019 CATHETER REMOVAL FRANDY E ITCHES Start: 08-07-2019 Echo tthrc r-t 2d w/ wom-mode compl spec&colr d FRANDY EITCHES Start: 08-07-2019 INCENTIVE SPIROMETRY NURSING FRANDY EITCHES Start: 08-07-2019 Echo tthrc r-t 2d w/ wom-mode compl spec&colr d Caitlyn Martin Acrinta Work Phone: Start: 08-07-2019 INITIATE OXYGEN THER APY PROTOCOL FRANDY EITCHES Start: 08-07-2019 DIET GENERAL FRANDY EITCH ES Start: 08-07-2019 Hemoglobin glycosylated a1c FRANDY EITCHES Start: 08-07-2019 Basic metabolic pane l calcium total FRANDY EITCHES Start: 08-07-2019 Blood count complete auto&auto difrntl wbc FRANDY EITCHES Start: 08-07-2019 Prothrombin time FRANDY E ITCHES Start: 08-07-2019 Reticulated platelet assay FRANDY EITCHES Start: 08-07-2019 Hemoglobin glycosylated a1c Caitlyn Vincent Work Phone: Start: 08-07-2019 Basic metabolic pane l calcium total Clara Sagastume Work Phone: Start: 08-07-2019 Blood count complete auto&auto difrntl wbc Charlene Regan Work Phone: Start: 08-07-2019 IMMATURE PLATELET FRACTION Charlene Regan Work Phone: Start: 08-07-2019 Prothrombin time Charlene Regan Work Phone: Start: 08-07-2019 DAILY WEIGHTS FRANDY EITC HES Start: 08-07-2019 DIETARY NUTRITION SUPPLEMENTS FRANDY EITCHES Start: 08-07-2019 INTAKE AND OUTPUT FRANDY EITCHES Start: 08-07-2019 IP CONSULT TO [facility] FRANDY EITCHES Start: 08-07-2019 ELEVATE HEELS OFF OF BED FRANDY EITCHES Start: 08-07-2019 HEAD OF BED 60 DEGRE ES OR LESS FRANDY EITCHES Start: 08-07-2019 NURSING COMMUNICATION E SHAAN COCHRAN Start: 08-07-2019 TURN PATIENT FRANDY EITCH ES Start: 08-07-2019 ENCOURAGE DEEP BREAT LACY AND COUGHING FRANDY EITCHES Start: 08-07-2019 IP CONSULT TO SOCIAL WORK FRANDY EITCHES Start: 08-07-2019 TOUCH DOWN WEIGHT BEARING FRANDY EITCHES Start: 08-07-2019 AMBULATE PATIENT FRANDY E ITCHES Start: 08-07-2019 BEDREST FRANDY EITCH ES Start: 08-07-2019 CATHETER REMOVAL FRANDY E ITCHES Start: 08-07-2019 Ecg routine ecg w/le ast 12 lds w/i&r FRANDY EITCHES Start: 08-07-2019 FULL CODE FRANDY EITCH ES Start: 08-07-2019 INITIATE OXYGEN THER APY PROTOCOL FRANDY EITCHES Start: 08-07-2019 INTAKE AND OUTPUT FRANDY EITCHES Start: 08-07-2019 IP CONSULT TO CARDIOLOGY FRANDY EITCHES Start: 08-07-2019 IP CONSULT TO CASE MANAGEMENT FRANDY EITCHES Start: 08-07-2019 IP CONSULT TO ORTHOP EDIC SURGERY FRANDY EITCHES Start: 08-07-2019 NEURO/VASCULAR CHECKS E GARDUNO EITCHES Start: 08-07-2019 OT EVAL AND TREAT FRANDY EITCHES Start: 08-07-2019 PLACE INTERMITTENT P NEUMATIC COMPRESSION DEVICE FRANDY EITCHES Start: 08-07-2019 PT EVAL AND TREAT FRANDY EITCHES Start: 08-07-2019 PULSE OXIMETRY SPOT CHECK FRANDY EITCHES Start: 08-07-2019 TELEMETRY MONITORING ET AN EITCHES Start: 08-07-2019 WOUND CARE FRANDY EITCH ES Start: 08-07-2019 NOTIFY PHYSICIAN (SPECIFY) FRANDY EITCHES Start: 08-07-2019 VERIFY INFORMED CONSENT FRANDY EITCHES Start: 08-07-2019 VITAL SIGNS FRANDY EITCH ES Start: 08-06-2019 Radex hip unilateral with pelvis 1 view FRANDY EITCHES Start: 08-06-2019 TRANSFER PATIENT FRANDYGopi VILLELA Start: 08-06-2019 Radex hip unilateral with pelvis 1 view Clara Sagastume Work Phone: Start: 08-06-2019 End: 08-06-2019 HIP OPEN REDUCTION INTERNAL FIXATION Clara Sagastume Work Phone: Start: 08-06-2019 COVID-19 FRANDY EITCH ES Start: 08-06-2019 Ecg routine ecg w/le ast 12 lds w/i&r FRANDY EITCHES Start: 08-06-2019 EKG REPORT FRANDY EITCH ES Start: 08-06-2019 PATIENT STATUS (FROM ED OR OR/PROCEDURAL) FRANDY EITCHES Start: 08-06-2019 Radiologic examinati on tibia & fibula 2 views FRANDY EITCHES Start: 08-06-2019 Radiologic examinati on femur minimum 2 views FRANDY EITCHES Start: 08-06-2019 Radiologic examinati on ankle 2 views FRANDY EITCHES Start: 08-06-2019 Culture bacterial quanttative colony count urine FRANDY EITCHES Start: 08-06-2019 Urinalysis microscopic only FRANDY EITCHES Start: 08-06-2019 Urnls dip stick/tabl et rgnt auto w/o microscopy FRANDY EITCHES Start: 08-06-2019 CATHETER REMOVAL FRANDY E ITCHES Start: 08-06-2019 INSERT LANDAVERDE CATHETER E GARDUNO EITCHES Start: 08-06-2019 Radiologic exam ches t single view FRANDY EITCHES Start: 08-06-2019 Radex humerus minimu m 2 views FRANDY EITCHES Start: 08-06-2019 Radex hip unilateral with pelvis 2-3 views FRANDY EITCHES Start: 08-06-2019 Radex shoulder compl ete minimum 2 views FRANDY EITCHES Start: 08-06-2019 Ct cervical spine w/ o contrast material FRANDY EITCHES Start: 08-06-2019 Ct head/brain w/o co ntrast material FRANDY EITCH Start: 08-06-2019 COVID-19 [employer] Work Phone: Start: 08-06-2019 Ecg routine ecg w/le ast 12 lds i&r only Gibberin Work Phone: Start: 08-06-2019 EKG REPORT Hpf Scanni ng Start: 08-06-2019 Radiologic examinati on tibia & fibula 2 views Gibberin Work Phone: Start: 08-06-2019 Radiologic examinati on femur minimum 2 views Gibberin Work Phone: Start: 08-06-2019 Radiologic examinati on ankle 2 views Gibberin Work Phone: Start: 08-06-2019 Culture bacterial quanttative colony count urine Nina Sylvester Johnson Work Phone: Start: 08-06-2019 Urinalysis microscopic only [place] Work Phone: Start: 08-06-2019 Urnls dip stick/tabl et rgnt auto w/o microscopy Gibberin Work Phone: Start: 08-06-2019 Radiologic exam ches t single view Gibberin Work Phone: Start: 08-06-2019 Radex humerus minimu m 2 views Gibberin Work Phone: Start: 08-06-2019 Radex hip unilateral with pelvis 2-3 views Gibberin Work Phone: Start: 08-06-2019 Radex shoulder compl ete minimum 2 views Elis Shaffer Work Phone: Start: 08-06-2019 Ct cervical spine w/ o contrast material Elis Shaffer Work Phone: Start: 08-06-2019 Ct head/brain w/o co ntrast material Elis Shaffer Work Phone: Start: 08-06-2019 Basic metabolic pane l calcium total Elis Shaffer Work Phone: Start: 08-06-2019 Blood count complete automated Elis Deena Work Phone: Start: 08-06-2019 Creatine kinase total H elliott Shaffer Work Phone: Start: 08-06-2019 Prothrombin time Elis Shaffer Work Phone: Start: 08-06-2019 Thromboplastin time partial plasma/whole blood Elis Shaffer Work Phone: Start: 05-29-2019 Blood count complete automated FRANDY COCHRAN Start: 05-29-2019 Comprehensive metabo lic panel FRANDY COCHRAN Start: 05-29-2019 Hemoglobin glycosylated a1c FRANDY EITAY Start: 05-29-2019 Lipid panel FRANDY SHARATH ES Start: 05-29-2019 Blood count complete automated Nina Johnson Work Phone: Start: 05-29-2019 Comprehensive metabo lic panel Nina Johnson Work Phone: Start: 05-29-2019 Hemoglobin glycosylated a1c Nina Johnson Work Phone: Start: 05-29-2019 Lipid panel Nina Johnson Work Phone: Start: 05-13-2019 Lipid panel FRANDY SHARATH NATHAN Start: 05-13-2019 Lipid panel Nina Johnson Work Phone: Start: 04-17-2019 Lipid panel [place] gallardo Work Phone: Start: 04-16-2019 Blood count complete auto&auto difrntl wbc Jane Weldon Work Phone: Start: 04-16-2019 Comprehensive metabo lic panel Jane Weldon Work Phone: Start: 04-13-2019 Ct head/brain w/o co ntrast material Frandygopi Cochran Work Phone: Start: 04-13-2019 Radiologic exam ches t single view Frandy Lana Cochran Work Phone: Start: 04-13-2019 Assay of ammonia Frandy E Sammie Work Phone: Start: 04-13-2019 Blood gases any comb ination ph pco2 po2 co2 hco3 Frandy E Sammie Work Phone: Start: 04-13-2019 Urnls dip stick/tabl et rgnt auto w/o microscopy Frandy Lana Cochran Work Phone: Start: 04-13-2019 Assay of acetaminophen Frandy E Sammie Work Phone: Start: 04-13-2019 Assay of ethanol Frandy E Sammie Work Phone: Start: 04-13-2019 Assay of magnesium Frandy E Sammie Work Phone: Start: 04-13-2019 Assay of salicylate Eta n Lana Cochran Work Phone: Start: 04-13-2019 Assay of thyroid sti mulating hormone tsh Frandy Lana Cochran Work Phone: Start: 04-13-2019 Blood count complete auto&auto difrntl wbc Frandygopi Cochran Work Phone: Plan of Treatment Date Care Activity Detail Author Start: 04-17-2023 FQ visit, estab pt Medical E stablished Patient [facility] Work Phone: Start: 01-23-2023 Stool-based DN A test with hemoglobin immunoassay component a [facility] Start: 01-16-2023 FQHC visit, estab pt Medical E stablished Patient [facility] Work Phone: Start: 01-16-2023 End: 01-16-2023 Patient education based on identified need [facility] Start: 01-04-2023 Health Par [facility] Start: 12-05-2022 CBC W Auto Different ial panel - Blood [facility] Comment on above: Note: Please make a referral to:[facility] Start: 12-05-2022 Lipid 1996 panel - S elin or Plasma LIPID PROFILE [facility] Start: 12-05-2022 End: 12-05-2022 Patient education based on identified need [facility] Start: 08-06-2022 Diabetes screen Diabetes screen [place], [place] Start: 05-31-2022 FQHC visit, estab pt Medical E stablished Patient [facility] Work Phone: Start: 05-31-2022 End: 05-31-2022 Patient education based on identified need [facility] Start: 11-16-2021 FQHC visit, estab pt Ti [facility] Work Phone: Start: 11-16-2021 Lipid 1996 panel - S elin or Plasma LIPID PROFILE [facility] Start: 11-16-2021 End: 11-16-2021 Patient education based on identified need [facility] Start: 08-16-2021 End: 08-16-2021 Patient education based on identified need [facility] Start: 08-16-2021 FQHC visit, estab pt Medical E stablished Patient [facility] Work Phone: Start: 08-13-2021 XR Hip Unilate ral 2 Views ([id number]) [facility] Start: 07-14-2021 FQHC visit, estab pt Ti [facility] Work Phone: Comment on above: Note: Please make a referral to: Start: 07-14-2021 End: 07-14-2021 Patient education based on identified need [facility] Start: 02-12-2021 Mammography [facility] Start: 01-13-2021 FQHC visit, estab pt Ti [facility] Work Phone: Comment on above: Note: Please make a referral to: Note: Please make a referral to: Audiology Start: 01-13-2021 End: 01-13-2021 Patient education based on identified need [facility] Start: 10-21-2020 CBC W Auto Different ial panel - Blood [facility] Start: 10-14-2020 End: 10-14-2020 Patient education based on identified need [facility] Start: 10-13-2020 Influenza vaccination Flu vaccine (# 1) [facility] [employer] Work Phone: Start: 05-29-2020 Annual Wellness Visi t (AWV) Annual Wellness Visit (AWV) [place], [place] Start: 05-28-2020 Lipid panel Lipid screen [place], [place] Start: 05-28-2020 Lipid screen Lipid screen [place], [place] Start: 04-16-2020 Lipid screen Lipid screen [place], [place] Start: 03-23-2020 Lipid 1996 panel [facility] Work Phone: Start: 03-16-2020 End: 03-16-2020 Patient education based on identified need [facility] Start: 2020 Pneumococcal 65+ yea rs Vaccine (1 of 1 - PPSV23) Pneumococcal 65+ years Vaccine (1 of 1 - PPSV23) [facility] Work Phone: Start: 01-28-2020 Breast cancer screen Breast cancer s creen [place], [place] Start: 01-28-2020 Screening for malign ant neoplasm of breast Breast cancer screen [place] Start: 01-21-2020 Annual Wellness Visi t (AWV) Annual Wellness Visit (AWV) [place] Start: 10-14-2019 Influenza vaccination Flu vaccine (# 1) [place] Start: 09-16-2019 Medical Establ ished Patient [facility] Work Phone: Start: 09-01-2019 End: 09-01-2019 Patient education based on identified need Patient education about a proper diet [facility] Start: 09-01-2019 End: 09-01-2019 Provider instructions for treatment Intervention and counseling on cessation of tobacco use, 3-10 minutes [facility] Start: 08-31-2019 Cervical cancer screen Cervical canc er screen [place], [place] Start: 08-31-2019 Screening for malign ant neoplasm of cervix Cervical cancer [place] Start: 07-28-2019 End: 07-28-2019 Office Visit 07/28/2019 Office Visit Internal Medicine Nina Johnson MD [address] [facility], [facility] [place] [address] Nina Johnson MD Start: 06-27-2019 End: 06-27-2019 Office Visit 06/27/2019 Office Visit Internal Medicine Nina Johnson MD [address] [facility], [place] [address] Nina Johnson MD Start: 05-16-2019 A1C test (Diabetic o r Prediabetic) A1C test (Diabetic or Prediabetic) [place], [place] Start: 05-16-2019 Lipid screen Lipid screen [place], [place] Start: 04-15-2019 End: 04-15-2019 Appointment 04/15/2019 Appointment Radiology [facility] Start: 01-21-2019 Colon Cancer Screen FIT/FOBT Colon Cancer Screen FIT/FOBT [place] Start: 01-21-2019 Screening for malign ant neoplasm of colon Colon Cancer Screen FIT/FOBT [place] Start: 07-19-2018 Annual Wellness Visi t (AWV) Annual Wellness Visit (AWV) [facility] [employer] Phone: Start: 2010 Screening for osteoporosis DEXA (modify frequency per FRAX score) [facility] [employer] Phone: Start: 2005 Shingles Vaccine (1 of 2) Shingles Vaccine (1 of 2) [place], [place] Start: 1974 DTaP/Tdap/Td vaccine (1 - Tdap) DTaP/Tdap/Td vaccine (1 - Tdap) [place] Start: 1966 DTaP/Tdap/Td vaccine (1 - Tdap) DTaP/Tdap/Td vaccine (1 - Tdap) [place] End: 09-07-2019 Basic metabolic 2000 panel Basic Metabolic Panel Lab STAT One Time for 1 Occurrences starting 09/07/2019 until 09/07/2019 [place] Comment on above: One Time for 1 Occur rences starting 09/07/2019 until 09/07/2019 Basic metabolic 2000 panel Basic Metabolic Panel Lab STAT Daily until discontinued starting 08/08/2019, 1 completed [place] Comment on above: Daily until disconti nued starting 08/08/2019, 1 completed End: 08-09-2019 CBC CBC Lab Routine Daily for 3 Days starting 08/07/2019 until 08/09/2019, 1 completed [place] Comment on above: Daily for 3 Days sta rting 08/07/2019 until 08/09/2019, 1 completed End: 09-07-2019 CBC Auto Differential CBC Auto Differential Lab STAT One Time for 1 Occurrences starting 09/07/2019 until 09/07/2019 [place] Comment on above: One Time for 1 Occur rences starting 09/07/2019 until 09/07/2019 Culture, Blood 1 [place], [place] End: 09-13-2019 Culture, Blood 1 Culture, Blood 1 Microbiology STAT One Time for 1 Occurrences starting 09/13/2019 until 09/13/2019 [place] Comment on above: One Time for 1 Occur rences starting 09/13/2019 until 09/13/2019 Culture, Blood 2 [place], [place] End: 09-13-2019 Culture, Blood 2 Culture, Blood 2 Microbiology STAT One Time for 1 Occurrences starting 09/13/2019 until 09/13/2019 [place] Comment on above: One Time for 1 Occur rences starting 09/13/2019 until 09/13/2019 End: 08-16-2019 Culture, Urine Culture, Urine Microbiology STAT One Time for 1 Occurrences starting 08/16/2019 until 08/16/2019 [place] Comment on above: One Time for 1 Occur rences starting 08/16/2019 until 08/16/2019 Culture, Urine [place] End: 09-11-2019 Culture, Urine Culture, Urine Microbiology Routine One Time for 1 Occurrences starting 09/11/2019 until 09/11/[facility] One Time for 1 Occur rences starting 09/11/2019 until 09/11/2019 End: 09-13-2019 Culture, Urine Culture, Urine Microbiology STAT One Time for 1 Occurrences starting 09/13/2019 until 09/13/2019 [facility] above: One Time for 1 Occur rences starting 09/13/2019 until 09/13/2019 EKG 12 Lead [facility] [place] End: 09-07-2019 EKG 12 Lead EKG 12 Lead ECG STAT One Time for 1 Occurrences starting 09/07/2019 until 09/07/2019 [facility] on above: One Time for 1 Occur rences starting 09/07/2019 until 09/07/2019 Hemoglobin and Hematocrit, Blood, Post Transfusion Hemoglobin and Hematocrit, Blood, Post Transfusion Lab Routine Post Transfusion Post Transfusion Post Transfustion for 1 Occurrences starting 08/08/2019 [facility] [place] Comment on above: Post Transfusion Pos t Transfusion Post Transfustion for 1 Occurrences starting 08/08/2019 Incentive spirometry Incentive s pirometry Respiratory Care Routine Every 2hr while awake until discontinued starting 08/16/2019 [facility]: Every 2hr while awak e until discontinued starting 08/16/2019 Initiate Oxygen Ther [facility]y Protocol [facility] Comment on above: Daily until disconti nued starting 08/16/2019 Daily until disconti nued starting 08/06/2019 End: 09-13-2019 Lactate, Sepsis Lactate, Sepsis Lab Timed Now Then Every 2hr for 2 Occurrences starting 09/13/2019 until 09/13/2019, 1 completed [facility] [place] Comment on above: Now Then Every 2hr f or 2 Occurrences starting 09/13/2019 until 09/13/2019, 1 completed End: 09-13-2019 Lactic acid, plasma Lactic acid, plasma Lab Timed One Time for 1 Occurrences starting 09/13/2019 until 09/13/2019 [facility] on above: One Time for 1 Occur rences starting 09/13/2019 until 09/13/2019 Oxygen therapy [facility] [place] Comment on above: Daily until disconti nued starting 09/11/2019 Daily until disconti nued starting 09/13/2019, 2 completed End: 08-08-2019 PREPARE RBC (CROSSMATCH), 1 Units [place] Comment on above: Once for 1 Occurrenc es starting 08/08/2019 until 08/08/2019 Procalcitonin [place] Comment on above: Q48H until discontin ued starting 09/13/2019 End: 08-06-2019 Pulse Oximetry Spot Check Pulse Oximetry Spot Check Respiratory Care Routine One Time for 1 Occurrences starting 08/06/2019 until 08/06/2019 [place] Comment on above: One Time for 1 Occur rences starting 08/06/2019 until 08/06/2019 End: 09-07-2019 Troponin I.cardiac [Mass/Vol] Troponin Lab STAT One Time for 1 Occurrences starting 09/07/2019 until 09/07/2019 [place] Comment on above: One Time for 1 Occur rences starting 09/07/2019 until 09/07/2019 TYPE AND SCREEN [place], [place] End: 09-07-2019 Urinalysis with Microscopic Urinalysis with Microscopic Lab STAT One Time for 1 Occurrences starting 09/07/2019 until 09/07/2019 [place] Comment on above: One Time for 1 Occur rences starting 09/07/2019 until 09/07/2019 Immunizations Immunization Date Immunization Notes Care Provider Amanda amin 01-16-2023 pneumococcal vaccine , unspecified formulation; Translations: [Prevnar] Mily Lainez [facility] Work Phone: [facility] Comment on above: Note: Patient tolera bradley well. No signs or symptoms of adverse reactions. Patient waited a minimum of 15 minutes. 01-16-2023 Admin Pneumococcal Vaccine Medicare Mily Lainez [employer] Work Phone: [facility] 07-14-2021 Moderna COVID Booster 2 Crista Baldwin [employer] Work Phone: [facility] Comment on above: Note: Patient tolera bradley well. No signs or symptoms of adverse reactions. Patient waited a minimum of 15 minutes. 01-13-2021 Moderna COVID Booste r; Translations: [Moderna COVID Booster] Mily Lainez [employer] Work Phone: [facility] Comment on above: Note: Patient tolera bradley well. No signs or symptoms of adverse reactions. Patient waited a minimum of 15 minutes. 03-12-2020 COVID-19, Moderna, P F, 100mcg/0.5mL [facility] 02-11-2020 COVID-19, Moderna, P F, 100mcg/0.5mL [facility] 11-13-2018 Seasonal, quadrivale nt, recombinant, injectable influenza vaccine, preservative free [facility] 11-01-2017 influenza virus vacc ine, unspecified formulation [facility] , [place] 11-01-2017 influenza, injectabl e, quadrivalent, contains preservative [place], [place] 11-01-2017 influenza, injectabl e, quadrivalent, preservative free [facility] 10-25-2016 Influenza Vaccine, unspecified formulation [facility] , [place] 10-25-2016 influenza virus vacc ine, unspecified formulation [facility] , [place] 10-25-2016 influenza, injectabl e, quadrivalent, preservative free [place], [place] 10-25-2016 influenza, seasonal, injectable, preservative free Mily Lainez [employer] Work Phone: [facility] 11-12-2015 Influenza Vaccine, unspecified formulation [place], [place] 11-12-2015 influenza, seasonal, injectable, preservative free Mily Lainez [employer] Work Phone: [facility] 01-21-2015 pneumococcal polysaccharide vaccine, 23 valent [facility] 12-08-2014 Influenza Vaccine, unspecified formulation [place] 12-08-2014 influenza virus vacc ine, unspecified formulation [place] 12-08-2014 influenza, seasonal, injectable Mily Lainez [employer] Work Phone: [facility] 11-21-2013 influenza virus vacc ine, unspecified formulation Frandy Sammie [facility] [place] [place] Payers Date Payer Category Payer Unknown [id number] [id number] 2018 Medicaid MEDICAID [facility] DEPT OF JOB xxxxxxxxxxxx 2018-Present [phone] [address] [place] [address] xxxxxxxxxxxx [id number] 2018 Medicaid MEDICAID [facility] DEPT OF JOB [id number] 2018-Present [phone] [address] [place] [address] [id number] 2018 Medicare MEDICARE MEDICAR E PART A AND B xxxxxxxxxxx 2018-Present [phone] [place] [address] xxxxxxxxxxx [id number] 2018 Medicare MEDICARE MEDICAR E PART A AND B [id number] 2018-Present [phone] [id number] [place] [address] [id number] 1959 Medicare [id number] 1959 Unknown [id number] 1955 Unknown [id number] 1955 Unknown [id number] 1955 Unknown [id number] 1955 Unknown [id number] 1955 Unknown [id number] 1955 Unknown [id number] 1955 Unknown [id number] 1955 Unknown [id number] 1955 Unknown [id number] [id number] 1955 Unknown [id number] 1955 Unknown [id number] [id number] 1955 Unknown [id number] 1955 Unknown [id number] [id number] 1955 Unknown [id number] 1955 Unknown [id number] 1955 Unknown [id number] Social History Date Type Detail Facility Start: 04-28-2019 End: 09-13-2019 Tobacco smoking status NHIS Current every day smoker [facility] of tobacco use Cigarette Smoker M [facility] Start: 04-28-2019 End: 09-13-2019 Cigarettes smoked current (pack per day) - Reported [facility] Start: 04-28-2019 End: 09-13-2019 Alcohol intake Lifetime non-drinker (finding) [facility] Start: 07-19-2018 End: 01-20-2019 History SDOH Alcohol Frequency 1 [facility] Start: 07-19-2018 End: 01-20-2019 History SDOH [facility] Start: 07-19-2018 End: 01-20-2019 History SDOH [facility] Start: 01-20-2019 History SDOH Physica l Activity [facility] [place] Start: 01-20-2019 History SDOH Stress 3 [facility] ryan [place], [place] Start: 01-19-2015 Tobacco Comment half pack per day [facility] [place], [place] Start: 1955 [facility]igned [facility] [place] Exposure to SARS-CoV -2 (event) Unable to assess [facility] Assertion Exposure to poll ution (event) [facility] Assertion Tobacco user (finding) [facility] Tobacco smoking status Unknown if ever sm oked [facility] Work Phone: Start: 08-16-2019 End: 09-13-2019 Tobacco use and exposure Never used [place], [place] Exposure to SARS-CoV -2 (event) Not sure [place] Assertion Gender identity finding (finding) [facility] Assertion Finding of sexua l orientation (finding) [facility] Assertion Smoker (finding) [facility] Assertion Moderate cigaret te smoker (10-19 cigs/day) (finding) [facility] Assertion Currently not se xually active (finding) [facility] Assertion Heavy cigarette smoker (20-39 cigs/day) (finding) [facility] NEGATED: Highlighted row Assertion [facility] NEGATED: Highlighted row Assertion Current drinker of alcohol (finding) [facility] NEGATED: Highlighted row Assertion Finding relating to drug misuse behavior (finding) [facility] NEGATED: Highlighted row Assertion Exposure to pollution (event) [facility] NEGATED: Highlighted row Assertion Sexually active (finding) [facility] Medical Equipment Procedure Code Equipment Code Equipment Origin al Text Equipment Identifier Dates Nail Tfn Short [id number] 130deg [id number] Start: 08-06-2019 Impl Blade Helic al Tfna Fen 95mm [id number] Start: 08-06-2019 Screw Lk W/ T25 Stardrive 5.0x30mm [id number] Start: 08-06-2019 Mental Status Date Assessment Result Facility Cognitive function Mild cognitiv e impairment Impaired cognition (finding) [facility] Work Phone: Clinical Notes 03-16-2020 to 01-17-2023 Note Date & Type Note Facility 01-17-2023 Instructions Includes: Instructions for all patient encounters Intervention and counseling on cessation of tobacco use, 3-10 minutes Last Documented On 0 10:45AM ; [facility] Education and Decision Aids were provided during visit for: Discussed nutritional needs teach healthy choices including fruits and vegetables Last Documented On 3 9:07AM ; [facility] Patient education about a pr oper diet Last Documented On 3 9:07AM ; [facility] Discussed concerns about exe rcise : promote physical activity Last Documented On 3 9:07AM ; [facility] Discussed nutritional needs teach healthy choices including fruits and vegetables Last Documented On 3 10:10AM ; [facility] Patient education about a pr oper diet Last Documented On 3 10:10AM ; [facility] Discussed concerns about exe rcise : promote physical activity ~ ~Follow up in 6 weeks to go over testing Last Documented On 3 4:48PM ; [facility] Not requesting contraception Last Documented On 3 10:10AM ; [facility] Discussed nutritional needs teach healthy choices including fruits and vegetables Last Documented On 3 10:22AM ; [facility] Patient education about a pr oper diet Last Documented On 3 10:22AM ; [facility] Discussed concerns about exe rcise : promote physical activity ~ ~Follow up in 6 months Last Documented On 3 11:06AM ; [facility] Discussed nutritional needs teach healthy choices including fruits and vegetables Last Documented On 2 11:00AM ; [facility] Patient education about a pr oper diet Last Documented On 2 11:00AM ; [facility] Discussed concerns about exe rcise : promote physical activity Last Documented On 2 11:00AM ; [facility] Discussed nutritional needs teach healthy choices including fruits and vegetables Last Documented On 2 1:38PM ; [facility] Patient education about a pr oper diet Last Documented On 2 1:38PM ; [facility] Discussed concerns about exe rcise : promote physical activity Last Documented On 2 1:38PM ; [facility] Discussed healthy lifestyle behaviors. ~Spoke about sleep hygiene. ~Provided supportive listening and empathy. ~Normalized emotions. ~Encouraged use of positive coping skills and supports Last Documented On 2 12:22PM ; [facility] Discussed nutritional needs teach healthy choices including fruits and vegetables Last Documented On 2 11:11AM ; [facility] Patient education about a pr oper diet Last Documented On 2 11:11AM ; [facility] Discussed concerns about exe rcise : promote physical activity Last Documented On 2 11:11AM ; [facility] Not requesting contraception Last Documented On 2 11:11AM ; [facility] Discussed current self-care methods/coping skills. ~Validated and normalized patient's feelings while assisting process recent events Last Documented On 1 10:20PM ; [facility] Discussed nutritional needs teach healthy choices including fruits and vegetables Last Documented On 1 10:13AM ; [facility] Patient education about a pr oper diet Last Documented On 1 10:13AM ; [facility] Discussed concerns about exe rcise : promote physical activity Last Documented On 1 10:13AM ; [facility] provided active listenin g and support. ~P discussed coping skills and supports that patient can continue to implement. Patient reports having good support in the assisted living facility and likes watching football. ~ Last Documented On 1 4:08PM ; [facility] Discussed nutritional needs teach healthy choices including fruits and vegetables Last Documented On 1 10:37AM ; [facility] Patient education about a pr oper diet Last Documented On 1 10:37AM ; [facility] Discussed concerns about exe rcise : promote physical activity Last Documented On 1 10:37AM ; [facility] Discussed nutritional needs teach healthy choices including fruits and vegetables Last Documented On 1 3:37PM ; [facility] Patient education about a pr oper diet Last Documented On 1 3:37PM ; [facility] Discussed concerns about exe rcise : promote physical activity Last Documented On 1 3:37PM ; [facility] Patient education about a pr oper diet Last Documented On 0 10:45AM ; [facility] Work Phone: [phone] 261-494912-05-2023 Evaluation note Includes: Assessments for all patient encounters Findings Encounter Date [Z68.27 - Body mass index [B WA] 27.0-27.9, adult] assessment of body mass index Medical Established Patient with Mily Lainez [facility] 01/16/2023 Last Documented On 3 12:01PM ; [facility] Colon screening Medical Established Patient with Mily Lainez [facility] 01/16/2023 Last Documented On 3 12:01PM ; [facility] Encounter for Immunization Medical Estab lished Patient with Mily Lainez [facility] 01/16/2023 Last Documented On 3 12:01PM ; [facility] Mild cognitive impairment Medical Establ ished Patient with Mily Lainez [facility] 01/16/2023 Last Documented On 3 12:01PM ; [facility] Nicotine dependence uncomplicated Medica l Established Patient with Mily Lainez [facility] 01/16/2023 Last Documented On 3 12:01PM ; [facility] Schizophrenia Medical Established Patient with Mily Lainez [employer] 01/16/2023 Last Documented On 3 12:01PM ; [facility] Vitamin D deficiency Medical Established Patient with Mily Lainez [employer] 01/16/2023 Last Documented On 3 12:01PM ; [facility] [Body mass index [BMI] 28.0- 28.9, adult] assessment of body mass index Medical Established Patient with Gemini Silva [employer] 12/05/2022 Last Documented On 3 4:53PM ; [facility] Diabetes Risk Test Score was four score 12/05/2022 Medical Established Patient with Gemini Silva [employer] 12/05/2022 Last Documented On 3 4:53PM ; [facility] Venipuncture was performed Medical Estab lished Patient with Gemini Silva H[employer]HOSTESS GROUND 12/05/2022 Last Documented On 3 4:53PM ; [facility] Visit for: screening for mal ignant neoplasm of respiratory organs Medical Established Patient with Gemini Silva [employer]ESS [employer] 12/05/2022 Last Documented On 3 4:53PM ; [facility] [Body mass index [BMI] 27.0- 27.9, adult] assessment of body mass index Medical Established Patient with Gemini Silva [employer]ESS [employer] 05/31/2022 Last Documented On 3 11:09AM ; [facility] Mild cognitive impairment Medical Establ ished Patient with Gemini Silva [employer] 05/31/2022 Last Documented On 3 11:09AM ; [facility] Nicotine dependence uncomplicated Medica l Established Patient with Gemini Silva [employer] 05/31/2022 Last Documented On 3 11:09AM ; [facility] Screening for Hep C Medical Established Patient with Gemini Silva [employer] 05/31/2022 Last Documented On 3 11:09AM ; [facility] Vitamin D deficiency Medical Established Patient with Gemini Silva [employer] 05/31/2022 Last Documented On 3 11:09AM ; [facility] Undifferentiated schizophrenia BH Establ ished Patient with Miminirmala Brock LPCC-S 11/16/2021 Last Documented On 2 11:46AM ; [facility] Assessment of body mass inde x [Body mass index [BMI] 29.0-29.9, adult] Medical Established Patient with Gemini Flores [employer]ESS [employer] 11/16/2021 Last Documented On 2 12:44PM ; [facility] Diabetes Risk Test Score was five score 11/16/2021 Medical Established Patient with Gemini Silva [employer] 11/16/2021 Last Documented On 2 12:44PM ; [facility] Visit for: routine adult H&P with abnormal findings Medical Established Patient with Gemini Silva [employer] 11/16/2021 Last Documented On 2 12:44PM ; [facility] Arthralgia of pelvis / hip / femur Medic al Established Patient with Mily Migel [employer]ESS [employer] 08/16/2021 Last Documented On 2 8:08AM ; [facility] Mild cognitive impairment Medical Establ ished Patient with Mily Migel [employer] 08/16/2021 Last Documented On 2 8:08AM ; [facility] Schizophrenia Medical Established Patient with Mily Migel [employer] 08/16/2021 Last Documented On 2 8:08AM ; [facility] Z68.29 - Body mass index [BM I] 29.0-29.9, adult Medical Established Patient with Mily Migel [employer] 08/16/2021 Last Documented On 2 8:08AM ; [facility] Undifferentiated schizophrenia BH Establ ished Patient with Mimi De La Cruzerson LPCC-S 07/14/2021 Last Documented On 2 12:23PM ; [facility] Arthralgia of pelvis / hip / femur Medic al Established Patient with Mily Migel [employer] 07/14/2021 Last Documented On 2 8:03PM ; [facility] Arthralgia of the left pelvis/hip/femur Medical Established Patient with Mily Migel [employer] 07/14/2021 Last Documented On 2 8:03PM ; [facility] Encounter for Immunization Medical Estab lished Patient with Mily Migel [employer] 07/14/2021 Last Documented On 2 8:03PM ; [facility] Mild cognitive impairment Medical Establ ished Patient with Mily Lainez [facility] 07/14/2021 Last Documented On 2 8:03PM ; [facility] R29.6 - Repeated falls Medical Establish ed Patient with Mily Lainez [facility] 07/14/2021 Last Documented On 2 8:03PM ; [facility] Schizophrenia Medical Established Patient with Mily Lainez [facility] 07/14/2021 Last Documented On 2 8:03PM ; [facility] Visit for: routine adult H&P with abnormal findings Medical Established Patient with Mily Lainez [facility] 07/14/2021 Last Documented On 2 8:03PM ; [facility] Vitamin D deficiency Medical Established Patient with Mily Lainez [facility] 07/14/2021 Last Documented On 2 8:03PM ; [facility] Z68.28 - Body mass index [BM I] 28.0-28.9, adult Medical Established Patient with Mily Lainez [facility] 07/14/2021 Last Documented On 2 8:03PM ; [facility] Undifferentiated schizophrenia BH Establ ished [facility]21 Last Documented On 1 10:47PM ; [facility] A bilateral screening mammog monica was performed Medical Established Patient with Mily Lainez [facility] 01/13/2021 Last Documented On 1 8:03PM ; [facility] Assessment of body mass index Medical Es tablished Patient with Mily Lainez [facility] 01/13/2021 Last Documented On 1 8:03PM ; [facility] Cerumen impaction in the right ear Medic al Established Patient with Milyveronica Lainez [facility] 01/13/2021 Last Documented On 1 8:03PM ; [facility] Encounter for Immunization Medical Estab lished Patient with Mily Migel [facility] 01/13/2021 Last Documented On 1 8:03PM ; [facility] Hearing loss Medical Established Patient with Mily Lainez [facility] 01/13/2021 Last Documented On 1 8:03PM ; [facility] Mild cognitive impairment Medical Establ ished Patient with Mily Lainez [employer] 01/13/2021 Last Documented On 1 8:03PM ; [facility] Schizophrenia Medical Established Patient with Mily Lainez [employer] 01/13/2021 Last Documented On 1 8:03PM ; [facility] Visit for routine adult H&P without abnormal findings Medical Established Patient with Mily Lainez [employer] 01/13/2021 Last Documented On 1 8:03PM ; [facility] Vitamin D deficiency Medical Established Patient with Mily Lainez [facility] 01/13/2021 Last Documented On 1 8:03PM ; [facility] Nicotine dependence Established Patient with Shante Short LISWS 10/14/2020 Last Documented On 1 4:08PM ; [facility] Schizophrenia Established Patient with Mindy meredith Short LISWS 10/14/2020 Last Documented On 1 4:08PM ; [facility] Cerumen impaction in the right ear Medic al Established Patient with Mily Lainez [facility] 10/14/2020 Last Documented On 1 7:54AM ; [facility] Colon screening Medical Established Patient with Mily Lainez [facility] 10/14/2020 Last Documented On 1 7:54AM ; [facility] Diabetes Risk Test Score was four score 10/14/2020 Medical Established Patient with Mily Lainez [facility] 10/14/2020 Last Documented On 1 7:54AM ; [facility] Mild cognitive impairment Medical Establ ished Patient with Mily Lainez [facility] 10/14/2020 Last Documented On 1 7:54AM ; [facility] Routine history and physical Medical Est ablished Patient with Mily Lainez [facility] 10/14/2020 Last Documented On 1 7:54AM ; [facility] Schizophrenia Medical Established Patient with Mily Lainez [employer] 10/14/2020 Last Documented On 1 7:54AM ; [facility] Visit for: screening for hum an immunodeficiency virus Medical Established Patient with Mily Lainez [employer] 10/14/2020 Last Documented On 1 7:54AM ; [facility] Z13.818 - Encounter for scre ening for other digestive system disorders Medical Established Patient with Mily Lainez [employer] 10/14/2020 Last Documented On 1 7:54AM ; [facility] Z68.27 - Body mass index [BM I] 27.0-27.9, adult Medical Established Patient with Mily Lainez [employer] 10/14/2020 Last Documented On 1 7:54AM ; [facility] Body mass index Medical Established Patient with Mily Migel [employer] 03/16/2020 Last Documented On 1 7:49PM ; [facility] Chronic obstructive pulmonary disease Me dical Established Patient with Mily Migel [facility] 03/16/2020 Last Documented On 1 7:49PM ; [facility] Mild cognitive impairment Medical Establ ished Patient with Mily Lainez [facility] 03/16/2020 Last Documented On 1 7:49PM ; [facility] Routine history and physical Medical Est ablished Patient with Mily Lainez [facility] 03/16/2020 Last Documented On 1 7:49PM ; [facility] Schizophrenia Medical Established Patient with Mily Lainez [facility] 03/16/2020 Last Documented On 1 7:49PM ; [facility] Arthralgia of the pelvis / h ip / femur Telemedicine with Mily Lainez [facility] 09/01/2019 Last Documented On 0 10:14AM ; [facility] Body mass index Telemedicine with Mily schwartz [facility] 09/01/2019 Last Documented On 0 10:14AM ; [facility] Mild cognitive impairment Telemedicine with Crista kelly Lainez [facility] 09/01/2019 Last Documented On 0 10:14AM ; [facility] Schizophrenia Telemedicine with Milyveronica Gunderson e [facility] 09/01/2019 Last Documented On 0 10:14AM ; [facility] Work Phone: [phone] 325-521512-05-2023 Progress note* Progress note Date Encounter Last Documented by 01/16/2023 Medical Established Patient Last documented on 01/17/2023; 12:01 PM, Mily Lainez HOST[employer]HOSTESS [employer]OUND; [facility] Active Problems & Conditions - M25.559 - Arthralgia Pelvis / Hip / Femur - G31.84 - Mild Cognitive Impairment - F17.200 - Nicotine Dependence Uncomplicated - F20.9 - Schizophrenia - E55.9 - Vitamin D Deficiency Chief Complaint The Chief Complaint is: Pt here for 6 week f/u . Pt never heard from Gastro. Reason For Visit Visit for: routine follow up and pneumonia vaccine. Referred Here No prior encounters. History of Present Illness - Allergy list reviewed - Reviewed Medications - Medication list reviewed Patient is presenting from [facility] for routine follow up. Patient reports that she has not heard from GI referral placed at last visit. Patient reports that her stomach is feeling much better since the protonix and states that she has not had any more dark stools since the last visit. Patient would also like to have cologuard ordered for colorectal screening. Patient reports that she has what she thinks is a spider bite on her left ear. Has been present for about 7 weeks. Denies pain or drainage. Reports that she keeps picking at the scab. Patient has no other concerns at this time. Patient has follow up with Dr. Magaña on 01/22/23 Current Medication - Acetaminophen 325 MG Oral Tablet ievery 6 hours PRN, 0 days, 2 refills - Albuterol Sulfate HFA 108 (90 Base) MCG/ACT Inhalation Aerosol Solution inhale 1-2 puffs by mouth every 4-6 hours as needed for shortness of breath, 30 days, 11 refills - Aspirin 81 MG Oral Tablet Delayed Release Take 1 tablet by mouth daily, 30 days, 11 refills - Ativan 0.5 MG Oral Tablet three times daily, 0 days, 0 refills - Atorvastatin Calcium 10 MG Oral Tablet take 1 tablet daily at bedtime, 30 days, 5 refills - Daily Multivitamin Oral Capsule No Sig Selected Take 1 tablet by mouth daily, 30 days, 11 refills - Mucinex DM 30-600 MG Oral Tablet Extended Release 12 Hour daliy as needed, 0 days, 0 refills - Naproxen 500 MG Oral Tablet one tablet twice a day as needed for pain, 10 days, 0 refills - Ondansetron 4 MG Oral Tablet Disintegrating every 8 hours PRN, 30 days, 5 refills - Pantoprazole Sodium 20 MG Oral Tablet Delayed Release Take one tablet daily, 30 days, 1 refills - risperiDONE 2 MG Oral Tablet Give 1 tablet by mouth daily, 30 days, 0 refills - Senexon-S 8.6-50 MG Oral Tablet As needed, 0 days, 0 refills - SEROquel 300 MG Oral Tablet Take 1 at night, 0 days, 0 refills - Vitamin D (Cholecalciferol) 25 MCG (1000 UT) Oral Tablet take 1 tablet by mouth daily, 30 days, 5 refills - Zoloft 100 MG Oral Tablet 1 tab daily, 0 days, 0 refills Past Medical/Surgical History Reported: Medical: No previous hospitalizations. Immunization History: Recent immunization for flu. : Not planning to have a baby in the next 12 months. Diagnoses: Hyperlipidemia Dementia schizophrenia. Social History Environmental Exposure: No secondhand cigarette smoke exposure. Tobacco use: Cigarette smoking Moderate (11-19/day). Alcohol: Not using alcohol. Drug Use: Not using drugs denied by patient. Sexual: Denied sexual activity, sexual orientation Straight (not lesbian or rodney), and gender identity Female. Allergies - PENICILLINS Review Of Systems Systemic: No systemic symptoms. Head: No headache. Otolaryngeal: No ear symptoms, no nasal symptoms, and no throat symptoms. Cardiovascular: No cardiovascular symptoms. Pulmonary: No pulmonary symptoms. Gastrointestinal: No gastrointestinal symptoms. Genitourinary: No genitourinary symptoms. Musculoskeletal: No musculoskeletal symptoms. Neurological: No neurological symptoms. Psychological: No psychological symptoms. Skin: No skin symptoms. Physical Findings - Vitals taken 01/16/2023 09:02 am BP-Sitting R122/81 mmHg Pulse Rate-Yjuhhtv872 bpm Kdbwel75.5 in Bociqe661 lbs Body Mass Index27.9 kg/m2 Body Surface Area1.7 m2 Oxygen Dzcxvgwhcx14 % Vital Signs: - Systolic blood pressure < 130 mmHg. - Diastolic blood pressure 80-89 mmHg. General Appearance: - Awake. - Alert. - In no acute distress. Eyes: General/bilateral: Pupils: - PERRLA. Lungs: - Respiration rhythm and depth was normal. - Clear to auscultation. Cardiovascular: Heart Rate And Rhythm: - Normal. Heart Sounds: - Normal. Abdomen: Auscultation: - Bowel sounds were normal. Musculoskeletal System: General/bilateral: - Normal movement of all extremities ambulates with walker at baseline. Neurological: - Oriented to time, place, and person. Psychiatric: - Expression of emotions finding was normal. Skin: - General appearance was abnormal small scabbed area on the right ear lobe. Assessment - Z68.27 - Body mass index [BMI] 27.0-27.9, adult - Z23 - Encounter for immunization - Z12.11 - Encounter for screening for malignant neoplasm of colon - E55.9 - Vitamin D deficiency, unspecified - G31.84 - Mild cognitive impairment of uncertain or unknown etiology - F17.200 - Nicotine dependence, unspecified, uncomplicated - F20.9 - Schizophrenia, unspecified Therapy - Immunization administration, by injection, one vaccine. Vaccinations - PCV (Prevnar-20) Dose #1 Status: Administered Date: 01/16/2023 - Received dose of Reported: Patient has received the COVID Vaccine - Received dose of pneumococcal conjugate vaccine, 20-valent, IM use Counseling/Education - Not wishing to stop smoking offered Quit Line information - Discussed nutritional needs teach healthy choices including fruits and vegetables - Patient education about a proper diet - Discussed concerns about exercise: promote physical activity Plan StartCited- Encounter for screening for malignant neoplasm of colon Lab: Stool-based DNA test with hemoglobin immunoassay component a EndCited StartCited- Gastro-esophageal reflux disease without esophagitis Pantoprazole Sodium 20 MG tablet Take one tablet daily, 30 days, 2 refills EndCited StartCited- Vitamin D deficiency, unspecified Vitamin D (Cholecalciferol) 25 MCG (1000 UT) tablet take 1 tablet by mouth daily, 30 days, 5 refills EndCited No changes to medications at this time. Will order cologuard for colon cancer screening. Advised that GI may want colonoscopy instead. Patient to follow up in 3 months. Advance Directives - Advance Care Planning Care Team - Mily Lainez CNP Health Reminders - Assess BMI satisfied 01/16/2023. - Assess Tobacco Use satisfied 01/16/2023. - Follow Up Plan BMI Management satisfied 01/16/2023. - Smoking & Tobacco Cessation Intervention and Counseling satisfied 01/16/2023. [facility]-24-2023 Evaluation note Includes: Assessments for all patient encounters Findings Encounter Date [Body mass index [BMI] 28.0- 28.9, adult] assessment of body mass index Medical Established Patient with Gemini Flores [employer]OST[employer]ESS [employer] 12/05/2022 Last Documented On 3 4:53PM ; [facility] Diabetes Risk Test Score was four score 12/05/2022 Medical Established Patient with Gemini Silva [employer] 12/05/2022 Last Documented On 3 4:53PM ; [facility] Venipuncture was performed Medical Estab lished Patient with Gemini Silva [employer] 12/05/2022 Last Documented On 3 4:53PM ; [facility] Visit for: screening for mal ignant neoplasm of respiratory organs Medical Established Patient with Gemini Silva [employer] 12/05/2022 Last Documented On 3 4:53PM ; [facility] [Body mass index [BMI] 27.0- 27.9, adult] assessment of body mass index Medical Established Patient with Gemini Silva [employer] 05/31/2022 Last Documented On 3 11:09AM ; [facility] Mild cognitive impairment Medical Establ ished Patient with Gemini Silva [employer] 05/31/2022 Last Documented On 3 11:09AM ; [facility] Nicotine dependence uncomplicated Medica l Established Patient with Gemini Silva [employer] 05/31/2022 Last Documented On 3 11:09AM ; [facility] Screening for Hep C Medical Established Patient with Gemini Silva [employer] 05/31/2022 Last Documented On 3 11:09AM ; [facility] Vitamin D deficiency Medical Established Patient with Gemini Silva [employer] 05/31/2022 Last Documented On 3 11:09AM ; [facility] Undifferentiated schizophrenia BH Establ ished Patient with Mimi Brock LPCC-S 11/16/2021 Last Documented On 2 11:46AM ; [facility] Assessment of body mass inde x [Body mass index [BMI] 29.0-29.9, adult] Medical Established Patient with Gemini Flores [employer] 11/16/2021 Last Documented On 2 12:44PM ; [facility] Diabetes Risk Test Score was five score 11/16/2021 Medical Established Patient with Gemini Silva [employer] 11/16/2021 Last Documented On 2 12:44PM ; [facility] Visit for: routine adult H&P with abnormal findings Medical Established Patient with Gemini Silva [employer] 11/16/2021 Last Documented On 2 12:44PM ; [facility] Arthralgia of pelvis / hip / femur Medic al Established Patient with Mily Migel [employer] 08/16/2021 Last Documented On 2 8:08AM ; [facility] Mild cognitive impairment Medical Establ ished Patient with Mily Migel [employer] 08/16/2021 Last Documented On 2 8:08AM ; [facility] Schizophrenia Medical Established Patient with Mily Migel [employer] 08/16/2021 Last Documented On 2 8:08AM ; [facility] Z68.29 - Body mass index [BM I] 29.0-29.9, adult Medical Established Patient with Mily Migel [employer] 08/16/2021 Last Documented On 2 8:08AM ; [facility] Undifferentiated schizophrenia BH Establ ished Patient with Mimi Brock LPCC-S 07/14/2021 Last Documented On 2 12:23PM ; [facility] Arthralgia of pelvis / hip / femur Medic al Established Patient with Mily Migel [employer] 07/14/2021 Last Documented On 2 8:03PM ; [facility] Arthralgia of the left pelvis/hip/femur Medical Established Patient with Mily Migel [employer] 07/14/2021 Last Documented On 2 8:03PM ; [facility] Encounter for Immunization Medical Estab lished Patient with Mily Migel [employer] 07/14/2021 Last Documented On 2 8:03PM ; [facility] Mild cognitive impairment Medical Establ ished Patient with Mily Migel [employer] 07/14/2021 Last Documented On 2 8:03PM ; [facility] R29.6 - Repeated falls Medical Establish ed Patient with Mily Lainez [employer] 07/14/2021 Last Documented On 2 8:03PM ; [facility] Schizophrenia Medical Established Patient with Mily Migel [employer] 07/14/2021 Last Documented On 2 8:03PM ; [facility] Visit for: routine adult H&P with abnormal findings Medical Established Patient with Mily Migel [facility] 07/14/2021 Last Documented On 2 8:03PM ; [facility] Vitamin D deficiency Medical Established Patient with Mily Migel [facility] 07/14/2021 Last Documented On 2 8:03PM ; [facility] Z68.28 - Body mass index [BM I] 28.0-28.9, adult Medical Established Patient with Milyveronica Lainez [employer] 07/14/2021 Last Documented On 2 8:03PM ; [facility] Undifferentiated schizophrenia BH Establ ished Patient with Tatyana Todd [facility] 01/13/2021 Last Documented On 1 10:47PM ; [facility] A bilateral screening mammog monica was performed Medical Established Patient with Mily Lainez [facility] 01/13/2021 Last Documented On 1 8:03PM ; [facility] Assessment of body mass index Medical Es tablished Patient with Mily Lainez [facility] 01/13/2021 Last Documented On 1 8:03PM ; [facility] Cerumen impaction in the right ear Medic al Established Patient with Mily Migel [facility] 01/13/2021 Last Documented On 1 8:03PM ; [facility] Encounter for Immunization Medical Estab lished Patient with Mily Migel [facility] 01/13/2021 Last Documented On 1 8:03PM ; [facility] Hearing loss Medical Established Patient with Mily Migel [facility] 01/13/2021 Last Documented On 1 8:03PM ; [facility] Mild cognitive impairment Medical Establ ished Patient with Mily Migel [facility] 01/13/2021 Last Documented On 1 8:03PM ; [facility] Schizophrenia Medical Established Patient with Mily Migel [facility] 01/13/2021 Last Documented On 1 8:03PM ; [facility] Visit for routine adult H&P without abnormal findings Medical Established Patient with Mily Lainez [employer] 01/13/2021 Last Documented On 1 8:03PM ; [facility] Vitamin D deficiency Medical Established Patient with Mily Lainez [employer] 01/13/2021 Last Documented On 1 8:03PM ; [facility] Nicotine dependence Established Patient with Shante Hall LISWS 10/14/2020 Last Documented On 1 4:08PM ; [facility] Schizophrenia Established Patient with Mindy meredith Short LISWS 10/14/2020 Last Documented On 1 4:08PM ; [facility] Cerumen impaction in the right ear Medic al Established Patient with Mily Lainez [facility] 10/14/2020 Last Documented On 1 7:54AM ; [facility] Colon screening Medical Established Patient with Mily Lainez [facility] 10/14/2020 Last Documented On 1 7:54AM ; [facility] Diabetes Risk Test Score was four score 10/14/2020 Medical Established Patient with Mily Lainez [facility] 10/14/2020 Last Documented On 1 7:54AM ; [facility] Mild cognitive impairment Medical Establ ished Patient with Mily Lainez [facility] 10/14/2020 Last Documented On 1 7:54AM ; [facility] Routine history and physical Medical Est ablished Patient with Mily Lainez [facility] 10/14/2020 Last Documented On 1 7:54AM ; [facility] Schizophrenia Medical Established Patient with Mily Lainez [facility] 10/14/2020 Last Documented On 1 7:54AM ; [facility] Visit for: screening for hum an immunodeficiency virus Medical Established Patient with Mily Lainez [facility] 10/14/2020 Last Documented On 1 7:54AM ; [facility] Z13.818 - Encounter for scre ening for other digestive system disorders Medical Established Patient with Mily Lainez [facility] 10/14/2020 Last Documented On 1 7:54AM ; [facility] Z68.27 - Body mass index [BM I] 27.0-27.9, adult Medical Established Patient with Mily Lainez [employer] 10/14/2020 Last Documented On 1 7:54AM ; [facility] Body mass index Medical Established Patient with Mily Lainez [employer] 03/16/2020 Last Documented On 1 7:49PM ; [facility] Chronic obstructive pulmonary disease Me dical Established Patient with Mily Migel [employer] 03/16/2020 Last Documented On 1 7:49PM ; [facility] Mild cognitive impairment Medical Establ ished Patient with Mily Lainez [employer] 03/16/2020 Last Documented On 1 7:49PM ; [facility] Routine history and physical Medical Est ablished Patient with Mily Lainez [facility] 03/16/2020 Last Documented On 1 7:49PM ; [facility] Schizophrenia Medical Established Patient with Mily Lainez [facility] 03/16/2020 Last Documented On 1 7:49PM ; [facility] Arthralgia of the pelvis / h ip / femur Telemedicine with Mily Lainez [facility] 09/01/2019 Last Documented On 0 10:14AM ; [facility] Body mass index Telemedicine with Mily Lawrenc e [facility] 09/01/2019 Last Documented On 0 10:14AM ; [facility] Mild cognitive impairment Telemedicine with Crista Baldwin [facility] 09/01/2019 Last Documented On 0 10:14AM ; [facility] Schizophrenia Telemedicine with Mily Lawrenc e [facility] 09/01/2019 Last Documented On 0 10:14AM ; [facility] Work Phone: [phone]) 839-609510-24-2023 History general Narrative - Reported Includes: Medical History in patient's chart Description Last Updated Not planning to have a baby in the next 12 months 12/05/2022 Last Documented On 3 4:53PM ; [facility] A recent immunization for flu 03/16/2020 Last Documented On 1 7:49PM ; [facility] No previous hospitalizations 03/16/2020 Last Documented On 1 7:49PM ; [facility] dementia ~ ~schizophrenia 09/01/2019 Last Documented On 0 10:14AM ; [facility] History of hyperlipidemia 09/01/2019 Last Documented On 0 10:14AM ; [facility] Work Phone: [phone]) 139-345110-24-2023 History general Narrative - Reported Includes: Medical History in patient's chart Description Last Updated Not planning to have a baby in the next 12 months 12/05/2022 Last Documented On 3 4:53PM ; [facility] A recent immunization for flu 03/16/2020 Last Documented On 1 7:49PM ; [facility] No previous hospitalizations 03/16/2020 Last Documented On 1 7:49PM ; [facility] dementia ~ ~schizophrenia 09/01/2019 Last Documented On 0 10:14AM ; [facility] History of hyperlipidemia 09/01/2019 Last Documented On 0 10:14AM ; [facility] Work Phone: [phone]) 130-808710-24-2023 Progress note* Progress note Date Encounter Last Documented by 12/05/2022 Medical Established Patient Last documented on 12/05/2022; 4:53 PM, Gemini Flores CNP; [facility] Active Problems & Conditions - M25.559 - Arthralgia Pelvis / Hip / Femur - G31.84 - Mild Cognitive Impairment - F17.200 - Nicotine Dependence Uncomplicated - F20.9 - Schizophrenia - E55.9 - Vitamin D Deficiency Chief Complaint The Chief Complaint is: 6 month f/u, other concerns. Referred Here Not referred by urgent care clinic and not the emergency room. No prior encounters. - Data to be reviewed: no clinical lab tests History of Present Illness Crista Woodard is a 67 year old female. - Allergy list reviewed - Reviewed Medications Patient presents from [facility] Patient states that she is having tingling in her back that has been intermittent this past month Patient also complains of upper abdominal pain Does complain of black stool intermittently with her last black BM being about 3-4 days ago Patient does have a 30+ pack year smoking history and would like a LCT scan Would like all testing complete at [facility] Gets vaccine at facility she stays Current Medication - Acetaminophen 325 MG Oral Tablet ievery 6 hours PRN, 0 days, 2 refills - Albuterol Sulfate HFA 108 (90 Base) MCG/ACT Inhalation Aerosol Solution inhale 1-2 puffs by mouth every 4-6 hours as needed for shortness of breath, 30 days, 11 refills - Aspirin 81 MG Oral Tablet Delayed Release Take 1 tablet by mouth daily, 30 days, 11 refills - Ativan 0.5 MG Oral Tablet three times daily, 0 days, 0 refills - Atorvastatin Calcium 10 MG Oral Tablet take 1 tablet daily at bedtime, 30 days, 5 refills - Daily Multivitamin Oral Capsule No Sig Selected Take 1 tablet by mouth daily, 30 days, 11 refills - Mucinex DM 30-600 MG Oral Tablet Extended Release 12 Hour daliy as needed, 0 days, 0 refills - Naproxen 500 MG Oral Tablet one tablet twice a day as needed for pain, 10 days, 0 refills - Ondansetron 4 MG Oral Tablet Disintegrating every 8 hours PRN, 30 days, 5 refills - risperiDONE 2 MG Oral Tablet Give 1 tablet by mouth daily, 30 days, 0 refills - SEROquel 300 MG Oral Tablet Take 1 at night, 0 days, 0 refills - Ventolin HFA 108 (90 Base) MCG/ACT Inhalation Aerosol Solution inhale 2 puffs by mouth every 4-6 hours as needed for shortness of breath, 30 days, 0 refills - Vitamin D (Cholecalciferol) 25 MCG (1000 UT) Oral Tablet take 1 tablet by mouth daily, 30 days, 5 refills - Zoloft 100 MG Oral Tablet 1 tab daily, 0 days, 0 refills Past Medical/Surgical History Reported: Medical: No previous hospitalizations. : Not planning to have a baby in the next 12 months. Diagnoses: Hyperlipidemia Dementia schizophrenia. Social History Environmental Exposure: Secondhand cigarette smoke exposure. Tobacco use: Cigarette smoking Light (1-10/day). Alcohol: Not using alcohol. Drug Use: Not using drugs denied by patient. Sexual: Denied sexual activity, sexual orientation Straight (not lesbian or rodney), and gender identity Female. Allergies - PENICILLINS Review Of Systems Systemic: No systemic symptoms. Head: No headache. Otolaryngeal: Ear symptoms. No nasal symptoms and no throat symptoms. Cardiovascular: No chest pain or discomfort. Pulmonary: Pulmonary symptoms. Gastrointestinal: No gastrointestinal symptoms. Genitourinary: No genitourinary symptoms. Musculoskeletal: No musculoskeletal symptoms. Neurological: No dizziness. Psychological: No psychological symptoms. Skin: No skin symptoms. Physical Findings - Vitals taken 12/05/2022 10:06 am BP-Sitting L119/80 mmHg BP Cuff SizeRegular Pulse Rate-Icxorcc790 bpm Temp-Oral98 F Eyiwzg99.5 in Uxhrku887 lbs Body Mass Index28.1 kg/m2 Body Surface Area1.7 m2 Oxygen Wnuhyrelnc70 % Vital Signs: - Systolic blood pressure < 130 mmHg. - Diastolic Blood Pressure < 80 mmHg. General Appearance: - Awake. - Alert. - In no acute distress. Eyes: General/bilateral: Pupils: - PERRLA. Ears: Right Ear: - Examined cerumen impaction. Left Ear: - Examined. Lungs: - Respiration rhythm and depth was normal. - Clear to auscultation. Cardiovascular: Heart Rate And Rhythm: - Normal. Heart Sounds: - Normal. Abdomen: Auscultation: - Bowel sounds were normal. Musculoskeletal System: General/bilateral: - Normal movement of all extremities. Neurological: - Oriented to time, place, and person. Psychiatric: - Expression of emotions finding was normal. Skin: - General appearance was normal. Tests Urinalysis Was Performed: Routine urinalysis without microscopic examination abnormal Protein +30. Glucose Negative. Abnormal Bilirubin Small. Urobilinogen 0.2 and Nitrite Negative. Abnormal Ketones 5 Trace. Leukocyte Estrase Negative and Blood Negative. Specific [place]on 1.030 and pH 5.5. Urine clarity Cloudy and color Yellow. Blood Analysis: Hemoglobin Studies: ValueDate Blood hemoglobin A1c 5.6%12/05/2022 Hemoglobin A1c level < 7.0%. Blood Endocrine Laboratory Tests: Value Blood glucose level by fingerstick 140 mg/dl Laboratory-based Chemistry: Fecal Analysis: Cologuard Requested. Other Laboratory Tests: Screening for sexually transmitted infections was not performed. Laboratory Studies: Vascular Procedures: Left Antecubital Space. Assessment - Visit for: screening for malignant neoplasm of respiratory organs [Encounter for screening for malignant neoplasm of respiratory organs] - Body mass index [Body mass index [BMI] 28.0-28.9, adult] - Venipuncture was performed [Encounter for preprocedural laboratory examination] - Diabetes Risk Test Score was four score 12/05/2022 [Encounter for screening for diabetes mellitus] Therapy - Patient has agreed to receive flu vaccine today. - SBIRT Full Screen Neg. Vaccinations - Received dose of Reported: Patient has received the COVID Vaccine Counseling/Education - Not wishing to stop smoking offered Quit Line information - Discussed nutritional needs teach healthy choices including fruits and vegetables - Patient education about a proper diet - Not requesting contraception - Discussed concerns about exercise: promote physical activity Follow up in 6 weeks to go over testing Plan StartCited- Encntr screen for malignant neoplasm of respiratory organs Outside Diagn Tests/CT: CT Chest W/O contrast (40849) Instructions: [facility] Murilloted StartCited- Encounter for general adult medical exam w abnormal findings Lab: CBC WITH DIFF Lab: COMP METABOLIC PROF Lab: LIPID PROFILE Lab: TSH W/REFLEX TO FT4 Lab: VITAMIN D 25 OH EndCited StartCited- Gastro-esophageal reflux disease without esophagitis Pantoprazole Sodium 20 MG tablet Take one tablet daily, 30 days, 1 refills EndCited StartCited- Generalized abdominal pain Referrals: Gastroenterology Instructions: Please make a referral to:[facility] Outside Labs/Microbiology: BD Affirm EndCited StartCited- Hyperlipidemia, unspecified Atorvastatin Calcium 10 MG tablet take 1 tablet daily at bedtime, 30 days, 5 refills EndCited StartCited- Impacted cerumen, right ear Debrox 6.5% mL Place 4 drops in right ear two times a day for four days, flush ears on 5th day, 5 days, 0 refills EndCited Other - Patient tolerated venipuncture well; - Number of attempts for venipuncture 2.0 Advance Directives - Advance Care Planning Care Team - Mily Lainez CNP User Defined 1 She has not had 4 or more drinks in a day within the past year. No (0 points) [Pre-DM]: No, patient has not been diagnosed with high blood pressure, No (0 points) [Pre-DM]: No, mother, father, sister, or brother does not have DM, No (0 points) [Pre-DM]: Patient has not been diagnosed with gestational diabetes or given to a baby weighing 9 pounds or more, and Yes (0 point) [Pre-DM]: Yes, physically active. No misuse of prescription only drugs and not illicit. Woman (0 Points) [Pre-DM]. MARCELL-2 score was 0 12/05/2022, MARCELL-7 score [MARCELL-7] Feeling nervous, anxious or on edge? + 0 pt : Not at all, [MARCELL-7] Not being able to stop or control worrying? + 0 pt : Not at all, Patient Health Questionnaire 9-Item total score was one 12/05/2022, [PHQ-9-1] Little interest or pleasure in doing things? + 1 pt : Several days, [PHQ-9-2] Feeling down, depressed, or hopeless? + 0 pt : Not at all, [PHQ-9-3] Trouble falling or staying asleep or sleeping too much? + 0 pt : Not at all, [PHQ-9-4] Feeling tired or having little energy? + 0 pt : Not at all, [PHQ-9-5] Poor appetite or overeating? + 0 pt : Not at all, [PHQ-9-6] Feeling bad about yourself-or that you are a failure + 0 pt : Not at all, [PHQ-9-7] Trouble concentrating on things such as reading the newspaper + 0 pt : Not at all, [PHQ-9-8] Moving or speaking so slowly that other people have noticed. + 0 pt : Not at all, [PHQ-9-9] Thoughts that you would be better off or hurting yourself? + 0 pt : Not at all, and 60 years or older (3 points) [Pre-DM]. [facility]10-24-2023 Instructions Includes: Instructions for all patient encounters Instructions to patient Intervention and counseling on cessation of tobacco use, 3-10 minutes Last Documented On 0 10:45AM ; [facility] Education and Decision Aids were provided during visit for: Discussed nutritional needs teach healthy choices including fruits and vegetables Last Documented On 3 10:10AM ; [facility] Patient education about a pr oper diet Last Documented On 3 10:10AM ; [facility] Discussed concerns about exe rcise : promote physical activity ~ ~Follow up in 6 weeks to go over testing Last Documented On 3 4:48PM ; [facility] Not requesting contraception Last Documented On 3 10:10AM ; [facility] Discussed nutritional needs teach healthy choices including fruits and vegetables Last Documented On 3 10:22AM ; [facility] Patient education about a pr oper diet Last Documented On 3 10:22AM ; [facility] Discussed concerns about exe rcise : promote physical activity ~ ~Follow up in 6 months Last Documented On 3 11:06AM ; [facility] Discussed nutritional needs teach healthy choices including fruits and vegetables Last Documented On 2 11:00AM ; [facility] Patient education about a pr oper diet Last Documented On 2 11:00AM ; [facility] Discussed concerns about exe rcise : promote physical activity Last Documented On 2 11:00AM ; [facility] Discussed nutritional needs teach healthy choices including fruits and vegetables Last Documented On 2 1:38PM ; [facility] Patient education about a pr oper diet Last Documented On 2 1:38PM ; [facility] Discussed concerns about exe rcise : promote physical activity Last Documented On 2 1:38PM ; [facility] Discussed healthy lifestyle behaviors. ~Spoke about sleep hygiene. ~Provided supportive listening and empathy. ~Normalized emotions. ~Encouraged use of positive coping skills and supports Last Documented On 2 12:22PM ; [facility] Discussed nutritional needs teach healthy choices including fruits and vegetables Last Documented On 2 11:11AM ; [facility] Patient education about a pr oper diet Last Documented On 2 11:11AM ; [facility] Discussed concerns about exe rcise : promote physical activity Last Documented On 2 11:11AM ; [facility] Not requesting contraception Last Documented On 2 11:11AM ; [facility] Discussed current self-care methods/coping skills. ~Validated and normalized patient's feelings while assisting process recent events Last Documented On 1 10:20PM ; [facility] Discussed nutritional needs teach healthy choices including fruits and vegetables Last Documented On 1 10:13AM ; [facility] Patient education about a pr oper diet Last Documented On 1 10:13AM ; [facility] Discussed concerns about exe rcise : promote physical activity Last Documented On 1 10:13AM ; [facility] provided active listenin g and support. ~P discussed coping skills and supports that patient can continue to implement. Patient reports having good support in the assisted living facility and likes watching football. ~ Last Documented On 1 4:08PM ; [facility] Discussed nutritional needs teach healthy choices including fruits and vegetables Last Documented On 1 10:37AM ; [facility] Patient education about a pr oper diet Last Documented On 1 10:37AM ; [facility] Discussed concerns about exe rcise : promote physical activity Last Documented On 1 10:37AM ; [facility] Discussed nutritional needs teach healthy choices including fruits and vegetables Last Documented On 1 3:37PM ; [facility] Patient education about a pr oper diet Last Documented On 1 3:37PM ; [facility] Discussed concerns about exe rcise : promote physical activity Last Documented On 1 3:37PM ; [facility] Patient education about a pr oper diet Last Documented On 0 10:45AM ; [facility] Work Phone: 1(449) 959-997704-19-2023 Progress note* Progress note Date Encounter Last Documented by 05/31/2022 Chart Update Last documented on 05/31/2022; 10:48 AM, Mimi Brock [facility]; [facility] Active Problems & Conditions - M25.559 - Arthralgia Pelvis / Hip / Femur - G31.84 - Mild Cognitive Impairment - F17.200 - Nicotine Dependence Uncomplicated - F20.9 - Schizophrenia - E55.9 - Vitamin D Deficiency Current Medication - Acetaminophen 325 MG Oral Tablet ievery 6 hours PRN, 0 days, 2 refills - Albuterol Sulfate HFA 108 (90 Base) MCG/ACT Inhalation Aerosol Solution inhale 1-2 puffs by mouth every 4-6 hours as needed for shortness of breath, 30 days, 11 refills - Aspirin 81 MG Oral Tablet Delayed Release Take 1 tablet by mouth daily, 30 days, 11 refills - Ativan 0.5 MG Oral Tablet three times daily, 0 days, 0 refills - Atorvastatin Calcium 10 MG Oral Tablet take 1 tablet daily at bedtime, 30 days, 5 refills - Daily Multivitamin Oral Capsule No Sig Selected Take 1 tablet by mouth daily, 30 days, 11 refills - Mucinex DM 30-600 MG Oral Tablet Extended Release 12 Hour daliy as needed, 0 days, 0 refills - Naproxen 500 MG Oral Tablet one tablet twice a day as needed for pain, 10 days, 0 refills - Ondansetron 4 MG Oral Tablet Disintegrating every 8 hours PRN, 30 days, 5 refills - risperiDONE 2 MG Oral Tablet Give 1 tablet by mouth daily, 30 days, 0 refills - SEROquel 300 MG Oral Tablet Take 1 at night, 0 days, 0 refills - Ventolin HFA 108 (90 Base) MCG/ACT Inhalation Aerosol Solution inhale 2 puffs by mouth every 4-6 hours as needed for shortness of breath, 30 days, 0 refills - Vitamin D (Cholecalciferol) 25 MCG (1000 UT) Oral Tablet take 1 tablet by mouth daily, 30 days, 5 refills - Zoloft 100 MG Oral Tablet 1 tab daily, 0 days, 0 refills Past Medical/Surgical History Reported: Medical: No previous hospitalizations. Immunization History: Recent immunization for flu. Diagnoses: Hyperlipidemia Dementia schizophrenia. Social History Environmental Exposure: Secondhand cigarette smoke exposure. Tobacco use: Cigarette smoking moderate: Patient smokes 11-19 cigarettes per day and heavy (20-39 / day): Patient smokes 20-39 cigarettes per day. Not using electronic cigarettes/vaping. Alcohol: Not using alcohol. Drug Use: Not using drugs denied by patient. Sexual: Not sexually active. Denied sexual activity, sexual orientation Straight (not lesbian or rodney), and gender identity Female. Allergies - PENICILLINS Advance Directives - Advance Care Planning Care Team - Mily Lainez CNP Health Reminders - Assess Tobacco Use satisfied 05/31/2022. - PHQ9 / PHQA satisfied 05/31/2022. - Smoking & Tobacco Cessation Intervention and Counseling satisfied 05/31/2022. User Defined 1 Not afraid of someone you have a relationship with No. Has lack of transportation kept patient from medical appointments or from getting medications: No and lack of transportation has kept patient from beneficial non-medical activities: No. Do you feel stress - tense, restless, nervous, or anxious, or unable to sleep at night because your mind is troubled all the time - these days? A little bit and Does patient feel physically and emotionally safe where he/she lives: Yes. Is patient is worried about losing housing: No. What is the highest grade or level of school you have completed or the highest degree you have received? High school diploma or GED. In the past year, patient or family members in household were unable to get needed clothing: No, unable to get needed child nurse: No, unable to get other needs No, unable to get needed phone: No, unable to get needed utilities: No, unable to get needed Medicine or Health Care: No, and In the past year, patient or family members in household were unable to get needed food: No. How often does patient see or talk to people that that he/she cares about and feels close to: 5 or more times a week. PHQ-9: total score was four 05/31/2022 If you checked off problems, how difficult is it for you to do your work? + : Somewhat difficult, [PHQ-9-1] Little interest or pleasure in doing things? + 0 pt : Not at all, [PHQ-9-2] Feeling down, depressed, or hopeless? + 1 pt : Several days, [PHQ-9-3] Trouble falling or staying asleep or sleeping too much? + 0 pt : Not at all, [PHQ-9-4] Feeling tired or having little energy? + 1 pt : Several days, [PHQ-9-5] Poor appetite or overeating? + 1 pt : Several days, [PHQ-9-6] Feeling bad about yourself-or that you are a failure + 0 pt : Not at all, [PHQ-9-7] Trouble concentrating on things such as reading the newspaper + 1 pt : Several days, [PHQ-9-8] Moving or speaking so slowly that other people have noticed. + 0 pt : Not at all, and [PHQ-9-9] Thoughts that you would be better off or hurting yourself? + 0 pt : Not at all. [facility]04-19-2023 Progress note* Progress note Date Encounter Last Documented by 05/31/2022 Medical Established Patient Last documented on 05/31/2022; 11:09 AM, Gemini Flores CNP; [facility] Active Problems & Conditions - M25.559 - Arthralgia Pelvis / Hip / Femur - G31.84 - Mild Cognitive Impairment - F17.200 - Nicotine Dependence Uncomplicated - F20.9 - Schizophrenia - E55.9 - Vitamin D Deficiency Chief Complaint The Chief Complaint is: Pt here for 6 month f/u. Pt is living at [facility] an Assisted Living facility in [facility]. Referred Here No prior encounters. History of Present Illness Crista Woodard is a 67 year old female. - Allergy list reviewed - Reviewed Medications Patient presents for 6 month follow up Does complain of an increase in shortness of breath for the past month , has a hisotry of COPD, currently is smoking more due to the warm weather Is not interested in quitiing smoking Has increased use of albuterol since she started smoking more, is planning on cutting back down States she had a colonoscopy 6 months ago, Current Medication - Acetaminophen 325 MG Oral Tablet ievery 6 hours PRN, 0 days, 2 refills - Albuterol Sulfate HFA 108 (90 Base) MCG/ACT Inhalation Aerosol Solution inhale 1-2 puffs by mouth every 4-6 hours as needed for shortness of breath, 30 days, 11 refills - Aspirin 81 MG Oral Tablet Delayed Release Take 1 tablet by mouth daily, 30 days, 11 refills - Ativan 0.5 MG Oral Tablet three times daily, 0 days, 0 refills - Atorvastatin Calcium 10 MG Oral Tablet take 1 tablet daily at bedtime, 30 days, 5 refills - Daily Multivitamin Oral Capsule No Sig Selected Take 1 tablet by mouth daily, 30 days, 11 refills - Mucinex DM 30-600 MG Oral Tablet Extended Release 12 Hour daliy as needed, 0 days, 0 refills - Naproxen 500 MG Oral Tablet one tablet twice a day as needed for pain, 10 days, 0 refills - Ondansetron 4 MG Oral Tablet Disintegrating every 8 hours PRN, 30 days, 5 refills - risperiDONE 2 MG Oral Tablet Give 1 tablet by mouth daily, 30 days, 0 refills - SEROquel 300 MG Oral Tablet Take 1 at night, 0 days, 0 refills - Ventolin HFA 108 (90 Base) MCG/ACT Inhalation Aerosol Solution inhale 2 puffs by mouth every 4-6 hours as needed for shortness of breath, 30 days, 0 refills - Vitamin D (Cholecalciferol) 25 MCG (1000 UT) Oral Tablet take 1 tablet by mouth daily, 30 days, 5 refills - Zoloft 100 MG Oral Tablet 1 tab daily, 0 days, 0 refills Past Medical/Surgical History Reported: Medical: No previous hospitalizations. Immunization History: Recent immunization for flu. Diagnoses: Hyperlipidemia Dementia schizophrenia. Social History Environmental Exposure: No secondhand cigarette smoke exposure. Tobacco use: Cigarette smoking Moderate (11-19/day). Alcohol: Not using alcohol. Drug Use: Not using drugs denied by patient. Sexual: Denied sexual activity, sexual orientation Straight (not lesbian or rodney), and gender identity Female. Allergies - PENICILLINS Review Of Systems Systemic: No systemic symptoms. Head: No headache. Otolaryngeal: No ear symptoms, no nasal symptoms, and no throat symptoms. Cardiovascular: No chest pain or discomfort. Pulmonary: Pulmonary symptoms. Gastrointestinal: No gastrointestinal symptoms. Genitourinary: No genitourinary symptoms. Musculoskeletal: No musculoskeletal symptoms. Neurological: No dizziness. Psychological: No psychological symptoms. Skin: No skin symptoms. Physical Findings - Vitals taken 05/31/2022 10:18 am BP-Sitting L103/64 mmHg Pulse Rate-Ehbhpzy226 bpm Temp-Fxoivwnh27.3 F Ifymyv48.5 in Nwaxgc179 lbs 6.4 oz Body Mass Index27.6 kg/m2 Body Surface Area1.7 m2 Oxygen Toqjcrozoa30 % General Appearance: - Awake. - Alert. - In no acute distress. Eyes: General/bilateral: Pupils: - PERRLA. Lungs: - Respiration rhythm and depth was normal. - Clear to auscultation. Cardiovascular: Heart Rate And Rhythm: - Normal. Heart Sounds: - Normal. Abdomen: Auscultation: - Bowel sounds were normal. Musculoskeletal System: General/bilateral: - Normal movement of all extremities. Neurological: - Oriented to time, place, and person. Psychiatric: - Expression of emotions finding was normal. Skin: - General appearance was normal. Tests Microbiology: Microbiology - Antibody Identification: In House Screen Hep C was negative 05/31/2022. Assessment - Screening for Hep C [Encounter for screening for other viral diseases] - Body mass index [Body mass index [BMI] 27.0-27.9, adult] - Vitamin D deficiency [Vitamin D deficiency, unspecified] - Mild cognitive impairment [Mild cognitive impairment of uncertain or unknown etiology] - Nicotine dependence uncomplicated [Nicotine dependence, unspecified, uncomplicated] Test Conclusions Administered CAT Total Score 12 05/31/2022. Vaccinations - Received dose of Reported: Patient has received the COVID Vaccine Counseling/Education - Not wishing to stop smoking offered Quit Line information - Discussed nutritional needs teach healthy choices including fruits and vegetables - Patient education about a proper diet - Discussed concerns about exercise: promote physical activity Follow up in 6 months Plan StartCited- Chronic obstructive pulmonary disease, unspecified Albuterol Sulfate HFA 108 (90 Base) MCG/ACT gram inhale 1-2 puffs by mouth every 4-6 hours as needed for shortness of breath, 30 days, 11 refills EndCited StartCited- Hyperlipidemia, unspecified Atorvastatin Calcium 10 MG tablet take 1 tablet daily at bedtime, 30 days, 5 refills EndCited StartCited- Other Aspirin 81 MG tablet Take 1 tablet by mouth daily, 30 days, 11 refills Daily Multivitamin capsule No Sig Selected Take 1 tablet by mouth daily, 30 days, 11 refills EndCited StartCited- Vitamin D deficiency, unspecified Vitamin D (Cholecalciferol) 25 MCG (1000 UT) tablet take 1 tablet by mouth daily, 30 days, 5 refills EndCited Practice Management Systolic blood pressure < 130 mmHg and diastolic < 80 mmHg diastolic < 80 mmHg. Advance Directives - Advance Care Planning Care Team - Mily Lainez CNP User Defined 1 No I have lots of energy was three 3. No I have no phlegm (mucus) in my chest at all was two 2. No My chest does not feel tight at all was 0 0. No I never cough was two 2, no When I walk up a hill or flight of stairs I am not breatless was five 5, and no I am confident leaving my home despite my lung condition was 0 0. No I am not limited doing any activities at home was 0 0. No I sleep soundly was 0 0. [facility]07-05-2022 Evaluation note Includes: Assessments for all patient encounters Findings Encounter Date Arthralgia of pelvis / hip / femur Medic al Established Patient with Mily Lainez CNP 08/16/2021 Mild cognitive impairment Medical Establ ished Patient with Mily Lainez CNP 08/16/2021 Schizophrenia Medical Established Patient with Mily Lainez [employer] 08/16/2021 Z68.29 - Body mass index [BM I] 29.0-29.9, adult Medical Established Patient with Mily Lainez CNP 08/16/2021 Undifferentiated schizophrenia BH Establ ished Patient with Mimi Brock [facility] 07/14/2021 Arthralgia of pelvis / hip / femur Medic al Established Patient with Mily Lainez [employer] 07/14/2021 Arthralgia of the left pelvis/hip/femur Medical Established Patient with Mily Lainez [employer] 07/14/2021 Encounter for Immunization Medical Estab lished Patient with Mily Lainez CNP 07/14/2021 Mild cognitive impairment Medical Establ ished Patient with Mily Lainez CNP 07/14/2021 R29.6 - Repeated falls Medical Establish ed Patient with Mily Lainez CNP 07/14/2021 Schizophrenia Medical Established Patient with Mily Lainez CNP 07/14/2021 Visit for: routine adult H&P with abnormal findings Medical Established Patient with Mily Lainez CNP 07/14/2021 Vitamin D deficiency Medical Established Patient with Mily Lainez CNP 07/14/2021 Z68.28 - Body mass index [BM I] 28.0-28.9, adult Medical Established Patient with Mily Lainez [employer] 07/14/2021 Undifferentiated schizophrenia BH Establ ished Patient with Tatyana Todd [facility] 01/13/2021 A bilateral screening mammog monica was performed Medical Established Patient with Mily Lainez [employer] 01/13/2021 Assessment of body mass index Medical Es tablished Patient with Mily Migel [employer] 01/13/2021 Cerumen impaction in the right ear Medic al Established Patient with Mily Migel [employer] 01/13/2021 Encounter for Immunization Medical Estab lished Patient with Mily Migel [employer] 01/13/2021 Hearing loss Medical Established Patient with Mily Migel [employer] 01/13/2021 Mild cognitive impairment Medical Establ ished Patient with Mily Migel [employer] 01/13/2021 Schizophrenia Medical Established Patient with Mily Migel [employer] 01/13/2021 Visit for routine adult H&P without abnormal findings Medical Established Patient with Mily Migel [employer] 01/13/2021 Vitamin D deficiency Medical Established Patient with Mily Migel [employer] 01/13/2021 Nicotine dependence Established Patie nt with Shante Short [facility] 10/14/2020 Schizophrenia Established Patie nt with Shante Short [facility] 10/14/2020 Cerumen impaction in the right ear Medic al Established Patient with Mily Migel [employer] 10/14/2020 Colon screening Medical Established Patient with Mily Migel [employer] 10/14/2020 Diabetes Risk Test Score was four score 10/14/2020 Medical Established Patient with Mily Migel [employer] 10/14/2020 Mild cognitive impairment Medical Establ ished Patient with Mily Migel [employer] 10/14/2020 Routine history and physical Medical Est ablished Patient with Mily Migel [employer] 10/14/2020 Schizophrenia Medical Established Patient with Mily Migel [employer] 10/14/2020 Visit for: screening for hum an immunodeficiency virus Medical Established Patient with Mily Migel [employer] 10/14/2020 Z13.818 - Encounter for scre ening for other digestive system disorders Medical Established Patient with Mily Migel [employer] 10/14/2020 Z68.27 - Body mass index [BM I] 27.0-27.9, adult Medical Established Patient with Mily Migel [employer] 10/14/2020 Body mass index Medical Established Patient with Mily Migel [employer] 03/16/2020 Chronic obstructive pulmonary disease Me dical Established Patient with Mily Migel [employer] 03/16/2020 Mild cognitive impairment Medical Establ ished Patient with Mily Migel [employer] 03/16/2020 Routine history and physical Medical Est ablished Patient with Mily Migel [employer] 03/16/2020 Schizophrenia Medical Established Patient with Mily Migel [employer] 03/16/2020 Arthralgia of the pelvis / hip / femur T elemedicine with Milyveronica Lainez [employer] 09/01/2019 Body mass index Telemedicine with An ruelveronica Lainez [employer] 09/01/2019 Mild cognitive impairment Telemedicine w ith Milyveronica Lainez [employer] 09/01/2019 Schizophrenia Telemedicine with An ruelveronica Lainez [employer] 09/01/2019 [facility] Work Phone: 1(240) 459-213906-02-2022 Evaluation note Includes: Assessments for all patient encounters Findings Encounter Date Undifferentiated schizophrenia BH Establ ished Patient with Mimi Brock [facility] 07/14/2021 Arthralgia of pelvis / hip / femur Medic al Established Patient with Milyveronica Lainez [employer] 07/14/2021 Arthralgia of the left pelvis/hip/femur Medical Established Patient with Mily Lainez [employer] 07/14/2021 Encounter for Immunization Medical Estab lished Patient with Mily Migel [employer] 07/14/2021 Mild cognitive impairment Medical Establ ished Patient with Mily Migel [employer] 07/14/2021 R29.6 - Repeated falls Medical Establish ed Patient with Mily Migel [employer] 07/14/2021 Schizophrenia Medical Established Patient with Mily Lainez [employer] 07/14/2021 Visit for: routine adult H&P with abnormal findings Medical Established Patient with Mily Migel [employer] 07/14/2021 Vitamin D deficiency Medical Established Patient with Mily Migel [employer] 07/14/2021 Z68.28 - Body mass index [BM I] 28.0-28.9, adult Medical Established Patient with Mily Lainez [employer] 07/14/2021 Undifferentiated schizophrenia BH Establ ished Patient with Tatyana Todd [facility] 01/13/2021 A bilateral screening mammog monica was performed Medical Established Patient with Mily Lainez [employer] 01/13/2021 Assessment of body mass index Medical Es tablished Patient with Mily Lainez [employer] 01/13/2021 Cerumen impaction in the right ear Medic al Established Patient with Mily Migel [employer] 01/13/2021 Encounter for Immunization Medical Estab lished Patient with Milyveronica Lainez [employer] 01/13/2021 Hearing loss Medical Established Patient with Mily Migel [employer] 01/13/2021 Mild cognitive impairment Medical Establ ished Patient with Mily Migel [employer] 01/13/2021 Schizophrenia Medical Established Patient with Mily Migel [employer] 01/13/2021 Visit for routine adult H&P without abnormal findings Medical Established Patient with Mily Migel [employer] 01/13/2021 Vitamin D deficiency Medical Established Patient with Mily Migel [employer] 01/13/2021 Nicotine dependence Established Patie nt with Shante Short [facility] 10/14/2020 Schizophrenia BH Established Patie nt with Shante Short [facility] 10/14/2020 Cerumen impaction in the right ear Medic al Established Patient with Mily Migel [employer] 10/14/2020 Colon screening Medical Established Patient with Milyveronica Lainez [employer] 10/14/2020 Diabetes Risk Test Score was four score 10/14/2020 Medical Established Patient with Mily Migel [employer] 10/14/2020 Mild cognitive impairment Medical Establ ished Patient with Mily Lainez [employer] 10/14/2020 Routine history and physical Medical Est ablished Patient with Mily Migel [employer] 10/14/2020 Schizophrenia Medical Established Patient with Mily Migel [employer] 10/14/2020 Visit for: screening for hum an immunodeficiency virus Medical Established Patient with Mily Lainez [employer] 10/14/2020 Z13.818 - Encounter for scre ening for other digestive system disorders Medical Established Patient with Mily Lainez [employer] 10/14/2020 Z68.27 - Body mass index [BM I] 27.0-27.9, adult Medical Established Patient with Mily Migel [employer] 10/14/2020 Body mass index Medical Established Patient with Mily Migel [employer] 03/16/2020 Chronic obstructive pulmonary disease Me dical Established Patient with Mily Migel [employer] 03/16/2020 Mild cognitive impairment Medical Establ ished Patient with Milyveronica Lainez [employer] 03/16/2020 Routine history and physical Medical Est ablished Patient with Mily Migel [employer] 03/16/2020 Schizophrenia Medical Established Patient with Mily Migel [employer] 03/16/2020 Arthralgia of the pelvis / hip / femur T elemedicine with Mily Lainez [employer] 09/01/2019 Body mass index Telemedicine with An ruel Lainez [facility] 09/01/2019 Mild cognitive impairment Telemedicine w ith Mily Lainez [employer] 09/01/2019 Schizophrenia Telemedicine with An ruelveronica Lainez [facility] 09/01/2019 [facility] Work Phone: 1([phone]) 266-929506-02-2022 Reason for referral (narrative)* Date Encounter Description Provider Reason for Referral 07/14/21 Chart Update Mimi Brock [facility] Refer ral To Mental Health Team [facility] Work Phone: 1([phone]) 222-875112-02-2021 Evaluation note Includes: Assessments for all patient encounters Findings Encounter Date Undifferentiated schizophrenia BH Establ ished Patient with Tatyana Todd [facility] 01/13/2021 A bilateral screening mammog monica was performed Medical Established Patient with Mily Lainez [employer] 01/13/2021 Assessment of body mass index Medical Es tablished Patient with Mily Lainez [employer] 01/13/2021 Cerumen impaction in the right ear Medic al Established Patient with Mily Lainez [employer] 01/13/2021 Encounter for Immunization Medical Estab lished Patient with Mily Lainez [employer] 01/13/2021 Hearing loss Medical Established Patient with Mily Lainez [employer] 01/13/2021 Mild cognitive impairment Medical Establ ished Patient with Mily Lainez [employer] 01/13/2021 Schizophrenia Medical Established Patient with Milyveronica Lainez [employer] 01/13/2021 Visit for routine adult H&P without abnormal findings Medical Established Patient with Mily Lainez [employer] 01/13/2021 Vitamin D deficiency Medical Established Patient with Mily Lainez [employer] 01/13/2021 Nicotine dependence BH Established Patie nt with Shante Short [facility] 10/14/2020 Schizophrenia BH Established Patie nt with Shante Short [facility] 10/14/2020 Cerumen impaction in the right ear Medic al Established Patient with Mily Lainez [employer] 10/14/2020 Colon screening Medical Established Patient with Mily Migel [employer] 10/14/2020 Diabetes Risk Test Score was four score 10/14/2020 Medical Established Patient with Mily Migel [employer] 10/14/2020 Mild cognitive impairment Medical Establ ished Patient with Mily Migel [employer] 10/14/2020 Routine history and physical Medical Est ablished Patient with Mily Migel [employer] 10/14/2020 Schizophrenia Medical Established Patient with Mily Migel [employer] 10/14/2020 Visit for: screening for hum an immunodeficiency virus Medical Established Patient with Mily Lainez [employer] 10/14/2020 Z13.818 - Encounter for scre ening for other digestive system disorders Medical Established Patient with Mily Lainez [employer] 10/14/2020 Z68.27 - Body mass index [BM I] 27.0-27.9, adult Medical Established Patient with Mily Migel [employer] 10/14/2020 Body mass index Medical Established Patient with Mily Lainez [employer] 03/16/2020 Chronic obstructive pulmonary disease Me dical Established Patient with Mily Lainez [employer] 03/16/2020 Mild cognitive impairment Medical Establ ished Patient with Mily Migel [employer] 03/16/2020 Routine history and physical Medical Est ablished Patient with Mily Migel [employer] 03/16/2020 Schizophrenia Medical Established Patient with Mily Lainez [employer] 03/16/2020 Arthralgia of the pelvis / hip / femur T elemedicine with Mily Lainez [facility] 09/01/2019 Body mass index Telemedicine with An ruelveronica Lainez [facility] 09/01/2019 Mild cognitive impairment Telemedicine w ith Mily Lainez [facility] 09/01/2019 Schizophrenia Telemedicine with An ruelveronica Lainez [facility] 09/01/2019 [facility] Work Phone: 1([phone]) 320-164209-02-2021 Evaluation note Includes: Assessments for all patient encounters Findings Encounter Date Nicotine dependence Established Patie nt with Shante Short [facility] 10/14/2020 Schizophrenia Established Patie nt with Shante Short [facility] 10/14/2020 Cerumen impaction in the right ear Medic al Established Patient with Mily Lainez [employer] 10/14/2020 Colon screening Medical Established Patient with Mily Lainez [facility] 10/14/2020 Diabetes Risk Test Score was four score 10/14/2020 Medical Established Patient with Mily Lainez [employer] 10/14/2020 Mild cognitive impairment Medical Establ ished Patient with Mily Lainez [employer] 10/14/2020 Routine history and physical Medical Est ablished Patient with Mily Migel [employer] 10/14/2020 Schizophrenia Medical Established Patient with Mily Migel [employer] 10/14/2020 Visit for: screening for hum an immunodeficiency virus Medical Established Patient with Mily Lainez [employer] 10/14/2020 Z13.818 - Encounter for scre ening for other digestive system disorders Medical Established Patient with Mily Lainez [employer] 10/14/2020 Z68.27 - Body mass index [BM I] 27.0-27.9, adult Medical Established Patient with Mily Lainez [employer] 10/14/2020 Body mass index Medical Established Patient with Mily Migel [employer] 03/16/2020 Chronic obstructive pulmonary disease Me dical Established Patient with Mily Migel [employer] 03/16/2020 Mild cognitive impairment Medical Establ ished Patient with Mily Migel [employer] 03/16/2020 Routine history and physical Medical Est ablished Patient with Mily Migel [employer] 03/16/2020 Schizophrenia Medical Established Patient with Mily Migel [employer] 03/16/2020 Arthralgia of the pelvis / hip / femur T elemedicine with Mily Migel [employer] 09/01/2019 Body mass index Telemedicine with An ruel Migel [employer] 09/01/2019 Mild cognitive impairment Telemedicine w ith Mily Migel [employer] 09/01/2019 Schizophrenia Telemedicine with An ruelveronica Lainez [facility] 09/01/2019 [facility] Work Phone: [phone]) 487-523302-02-2021 History general Narrative - Reported Includes: Medical History in patient's chart Description Last Updated A recent immunization for flu 03/16/2020 No previous hospitalizations 03/16/2020 dementia ~ ~schizophrenia 09/01/2019 History of hyperlipidemia 09/01/2019 [facility] Work Phone: Evaluation note Includes: Assessments for all patient encounters Findings Encounter Date Arthralgia of pelvis / hip / femur Medic al Established Patient with Mily Migel [employer] 07/14/2021 Arthralgia of the left pelvis/hip/femur Medical Established Patient with Mily Migel [employer] 07/14/2021 Encounter for Immunization Medical Estab lished Patient with Mily Migel [employer] 07/14/2021 Mild cognitive impairment Medical Establ ished Patient with Mily Migel [employer] 07/14/2021 R29.6 - Repeated falls Medical Establish ed Patient with Mily Migel [employer] 07/14/2021 Schizophrenia Medical Established Patient with Mily Migel [employer] 07/14/2021 Vitamin D deficiency Medical Established Patient with Mily Migel [employer] 07/14/2021 Z68.28 - Body mass index [BM I] 28.0-28.9, adult Medical Established Patient with Mily Migel [employer] 07/14/2021 Undifferentiated schizophrenia BH Establ ished [facility] 01/13/2021 A bilateral screening mammog monica was performed Medical Established Patient with Mily Migel [employer] 01/13/2021 Assessment of body mass index Medical Es tablished Patient with Milyveronica Lainez [employer] 01/13/2021 Cerumen impaction in the right ear Medic al Established Patient with Mily Lainez [employer] 01/13/2021 Encounter for Immunization Medical Estab lished Patient with Mily Migel [employer] 01/13/2021 Hearing loss Medical Established Patient with Mily Migel [employer] 01/13/2021 Mild cognitive impairment Medical Establ ished Patient with Mily Migel [employer] 01/13/2021 Schizophrenia Medical Established Patient with Mily Migel [employer] 01/13/2021 Visit for routine adult H&P without abnormal findings Medical Established Patient with Milyveronica Lainez [employer] 01/13/2021 Vitamin D deficiency Medical Established Patient with Milyveronica Lainez [employer] 01/13/2021 Nicotine dependence BH Established Patie nt with Shante Short [facility] 10/14/2020 Schizophrenia BH Established Patie nt with Shante Short [facility] 10/14/2020 Cerumen impaction in the right ear Medic al Established Patient with Mily Lainez [employer] 10/14/2020 Colon screening Medical Established Patient with Mily Lainez [employer] 10/14/2020 Diabetes Risk Test Score was four score 10/14/2020 Medical Established Patient with Milyveronica Lainez [employer] 10/14/2020 Mild cognitive impairment Medical Establ ished Patient with Milyveronica Lainze [employer] 10/14/2020 Routine history and physical Medical Est ablished Patient with Mily Migel [employer] 10/14/2020 Schizophrenia Medical Established Patient with Mily Lainez [employer] 10/14/2020 Visit for: screening for hum an immunodeficiency virus Medical Established Patient with Mily Lainez [employer] 10/14/2020 Z13.818 - Encounter for scre ening for other digestive system disorders Medical Established Patient with Milyveronica Lainez [employer] 10/14/2020 Z68.27 - Body mass index [BM I] 27.0-27.9, adult Medical Established Patient with Mily Migel [employer] 10/14/2020 Body mass index Medical Established Patient with Mily Migel [employer] 03/16/2020 Chronic obstructive pulmonary disease Me dical Established Patient with Mily Migel [employer] 03/16/2020 Mild cognitive impairment Medical Establ ished Patient with Milyveronica Lainez [employer] 03/16/2020 Routine history and physical Medical Est ablished Patient with Mily Migel [employer] 03/16/2020 Schizophrenia Medical Established Patient with Mily Migel [employer] 03/16/2020 Arthralgia of the pelvis / hip / femur T elemedicine with Mily Lainez [employer] 09/01/2019 Body mass index Telemedicine with An ruel Lainez [employer] 09/01/2019 Mild cognitive impairment Telemedicine w ith Mily Lainez [employer] 09/01/2019 Schizophrenia Telemedicine with An ruelveronica Lainez [employer] 09/01/2019 [facility] Work Phone: Evaluation note Includes: Assessments for all patient encounters Findings Encounter Date Undifferentiated schizophrenia BH Establ ished Patient with Mimi Brock [facility] 07/14/2021 Arthralgia of pelvis / hip / femur Medic al Established Patient with Mily Lainez [employer] 07/14/2021 Arthralgia of the left pelvis/hip/femur Medical Established Patient with Mily Migel [employer] 07/14/2021 Encounter for Immunization Medical Estab lished Patient with Mily Migel [employer] 07/14/2021 Mild cognitive impairment Medical Establ ished Patient with Milyveronica Lainez [employer] 07/14/2021 R29.6 - Repeated falls Medical Establish ed Patient with Mily Lainez [employer] 07/14/2021 Schizophrenia Medical Established Patient with Mily Migel [employer] 07/14/2021 Visit for: routine adult H&P with abnormal findings Medical Established Patient with Mily Migel [employer] 07/14/2021 Vitamin D deficiency Medical Established Patient with Mily Migel [employer] 07/14/2021 Z68.28 - Body mass index [BM I] 28.0-28.9, adult Medical Established Patient with Mily Migel [employer] 07/14/2021 Undifferentiated schizophrenia BH Establ ished Patient with Tatyana Todd [facility] 01/13/2021 A bilateral screening mammog monica was performed Medical Established Patient with Milyveronica Lainez HOST/HOSTESS GROUND 01/13/2021 Assessment of body mass index Medical Es tablished Patient with Milyveronica Lainez [facility]HOSTESS [facility] 01/13/2021 Cerumen impaction in the right ear Medic al Established Patient with Mily Migel [facility] 01/13/2021 Encounter for Immunization Medical Estab lished Patient with Mily Migel [facility] 01/13/2021 Hearing loss Medical Established Patient with Mily Migel [facility] 01/13/2021 Mild cognitive impairment Medical Establ ished Patient with Mily Migel [facility] 01/13/2021 Schizophrenia Medical Established Patient with Mily Migel [facility] 01/13/2021 Visit for routine adult H&P without abnormal findings Medical Established Patient with Mily Migel [facility] 01/13/2021 Vitamin D deficiency Medical Established Patient with Mily Lainez [facility] 01/13/2021 Nicotine dependence BH Established Patie nt with Shante Short [facility]IS[facility] 10/14/2020 Schizophrenia BH Established Patie nt with Shante Short [facility]IS[facility] 10/14/2020 Cerumen impaction in the right ear Medic al Established Patient with Mily Migel [facility] 10/14/2020 Colon screening Medical Established Patient with Mily Migel [facility] 10/14/2020 Diabetes Risk Test Score was four score 10/14/2020 Medical Established Patient with Mily Migel [facility] 10/14/2020 Mild cognitive impairment Medical Establ ished Patient with Mily Migel [facility] 10/14/2020 Routine history and physical Medical Est ablished Patient with Mily Migel [facility] 10/14/2020 Schizophrenia Medical Established Patient with Mily Migel [facility] 10/14/2020 Visit for: screening for hum an immunodeficiency virus Medical Established Patient with Mily Lainez [facility] 10/14/2020 Z13.818 - Encounter for scre ening for other digestive system disorders Medical Established Patient with Mily Lainez [facility] 10/14/2020 Z68.27 - Body mass index [BM I] 27.0-27.9, adult Medical Established Patient with Mily Migel [facility] 10/14/2020 Body mass index Medical Established Patient with Mily Migel [facility] 03/16/2020 Chronic obstructive pulmonary disease Me dical Established Patient with Mily Migel [facility] 03/16/2020 Mild cognitive impairment Medical Establ ished Patient with Mily Lainez [facility] 03/16/2020 Routine history and physical Medical Est ablished Patient with Mily Lainez [facility] 03/16/2020 Schizophrenia Medical Established Patient with Mily Migel [facility] 03/16/2020 Arthralgia of the pelvis / hip / femur T elemedicine with Mily Lainez [facility] 09/01/2019 Body mass index Telemedicine with An ruel Lainez [facility] 09/01/2019 Mild cognitive impairment Telemedicine w ith Mily Lainez [facility] 09/01/2019 Schizophrenia Telemedicine with An ruelveronica Lainez [facility] 09/01/2019 [facility] Work Phone: Evaluation note Includes: Assessments for all patient encounters Findings Encounter Date Undifferentiated schizophrenia BH Establ ished [facility] with [facility]16[facility]21 Assessment of body mass inde x [Body mass index [BMI] 29.0-29.9, adult] Medical Established Patient with Gemini Flores [facility] 11/16/2021 Diabetes Risk Test Score was five score 11/16/2021 Medical Established Patient with Gemini Flores [facility] 11/16/2021 Visit for: routine adult H&P with abnormal findings Medical Established Patient with Gemini Flores [facility] 11/16/2021 Arthralgia of pelvis / hip / femur Medic al Established Patient with Milyveronica Lainez [facility] 08/16/2021 Mild cognitive impairment Medical Establ ished Patient with Mily Migel [facility] 08/16/2021 Schizophrenia Medical Established Patient with Mily Migel [facility] 08/16/2021 Z68.29 - Body mass index [BM I] 29.0-29.9, adult Medical Established Patient with Mily Migel [facility] 08/16/2021 Undifferentiated schizophrenia BH Establ ished Patient with Mimi Brock [facility] 07/14/2021 Arthralgia of pelvis / hip / femur Medic al Established Patient with Milyveronica Lainez [facility] 07/14/2021 Arthralgia of the left pelvis/hip/femur Medical Established Patient with Mily Migel [facility] 07/14/2021 Encounter for Immunization Medical Estab lished Patient with Mily Migel [facility] 07/14/2021 Mild cognitive impairment Medical Establ ished Patient with Mily Migel [facility] 07/14/2021 R29.6 - Repeated falls Medical Establish ed Patient with Mily Migel [facility] 07/14/2021 Schizophrenia Medical Established Patient with Mily Migel [facility] 07/14/2021 Visit for: routine adult H&P with abnormal findings Medical Established Patient with Mily Migel [facility] 07/14/2021 Vitamin D deficiency Medical Established Patient with Mily Migel [facility] 07/14/2021 Z68.28 - Body mass index [BM I] 28.0-28.9, adult Medical Established Patient with Mily Migel [facility] 07/14/2021 Undifferentiated schizophrenia BH Establ ished Patient with Tatyana Todd [facility] 01/13/2021 A bilateral screening mammog monica was performed Medical Established Patient with Mily Migel [facility] 01/13/2021 Assessment of body mass index Medical Es tablished Patient with Mily Migel [facility] 01/13/2021 Cerumen impaction in the right ear Medic al Established Patient with Mily Migel [facility] 01/13/2021 Encounter for Immunization Medical Estab lished Patient with Mily Migel [facility] [employer] 01/13/2021 Hearing loss Medical Established Patient with Mily Lainez [facility] 01/13/2021 Mild cognitive impairment Medical Establ ished Patient with Mily Migel [facility] 01/13/2021 Schizophrenia Medical Established Patient with Milyveronica Lainez [facility] 01/13/2021 Visit for routine adult H&P without abnormal findings Medical Established Patient with Mily Lainez [facility] 01/13/2021 Vitamin D deficiency Medical Established Patient with Mily Lainez [facility] 01/13/2021 Nicotine dependence Established Patie nt with Shante Short [facility] 10/14/2020 Schizophrenia BH Established Patie nt with Shante Short [facility] 10/14/2020 Cerumen impaction in the right ear Medic al Established Patient with Mily Migel [facility] 10/14/2020 Colon screening Medical Established Patient with Mily Lainez [facility] 10/14/2020 Diabetes Risk Test Score was four score 10/14/2020 Medical Established Patient with Mily Lainez [facility] 10/14/2020 Mild cognitive impairment Medical Establ ished Patient with Mily Lainez [facility] 10/14/2020 Routine history and physical Medical Est ablished Patient with Mily Migel [facility] 10/14/2020 Schizophrenia Medical Established Patient with Mily Lainez [facility] 10/14/2020 Visit for: screening for hum an immunodeficiency virus Medical Established Patient with Mily Lainez [facility] 10/14/2020 Z13.818 - Encounter for scre ening for other digestive system disorders Medical Established Patient with Mily Lainez [facility] 10/14/2020 Z68.27 - Body mass index [BM I] 27.0-27.9, adult Medical Established Patient with Mily Lainez [facility] 10/14/2020 Body mass index Medical Established Patient with Mily Lainez [facility] 03/16/2020 Chronic obstructive pulmonary disease Me dical Established Patient with Mily Lainez [facility] 03/16/2020 Mild cognitive impairment Medical Establ ished Patient with Mily Migel [facility] 03/16/2020 Routine history and physical Medical Est ablished Patient with Mily Migel [facility] 03/16/2020 Schizophrenia Medical Established Patient with Mily Migel [facility] 03/16/2020 Arthralgia of the pelvis / hip / femur T elemedicine with Mily Lainez [facility] 09/01/2019 Body mass index Telemedicine with An ruel Lainez [facility] 09/01/2019 Mild cognitive impairment Telemedicine w ith Mily Lainez [facility] 09/01/2019 Schizophrenia Telemedicine with An ruel Migel [facility] 09/01/2019 [facility] Work Phone: History of Present illness Narrative History of Present Illness not supported for this document type No [facility] of [facility]ness [facility] Work Phone: Instructions Instructions not supported for this document type No Instructions [facility] Work Phone: Patient problem outcome Narrative Includes: Evaluations & Outcomes for active Goals No Outcomes [facility] Work Phone: Reason for referral (narrative)No [facility]: Review of systems Narrative - Reported Review of Systems not supported for this document type No [facility]: Advance Directives Documents on File Type Date Recorded Patient Broadcaster Expl anation Advance Directives and Living Will Power of Union Contract Representative Latest Code Status on File Code Status Date Activated Date Inactivated Comments Full Code 08/06/2019 10:57 PM 08/08/2019 6:28 PM Full Code 08/06/2019 10:57 PM 08/06/2019 10:57 PM Latest Code Status on File Code Status Date Activated Date Inactivated Comments Full Code 08/16/2019 9:47 PM Full Code 08/06/2019 10:57 PM 08/08/2019 6:28 PM Latest Code Status on File Code Status Date Activated Date Inactivated Comments Full Code 08/16/2019 9:47 PM 08/20/2019 7:26 PM Latest Code Status on File Code Status Date Activated Date Inactivated Comments Full Code 09/11/2019 10:33 PM Full Code 08/16/2019 9:47 PM 08/20/2019 7:26 PM Latest Code Status on File Code Status Date Activated Date Inactivated Comments Full Code 09/11/2019 10:33 PM 09/12/2019 3:25 PM Latest Code Status on File Code Status Date Activated Date Inactivated Comments Full Code 08/06/2019 10:57 PM Documents on File Type Date Recorded Patient Broadcaster Expl anation ACP-Advance Directive ACP-Power of Union Contract Representative Directive Pat Aware Third Republican Effective Date Reviewed [place] t[place] Advance Care Planning Yes 07/14/2021 Current and Verified Note: Discussed with patient about care planning in the future. Gave patient informational packet and was advised to fill out and bring back at next appointment. Assessments Diagnosis Psychosis, unspecified psychosis type (HCC)- Primary Schizophrenia, unspecified type ([facility]) Diagnosis Anemia, unspecified type Diagnosis Hallucinations Total self-care deficit Diagnosis Cannot walk Difficulty in walking Unable to ambulate Difficulty in walking Inability to ambulate due to hip Difficulty in walking Findings Encounter Date Arthralgia of the pelvis / hip / femur T elemedicine with Mily Lainez [facility] 09/01/2019 Body mass index Telemedicine with An ruel Lainez [facility] 09/01/2019 Mild cognitive impairment Telemedicine w [facility] Mily Lainez [facility] 09/01/2019 Schizophrenia Telemedicine with An ruel Lainez [facility] 09/01/2019 Diagnosis Closed fracture of multiple ribs of right side, initial encounter Contusion of left orbit, initial encounter Multiple abrasions Abrasion or friction burn of other, multiple, and unspecified sites, without mention of infection Diagnosis Altered mental status, unspecified altered mental status type Excoriated rash Rash and other nonspecific skin eruption Acute cystitis without hematuria Acute cystitis Septicemia ([facility]) Unspecified septicemia UTI (urinary tract infection) Urinary tract infection, site not specified Findings Encounter Date Body mass index Medical Established Patient with Mily Lainez [facility] 03/16/2020 Chronic obstructive pulmonary disease Me dical Established Patient with Mily Lainez [facility] 03/16/2020 Mild cognitive impairment Medical Establ ished Patient with Mily Lainez [facility] 03/16/2020 Routine history and physical Medical Est ablished Patient with Mily Lainez [facility] 03/16/2020 Schizophrenia Medical Established Patient with Mily Lainez [facility] 03/16/2020 Arthralgia of the pelvis / hip / femur T elemedicine with Mily Lainez [facility] 09/01/2019 Body mass index Telemedicine with An ruel Lainez [facility] 09/01/2019 Mild cognitive impairment Telemedicine w [facility] Mily Lainez [facility] 09/01/2019 Schizophrenia Telemedicine with An ruel Lainez [facility] 09/01/2019 Diagnosis Dehydration Diagnosis Closed fracture of left hip, initial encounter ([facility]) Other closed nondisplaced fracture of proximal end of left humerus, initial encounter Encounter for pre-operative cardiovascular clearance Pre-operative cardiovascular examination History of cardioembolic cerebrovascular accident (CVA) Discharge Instructions * Attachments The following attachments cannot be sent through Care Everywhere. * Anemia (Latvian) documented in this encounter* Discharge Instr - SAFIA* Caitlyn Vincent, 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 GROUND - 08/20/2019 2:22 PM EDT Continuity of Care Form Patient Name: Crista Woodard : 1955 Admit date: 08/16/2019 Discharge date: 08/20/2019 Code Status Order: Full Code Advance Directives: Advance Care Flowsheet Documentation Date/Time Healthcare Directive Type of Healthcare Directive Copy in Chart Healthcare Agent Appointed Healthcare Agent's Name Healthcare Agent's Phone Number 08/16/19 [phone] No, patient does not have an advance directive for healthcare treatment -- -- -- -- -- Admitting Physician: Charlene Regan MD PCP: No primary care provider on file. Discharging Nurse: Gloria Tapia Discharging Hospital Unit/Room#: 0320/0320-01 Discharging Unit Emergency Contact: Extended Emergency Contact Information Primary Emergency Contact: Warren Pickard [facility] Relation: Other Hearing or visual needs: None Other needs: None Preferred language: Latvian Band Saw Operator needed? No Past Surgical History: Past Surgical History: Procedure Laterality Date COLONOSCOPY 2010 HIP FRACTURE SURGERY Left 08/06/2019 ORIF-Dr. Sagastume HIP FRACTURE SURGERY Left 08/06/2019 HIP OPEN REDUCTION INTERNAL FIXATION performed by Clara Sagastume MD at [facility] OR KNEE ARTHROSCOPY Right 2010 SKIN CANCER EXCISION 2009 TONSILLECTOMY 1960 Immunization History: Immunization History Administered Date(s) Administered Influenza Vaccine, unspecified formulation 12/08/2014, 11/12/2015, 10/25/2016 Influenza Virus Vaccine 11/21/2013, 12/08/2014, 10/25/2016, 11/01/2017 Influenza, Quadv, IM, (6 mo and older Fluzone, Flulaval, Fluarix and 3 yrs and older Afluria) 11/01/2017 Influenza, Quadv, IM, PF (6 mo and older Fluzone, Flulaval, Fluarix, and 3 yrs and older Afluria) 10/25/2016, 11/01/2017 Influenza, Quadv, Recombinant, IM PF (Flublok 18 yrs and older) 11/13/2018 Pneumococcal Polysaccharide ([id number]) 01/21/2015 Active Problems: Patient Active Problem List Diagnosis Code Tobacco dependency F17.200 Gastroesophageal reflux disease without esophagitis K21.9 Chronic lower back pain / Falls, knee surgery with abnormality in gait M54.5, G89.29 Mixed incontinence N39.46 Cerebrovascular accident (CVA) due to thrombosis of precerebral artery ([facility]) I63.00 Mixed hyperlipidemia E78.2 Other chronic pain / Multiple Joints G89.29 Hip fracture requiring operative repair, left, closed, initial encounter ([facility]) S72.002A Encounter for pre-operative cardiovascular clearance Z01.810 History of cardioembolic cerebrovascular accident (CVA) Z86.73 Unable to ambulate R26.2 Inability to ambulate due to hip R26.2 Isolation/Infection: Isolation No Isolation Patient Infection Status Infection Onset Added Last Indicated Last Indicated By Review Planned Expiration Resolved Resolved By None active Resolved COVID-19 Rule Out 08/16/19 08/16/19 08/16/19 COVID-19 (Ordered) 08/16/19 Rule- Out Test Resulted Nurse Assessment: Last Vital Signs: BP 105/62 Pulse 83 Temp 99 F (37.2 C) (Temporal) Resp 16 Ht 5' 4 (1.626 m) Wt 160 lb 6.4 oz (72.8 kg) SpO2 95% BMI 27.53 kg/m Last documented pain score (0-10 scale): Pain Level: 0 Last Weight: Wt Readings from Last 1 Encounters: 08/20/19 160 lb 6.4 oz (72.8 kg) Mental Status: oriented, alert and hx schizophrenia IV Access: - None Nursing Mobility/ADLs: Walking Assisted Transfer Assisted Bathing Assisted Dressing Assisted Toileting Assisted Feeding Independent Production Associate Assisted Med Delivery whole Wound Care Documentation and Therapy: Elimination: Continence: Bowel: No Bladder: No Urinary Catheter: None Colostomy/Ileostomy/Ileal Conduit: No Date of Last BM: 08/20/2019 Intake/Output Summary (Last 24 hours) at 08/20/2019 1431 Last data filed at 08/20/2019 1242 Gross per 24 hour Intake 300 ml Output Net 300 ml I/O last 3 completed shifts: In: 440 [P.O.:440] Out: - Safety Concerns: At Risk for Falls Impairments/Disabilities: Vision Nutrition Therapy: Current Nutrition Therapy: - Oral Diet: General Routes of Feeding: Oral Liquids: Thin Liquids Daily Fluid Restriction: no Last Modified Barium Swallow with Video (Video Swallowing Test): not done Treatments at the Time of Hospital Discharge: Respiratory Treatments: n/a Oxygen Therapy: is not on home oxygen therapy. Ventilator: - No ventilator support Rehab Therapies: Physical Therapy and Occupational Therapy Weight Bearing Status/Restrictions: Touchdown weight bearing (10-25 lbs) only on left leg Other Medical Equipment (for information only, NOT a DME order): walker Other Treatments: sling to LUE Patient's personal belongings (please select all that are sent with patient): Glasses RN SIGNATURE: CASE MANAGEMENT/SOCIAL WORK SECTION Inpatient Status Date: 08/16/2019 Readmission Risk Assessment Score: Readmission Risk Risk of Unplanned Readmission: 21 Discharging to Facility/ Agency Name: [facility] Address:[address] [place] [address] Dialysis Facility (if applicable) Name: Address: Dialysis Schedule: Phone: Fax: Oven Dauber/Central Office Technician signature: PHYSICIAN SECTION Prognosis: Good Condition at Discharge: Stable Rehab Potential (if transferring to Rehab): Good Recommended Labs or Other Treatments After Discharge: None Physician Certification: I certify the above information and transfer of Crista Woodard is necessary for the continuing treatment of the diagnosis listed and that she requires Longterm Facility for less 30 days. Update Admission H&P: No change in H&P PHYSICIAN SIGNATURE: documented in this encounter* Discharge Instr - SAFIA* Beena Bender RN - 09/12/2019 9:46 AM EDT Continuity of Care Form Patient Name: Crista Woodard : 1955 Admit date: 09/11/2019 Discharge date: 09/12/2019 Code Status Order: Full Code Advance Directives: Advance Care Flowsheet Documentation Date/Time Healthcare Directive Type of Healthcare Directive Copy in Chart Healthcare Agent Appointed Healthcare Agent's Name Healthcare Agent's Phone Number 09/11/19 [phone] Unknown, patient unable to respond due to medical condition -- -- -- -- -- Admitting Physician: Nina Johnson MD PCP: No primary care provider on file. Discharging Nurse: Beena GOULD Discharging Hospital Unit/Room#: 0321/0321-01 Discharging Unit Emergency Contact: Extended Emergency Contact Information Primary Emergency Contact: Warren Pickard [facility] Relation: Other Hearing or visual needs: None Other needs: None Preferred language: Latvian Band Saw Operator needed? No Past Surgical History: Past Surgical History: Procedure Laterality Date COLONOSCOPY 2009 HIP FRACTURE SURGERY Left 08/06/2019 ORIF-Dr. Sagastume HIP FRACTURE SURGERY Left 08/06/2019 HIP OPEN REDUCTION INTERNAL FIXATION performed by Clara Sagastume MD at [facility] OR KNEE ARTHROSCOPY Right 2010 SKIN CANCER EXCISION 2009 TONSILLECTOMY 1960 Immunization History: Immunization History Administered Date(s) Administered Influenza Vaccine, unspecified formulation 12/08/2014, 11/12/2015, 10/25/2016 Influenza Virus Vaccine 11/21/2013, 12/08/2014, 10/25/2016, 11/01/2017 Influenza, Quadv, IM, (6 mo and older Fluzone, Flulaval, Fluarix and 3 yrs and older Afluria) 11/01/2017 Influenza, Quadv, IM, PF (6 mo and older Fluzone, Flulaval, Fluarix, and 3 yrs and older Afluria) 10/25/2016, 11/01/2017 Influenza, Quadv, Recombinant, IM PF (Flublok 18 yrs and older) 11/13/2018 Pneumococcal Polysaccharide ([id number]) 01/21/2015 Active Problems: Patient Active Problem List Diagnosis Code Tobacco dependency F17.200 Gastroesophageal reflux disease without esophagitis K21.9 Chronic lower back pain / Falls, knee surgery with abnormality in gait M54.5, G89.29 Mixed incontinence N39.46 Cerebrovascular accident (CVA) due to thrombosis of precerebral artery (HCC) I63.00 Mixed hyperlipidemia E78.2 Other chronic pain / Multiple Joints G89.29 Hip fracture requiring operative repair, left, closed, initial encounter ([facility]) S72.002A History of cardioembolic cerebrovascular accident (CVA) Z86.73 Unable to ambulate R26.2 Inability to ambulate due to hip R26.2 Multiple closed fractures of ribs of right side S22.41XA Contusion of left orbit S05.12XA Multiple abrasions T07.XXXA Altered mental status R41.82 Excoriated rash R21 UTI (urinary tract infection) N39.0 Isolation/Infection: Isolation No Isolation Patient Infection Status Infection Onset Added Last Indicated Last Indicated By Review Planned Expiration Resolved Resolved By None active Resolved COVID-19 Rule Out 08/16/19 08/16/19 08/16/19 COVID-19 (Ordered) 08/16/19 Rule- Out Test Resulted Nurse Assessment: Last Vital Signs: BP (!) 117/57 Pulse 96 Temp 98.4 F (36.9 C) (Temporal) Resp 18 Ht 5' 3 (1.6 m) Wt 138 lb 1.6 oz (62.6 kg) SpO2 97% BMI 24.46 kg/m Last documented pain score (0-10 scale): Pain Level: 0 Last Weight: Wt Readings from Last 1 Encounters: 09/12/19 138 lb 1.6 oz (62.6 kg) Mental Status: disoriented, alert and able to concentrate and follow conversation IV Access: - None Nursing Mobility/ADLs: Walking Assisted Transfer Assisted Bathing Assisted Dressing Assisted Toileting Assisted Feeding Independent Production Associate Dependent Med Delivery whole Wound Care Documentation and Therapy: Elimination: Continence: Bowel: No Bladder: No Urinary Catheter: None Colostomy/Ileostomy/Ileal Conduit: No Date of Last BM: 09/11/2019 Intake/Output Summary (Last 24 hours) at 09/12/2019 0946 Last data filed at 09/12/2019 0408 Gross per 24 hour Intake 889 ml Output Net 889 ml I/O last 3 completed shifts: In: 889 [I.V.:889] Out: - Safety Concerns: Sundowners Sundrome, History of Falls (last 30 days) and At Risk for Falls Impairments/Disabilities: None Nutrition Therapy: Current Nutrition Therapy: - Oral Diet: General Routes of Feeding: Oral Liquids: No Restrictions Daily Fluid Restriction: no Last Modified Barium Swallow with Video (Video Swallowing Test): not done Treatments at the Time of Hospital Discharge: Respiratory Treatments: Oxygen Therapy: is not on home oxygen therapy. Ventilator: - No ventilator support Rehab Therapies: Physical Therapy and Occupational Therapy Weight Bearing Status/Restrictions: No weight bearing restirctions Other Medical Equipment (for information only, NOT a DME order): walker Other Treatments: Patient's personal belongings (please select all that are sent with patient): Glasses RN SIGNATURE: CASE MANAGEMENT/SOCIAL WORK SECTION Inpatient Status Date: 09/11/2019 Readmission Risk Assessment Score: Readmission Risk Risk of Unplanned Readmission: 25 Discharging to Facility/ Agency Name: [facility] Address:[address] [place] [address] Fax: Dialysis Facility (if applicable) Name: Address: Dialysis Schedule: Phone: Fax: Oven Dauber/Central Office Technician signature: PHYSICIAN SECTION Prognosis: {Prognosis:[id number]} Condition at Discharge: { Patient Condition:[id number]} Rehab Potential (if transferring to Rehab): {Prognosis:[id number]} Recommended Labs or Other Treatments After Discharge: Physician Certification: I certify the above information and transfer of Crista Woodard is necessary for the continuing treatment of the diagnosis listed and that she requires inpatient psych carefor less 30 days. Update Admission H&P: {CHP DME Changes in HandP:[id number]} PHYSICIAN SIGNATURE: {Esignature:[id number]} documented in this encounter* Attachments The following attachments cannot be sent through Care Everywhere. * Dehydration (Latvian) documented in this encounter* Discharge Instr - SAFIA* Ly Trujillo LSW - 08/08/2019 10:23 AM EDT Continuity of Care Form Patient Name: Crista Woodard : 1955 Admit date: 08/06/2019 Discharge date: 08/08/19 Code Status Order: Full Code Advance Directives: Advance Care Flowsheet Documentation Date/Time Healthcare Directive Type of Healthcare Directive Copy in Chart Healthcare Agent Appointed Healthcare Agent's Name Healthcare Agent's Phone Number 08/06/19 0766 No, patient does not have an advance directive for healthcare treatment -- -- -- -- -- 08/06/19 0218 No, patient does not have an advance directive for healthcare treatment -- -- -- -- -- Admitting Physician: Clara Sagastume MD PCP: Nina Johnson MD Discharging Nurse: Benny Gordon RN Discharging Hospital Unit/Room#: 0315/0315-01 Discharging Unit Emergency Contact: Extended Emergency Contact Information Primary Emergency Contact: Warren Pickard [facility] Relation: Other Hearing or visual needs: None Other needs: None Preferred language: Latvian Band Saw Operator needed? No Past Surgical History: Past Surgical History: Procedure Laterality Date COLONOSCOPY 2010 HIP FRACTURE SURGERY Left 08/06/2019 ORIF-Dr. Sagastume HIP FRACTURE SURGERY Left 08/06/2019 HIP OPEN REDUCTION INTERNAL FIXATION performed by Clara Sagastume MD at [facility] OR KNEE ARTHROSCOPY Right 2010 SKIN CANCER EXCISION 2009 TONSILLECTOMY 1960 Immunization History: Immunization History Administered Date(s) Administered Influenza Vaccine, unspecified formulation 12/08/2014, 11/12/2015, 10/25/2016 Influenza Virus Vaccine 11/21/2013, 12/08/2014, 10/25/2016, 11/01/2017 Influenza, Quadv, IM, (6 mo and older Fluzone, Flulaval, Fluarix and 3 yrs and older Afluria) 11/01/2017 Influenza, Quadv, IM, PF (6 mo and older Fluzone, Flulaval, Fluarix, and 3 yrs and older Afluria) 10/25/2016, 11/01/2017 Influenza, Quadv, Recombinant, IM PF (Flublok 18 yrs and older) 11/13/2018 Pneumococcal Polysaccharide ([id number]) 01/21/2015 Active Problems: Patient Active Problem List Diagnosis Code Tobacco dependency F17.200 Gastroesophageal reflux disease without esophagitis K21.9 Chronic lower back pain / Falls, knee surgery with abnormality in gait M54.5, G89.29 Mixed incontinence N39.46 Cerebrovascular accident (CVA) due to thrombosis of precerebral artery ([facility]) I63.00 Mixed hyperlipidemia E78.2 Other chronic pain / Multiple Joints G89.29 Hip fracture requiring operative repair, left, closed, initial encounter ([facility]) S72.002A Encounter for pre-operative cardiovascular clearance Z01.810 History of cardioembolic cerebrovascular accident (CVA) Z86.73 Isolation/Infection: Isolation No Isolation Patient Infection Status None to display Nurse Assessment: Last Vital Signs: BP (!) 101/30 Pulse 104 Temp 97.2 F (36.2 C) (Temporal) Resp 16 Ht 5' 4 (1.626 m) Wt 164 lb 4.8 oz (74.5 kg) SpO2 94% BMI 28.20 kg/m Last documented pain score (0-10 scale): Pain Level: 10 Last Weight: Wt Readings from Last 1 Encounters: 08/08/19 164 lb 4.8 oz (74.5 kg) Mental Status: oriented and alert IV Access: - None Nursing Mobility/ADLs: Walking Assisted Transfer Assisted Bathing Assisted Dressing Assisted Toileting Assisted Feeding Assisted Production Associate Assisted Med Delivery whole Wound Care Documentation and Therapy: Elimination: Continence: Bowel: Yes Bladder: Yes Urinary Catheter: None Colostomy/Ileostomy/Ileal Conduit: No Date of Last BM: Intake/Output Summary (Last 24 hours) at 08/08/2019 1020 Last data filed at 08/08/2019 0641 Gross per 24 hour Intake 3122.75 ml Output 1025 ml Net 2097.75 ml I/O last 3 completed shifts: In: 3482.8 [P.O.:1790; I.V.:1692.8] Out: 1025 [Urine:1025] Safety Concerns: History of Falls (last 30 days) and At Risk for Falls Impairments/Disabilities: None Nutrition Therapy: Current Nutrition Therapy: - Oral Diet: General Routes of Feeding: Oral Liquids: Thin Liquids Daily Fluid Restriction: no Last Modified Barium Swallow with Video (Video Swallowing Test): not done Treatments at the Time of Hospital Discharge: Respiratory Treatments: Oxygen Therapy: is not on home oxygen therapy. Ventilator: - No ventilator support Rehab Therapies: Physical Therapy and Occupational Therapy Weight Bearing Status/Restrictions: Toe Touch Weight Bearing Other Medical Equipment (for information only, NOT a DME order): walker Other Treatments: Patient's personal belongings (please select all that are sent with patient): Glasses RN SIGNATURE: CASE MANAGEMENT/SOCIAL WORK SECTION Inpatient Status Date: 08/06/2019 Readmission Risk Assessment Score: Readmission Risk Risk of Unplanned Readmission: 18 Discharging to Facility/ Agency Name: [facility] Address:[address] [place] [address] Dialysis Facility (if applicable) Name: Address: Dialysis Schedule: Phone: Fax: Oven Dauber/Central Office Technician signature: PHYSICIAN SECTION Prognosis: Good Condition at Discharge: Stable Rehab Potential (if transferring to Rehab): Good Recommended Labs or Other Treatments After Discharge: Dressing to be removed per the date on the dressing. Physician Certification: I certify the above information and transfer of Crista Woodard is necessary for the continuing treatment of the diagnosis listed and that she requires Longterm Facility for greater 30 days. Update Admission H&P: No change in H&P PHYSICIAN SIGNATURE: documented in this encounter Hospital Course * Caitlyn Vincent APRN - CNP - 08/20/2019 3:08 PM EDT Discharge Summary Crista Woodard : 1955 Admit date: 08/16/2019 Discharge date: 08/20/2019 Admitting Physician: Charlene Regan MD Discharge Diagnoses: Principal Problem: Unable to ambulate Active Problems: Inability to ambulate due to hip Resolved Problems: * No resolved hospital problems. * Hospital Course: Crista Woodard is a 64 y.o. female admitted with inability to walk. She was previously admitted for a fracture to the left hip as well as a fracture to the proximal humerus. She does have a long standing history of mental illness. She recently was discharged to [facility] after her hospitalization due to inability to ambulate. She subsequently signed herself out and was brought to the ER where she was found to be delusional at that time. [facility] would nt take her due to the non-ambulation. She was admitted for placement. She has done well and is more coherent and appropriate. She was covid tested for transfer and was negative. I will discharge her today to [facility] in [place]. She is agreeable to this POC. Consultants: none Procedures: none Complications: none Discharge Condition: stable Exam: GEN: alert and oriented to person, place and time, well-developed and well- nourished, in no acute distress EYES: No gross abnormalities., PERRL and EOMI NECK: normal, supple, no lymphadenopathy, no carotid bruits PULM: clear to auscultation bilaterally- no wheezes, rales or rhonchi, normal air movement, no respiratory distress COR: regular rate & rhythm, no murmurs, no gallops, S1 normal and S2 normal ABD: soft, non-tender, non-distended, normal bowel sounds, no masses or organomegaly EXT: no cyanosis, clubbing or edema present . Left arm in sling. Left hip reshma intact and well approximated without redness or drainage. Circ checks WNL, cap refill < 2 secs NEURO: follows commands, GUY, no deficits SKIN: no rashes or significant lesions Significant Diagnostic Studies: Lab Results Component Value Date WBC 9.5 08/16/2019 HGB 9.5 (L) 08/16/2019 PLT 569 (H) 08/16/2019 Lab Results Component Value Date BUN 14 08/17/2019 CREATININE 0.51 08/17/2019 NA 137 08/17/2019 K 3.4 (L) 08/17/2019 CALCIUM 8.2 (L) 08/17/2019 CL 105 08/17/2019 CO2 21 08/17/2019 LABGLOM >60 08/17/2019 Lab Results Component Value Date WBCUA 10 TO 20 08/06/2019 RBCUA 0 TO 2 08/06/2019 EPITHUA 2 TO 5 08/06/2019 LEUKOCYTESUR NEGATIVE 08/16/2019 SPECGRAV >1.030 (H) 08/16/2019 GLUCOSEU NEGATIVE 08/16/2019 KETUA NEGATIVE 08/16/2019 PROTEINU NEGATIVE 08/16/2019 HGBUR NEGATIVE 08/16/2019 CASTUA NOT REPORTED 08/06/2019 CRYSTUA NOT REPORTED 08/06/2019 BACTERIA NOT REPORTED 08/06/2019 YEAST NOT REPORTED 08/06/2019 Ct Head Wo Contrast Result Date: 08/16/2019 EXAMINATION: CT OF THE HEAD WITHOUT CONTRAST 08/16/2019 11:12 am TECHNIQUE: CT of the head was performed without the administration of intravenous contrast. Dose modulation, iterative reconstruction, and/or weight based adjustment of the mA/kV was utilized to reduce the radiation dose to as low as reasonably achievable. COMPARISON: 08/06/2019 HISTORY: ORDERING SYSTEM PROVIDED HISTORY: altered TECHNOLOGIST PROVIDED HISTORY: altered FINDINGS: BRAIN/VENTRICLES: There is prominence of the ventricles and cortical sulci consistent with cortical volume loss. No midline shift. Basal cisterns are normally outlined. There is no evidence for acute infarct. No acute intra or extra-axial hemorrhage. ORBITS: The visualized portion of the orbits demonstrate no acute abnormality. SINUSES: The visualized paranasal sinuses and mastoid air cells demonstrate no acute abnormality. SOFT TISSUES/SKULL: No acuteabnormality of the visualized skull or soft tissues. No acute intracranial abnormality. Mild cerebral atrophy. Xr Chest Portable Result Date: 08/16/2019 EXAMINATION: ONE X-RAY VIEW OF THE CHEST 08/16/2019 11:20 am COMPARISON: August 06, 2019 HISTORY: ORDERING SYSTEM PROVIDED HISTORY: Confusion TECHNOLOGIST PROVIDED HISTORY: Confusion Initial evaluation, acute confusion. FINDINGS: The cardiomediastinal silhouette is normal in size. The lungs are clear without acute infiltrate. No pleural effusion or pneumothorax is present. No subdiaphragmatic free air. No acute cardiopulmonary process. Assessment and Plan: Patient Active Problem List Diagnosis Date Noted Encounter for pre-operative cardiovascular clearance Priority: High History of cardioembolic cerebrovascular accident (CVA) Priority: High Unable to ambulate 08/16/2019 Inability to ambulate due to hip 08/16/2019 Hip fracture requiring operative repair, left, closed, initial encounter (HCC) 08/06/2019 Other chronic pain / Multiple Joints 07/20/2017 Mixed hyperlipidemia 06/07/2017 Mixed incontinence 01/19/2015 Cerebrovascular accident (CVA) due to thrombosis of precerebral artery ([facility]) 01/19/2015 Tobacco dependency 05/20/2014 Gastroesophageal reflux disease without esophagitis 05/20/2014 Chronic lower back pain / Falls, knee surgery with abnormality in gait 05/20/2014 Discharge Medications: Crista Woodard Home Medication Instructions YODIT:[id number] Printed on:08/20/19 5041 Medication Information aspirin EC 81 MG EC tablet Take 1 tablet by mouth daily. atorvastatin (LIPITOR) 10 MG tablet Take 1 tablet by mouth daily enoxaparin (LOVENOX) 40 MG/0.4ML injection Inject 0.4 mLs into the skin daily fludrocortisone (FLORINEF) 0.1 MG tablet Take 1 tablet by mouth daily gabapentin (NEURONTIN) 300 MG capsule Take 300 mg by mouth 4 times daily. Handicap Placard MISC by Does not apply route Dx: stroke 2009 Duration: 5 years LORazepam (ATIVAN) 0.5 MG tablet Take 0.5 tablets by mouth 3 times daily for 30 days. ondansetron (ZOFRAN-ODT) 4 MG disintegrating tablet Take 1 tablet by mouth every 8 hours as needed for Nausea or Vomiting polyethylene glycol (GLYCOLAX) 17 g packet Take 17 g by mouth daily as needed for Constipation QUEtiapine (SEROQUEL) 200 MG tablet Take 200 mg by mouth nightly QUEtiapine (SEROQUEL) 50 MG tablet Take 1 tablet by mouth every morning risperiDONE (RISPERDAL) 1 MG tablet Take 1.5 tablets by mouth every morning sennosides-docusate sodium (SENOKOT-S) 8.6-50 MG tablet Take 1 tablet by mouth 2 times daily sertraline (ZOLOFT) 100 MG tablet Take 1 tablet by mouth every morning traMADol (ULTRAM) 50 MG tablet Take 1 tablet by mouth 4 times daily as needed for Pain for up to 30 days. Patient Instructions: Activity: Toe-touch Weight Bearing Diet: regular diet Wound Care: none needed Other: None Disposition: [facility] Follow up: Patient will be followed by No primary care provider on file. in 1-2 weeks CORE MEASURES on Discharge (if applicable) PASTOR/ARB in CHF: NA Statin in [place]: NA ASA in [place]: NA Statin in CVA: NA Antiplatelet in CVA: NA Total time spent on discharge services: 40 minutes Including the following activities: Evaluation and Management of patient Discussion with patient and/or surrogate about current care plan Coordination with Case Management and/or Central Office Technician Coordination of care with Consultants (if applicable) Coordination of care with Receiving Facility Physician (if applicable) Completion of DME forms (if applicable) Preparation of Discharge Summary Preparation of Medication Reconciliation Preparation of Discharge Prescriptions Signed: Caitlyn Vincent APRN, DRAWING HAND-C 08/20/2019, 3:08 PM Associated attestation - Charlene Regan MD - 08/20/2019 3:36 PM EDT Charlene Regan Nurse Practitioner Attestation Note For Discharge 08/20/19 I personally evaluated and examined the patient [id number] in conjunction with the APC and agree with the management and dispostition of the patient. Please see APC/s discharge summary note for full details. My alva findings are: SUBJECTIVE: Patient admitted for Unable to ambulate. OBJECTIVE: Vitals: Temp: 99 F (37.2 C) BP: 105/62 Resp: 16 Pulse: 83 SpO2: 95 % 24HR INTAKE/OUTPUT: Intake/Output Summary (Last 24 hours) at 08/20/2019 1535 Last data filed at 08/20/2019 1432 Gross per 24 hour Intake 500 ml Output Net 500 ml Exam: GEN: Awake, alert and oriented x 3. no acute distress EYES: EOMI, pupils equal NECK: Supple. No lymphadenopathy. No carotid bruit CVS: RRR, no murmur, rub or gallop PULM: CTA, no wheezes, rales or rhonchi ABD: Bowels sounds normal. Abdomen is soft. No distention. No tenderness. EXT: no edema bilaterally . No calf tenderness. NEURO: Motor and sensory are intact SKIN: No rashes. No skin lesions. Diagnostic Data: All available data reviewed Lab Results Component Value Date WBC 9.5 08/16/2019 HGB 9.5 (L) 08/16/2019 MCV 98.7 08/16/2019 PLT 569 (H) 08/16/2019 Lab Results Component Value Date GLUCOSE 109 (H) 08/17/2019 BUN 14 08/17/2019 CREATININE 0.51 08/17/2019 NA 137 08/17/2019 K 3.4 (L) 08/17/2019 CALCIUM 8.2 (L) 08/17/2019 CL 105 08/17/2019 CO2 21 08/17/2019 ASSESSMENT: Unable to ambulate due or hip and arm fracture MS change PLAN: I agree with the plan as outlined in the mid-level's note. Charlene Regan M.D. 08/20/2019 3:35 PM documented in this encounter* Caitlyn Vincent, 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 GROUND - 09/12/2019 11:01 AM EDT Discharge Summary Crista Woodard : 1955 Admit date: 09/11/2019 Discharge date: 09/12/2019 Admitting Physician: Nina Johnson MD Discharge Diagnoses: Principal Problem: Altered mental status Active Problems: Excoriated rash UTI (urinary tract infection) Resolved Problems: * No resolved hospital problems. * Hospital Course: Crista Woodard is a 64 y.o. female admitted with AMS. She presented to the ER last evening after being found wondering in the middle of the street waving down traffic. When EMS arrived the patient thought that she was 21 and that she lived [place] a big [place] along with other delierious ideations. APS was called. She did recognize the ER provider that treated her. However she was confused with EMS and Police. She recently was in [facility] however and signed herself out. She has been at home for approximately 1 week falling down and not taking her medications. She does have a it technical specialist. She was admitted and Beauty Therapist were consulted for [facility]'s placement. Currently she believes that she is here for her plastic surgery on her boobs, belly, and butt. I will discharge her to [facility] as she is pink slipped. She is cleared medically. She will take Cipro for 10 days for UTI. Consultants: none Procedures: none Complications: none Discharge Condition: stable Exam: GEN: in no acute distress, alert, disoriented and disheveled EYES: No gross abnormalities., PERRL and EOMI NECK: normal, supple, no lymphadenopathy, no carotid bruits PULM: clear to auscultation bilaterally- no wheezes, rales or rhonchi, normal air movement, no respiratory distress COR: regular rate & rhythm, no murmurs, no gallops, S1 normal and S2 normal ABD: soft, non-tender, non-distended, normal bowel sounds, no masses or organomegaly EXT: Non pitting edema bilaterally NEURO: delusional, follows commands SKIN: no rashes or significant lesions Significant Diagnostic Studies: Lab Results Component Value Date WBC 7.0 09/12/2019 HGB 10.0 (L) 09/12/2019 PLT 218 09/12/2019 Lab Results Component Value Date BUN 17 09/12/2019 CREATININE 0.48 (L) 09/12/2019 NA 141 09/12/2019 K 3.4 (L) 09/12/2019 CALCIUM 8.6 09/12/2019 CL 108 (H) 09/12/2019 CO2 23 09/12/2019 LABGLOM >60 09/12/2019 Lab Results Component Value Date WBCUA 5 TO 10 09/11/2019 RBCUA None 09/11/2019 EPITHUA 5 TO 10 09/11/2019 LEUKOCYTESUR NEGATIVE 09/11/2019 SPECGRAV >1.030 (H) 09/11/2019 GLUCOSEU NEGATIVE 09/11/2019 KETUA 2+ (A) 09/11/2019 PROTEINU TRACE (A) 09/11/2019 HGBUR NEGATIVE 09/11/2019 CASTUA NOT REPORTED 09/11/2019 CRYSTUA NOT REPORTED 09/11/2019 BACTERIA 3+ (A) 09/11/2019 YEAST NOT REPORTED 09/11/2019 Ct Head Wo Contrast Result Date: 09/11/2019 EXAMINATION: CT OF THE HEAD WITHOUT CONTRAST 09/11/2019 7:52 pm TECHNIQUE: CT of the head was performed without the administration of intravenous contrast. Dose modulation, iterative reconstruction, and/or weight based adjustment of the mA/kV was utilized to reduce the radiation dose to as low as reasonably achievable. COMPARISON: 09/07/2019 HISTORY: ORDERING SYSTEM PROVIDED HISTORY: AMS TECHNOLOGIST PROVIDED HISTORY: AMS FINDINGS: BRAIN/VENTRICLES: There is no acute infarct or acute intracranial hemorrhage present. There is no mass effect or midline shift present. There is diffuse cerebral volume loss. There is mild periventricular hypoattenuation. There is no ventriculomegaly or abnormal extra- axial fluid collection present. ORBITS: Limited evaluation of the orbits is unremarkable. SINUSES: The paranasal sinuses and mastoid air cells are clear. SOFT TISSUES/SKULL: No lytic or blastic osseous lesions are identified. Stable appearance of the brain without acute intracranial process identified. Xr Chest 1 View Result Date: 09/11/2019 EXAMINATION: ONE XRAY VIEW OF THE CHEST 09/11/2019 2:07 pm COMPARISON: 09/07/2019 HISTORY: ORDERING SYSTEM PROVIDED HISTORY: Septic work-up TECHNOLOGIST PROVIDED HISTORY: Septic work-up FINDINGS: Calcified breast prostheses are noted bilaterally, increased in the density of the lower lungs. Chronic right rib fractures are seen, with associated pleural thickening, unchanged. No acute focal infiltrate. The cardial pericardial silhouette is unremarkable. No pneumothorax. No free air. No acute bony abnormality. No acute abnormality identified. Assessment and Plan: Patient Active Problem List Diagnosis Date Noted History of cardioembolic cerebrovascular accident (CVA) Priority: High Altered mental status 09/11/2019 Excoriated rash 09/11/2019 UTI (urinary tract infection) 09/11/2019 Multiple closed fractures of ribs of right side 09/07/2019 Contusion of left orbit 09/07/2019 Multiple abrasions 09/07/2019 Unable to ambulate 08/16/2019 Inability to ambulate due to hip 08/16/2019 Hip fracture requiring operative repair, left, closed, initial encounter ([facility]) 08/06/2019 Other chronic pain / Multiple Joints 07/20/2017 Mixed hyperlipidemia 06/07/2017 Mixed incontinence 01/19/2015 Cerebrovascular accident (CVA) due to thrombosis of precerebral artery ([facility]) 01/19/2015 Tobacco dependency 05/20/2014 Gastroesophageal reflux disease without esophagitis 05/20/2014 Chronic lower back pain / Falls, knee surgery with abnormality in gait 05/20/2014 Discharge Medications: Crista Woodard Home Medication Instructions YODIT:[id number] Printed on:09/12/19 1107 Medication Information aspirin EC 81 MG EC tablet Take 1 tablet by mouth daily. atorvastatin (LIPITOR) 10 MG tablet Take 1 tablet by mouth daily ciprofloxacin (CIPRO) 500 MG tablet Take 1 tablet by mouth every 12 hours for 10 days enoxaparin (LOVENOX) 40 MG/0.4ML injection Inject 0.4 mLs into the skin daily fludrocortisone (FLORINEF) 0.1 MG tablet Take 1 tablet by mouth daily gabapentin (NEURONTIN) 300 MG capsule Take 300 mg by mouth 4 times daily. Handicap Placard MISC by Does not apply route Dx: stroke 2009 Duration: 5 years ondansetron (ZOFRAN-ODT) 4 MG disintegrating tablet Take 1 tablet by mouth every 8 hours as needed for Nausea or Vomiting QUEtiapine (SEROQUEL) 200 MG tablet Take 200 mg by mouth nightly QUEtiapine (SEROQUEL) 50 MG tablet Take 1 tablet by mouth every morning risperiDONE (RISPERDAL) 1 MG tablet Take 1.5 tablets by mouth every morning sennosides-docusate sodium (SENOKOT-S) 8.6-50 MG tablet Take 1 tablet by mouth 2 times daily sertraline (ZOLOFT) 100 MG tablet Take 1 tablet by mouth every morning zinc oxide 40 % PSTE paste Apply to buttocks and labia two times daily Patient Instructions: Activity: activity as tolerated Diet: regular diet Wound Care: as directed Other: None Disposition: DC to [facility] care Follow up: Patient will be followed by No primary care provider on file. in 1-2 weeks CORE MEASURES on Discharge (if applicable) PASTOR/ARB in CHF: NA Statin in [place]: NA ASA in [place]: NA Statin in CVA: NA Antiplatelet in CVA: NA Total time spent on discharge services: 35 minutes Including the following activities: Evaluation and Management of patient Discussion with patient and/or surrogate about current care plan Coordination with Case Management and/or Central Office Technician Coordination of care with Consultants (if applicable) Coordination of care with Receiving Facility Physician (if applicable) Completion of DME forms (if applicable) Preparation of Discharge Summary Preparation of Medication Reconciliation Preparation of Discharge Prescriptions Signed: Caitlyn Vincent APRN, DRAWING HAND-C 09/12/2019, 11:02 AM Associated attestation - Nina Johnson MD - 09/12/2019 11:57 AM EDT Attending Supervising Physician s Attestation Statement I have personally evaluated and examined the patient [id number] in conjunction with the nurse practitioner. I agree with management and disposition of the patient. My alva findings are: 64 y.o. female admitteed for Altered mental status a lot of confusion. Noncompliance with medicine.Needs inpatient psych GEN: in no acute distress, alert, disoriented and disheveled EYES: No gross abnormalities., PERRL and EOMI NECK: normal, supple, no lymphadenopathy, no carotid bruits PULM: clear to auscultation bilaterally- no wheezes, rales or rhonchi, normal air movement, no respiratory distress COR: regular rate & rhythm, no murmurs, no gallops, S1 normal and S2 normal ABD: soft, non-tender, non-distended, normal bowel sounds, no masses or organomegaly EXT: Non pitting edema bilaterally NEURO: delusional, follows commands SKIN: no rashes or significant lesions Principal Problem: Altered mental status Active Problems: Excoriated rash UTI (urinary tract infection) Resolved Problems: * No resolved hospital problems. * Examined and Reviewed plan of care with DRAWING HAND. Directions and discussion about care and plans. Disposition including length of stay was reviewed. Nutritional status, advanced directive and old records reviewed. Disposition: inpatient psych The patient was seen examined with the nurse practitioner on September 12, 2019 all direct care was reviewed with the nurse practitioner at the bedside with the patient. Electronically signed by Nina Johnson MD documented in this encounter History of Present Illness * Gloria Arita RN - 08/20/2019 5:07 PM EDT Patient discharged from facility via squad, transported by cart to SNF. * Ly Trujillo LSW - 08/20/2019 3:25 PM EDT Patient discharge to [facility] today. She will go by ambulance. Discharge paper work done and fax. Left message for friend of her discharge. DEREK Daigle * Ly Trujillo LSW - 08/20/2019 2:21 PM EDT [facility] in [place] has accepted the patient and the discharge will be today. DEREK Daigle * Ly Trujillo LSW - 08/20/2019 11:11 AM EDT [facility] refuses to accept the patient. Will try [facility] in [place]. DEREK Daigle * Gloria Arita RN - 08/20/2019 9:34 AM EDT Patient incontinent large amount of urine. Hygiene completed by staff. Up to chair with PT. * Razia Maciel PTA - 08/20/2019 9:19 AM EDT Physical Therapy Facility/Department: [facility] MED SURG Daily Treatment Note NAME: Crista Woodard : 1955 Date of Service: 08/20/2019 Discharge Recommendations: Subacute/Longterm Facility, ECF with PT Assessment Treatment Diagnosis: General weakness, L hip pain/L hip fx Prognosis: Fair PT Education: Transfer Training;General Safety Patient Education: Educated pt on above with fair understanding noted. REQUIRES PT FOLLOW UP: Yes Activity Tolerance Activity Tolerance: Patient Tolerated treatment well Patient Diagnosis(es): The encounter diagnosis was Cannot walk. has a past medical history of Anxiety, Depression, Headache(784.0), Hyperlipidemia, Irritable bowelsyndrome, Osteoarthritis, Peripheral vascular disease (HCC), Schizophrenia ([facility]), and Stroke (cerebrum) ([facility]). has a past surgical history that includes Tonsillectomy (1959); Knee arthroscopy (Right, 2009); Skin cancer excision (2009); Colonoscopy (2009); Hip fracture surgery (Left, 08/06/2019); and Hip fracture surgery (Left, 08/06/2019). Restrictions Restrictions/Precautions Restrictions/Precautions: Weight Bearing, Fall Risk Required Braces or Orthoses?: Yes Lower Extremity Weight Bearing Restrictions Left Lower Extremity Weight Bearing: Toe Touch Weight Bearing Upper Extremity Weight Bearing Restrictions Left Upper Extremity Weight Bearing: Non Weight Bearing Other: fracture of left humerus, sling Required Braces or Orthoses Left Upper Extremity Brace/Splint: Sling Subjective General Chart Reviewed: Yes Response To Previous Treatment: Patient with no complaints from previous session. Family / Caregiver Present: No Referring Practitioner: Charlene Regan MD Subjective Subjective: Pt denies pain at this time. Willing to participate with therapy. Orientation Orientation Overall Orientation Status: Within Functional Limits Orientation Level: Oriented to person;Oriented to situation Cognition Objective Bed mobility Rolling to Left: Stand by assistance Rolling to Right: Stand by assistance Supine to Sit: Contact guard assistance;Stand by assistance Scooting: Stand by assistance Comment: Carmen care provided d/t urine incontinecy. Gloria GOULD present. Transfers Sit to Stand: Contact guard assistance;Stand by assistance Stand to sit: Contact guard assistance;Minimal Assistance Stand Pivot Transfers: Minimal Assistance;2 Person Assistance Comment: Patient with increased difficulty maintaining TTWB LLE during transfer. Ambulation Ambulation?: Yes Ambulation 1 Surface: level tile Device: No Device([id number]) Assistance: Minimal assistance;2 Person assistance Distance: Patient completed 2-3 steps during transfer. Stairs/Curb Stairs?: No Exercises Straight Leg Raise: 20x Quad Sets: 20x Heelslides: 20x Gluteal Sets: 20x Hip Flexion: 20x Hip Abduction: 20x Knee Long Arc Quad: 20x Knee Short Arc Quad: 20x Ankle Pumps: 20x Comments: Patient completd above listed exercises in seated and supine position. AAROM with LLE as needed. Goals Short term goals Time Frame for Short term goals: 10 days Short term goal 1: Pt will amb 10' with platform walker, touch down WB on L LE. Short term goal 2: Patient will perform bed mobility with SBA Short term goal 3: Patient will perform transfers with CGA Short term goal 4: Patient will tolerate 20-30 minutes of therex/act to improve endurance for ADLs. Patient Goals Patient goals : Feel better Plan Plan Times per week: 7 Times per day: Twice a day Plan Comment: 1x/day on weekends Safety Devices Type of devices: All fall risk precautions in place, Call light within reach, Left in chair, Nurse notified, Gait belt Therapy Time Individual Concurrent Group Co-treatment Time In 08 Time Out 0919 Minutes 33 Razia Maciel PTA * Ly Trujillo LSW - 08/20/2019 9:15 AM EDT [facility] does not have any beds at this time. Referral made to [facility] and paper work fax. DEREK Daigle * Gloria Arita RN - 08/20/2019 8:25 AM EDT Patient refuses all am medication today. Education and encouragement offered with no effect. * Caitlyn Vincent APRN - HOST/HOSTESS GROUND - 08/20/2019 6:55 AM EDT Progress Note SUBJECTIVE: F/u inability to care for self OBJECTIVE: Resting in bed watching TV. No distress. Tolerating PT she states. Tolerating diet although she denies appetite. Denies n/v. Denies CP or SOB. Afebrile. Vitals: Vitals: 08/19/19 2335 BP: 119/60 Pulse: 80 Resp: 16 Temp: 98.9 F (37.2 C) SpO2: 95% Weight: 160 lb 6.4 oz (72.8 kg) Height: 5' 4 (162.6 cm) Exam: CONSTITUTIONAL: awake, alert, cooperative, no apparent distress, and appears stated age EYES: Lids and lashes normal, pupils equal, round and reactive to light, extra ocular muscles intact, sclera clear, conjunctiva normal ENT: normocepalic, without obvious abnormality, atraumatic NECK: supple, symmetrical, trachea midline, skin normal and no stridor HEMATOLOGIC/LYMPHATICS: no cervical lymphadenopathy and no supraclavicular lymphadenopathy LUNGS: No increased work of breathing, good air exchange, clear to auscultation bilaterally, no crackles or wheezing CARDIOVASCULAR: Normal apical impulse, regular rate and rhythm, normal S1 and S2, no S3 or S4, and no murmur noted ABDOMEN: No scars, normal bowel sounds, soft, non-distended, non-tender, no masses palpated, no hepatosplenomegally MUSCULOSKLETAL: there is no redness, warmth, or swelling of the joints full range of motion noted motor strength is 5 out of 5 all extremities bilaterally tone is normal NEUROLOGIC: Mental Status Exam: Level of Alertness: awake Orientation: person, place, time Memory: normal SKIN: Reshma to left hip. Well approximated without drainage EXT: Left arm in sling. Neg edema. Circ checks WNL. Diagnostic Data: Reviewed ASSESSMENT: Active Problems: Unable to ambulate Inability to ambulate due to hip Resolved Problems: * No resolved hospital problems. * PLAN: Discharge to [facility] today pending Covid testing Caitlyn Vincent APRN, DRAWING HAND-C Associated attestation - Charlene Regan MD - 08/20/2019 7:19 AM EDT Charlene Regan MD Nurse Practitioner Attestation Progess Note 08/20/19 I personally evaluated and examined the patient [id number] in conjunction with the [facility] and agree with the management and dispostition of the patient. Please see APC's note for full details. My alva findings are: SUBJECTIVE: Patient admitted for inability to ambulate and care for self OBJECTIVE: Vitals: Temp: 99 F (37.2 C) BP: 105/62 Resp: 16 Pulse: 83 SpO2: 95 % 24HR INTAKE/OUTPUT: Intake/Output Summary (Last 24 hours) at 08/20/2019 0718 Last data filed at 08/20/2019 0500 Gross per 24 hour Intake 440 ml Output Net 440 ml Exam: GEN: Awake, alert and oriented x 3. no acute distress EYES: EOMI, pupils equal NECK: Supple. No lymphadenopathy. No carotid bruit CVS: RRR, no murmur, rub or gallop PULM: CTA, no wheezes, rales or rhonchi ABD: Bowels sounds normal. Abdomen is soft. No distention. No tenderness. EXT: no edema bilaterally . No calf tenderness. NEURO: Motor and sensory are intact SKIN: No rashes. No skin lesions. Diagnostic Data: All available data reviewed Lab Results Component Value Date WBC 9.5 08/16/2019 HGB 9.5 (L) 08/16/2019 MCV 98.7 08/16/2019 PLT 569 (H) 08/16/2019 Lab Results Component Value Date GLUCOSE 109 (H) 08/17/2019 BUN 14 08/17/2019 CREATININE 0.51 08/17/2019 NA 137 08/17/2019 K 3.4 (L) 08/17/2019 CALCIUM 8.2 (L) 08/17/2019 CL 105 08/17/2019 CO2 21 08/17/2019 ASSESSMENT: Active Problems: Unable to ambulate Inability to ambulate due to hip Resolved Problems: * No resolved hospital problems. * PLAN: I agree with the plan as outlined in the midlevel's note Charlene Regan M.D. 08/20/2019 7:18 AM * Ly Trujillo LSW - 08/20/2019 6:[address] [facility] called and they can not accept because no doctor will follow patient. DEREK Dailge * Tanesha Higuera RN - 08/19/2019 9:55 PM EDT Pt stood at bedside for approximately 3-4 minutes while chart writer changed bed pad and changed patient brief due to episode of incontinence. Pt had bowel movement as well. Pt tolerated standing with walker well. * Tanesha Higuera RN - 08/19/2019 8:45 PM EDT Event Marketing Representative attempted to administer evening medications, pt refused. Event Marketing Representative educated patient on importance of each medication. Pt continues to refuse and state I don't care. I just do not want to take them. Event Marketing Representative told patient to inform chart writer if she changes her mind. Pt also declines need to be changed at this time. * Tanesha Higuera RN - 08/19/2019 6:55 PM EDT Initial shift assessment done and VS obtained as charted. Pt is laying in bed watching television. Pt denies pain. Event Marketing Representative asked patient if she needs to use restroom and patient replied, No, they have just been changing me after I go when I stand at the bedside . Event Marketing Representative asked if she needed changed,pt declined. Will continue to monitor. * Gloria Arita RN - 08/19/2019 4:56 PM EDT Patient continues to refuse routine medication. States I just don't want to. States she feels better without her medication. When asked if she has spoke to Dr. Magaña about this, she says no, I don't want to talk to him. Encouraged patient to speak with her doctor about possible med changes or adjustments rather than refusing all medication. Potassium taken with encouragement, refuses neurontin. * Ly Trujillo LSW - 08/19/2019 2:33 PM EDT [facility] is willing to accept the patient , but need to find a doctor to follow her there. They also need a covid test with in the 24 hr before discharge. DEREK Daigle * Emelina Chatterjee PTA - 08/19/2019 1:52 PM EDT Physical Therapy Facility/Department: [facility] MED SURG Daily Treatment Note NAME: Crista Woodard : 1955 Date of Service: 08/19/2019 Discharge Recommendations: Subacute/Longterm Facility, ECF with PT Assessment Treatment Diagnosis: General weakness, L hip pain/L hip fx Prognosis: Fair REQUIRES PT FOLLOW UP: Yes Activity Tolerance Activity Tolerance: Patient limited by pain;Patient limited by fatigue Activity Tolerance: Pt also completed static standing with 1 UE support 2x35 and 1'. Patient Diagnosis(es): The encounter diagnosis was Cannot walk. has a past medical history of Anxiety, Depression, Headache(784.0), Hyperlipidemia, Irritable bowelsyndrome, Osteoarthritis, Peripheral vascular disease (HCC), Schizophrenia (HCC), and Stroke (cerebrum) (HCC). has a past surgical history that includes Tonsillectomy (1959); Knee arthroscopy (Right, 2009); Skin cancer excision (2009); Colonoscopy (2009); Hip fracture surgery (Left, 08/06/2019); and Hip fracture surgery (Left, 08/06/2019). Restrictions Restrictions/Precautions Restrictions/Precautions: Weight Bearing, Fall Risk Required Braces or Orthoses?: Yes Lower Extremity Weight Bearing Restrictions Left Lower Extremity Weight Bearing: Toe Touch Weight Bearing Upper Extremity Weight Bearing Restrictions Left Upper Extremity Weight Bearing: Non Weight Bearing Other: fracture of left humerus, sling Required Braces or Orthoses Left Upper Extremity Brace/Splint: Sling Subjective General Chart Reviewed: Yes Family / Caregiver Present: No Referring Practitioner: Charlene Regan MD Subjective Subjective: Pt denies pain at this time. Willing to participate with therapy. Orientation Orientation Overall Orientation Status: Within Functional Limits Cognition Objective Bed mobility Rolling to Right: Stand by assistance Supine to Sit: Minimal assistance Sit to Supine: Minimal assistance Comment: Pt required changing of brief once in bed. Transfers Sit to Stand: Contact guard assistance;Stand by assistance Comment: Verbal cues to maintain WB precautions. Pt with fair to good understanding. Pt completed 2x10 sit to stands with CGA/SBA Ambulation Ambulation?: No Exercises Straight Leg Raise: 20x Gluteal Sets: 20x Hip Flexion: 20x Hip Abduction: 20x Knee Long Arc Quad: 20x Ankle Pumps: 20x Comments: Above completed with pt supine and seated EOB. AAROM as needed with LLE. Goals Short term goals Time Frame for Short term goals: 10 days Short term goal 1: Pt will amb 10' with platform walker, touch down WB on L LE. Short term goal 2: Patient will perform bed mobility with SBA Short term goal 3: Patient will perform transfers with CGA Short term goal 4: Patient will tolerate 20-30 minutes of therex/act to improve endurance for ADLs. Patient Goals Patient goals : Feel better Plan Plan Times per week: 7 Times per day: Twice a day Plan Comment: 1x/day on weekends Safety Devices Type of devices: All fall risk precautions in place, Call light within reach, Left in bed Therapy Time Individual Concurrent Group Co-treatment Time In 1320 Time Out 1349 Minutes 29 Emelina Chatterjee, PHYSICIAN PRACTICE MANAGER * Gloria Arita RN - 08/19/2019 12:33 PM EDT Nasal swab completed for Covid testing, sent to lab * Vasile Lay - 08/19/2019 11:54 AM EDT Physical Therapy Facility/Department: [facility] MED SURG Daily Treatment Note NAME: Crista Woodard : 1955 Date of Service: 08/19/2019 Discharge Recommendations: Subacute/Longterm Facility, ECF with PT Assessment Assessment: Transfer training and exercise completed. Assisit needed to stand. Did not walk due to pt not able no maintain WB status Treatment Diagnosis: General weakness, L hip pain/L hip fx Prognosis: Fair Decision Making: High Complexity PT Education: Transfer Training;General Safety REQUIRES PT FOLLOW UP: Yes Activity Tolerance Activity Tolerance: Patient limited by pain;Patient limited by fatigue Patient Diagnosis(es): The encounter diagnosis was Cannot walk. has a past medical history of Anxiety, Depression, Headache(784.0), Hyperlipidemia, Irritable bowelsyndrome, Osteoarthritis, Peripheral vascular disease (HCC), Schizophrenia (HCC), and Stroke (cerebrum) (HCC). has a past surgical history that includes Tonsillectomy (1959); Knee arthroscopy (Right, 2009); Skin cancer excision (2009); Colonoscopy (2009); Hip fracture surgery (Left, 08/06/2019); and Hip fracture surgery (Left, 08/06/2019). Restrictions Restrictions/Precautions Restrictions/Precautions: Weight Bearing, Fall Risk Required Braces or Orthoses?: Yes Lower Extremity Weight Bearing Restrictions Left Lower Extremity Weight Bearing: Toe Touch Weight Bearing Upper Extremity Weight Bearing Restrictions Left Upper Extremity Weight Bearing: Non Weight Bearing Other: fracture of left humerus, sling Required Braces or Orthoses Left Upper Extremity Brace/Splint: Sling Subjective General Chart Reviewed: Yes Family / Caregiver Present: No Referring Practitioner: Charlene Regan MD Subjective Subjective: Pt reports no pain at rest today. General Comment Comments: Nursing (Ana) aware of pain. Pain Screening Patient Currently in Pain: Denies Vital Signs Patient Currently in Pain: Denies Orientation Orientation Orientation Level: Oriented to person;Oriented to situation Cognition Objective Bed mobility Supine to Sit: Minimal assistance Sit to Supine: Minimal assistance Scooting: Stand by assistance Transfers Stand to sit: Contact guard assistance;Minimal Assistance Ambulation Ambulation?: No Exercises Straight Leg Raise: 20x Quad Sets: 20x Heelslides: 20x Gluteal Sets: 20x Hip Flexion: 20x Hip Abduction: 20x Knee Long Arc Quad: 20x G-Code OutComes Score AM-PAC Score Goals Short term goals Time Frame for Short term goals: 10 days Short term goal 1: Pt will amb 10' with platform walker, touch down WB on L LE. Short term goal 2: Patient will perform bed mobility with SBA Short term goal 3: Patient will perform transfers with CGA Short term goal 4: Patient will tolerate 20-30 minutes of therex/act to improve endurance for ADLs. Patient Goals Patient goals : Feel better Plan Plan Times per week: 7 Times per day: Twice a day Plan Comment: 1x/day on weekends Safety Devices Type of devices: Gait belt Therapy Time Individual Concurrent Group Co-treatment Time In 729 Time Out 0755 Minutes 25 Vasile Rodríguez * Wendi Alaniz OT - 08/19/2019 9:21 AM EDT Occupational Therapy Facility/Department: [facility] Daily Treatment Note NAME: Crista Woodard : 1955 Date of Service: 08/19/2019 Discharge Recommendations: Continue to assess pending progress, Subacute/Longterm Facility, ECF with OT Assessment OT Education: OT Role;Plan of Care;Precautions;ADL Adaptive Strategies;Transfer Training Barriers to Learning: Decreased cognition Activity Tolerance Activity Tolerance: Patient tolerated treatment well Safety Devices Safety Devices in place: Yes Type of devices: All fall risk precautions in place;Bed alarm in place;Call light within reach;Patient at risk for falls;Left in bed;Nurse notified Patient Diagnosis(es): The encounter diagnosis was Cannot walk. has a past medical history of Anxiety, Depression, Headache(784.0), Hyperlipidemia, Irritable bowelsyndrome, Osteoarthritis, Peripheral vascular disease (HCC), Schizophrenia (HCC), and Stroke (cerebrum) (HCC). has a past surgical history that includes Tonsillectomy (1959); Knee arthroscopy (Right, 2009); Skin cancer excision (2009); Colonoscopy (2009); Hip fracture surgery (Left, 08/06/2019); and Hip fracture surgery (Left, 08/06/2019). Restrictions Restrictions/Precautions Restrictions/Precautions: Weight Bearing, Fall Risk Required Braces or Orthoses?: Yes Lower Extremity Weight Bearing Restrictions Left Lower Extremity Weight Bearing: Toe Touch Weight Bearing Upper Extremity Weight Bearing Restrictions Left Upper Extremity Weight Bearing: Non Weight Bearing Other: fracture of left humerus, sling Required Braces or Orthoses Left Upper Extremity Brace/Splint: Sling Subjective General Chart Reviewed: Yes Patient assessed for rehabilitation services?: Yes Response to previous treatment: Patient with no complaints from previous session Family / Caregiver Present: No Referring Practitioner: Dr. Regan Diagnosis: Inability to ambulate Subjective Subjective: Pt c/o 7/10 in L shoulder and L hip with movement, denies pain at rest General Comment Comments: Pt laying in bed upon arrival, agreeable to OT tx Orientation Orientation Overall Orientation Status: Within Functional Limits Objective ADL Feeding: Setup Grooming: Minimal assistance UE Bathing: Moderate assistance LE Bathing: Dependent/Total UE Dressing: Maximum assistance LE Dressing: Dependent/Total Toileting: Dependent/Total Balance Sitting Balance: Supervision Standing Balance: Contact guard assistance Standing Balance Time: ~3 min Activity: ADLs Comment: Pt demonstrated Fair balance, no LOB noted Bed mobility Rolling to Right: Stand by assistance Supine to Sit: Minimal assistance Sit to Supine: Minimal assistance Scooting: Stand by assistance Transfers Sit to stand: Minimal assistance Stand to sit: Minimal assistance Transfer Comments: Pt declines transfer to bedside chair at this time, requests to stay in bed Cognition Overall Cognitive Status: Exceptions Arousal/Alertness: Appropriate responses to stimuli Following Commands: Follows one step commands consistently Attention Span: Appears intact Memory: Decreased recall of precautions;Decreased recall of recent events Safety Judgement: Decreased awareness of need for safety;Decreased awareness of need for assistance Insights: Decreased awareness of deficits Initiation: Requires cues for some Sequencing: Requires cues for some Type of ROM/Therapeutic Exercise Type of ROM/Therapeutic Exercise: AROM Exercises Finger Flexion: x 20 reps Finger Extension: x 20 reps Grasp/Release: x 20 reps Plan Plan Times per week: 7 Times per day: Daily Current Treatment Recommendations: Strengthening, Neuromuscular Re-education, Functional Mobility Training, Endurance Training, Patient/Caregiver Education & Training, Self-Care / ADL, Positioning Goals Short term goals Time Frame for Short term goals: 10 visits Short term goal 1: Patient to tolerate 10 minutes ther-ex/ther-act in order to improve strength/endurance for ADLs. Short term goal 2: Patient to progress to functional mobility/transfer activities while maintainingprecautions with CGA. Short term goal 3: Patient to complete ADL grooming tasks with setup. Short term goal 4: Patient to complete UB dressing activities with min A. Therapy Time Individual Concurrent Group Co-treatment Time In 0854 Time Out 0923 Minutes 29 Timed Code Treatment Minutes: 29 Minutes Wendi Alaniz OT * Gloria Arita RN - 08/19/2019 8:42 AM EDT Patient refuses medications this am. States I just don't want them right now. Education provided with no effect. Patient agreeable to take potassium, as K+ is 3.4 this am. Continues to refuse all psych meds. * Ly Trujillo LSW - 08/19/2019 8:25 AM EDT Patient realizes today that she needs to go to SNF before going home. Patient is a 2 assist and unable to walk on her own. She chose [facility]. Referral made and paper work fax. DEREK Daigle * Gloria Arita RN - 08/19/2019 7:30 AM EDT Patient is alert and oriented this am. Answers questions appropriately. Pleasant and cooperative with assessment. Denies any pain when asked. Incision sites to left hip are FREEMAN, clean, dry with reshma intact. Sling to left arm in place. Coffee given per patient request. Sitting up in bed watching TV. Call light in reach. * Caitlyn Vincent APRN - ELLEN - 08/19/2019 7:10 AM EDT Progress Note SUBJECTIVE: F/u to weakness OBJECTIVE: Resting in bed alert and oriented at this time. Denies pain. Yesterday did not work withtherapy. Yesterday she was saying that she was going home and not to an ECF. Today she was told by myself and Dr. Regan that she needs to go to ECF due to her inability to ambulate and care for herself. We discussed the fact that she has burned her bridges with local facilities. Beauty Therapist is assisting with placement. Vitals: Vitals: 08/19/19 0727 BP: 104/67 Pulse: 80 Resp: 16 Temp: 98.5 F (36.9 C) SpO2: 95% Weight: 161 lb 8 oz (73.3 kg) Height: 5' 3 (160 cm) Exam: CONSTITUTIONAL: awake, alert, cooperative, no apparent distress, and appears stated age EYES: Lids and lashes normal, pupils equal, round and reactive to light, extra ocular muscles intact, sclera clear, conjunctiva normal ENT: normocepalic, without obvious abnormality, atraumatic NECK: supple, symmetrical, trachea midline, skin normal and no stridor HEMATOLOGIC/LYMPHATICS: no cervical lymphadenopathy and no supraclavicular lymphadenopathy LUNGS: No increased work of breathing, good air exchange, clear to auscultation bilaterally, no crackles or wheezing CARDIOVASCULAR: Normal apical impulse, regular rate and rhythm, normal S1 and S2, no S3 or S4, and no murmur noted ABDOMEN: No scars, normal bowel sounds, soft, non-distended, non-tender, no masses palpated, no hepatosplenomegally MUSCULOSKELETAL: there is no redness, warmth, or swelling of the joints NEUROLOGIC: Mental Status Exam: Level of Alertness: awake Orientation: person, place, time Memory: normal SKIN: no bruising or bleeding, normal skin color, texture, turgor, no redness, warmth, or swelling,no rashes and no lesions EXT: no cyanosis, clubbing or edema present Diagnostic Data: Reviewed ASSESSMENT: Active Problems: Unable to ambulate Inability to ambulate due to hip Resolved Problems: * No resolved hospital problems. * PLAN: Discharge to ECF today versus home Beauty Therapist to assist with plan Caitlyn Vincent APRN, DRAWING HAND-C * Oneyda Hines - 08/19/2019 2:08 AM EDT Patient refuses to allow chart writer to check brief at this time and states she does not need to go to bathroom * Oneyda Hines - 08/19/2019 12:02 AM EDT Pt spit pills out onto bedside table said she did not want them * Oneyda Hines - 08/18/2019 7:20 PM EDT Pt told chart writer previous nurse removed iv * Jesusita Pickard RN - 08/18/2019 4:07 PM EDT Event Marketing Representative in room to remove catheter at this time. Patient had large sized bowel movement and patient states that she couldn't even tell that she went. Patient assisted into bed per request with +2 assistance. Patient is also refusing IV fluids at this time. Patient keeps turning off machine and blaming it on other staff. Will continue to monitor. * Ly Trujillo LSW - 08/18/2019 3:50 PM EDT Patient is refusing to go to a SNF. [facility] will not take her back do to her signing out AMA. Patient stated she will be just fine at home. Left message for her field nurse case manager of the discharge plan. Will call Adult protective services do to patient being unsafe. Will also let the boyfriend know what is going on with the plan. Will have home health see the patient for PT/OT & nursing. DEREK Daigle * Jesusita Pickard RN - 08/18/2019 2:00 PM EDT Event Marketing Representative took off dressing that was in place over surgical site on left hip that was to be taken off on 08/14. 10 reshma noted on upper hip area and 7 on lower hip area. All are dry and intact. Patient continues to refuse IV fluids. * Reyes Huizar PTA - 08/18/2019 1:43 PM EDT Physical Therapy Facility/Department: [facility] Daily Treatment Note NAME: Crista Woodard : 1955 Date of Service: 08/18/2019 Discharge Recommendations: Subacute/Longterm Facility, ECF with PT Assessment PT Education: Weight-bearing Education;Goals;PT Role;Plan of Care;General Safety Patient Education: Educated pt on above with fair understanding noted. REQUIRES PT FOLLOW UP: Yes Activity Tolerance Activity Tolerance: Patient limited by pain;Patient limited by fatigue Patient Diagnosis(es): The encounter diagnosis was Cannot walk. has a past medical history of Anxiety, Depression, Headache(784.0), Hyperlipidemia, Irritable bowelsyndrome, Osteoarthritis, Peripheral vascular disease (HCC), Schizophrenia (HCC), and Stroke (cerebrum) (HCC). has a past surgical history that includes Tonsillectomy (1959); Knee arthroscopy (Right, 2009); Skin cancer excision (2009); Colonoscopy (2009); Hip fracture surgery (Left, 08/06/2019); and Hip fracture surgery (Left, 08/06/2019). Restrictions Restrictions/Precautions Restrictions/Precautions: Weight Bearing, Fall Risk Required Braces or Orthoses?: Yes Lower Extremity Weight Bearing Restrictions Left Lower Extremity Weight Bearing: Toe Touch Weight Bearing Upper Extremity Weight Bearing Restrictions Left Upper Extremity Weight Bearing: Non Weight Bearing Other: fracture of left humerus, sling Required Braces or Orthoses Left Upper Extremity Brace/Splint: Sling Subjective General Chart Reviewed: Yes Family / Caregiver Present: No Referring Practitioner: Charlene Regan MD Subjective Subjective: Pt reported having a lot of LUE/LLE pain that she rated at 10/10. General Comment Comments: Nursing (Ana) aware of pain. Orientation Orientation Overall Orientation Status: Within Functional Limits Cognition Objective Transfers Sit to Stand: Minimal Assistance(Completed x 5.) Stand to sit: Contact guard assistance;Minimal Assistance Comment: Verbal cues needed for safety and to maintain WB precautions. Pt with fair to good understanding. Ambulation Ambulation?: No(Pt refused to attempt d/t pain/fatigue.) Balance Posture: Fair Sitting - Static: Good Sitting - Dynamic: Fair Standing - Static: Fair;- Standing - Dynamic: Poor Exercises Straight Leg Raise: 20x Quad Sets: 20x Heelslides: 20x Gluteal Sets: 20x Hip Flexion: 20x Hip Abduction: 20x Knee Long Arc Quad: 20x Knee Short Arc Quad: 20x Ankle Pumps: 20x Comments: Above exercises completed in sitting/reclined. AAROM as needed for LLE. Pt needed frequent rest breaks d/t pain/fatigue. G-Code OutComes Score AM-PAC Score Goals Short term goals Time Frame for Short term goals: 10 days Short term goal 1: Pt will amb 10' with platform walker, touch down WB on L LE. Short term goal 2: Patient will perform bed mobility with SBA Short term goal 3: Patient will perform transfers with CGA Short term goal 4: Patient will tolerate 20-30 minutes of therex/act to improve endurance for ADLs. Patient Goals Patient goals : Feel better Plan Plan Times per week: 7 Times per day: Twice a day Plan Comment: 1x/day on weekends Safety Devices Type of devices: All fall risk precautions in place, Left in chair, Call light within reach, Nurse notified, Chair alarm in place, Gait belt, Patient at risk for falls Therapy Time Individual Concurrent Group Co-treatment Time In 1310 Time Out 1348 Minutes 38 [facility], [facility] * Ly Trujillo LSW - 08/18/2019 12:29 PM EDT Patient is clear at this time. Sojourn feeling she does not meet inpatient criteria. Patient would like to go back to [facility]. She knows she should not have signed out AMA. Referral made and paper work fax. DEREK Daigle * Jesusita Pickard RN - 08/18/2019 12:10 PM EDT Event Marketing Representative in to see patient at this time. Patient is alert and oriented x4 and denies seeing or hearing anything at this time. * Rosalba Gordon OTA - 08/18/2019 12:00 PM EDT Occupational Therapy Facility/Department: [facility] Daily Treatment Note NAME: Crista Woodard : 1955 Date of Service: 08/18/2019 Discharge Recommendations: Continue to assess pending progress, Subacute/Longterm Facility, [facility] with OT Assessment Patient Education: Provided with discharge folder. Barriers to Learning: cognition Safety Devices Safety Devices in place: Yes Type of devices: Left in chair;Call light within reach;Chair alarm in place Patient Diagnosis(es): The encounter diagnosis was Cannot walk. has a past medical history of Anxiety, Depression, Headache(784.0), Hyperlipidemia, Irritable bowelsyndrome, Osteoarthritis, Peripheral vascular disease (HCC), Schizophrenia (HCC), and Stroke (cerebrum) ([facility]). has a past surgical history that includes Tonsillectomy (1960); Knee arthroscopy (Right, 2009); Skin cancer excision (2009); Colonoscopy (2009); Hip fracture surgery (Left, 08/06/2019); and Hip fracture surgery (Left, 08/06/2019). Restrictions Restrictions/Precautions Restrictions/Precautions: Weight Bearing, Fall Risk Required Braces or Orthoses?: Yes Lower Extremity Weight Bearing Restrictions Left Lower Extremity Weight Bearing: Toe Touch Weight Bearing Upper Extremity Weight Bearing Restrictions Left Upper Extremity Weight Bearing: Non Weight Bearing Other: fracture of left humerus, sling Required Braces or Orthoses Left Upper Extremity Brace/Splint: Sling Subjective General Chart Reviewed: Yes Patient assessed for rehabilitation services?: Yes Response to previous treatment: Patient with no complaints from previous session Family / Caregiver Present: No Referring Practitioner: Dr. Regan Diagnosis: Inability to ambulate Subjective Subjective: Pt c/o contstant 10/10 L shoulder and hip pain, however does not demonstrate visible signs of distress at rest. General Comment Comments: Pt seated in bedside chair upon arrival. Agreeable to ther ex for B UE. Orientation Objective Type of ROM/Therapeutic Exercise Type of ROM/Therapeutic Exercise: Free weights Comment: Pt completed R UE ther ex with 2# dumbell, 15 reps x 2 sets x all planes with good tolerance and moderate verbal cues for technique, to increase strength for improved independence with sit to stand transfers. Exercises Other: Provided with and educated on discharge folder. Pt verbalized understanding. Plan Plan Times per week: 7 Times per day: Daily Current Treatment Recommendations: Strengthening, Neuromuscular Re-education, Functional Mobility Training, Endurance Training, Patient/Caregiver Education & Training, Self-Care / ADL, Positioning G-Code OutComes Score AM-PAC Score Goals Short term goals Time Frame for Short term goals: 10 visits Short term goal 1: Patient to tolerate 10 minutes ther-ex/ther-act in order to improve strength/endurance for ADLs. Short term goal 2: Patient to progress to functional mobility/transfer activities while maintainingprecautions with CGA. Short term goal 3: Patient to complete ADL grooming tasks with setup. Short term goal 4: Patient to complete UB dressing activities with min A. Therapy Time Individual Concurrent Group Co-treatment Time In 1136 Time Out 1200 Minutes 24 FREEMAN Goodson * Ly Trujillo LSW - 08/18/2019 10:43 AM EDT Doctor would like patient to go [facility] do to hallucinations Patient will have to be pink slip to go there. The covid test is done and negative for discharge. [facility]erral made to [facility]. Patient wasjust discharge on August 07 to [facility] for rehab do to a hip fracture. She signed herself out AMA from the longterm. Patient requires mod assist with her ADL's. Left message for field nurse case manager Miracle Bear about discharge plan . DEREK Daigle * Ivy Ordonez RD, LD - 08/18/2019 8:43 AM EDT Nutrition Assessment Type and Reason for Visit: Initial, Consult(poor po, nasuea/vomiting) Nutrition Recommendations: 1. 8 oz Ensure Enlive BID 2. Follow up with education needs, not appropriate at this time. Nutrition Assessment: Inadequate energy intake related to acute injury/trauma as evidenced by nausea//vomiting, decreased intake related to hip pain. Pt reports eating less than 50% at home for 5 days. She recently broke her hip, experienced nausea/vomiting. Pt is upper edentulous, is able to self select foods, and upon observation completed ~50% of breakfast. Nausea has since resolved. Pt reports she drinks 2 Boost ONS a day at home. Note pt has poor memory/ delusional, not appropriate for education at this time, however can benefit from ONS in healing. Weights have been reported at 120# 7 months ago, per EHR, wt stated at 140#. Labs reviewed. Well controlled glucose. Pt is at moderate nutrition risk, and also is at risk for malnutrition, as currently does not meet parameters for malnutrition per ASPEN, AND guidelines. Malnutrition Assessment: Malnutrition Status: At risk for malnutrition Context: Acute illness or injury Findings of the 6 clinical characteristics of malnutrition (Minimum of 2 out of 6 clinical characteristics is required to make the diagnosis of moderate or severe Protein Calorie Malnutrition based on AND/ASPEN Guidelines): 1. Energy Intake-Less than or equal to 50% of estimated energy requirement, Unable to assess 2. Weight Loss-No significant weight loss, 3. Fat Loss-No significant subcutaneous fat loss, 4. Muscle Loss-No significant muscle mass loss, 5. Fluid Accumulation-Mild fluid accumulation, Extremities(BLE +1 pitting) 6. Lean Manufacturing Leader Strength-Not measured Recent Labs 08/16/19 1033 08/17/19 0545 NA 136 137 K 3.1* 3.4* CL 100 105 CO2 24 21 BUN 17 14 CREATININE 0.60 0.51 GLUCOSE 126* 109* ALT 31 -- ALKPHOS 86 -- GFR Lab Results Component Value Date LABALBU 3.5 08/16/2019 Nutrition Risk Level: Moderate Nutrient Needs: Estimated Daily Total Kcal: 2546-3366 Estimated Daily Protein (g): 62-73(1.2-1.4) Estimated Daily Total Fluid (ml/day): 1800+ Nutrition Diagnosis: Problem: Inadequate energy intake Etiology: related to Acute injury/trauma ? Signs and symptoms: as evidenced by Nausea, Vomiting Objective Information: Nutrition-Focused Physical Findings: well nourished Wound Type: (sp hip fracture surgery ) Current Nutrition Therapies: Oral Diet Orders: General Oral Diet intake: 26-50% Oral Nutrition Supplement (ONS) Orders: None ONS intake: 0% Anthropometric Measures: Ht: 5' 3 (160 cm) Current Body Wt: 163 lb 9.3 oz (74.2 kg) Admission Body Wt: 153 lb 3.5 oz (69.5 kg) Usual Body Wt: 164 lb 3.9 oz (74.5 kg)(on 08/08/19) % Weight Change: , DAISHA Wooton Body Wt: 115 lb (52.2 kg), % W[place]on Body 141% BMI Classification: BMI 25.0 - 29.9 Overweight Nutrition Interventions: Continue current diet, Start ONS Continued Inpatient Monitoring, Education not appropriate at this time, Coordination of Care Nutrition Evaluation: Evaluation: Goals set Goals: PO > 75% of meals Monitoring: Meal Intake, Supplement Intake, Diet Tolerance, Weight, Pertinent Labs, Patient/Family Education, Diarrhea Contact Number: [phone] * Reyes Huizar, PHYSICIAN PRACTICE MANAGER - 08/18/2019 8:05 AM EDT Physical Therapy Facility/Department: [facility] Daily Treatment Note NAME: Crista Wodoard : 1955 Date of Service: 08/18/2019 Discharge Recommendations: Subacute/Longterm Facility, ECF with PT Assessment PT Education: Weight-bearing Education;Goals;PT Role;Plan of Care;Transfer Training;Orientation;General Safety Patient Education: Educated pt on above with fair understanding noted. REQUIRES PT FOLLOW UP: Yes Activity Tolerance Activity Tolerance: Patient limited by pain;Patient limited by fatigue Patient Diagnosis(es): The encounter diagnosis was Cannot walk. has a past medical history of Anxiety, Depression, Headache(784.0), Hyperlipidemia, Irritable bowelsyndrome, Osteoarthritis, Peripheral vascular disease (HCC), Schizophrenia (HCC), and Stroke (cerebrum) ([facility]). has a past surgical history that includes Tonsillectomy (1959); Knee arthroscopy (Right, 2009); Skin cancer excision (2009); Colonoscopy (2009); Hip fracture surgery (Left, 08/06/2019); and Hip fracture surgery (Left, 08/06/2019). Restrictions Restrictions/Precautions Restrictions/Precautions: Weight Bearing, Fall Risk Required Braces or Orthoses?: Yes Lower Extremity Weight Bearing Restrictions Left Lower Extremity Weight Bearing: Toe Touch Weight Bearing Upper Extremity Weight Bearing Restrictions Left Upper Extremity Weight Bearing: Non Weight Bearing Other: fracture of left humerus, sling Required Braces or Orthoses Left Upper Extremity Brace/Splint: Sling Subjective General Chart Reviewed: Yes Referring Practitioner: Charlene Regan MD Subjective Subjective: Pt reported having a lot of LUE/LLE pain. General Comment Comments: Nursing (Ana) alerted to pain. Orientation Orientation Overall Orientation Status: Within Functional Limits Cognition Objective Transfers Sit to Stand: Moderate Assistance Stand to sit: Moderate Assistance;Minimal Assistance Comment: Pt needed frequent cues for technique with fair understanding noted. Ambulation Ambulation?: No(Attempted but pt unable to complete d/t pain. ) Balance Posture: Fair Sitting - Static: Good Sitting - Dynamic: Fair Standing - Static: Fair;- Standing - Dynamic: Poor Exercises Straight Leg Raise: 15x Quad Sets: 15x Heelslides: 15x Gluteal Sets: 15x Hip Flexion: 15x Hip Abduction: 15x Knee Long Arc Quad: 15x Knee Short Arc Quad: 15x Ankle Pumps: 15x Comments: Above exercises completed in sitting/reclined. AAROM as needed for LLE. G-Code OutComes Score AM-PAC Score Goals Short term goals Time Frame for Short term goals: 10 days Short term goal 1: Pt will amb 10' with platform walker, touch down WB on L LE. Short term goal 2: Patient will perform bed mobility with SBA Short term goal 3: Patient will perform transfers with CGA Short term goal 4: Patient will tolerate 20-30 minutes of therex/act to improve endurance for ADLs. Patient Goals Patient goals : Feel better Plan Plan Times per week: 7 Times per day: Twice a day Plan Comment: 1x/day on weekends Safety Devices Type of devices: All fall risk precautions in place, Left in chair, Call light within reach, Nurse notified, Chair alarm in place, Gait belt, Patient at risk for falls Therapy Time Individual Concurrent Group Co-treatment Time In 719 Time Out 08 Minutes 45 [facility], [facility] * Jesusita Pickard RN - 08/18/2019 7:30 AM EDT Event Marketing Representative and another staff member assisted patient from bed to bedside commode and into the chair. Patient is oriented to self but unsure of situation, partially oriented to time (year was correct). * Charlene Regan MD - 08/18/2019 6:44 AM EDT Progress Note SUBJECTIVE: Patient seen for inability to ambulate and perform self care. Also MS change ROS: NOT RELIABLE DUE TO MENTAL HEALTH. NURSES REPORT NO CHANGE. OBJECTIVE: EXAM: Vitals: 08/18/19 0628 BP: 120/66 Pulse: 85 Resp: 16 Temp: 99.4 F (37.4 C) SpO2: 93% Weight: 163 lb 9.6 oz (74.2 kg) Height: 5' 3 (160 cm) GEN: A & O x3, no apparent distress EYES: No gross abnormalities. NECK: normal, supple, no lymphadenopathy, PULM: clear to auscultation bilaterally- no wheezes, rales or rhonchi, normal air movement, no respiratory distress COR: regular rate & rhythm ABD: soft, non-tender, non-distended, normal bowel sounds, no masses or organomegaly EXT: no cyanosis, clubbing or edema present (recent fracture of left hip and left arm) NEURO: negative SKIN: no rashes or significant lesions Diagnostic Data: All lines, drips, IV sites and medications reviewed All available data reviewed Ct Head Wo Contrast Result Date: 08/16/2019 EXAMINATION: CT OF THE HEAD WITHOUT CONTRAST 08/16/2019 11:12 am TECHNIQUE: CT of the head was performed without the administration of intravenous contrast. Dose modulation, iterative reconstruction, and/or weight based adjustment of the mA/kV was utilized to reduce the radiation dose to as low as reasonably achievable. COMPARISON: 08/06/2019 HISTORY: ORDERING SYSTEM PROVIDED HISTORY: altered TECHNOLOGIST PROVIDED HISTORY: altered FINDINGS: BRAIN/VENTRICLES: There is prominence of the ventricles and cortical sulci consistent with cortical volume loss. No midline shift. Basal cisterns are normally outlined. There is no evidence for acute infarct. No acute intra or extra-axial hemorrhage. ORBITS: The visualized portion of the orbits demonstrate no acute abnormality. SINUSES: The visualized paranasal sinuses and mastoid air cells demonstrate no acute abnormality. SOFT TISSUES/SKULL: No acuteabnormality of the visualized skull or soft tissues. No acute intracranial abnormality. Mild cerebral atrophy. Xr Chest Portable Result Date: 08/16/2019 EXAMINATION: ONE X-RAY VIEW OF THE CHEST 08/16/2019 11:20 am COMPARISON: August 06, 2019 HISTORY: ORDERING SYSTEM PROVIDED HISTORY: Confusion TECHNOLOGIST PROVIDED HISTORY: Confusion Initial evaluation, acute confusion. FINDINGS: The cardiomediastinal silhouette is normal in size. The lungs are clear without acute infiltrate. No pleural effusion or pneumothorax is present. No subdiaphragmatic free air. No acute cardiopulmonary process. Hospital Problems: Active Problems: Unable to ambulate Inability to ambulate due to hip Resolved Problems: * No resolved hospital problems. * All Problems: Patient Active Problem List Diagnosis Tobacco dependency Gastroesophageal reflux disease without esophagitis Chronic lower back pain / Falls, knee surgery with abnormality in gait Mixed incontinence Cerebrovascular accident (CVA) due to thrombosis of precerebral artery (HCC) Mixed hyperlipidemia Other chronic pain / Multiple Joints Hip fracture requiring operative repair, left, closed, initial encounter ([facility]) Encounter for pre-operative cardiovascular clearance History of cardioembolic cerebrovascular accident (CVA) Unable to ambulate Inability to ambulate due to hip ASSESSMENT/PLAN: inability to ambulate and take care of self Delusional Needs placement HIGH RISK MEDS: none Charlene Regan M.D. * Jesus Velasco, PT - 08/17/2019 11:44 AM EDT Physical Therapy Facility/Department: [facility] Initial Assessment NAME: Crista Woodard : 1955 Date of Service: 08/17/2019 Discharge Recommendations: Subacute/Longterm Facility, ECF with PT Assessment Body structures, Functions, Activity limitations: Decreased functional mobility ;Decreased cognition;Decreased high-level IADLs;Decreased ADL status;Decreased endurance;Decreased ROM;Decreased balance;Decreased strength;Increased pain Assessment: The patient was admitted due to inability to ambulate following a L humerus fx and L hip fx. Per previous notes patient was touch down WB on L LE and non weight bearing through L UE. She was unable to ambulate due to her pain levels once standing and requested to sit. She demonstrates LE weakness, decreased activity endurance, and impaired balance. She would benefit from skilled PT toaddress her deficits to improve functional mobility. Treatment Diagnosis: General weakness, L hip pain/L hip fx Prognosis: Fair Decision Making: High Complexity REQUIRES PT FOLLOW UP: Yes Activity Tolerance Activity Tolerance: Patient limited by pain Patient Diagnosis(es): The encounter diagnosis was Cannot walk. has a past medical history of Anxiety, Depression, Headache(784.0), Hyperlipidemia, Irritable bowelsyndrome, Osteoarthritis, Peripheral vascular disease (HCC), Schizophrenia (HCC), and Stroke (cerebrum) ([facility]). has a past surgical history that includes Tonsillectomy (1959); Knee arthroscopy (Right, 2009); Skin cancer excision (2009); Colonoscopy (2009); Hip fracture surgery (Left, 08/06/2019); and Hip fracture surgery (Left, 08/06/2019). Restrictions Restrictions/Precautions Restrictions/Precautions: Weight Bearing, Fall Risk Lower Extremity Weight Bearing Restrictions Left Lower Extremity Weight Bearing: Toe Touch Weight Bearing Upper Extremity Weight Bearing Restrictions Left Upper Extremity Weight Bearing: Non Weight Bearing Other: fracture of left humerus, sling Vision/Hearing Vision: Impaired Vision Exceptions: Wears glasses at all times Hearing: Within functional limits Subjective General Chart Reviewed: Yes Patient assessed for rehabilitation services?: Yes Family / Caregiver Present: No Referring Practitioner: Cahrlene Regan MD Referral Date : 08/16/19 Diagnosis: Unable to ambulate, R26.2 Follows Commands: Within Functional Limits Subjective Subjective: Pt denied pain upon PT arrival. Pain Screening Patient Currently in Pain: Other (comment) Orientation Orientation Overall Orientation Status: Impaired Orientation Level: Oriented to person;Oriented to situation Social/Functional History Social/Functional History Type of Home: House Home Layout: Two level Home Access: Level entry Bathroom Shower/Tub: Tub/Shower unit Bathroom Toilet: Standard Bathroom Equipment: Shower chair Bathroom Accessibility: Accessible ADL Assistance: Needs assistance Homemaking Assistance: Needs assistance Ambulation Assistance: Needs assistance Transfer Assistance: Needs assistance Additional Comments: Pt left [facility]. She returned home and couldnt get up off of couch, stated she had no help for 3-4 days, Cognition Cognition Overall Cognitive Status: Exceptions Arousal/Alertness: Appropriate responses to stimuli Following Commands: Follows one step commands consistently Attention Span: Appears intact Memory: Decreased recall of precautions;Decreased recall of recent events;Decreased short term memory Safety Judgement: Decreased awareness of need for safety;Decreased awareness of need for assistance Problem Solving: Assistance required to generate solutions;Assistance required to implement solutions Insights: Decreased awareness of deficits Initiation: Requires cues for some Sequencing: Requires cues for some Objective Observation/Palpation Observation: Pt wearing sling AROM RLE (degrees) RLE AROM: WFL AROM LLE (degrees) LLE General AROM: Hip to 90* in sitting, neutral in standing Strength RLE Comment: Grossly 4/5 Strength LLE Comment: Grossly 3+/5 Sensation Overall Sensation Status: WFL Bed mobility Supine to Sit: Minimal assistance Sit to Supine: Minimal assistance Scooting: Stand by assistance Transfers Sit to Stand: Contact guard assistance Stand to sit: Contact guard assistance Ambulation Ambulation?: No Stairs/Curb Stairs?: No Balance Posture: Fair Sitting - Static: Good Sitting - Dynamic: Fair Standing - Static: Poor Standing - Dynamic: Poor Plan Plan Times per week: 7 Times per day: Twice a day Plan Comment: 1x/day on weekends Safety Devices Type of devices: All fall risk precautions in place AM-PAC Score AM-PAC Inpatient Mobility without Stair Climbing Raw Score : 10 (08/17/19 114) AM-PAC Inpatient without Stair Climbing T-Scale Score : 34.07 (08/17/19 114) Mobility Inpatient CMS 0-100% Score: 71.66 (08/17/19 114) Mobility Inpatient without Stair CMS G-Code Modifier : CL (08/17/191142) Goals Short term goals Time Frame for Short term goals: 10 days Short term goal 1: Pt will amb 10' with platform walker, touch down WB on L LE. Short term goal 2: Patient will perform bed mobility with SBA Short term goal 3: Patient will perform transfers with CGA Short term goal 4: Patient will tolerate 20-30 minutes of therex/act to improve endurance for ADLs. Patient Goals Patient goals : Feel better Therapy Time Individual Concurrent Group Co-treatment Time In 1040 Time Out 1057 Minutes 17 Timed Code Treatment Minutes: 17 Minutes Jesus Velasco PT, DPT * Eden Blanco, OT - 08/17/2019 11:42 AM EDT Occupational Therapy Occupational Therapy Initial Assessment Date: 08/17/2019 Patient Name: Crista Woodard : 1955 Date of Service: 08/17/2019 Discharge Recommendations: Continue to assess pending progress, Subacute/Longterm Facility, ECF with OT Assessment Performance deficits / Impairments: Decreased functional mobility ;Decreased ADL status;Decreased endurance;Decreased strength;Decreased cognition;Decreased ROM Assessment: Patient is a 64 y/o female admitted due to inability to ambulate. Patient on 08/05 had surgery on left hip, currently TTWB and also has a non- operative left humeral fracture. Patient also per RN is refusing to take psychaitric medicine and is participating on a very limited basis. Patient presents with decreased strength and endurance, limiting independence and ADL participation. Patient to benefit from OT services in order to address these deficits. Prognosis: Fair Decision Making: High Complexity OT Education: OT Role;Plan of Care Barriers to Learning: cognition REQUIRES OT FOLLOW UP: Yes Safety Devices Safety Devices in place: Yes Type of devices: Left in bed;Bed alarm in place;Call light within reach;Nurse notified Patient Diagnosis(es): The encounter diagnosis was Cannot walk. has a past medical history of Anxiety, Depression, Headache(784.0), Hyperlipidemia, Irritable bowelsyndrome, Osteoarthritis, Peripheral vascular disease (HCC), Schizophrenia (HCC), and Stroke (cerebrum) ([facility]). has a past surgical history that includes Tonsillectomy (1959); Knee arthroscopy (Right, 2009); Skin cancer excision (2009); Colonoscopy (2009); Hip fracture surgery (Left, 08/06/2019); and Hip fracture surgery (Left, 08/06/2019). Restrictions Restrictions/Precautions Restrictions/Precautions: Weight Bearing, Fall Risk Lower Extremity Weight Bearing Restrictions Left Lower Extremity Weight Bearing: Toe Touch Weight Bearing Upper Extremity Weight Bearing Restrictions Left Upper Extremity Weight Bearing: Non Weight Bearing Other: fracture of left humerus, sling Subjective General Chart Reviewed: Yes Patient assessed for rehabilitation services?: Yes Family / Caregiver Present: Yes Referring Practitioner: Dr. Regan Diagnosis: Inability to ambulate Subjective Subjective: Patient reported no pain at rest, however during bed mobilty and sit to stand, patient stated my left side, ohhh I cannot do this. Social/Functional History Social/Functional History Type of Home: House Home Layout: Two level Home Access: Level entry Bathroom Shower/Tub: Tub/Shower unit Bathroom Toilet: Standard Bathroom Equipment: Shower chair Bathroom Accessibility: Accessible ADL Assistance: Needs assistance Homemaking Assistance: Needs assistance Ambulation Assistance: Needs assistance Transfer Assistance: Needs assistance Additional Comments: Pt left [facility]. She returned home and couldnt get up off of couch, stated she had no help for 3-4 days, Objective Vision: Impaired Vision Exceptions: Wears glasses at all times Hearing: Within functional limits Orientation Overall Orientation Status: Impaired Orientation Level: Oriented to person;Oriented to situation Observation/Palpation Observation: Pt wearing sling Balance Sitting Balance: Contact guard assistance Standing Balance: Contact guard assistance Functional Mobility Functional - Mobility Device: Rolling Walker Activity: Other Assist Level: Contact guard assistance Functional Mobility Comments: completed sit to stand transfer with CGA, however patient requested to sit down after a few seconds, stating that it was too painful to stand. ADL Feeding: Setup Grooming: Minimal assistance UE Bathing: Moderate assistance LE Bathing: Dependent/Total UE Dressing: Maximum assistance LE Dressing: Dependent/Total Toileting: Dependent/Total Bed mobility Supine to Sit: Minimal assistance Sit to Supine: Minimal assistance Scooting: Stand by assistance Cognition Overall Cognitive Status: Exceptions Arousal/Alertness: Appropriate responses to stimuli Following Commands: Follows one step commands consistently Attention Span: Appears intact Memory: Decreased recall of precautions;Decreased recall of recent events;Decreased short term memory Safety Judgement: Decreased awareness of need for safety;Decreased awareness of need for assistance Problem Solving: Assistance required to generate solutions;Assistance required to implement solutions Insights: Decreased awareness of deficits Initiation: Requires cues for some Sequencing: Requires cues for some Sensation Overall Sensation Status: WFL LUE AROM (degrees) LUE AROM : Exceptions LUE General AROM: Patient with left humeral fx, currently NWB Left Hand AROM (degrees) Left Hand AROM: WFL RUE AROM (degrees) RUE AROM : WFL Right Hand AROM (degrees) Right Hand AROM: WFL LUE Strength Gross LUE Strength: Exceptions to WFL L Hand General: 4/5 LUE Strength Comment: strength in LUE not assessed due to fx. RUE Strength Gross RUE Strength: WFL R Hand General: 4/5 Plan Plan Times per week: 7 Times per day: Daily Current Treatment Recommendations: Strengthening, Neuromuscular Re-education, Functional Mobility Training, Endurance Training, Patient/Caregiver Education & Training, Self-Care / ADL, Positioning AM-PAC Score AM-[facility] Inpatient Daily Activity Raw Score: 14 (08/17/19 114) AM-[facility] Inpatient ADL T-Scale Score : 33.39 (08/17/191141) ADL Inpatient CMS 0-100% Score: 59.67 (08/17/191141) ADL Inpatient [facility] G-Code Modifier : CK (08/17/191141) Goals Short term goals Time Frame for Short term goals: 10 visits Short term goal 1: Patient to tolerate 10 minutes ther-ex/ther-act in order to improve strength/endurance for ADLs. Short term goal 2: Patient to progress to functional mobility/transfer activities while maintainingprecautions with CGA. Short term goal 3: Patient to complete ADL grooming tasks with setup. Short term goal 4: Patient to complete UB dressing activities with min A. Therapy Time Individual Concurrent Group Co-treatment Time In 1040 Time Out 1055 Minutes 15 Eden Wade, OTR/L * Tanesha Higuera RN - 08/16/2019 10:45 PM EDT Pt arrived to floor from ED at 2140, admitted by Dr. Regan as hospitalist due to inability to walk. Pt transferred to bed upon arrival with maximum assist. Pt arrived with landaverde catheter in place. Pt oriented to room and call light. VS obtained and assessment done as charted. Pt is A&O to person, place, and time but disoriented to situation. Pt denies knowing her home medications. Pt states she has not eaten in several days. Food offered. Pt initially declines but then agrees topudding and water. IVF started as ordered. When chart writer pulled evening medications, patient stated I already took all those at home . Event Marketing Representative reminded patient that she had not been home since morning. Pt replied, I know that. But I took them all when I got up this morning, at least I think I took all the pills for the entire day . Due to patient being confused, no evening medications were administered. PHI form completed, no restrictions. Call light within reach. Will continue to monitor. * Tanesha Higuera RN - 08/16/2019 10:30 PM EDT Pt has $1115 of barakat and purse locked in cabinet. Officer had counted money and chart writer and aide also double checked amount. documented in this encounter History of Present Illness not supported for this document type No History of Present Illness Recorded* Beena Bender RN - 09/12/2019 1:15 PM EDT Patient discharged at this time. * Ly Trujillo LSW - 09/12/2019 1:05 PM EDT APS and boyfriend made aware of the discharge. DEREK Daigle * Beena Bender RN - 09/12/2019 1:00 PM EDT Report given to BRYANNA Mccullough at [facility]. * Beena Bender RN - 09/12/2019 12:45 PM EDT Patient drowsy from morning pills. Not awake enough to take afternoon pills. Patient incontinent oflarge amount. Carmen care done at this time with zinc oxide. * Ly Trujillo LSW - 09/12/2019 12:34 PM EDT Discharge paper work done and fax. Paper work fax to [facility] ambulance. Patient's covid test is negative. DEREK Daigle * Beena Bender RN - 09/12/2019 11:30 AM EDT Covid test done at this time. * Ly Trujillo LSW - 09/12/2019 11:11 AM EDT Patient needs a covid test to go to [facility]. DEREK Daigle * Ly Trujillo LSW - 09/12/2019 9:44 AM EDT Patient is approved to go to [facility] today. She will be pink slip and go by ambulance. DEREK Daigle * Beena Bender RN - 09/12/2019 9:15 AM EDT Patient wants chart writer to order her a yorkie and accessories online or over the phone. Patent disoriented x3. Refusing at first to take medications but patient agrees after chart writer states it will make her better and be able to to be discharged from hospital. * Ly Trujillo LSW - 09/12/2019 8:39 AM EDT Referral made to inpatient psych care at [facility]. APS is involved in this case. Patient left [facility] home about a week ago. Will update APS on the discharge plan and that the patient will be pink slip to inpatient psych care. DEREK Daigle * Beena Bender RN - 09/12/2019 8:20 AM EDT Event Marketing Representative spoke with Margarita, who is patients neighbor and takes care of her. She states patient left [facility] about a week ago and has been at home falling and not taking care of herself. Margarita has beenworking with Marce, who is patients field nurse case manager on placement to [facility] then maybe to [place]. Neighbor is unable to take care of patient. Ly, social work supervisor updated. * Zahra Mon RN - 09/11/2019 10:10 PM EDT Patient arrived to [facility] room 321 from ER at this time. Patient is alert, but did not respond to ER staff much, and when patient did she was very confused. Patient was only aware of year when chart writer asked. Navigator was filled out as much as possible due to patients confusion. O2@2L was applied due to patients Spo2@88% on RA and labored tachy breathing. Other VS are WNL. Bottom and groin is reddened, zinc paste applied. Patient came up from ER with $40 on her, which chart writer locked in cabinet in patients room. documented in this encounter History of Present Illness not supported for this document type No History of Present Illness Recorded* Allegra Gordon RN - 08/08/2019 4:27 PM EDT Patient discharged with [facility]. * Allegra Gordon RN - 08/08/2019 4:10 PM EDT Patient given purse from safe. * Ly Trujillo LSW - 08/08/2019 3:44 PM EDT Patient is set up to go to [facility] for rehab. The hens done for admission to SNF. Discharge paper work done and fax to SNF. DEREK Daigle * Ly Trujillo LSW - 08/08/2019 11:59 AM EDT Explain to patient that [facility] unable to accept her due to her medicaid being secondary and in the secondary days. Patient then chose [facility]. Referral made and paper work fax to SNF. DEREK Daigle * Allegra Gordon RN - 08/08/2019 11:[address] Sagastume and Caitlyn DRAWING HAND aware of refusal of blood. * Allegra Gordon RN - 08/08/2019 10:53 AM EDT Patient refuses blood transfusion. Education provided. Patient continues to refuse. Will notify DRAWING [employer]. * Rosalba Gordon OTA - 08/08/2019 9:54 AM EDT Occupational Therapy Facility/Department: [facility] MED SURG Daily Treatment Note NAME: Crista Woodard : 1955 Date of Service: 08/08/2019 Discharge Recommendations: Continue to assess pending progress, Subacute/Longterm Facility Assessment OT Education: IADL Safety;Energy Conservation;Precautions Patient Education: Pt educated on NWB of L UE and TTWB of L LE. Pt educated on importance of rehabilitation following hospitalization due to living in private residence alone. Barriers to Learning: cognition/carryover Safety Devices Safety Devices in place: Yes Type of devices: Bed alarm in place;Call light within reach;Left in bed Patient Diagnosis(es): The primary encounter diagnosis was Closed fracture of left hip, initial encounter ([facility]). A diagnosis of Other closed nondisplaced fracture of proximal end of left humerus, initial encounter was also pertinent to this visit. has a past medical history of Anxiety, Depression, Headache(784.0), Hyperlipidemia, Irritable bowelsyndrome, Osteoarthritis, Peripheral vascular disease (HCC), Schizophrenia ([facility]), and Stroke (cerebrum) ([facility]). has a past surgical history that includes Tonsillectomy (1959); Knee arthroscopy (Right, 2009); Skin cancer excision (2009); Colonoscopy (2009); Hip fracture surgery (Left, 08/06/2019); and Hip fracture surgery (Left, 08/06/2019). Restrictions Restrictions/Precautions Restrictions/Precautions: Weight Bearing Required Braces or Orthoses?: Yes Lower Extremity Weight Bearing Restrictions Left Lower Extremity Weight Bearing: Toe Touch Weight Bearing Upper Extremity Weight Bearing Restrictions Right Upper Extremity Weight Bearing: Non Weight Bearing Left Upper Extremity Weight Bearing: Non Weight Bearing Required Braces or Orthoses Left Upper Extremity Brace/Splint: Sling Subjective General Chart Reviewed: Yes Patient assessed for rehabilitation services?: Yes Response to previous treatment: Patient with no complaints from previous session Family / Caregiver Present: No Referring Practitioner: Dr. Regan Diagnosis: L Hip Fracture Subjective Subjective: Pt states 12/10 pain in L UE and L hip. General Comment Comments: Pt supine in bed upon arrival. Pt required max encouragement for participation. Orientation Objective Bed mobility Supine to Sit: Maximum assistance Sit to Supine: Maximum assistance Scooting: Maximal assistance Type of ROM/Therapeutic Exercise Type of ROM/Therapeutic Exercise: Free weights Comment: Pt completed R UE ther ex with 2# dumbell, 15 reps x 1 set x 5 planes with 2 rest breaks noted. Pt declined second set due to pain. Plan Plan Times per week: 7x/week Times per day: Daily Current Treatment Recommendations: Strengthening, Endurance Training, Patient/Caregiver Education & Training, Self-Care / ADL, Balance Training, Functional Mobility Training, Safety Education & Training G-Code OutComes Score AM-PAC Score Goals Short term goals Time Frame for Short term goals: 10 visits Short term goal 1: Pt will engage in 15 minutes RUE therex/theract to increase UB strength for increased independence with ADL and functional transfers. Short term goal 2: Pt will complete functional transfers with adherence to WB precautions with CGA to increase safety with functional tasks. Short term goal 3: Pt will engage in dressing tasks with use of AE PRN with modA to increase safetyand independence with ADL tasks. Short term goal 4: Pt will verbalize precuations with good understanding and carryover. Therapy Time Individual Concurrent Group Co-treatment Time In 09 Time Out 0945 Minutes 25 FREEMAN Goodson * Ly Trujillo LSW - 08/08/2019 9:52 AM EDT Patient has decided see wants to go to [place] rehab. Referral made and paper work fax. DEREK Daigle * Venita Bustillso, MARCIA - HOST/HOSTESS GROUND - 08/08/2019 9:04 AM EDT Crista Woodard is a 64 y.o. female patient. 1. Closed fracture of left hip, initial encounter ([facility]) 2. Other closed nondisplaced fracture of proximal end of left humerus, initial encounter Past Medical History: Diagnosis Date Anxiety Depression Headache(784.0) Hyperlipidemia Irritable bowel syndrome Osteoarthritis Peripheral vascular disease ([facility]) Schizophrenia ([facility]) Dr. Magaña Stroke (cerebrum) ([facility]) 2009 No past surgical history pertinent negatives on file. Scheduled Meds: sodium chloride 20 mL Intravenous Once albuterol sulfate HFA 2 puff Inhalation TID fludrocortisone 0.1 mg Oral Daily QUEtiapine 200 mg Oral Nightly gabapentin 300 mg Oral 4x Daily risperiDONE 1.5 mg Oral QAM QUEtiapine 50 mg Oral QAM LORazepam 0.5 mg Oral BID atorvastatin 10 mg Oral Daily nicotine 1 patch Transdermal Daily sertraline 100 mg Oral QAM sodium chloride flush 10 mL Intravenous 2 times per day enoxaparin 40 mg Subcutaneous Daily sodium chloride flush 10 mL Intravenous 2 times per day sennosides-docusate sodium 1 tablet Oral BID Continuous Infusions: sodium chloride sodium chloride 75 mL/hr at 08/08/19 0249 PRN Meds:albuterol, sodium chloride flush, polyethylene glycol, promethazine OR ondansetron, sodium chloride flush, magnesium hydroxide, oxyCODONE OR oxyCODONE, ondansetron OR ondansetron Allergies Allergen Reactions Penicillins Hives and Nausea And Vomiting Principal Problem: Hip fracture requiring operative repair, left, closed, initial encounter ([facility]) Active Problems: Encounter for pre-operative cardiovascular clearance History of cardioembolic cerebrovascular accident (CVA) Resolved Problems: * No resolved hospital problems. * Blood pressure (!) 87/46, pulse 104, temperature 97.2 F (36.2 C), temperature source Temporal, resp. rate 16, height 5' 4 (1.626 m), weight 164 lb 4.8 oz (74.5 kg), SpO2 93 %, not currently . WBC 8.7 3.5 - 11.3 k/uL Final 08/08/2019 5:36 AM [facility] RBC 2.53Low 3.95 - 5.11 m/uL Final 08/08/2019 5:36 AM [facility] Hemoglobin 8.1Low 11.9 - 15.1 g/dL Final 08/08/2019 5:36 AM [facility] Hematocrit 27.1Low 36.3 - 47.1 % Final 08/08/2019 5:36 AM [facility] MCV 107.1High 82.6 - 102.9 fL Final 08/08/2019 5:36 AM [facility] MCH 32.0 25.2 - 33.5 pg Final 08/08/2019 5:36 AM [facility] MCHC 29.9 28.4 - 34.8 g/dL Final 08/08/2019 5:36 AM [facility] RDW 13.8 11.8 - 14.4 % Final 08/08/2019 5:36 AM [facility] Platelets 138 - 453 k/uL Final 08/08/2019 5:36 AM [facility] See Reflexed IPF Result MPV NOT REPORTED 8.1 - 13.5 fL Final 08/08/2019 5:36 AM [facility] NRBC Automated 0.0 0.0 per 100 WBC Final 08/08/2019 5:36 AM [facility] Subjective: Diet: Adequate intake. Activity level: Impaired due to pain. Objective: Vital signs (most recent): Blood pressure (!) 87/46, pulse 104, temperature 97.2 F (36.2 C), temperature source Temporal, resp. rate 16, height 5' 4 (1.626 m), weight 164 lb 4.8 oz (74.5 kg), SpO2 93 %, not currently . General appearance: In no acute distress and uncomfortable. Lungs: Normal respiratory rate and normal effort. Heart: Tachycardia. Chest: Symmetric chest wall expansion. Abdomen: Abdomen is soft. Wound: Clean (no surrounding erythema, drainage, warmth or clinical signs of infection). There is no drainage. Extremities: There is local extremity swelling. (No calf tenderness or palpable cords. Intact sensation to light touch to upper and lower extremities. Palpable pulses and brisk capillary refill.). Neurological: The patient is alert and oriented to person, place and time. Assessment: Post-op: 2 days. Plan: Transfer Plan: Patient's blood pressure is low and heart rate tachycardic secondary to low hemoglobin level. Plan is to transfuse 1 unit PBRC. Will continue to follow. Continue wound care as written. MARCIA Salcedo CNP 08/08/2019 * Allegra Gordon RN - 08/08/2019 7:42 AM EDT Caitlyn SANTANA aware of current BP, and lightheadedness. Bolus order received. Will monitor. * Oneyda Hines - 08/08/2019 6:[address] regan made aware of patient unable to void. New order to straight cath. * Allegra Diaz LSW - 08/07/2019 3:36 PM EDT SW spoke with Miracle Hobson from [facility] as she is her navigator and advocate. Miracle also feels that pt should go somewhere for skilled care and will talk with pt about this as well. Miracle would like to be updated to assist pt with discharge and also recommends that APS be called if pt would discharge to home. SW will continue to follow. Allegra Valentino [employer]AX[employer] TRUCK DRIVER CHUTE LOADER 08/07/2019 * Allegra Diaz LSW - 08/07/2019 2:55 PM EDT SW met with pt again to discuss discharge planning. Pt remains adamant that she is going home. Pt states that she needs a wheelchair for home use. Pt was discussing a motorized chair at first and SW discussed the process of obtaining one of these. Pt states that she will take a manual chair then. Pt prefers to use [facility]. Requested prescription from . Pt states that she also needs a sock aide. SW suggested that she could go to a rehab that was not a longterm for a short time while her boyfriend was away to assist her in getting home safely and pt still refuses. SW explained concerns for safety and being alone and pt states that she will be fine. Pt reports that her girlfriend is going to be staying with her over the weekend and then she will be alone again on Sunday until her boyfriend makes it back from [place]. Pt reports that he is being scheduled for neck surgery soon as well. NIR spoke with Pat at [employer] (now [facility]) regarding wheelchair for pt. Prescription with wheelchair and diagnosis as well as face to face in physician note stating that pt requires wheelchair for use in home to complete ADLs. Pt face sheet faxed to Pat to begin benefits for this. SW will continue to follow and remain available. Allegra Valentino [employer]AXI TRUCK DRIVER CHUTE LOADER 08/07/2019 * Emelina Chatterjee PTA - 08/07/2019 12:52 PM EDT Physical Therapy Facility/Department: [facility] MED SURG Daily Treatment Note NAME: Crista Woodard : 1955 Date of Service: 08/07/2019 Discharge Recommendations: Subacute/Longterm Facility Assessment Treatment Diagnosis: left hip pain, difficulty walking Prognosis: Fair REQUIRES PT FOLLOW UP: Yes Activity Tolerance Activity Tolerance: Patient Tolerated treatment well Activity Tolerance: heavy education on safety concern with return home. Pt states she has either acane or that walker with 4 wheels and a seat. Pt also states she uses her rollator as her w/c. Pt with good understanding of education. Patient Diagnosis(es): The primary encounter diagnosis was Closed fracture of left hip, initial encounter ([facility]). A diagnosis of Other closed nondisplaced fracture of proximal end of left humerus, initial encounter was also pertinent to this visit. has a past medical history of Anxiety, Depression, Headache(784.0), Hyperlipidemia, Irritable bowelsyndrome, Osteoarthritis, Peripheral vascular disease ([facility]), Schizophrenia ([facility]), and Stroke (cerebrum) ([facility]). has a past surgical history that includes Tonsillectomy (1959); Knee arthroscopy (Right, 2009); Skin cancer excision (2009); Colonoscopy (2009); Hip fracture surgery (Left, 08/06/2019); and Hip fracture surgery (Left, 08/06/2019). Restrictions Restrictions/Precautions Restrictions/Precautions: Weight Bearing Required Braces or Orthoses?: Yes Lower Extremity Weight Bearing Restrictions Left Lower Extremity Weight Bearing: Toe Touch Weight Bearing Upper Extremity Weight Bearing Restrictions Right Upper Extremity Weight Bearing: Non Weight Bearing Required Braces or Orthoses Left Upper Extremity Brace/Splint: Sling Subjective General Chart Reviewed: Yes Response To Previous Treatment: Patient with no complaints from previous session. Family / Caregiver Present: No Subjective Subjective: rates L shoulder and L hip a 4/10 at rest. Pt insisting to go home upon discharge from hospital. Orientation Orientation Overall Orientation Status: Within Functional Limits Cognition Objective Bed mobility Supine to Sit: Moderate assistance;Maximum assistance Scooting: Maximal assistance Transfers Sit to Stand: Minimal Assistance;Contact guard assistance Stand to sit: Minimal Assistance;Contact guard assistance Comment: Pt did better with transfers this afternoon, requiring min A with first attempt. Pt completed sit to stands x5 from EOB with CGA. Cues to maintain NWB status on LUE with poor carrover. Pt with difficulty as well maintaining TTWBIng on LLE. Pt completed static standing with RUE support 3x30 . Ambulation Ambulation?: No Exercises Straight Leg Raise: x15 Heelslides: x15 Hip Abduction: x15 Ankle Pumps: x20 Comments: Above completed with pt supine. AAROM on LLE as needed d/t weakness/pain. Goals Short term goals Time Frame for Short term goals: 10 days Short term goal 1: Pt to perform bed mobility independently. Short term goal 2: Pt to tolerate 20-30 mins ther ex/act for improved strength and endurance for ADL's. Short term goal 3: Pt to demonstrate good standing balance while maintaining TTWB left LE. Short term goal 4: Pt to transfer sit to stand with min A while maintaining TTWB left LE. Patient Goals Patient goals : home following discharge Plan Plan Times per week: 7 x week Times per day: Twice a day(daily on weekend) Current Treatment Recommendations: Strengthening, Gait Training, Balance Training, Neuromuscular Re-education, Functional Mobility Training, Endurance Training, Home Exercise Program, Transfer Training, Safety Education & Training Safety Devices Type of devices: All fall risk precautions in place, Call light within reach, Left in bed, Gait belt, Bed alarm in place, Nurse notified Therapy Time Individual Concurrent Group Co-treatment Time In 1132 Time Out 1159 Minutes 27 Emelina Chatterjee PTA * Brittanie Stewart PT - 08/07/2019 12:37 PM EDT Physical Therapy Facility/Department: [facility] MED SURG Initial Assessment NAME: Crista Woodard : 1955 Date of Service: 08/07/2019 Discharge Recommendations: Subacute/Longterm Facility Assessment Assessment: Pt is 64 y/o female with recent left hip and humerus fractures following fall at home. Pt is unable to maintain TTWB status in standing. Requires moderate assistance for all mobility and transfers. Pt will benefit from PT to address deficits. Treatment Diagnosis: left hip pain, difficulty walking Prognosis: Fair Decision Making: Medium Complexity Patient Education: PT eval and POC REQUIRES PT FOLLOW UP: Yes Activity Tolerance Activity Tolerance: Patient Tolerated treatment well Patient Diagnosis(es): The primary encounter diagnosis was Closed fracture of left hip, initial encounter ([facility]). A diagnosis of Other closed nondisplaced fracture of proximal end of left humerus, initial encounter was also pertinent to this visit. has a past medical history of Anxiety, Depression, Headache(784.0), Hyperlipidemia, Irritable bowelsyndrome, Osteoarthritis, Peripheral vascular disease ([facility]), Schizophrenia ([facility]), and Stroke (cerebrum) ([facility]). has a past surgical history that includes Tonsillectomy (1959); Knee arthroscopy (Right, 2009); Skin cancer excision (2009); Colonoscopy (2009); Hip fracture surgery (Left, 08/06/2019); and Hip fracture surgery (Left, 08/06/2019). Restrictions Restrictions/Precautions Restrictions/Precautions: Weight Bearing Required Braces or Orthoses?: Yes Lower Extremity Weight Bearing Restrictions Left Lower Extremity Weight Bearing: Toe Touch Weight Bearing Upper Extremity Weight Bearing Restrictions Right Upper Extremity Weight Bearing: Non Weight Bearing Required Braces or Orthoses Left Upper Extremity Brace/Splint: Sling Vision/Hearing Vision: Within Functional Limits Hearing: Within functional limits Subjective General Chart Reviewed: Yes Patient assessed for rehabilitation services?: Yes Response To Previous Treatment: Not applicable Family / Caregiver Present: No Follows Commands: Within Functional Limits Subjective Subjective: Agreeable to PT. Hopes to return home following discharge. Pain Screening Patient Currently in Pain: Yes Orientation Orientation Overall Orientation Status: Within Functional Limits Social/Functional History Social/Functional History Lives With: Alone Type of Home: House Home Layout: Two level, Bed/Bath upstairs Home Access: Ramped entrance Bathroom Shower/Tub: Tub/Shower unit Bathroom Equipment: Shower chair Home Equipment: 4 wheeled walker, Cane Receives Help From: Home health ADL Assistance: Needs assistance Homemaking Assistance: Needs assistance Homemaking Responsibilities: No Ambulation Assistance: Independent Transfer Assistance: Independent Active Clamp Truck Driver: No Additional Comments: Pt reports that she just returned home from 4 months of rehab following her stroke. She gets home health PT and has aides who come shower her twice a week. Cognition Cognition Overall Cognitive Status: WFL Objective AROM RLE (degrees) RLE AROM: WFL AROM LLE (degrees) LLE AROM : WFL Strength RLE Comment: grossly 4/5 Strength LLE Comment: demo's at least 3/5 Bed mobility Supine to Sit: Moderate assistance;Maximum assistance Scooting: Maximal assistance Transfers Sit to Stand: Moderate Assistance Stand to sit: Moderate Assistance Squat Pivot Transfers: Moderate Assistance Comment: Pt was unable to maintain TTWB left LE in standing. Balance Sitting - Static: Good Sitting - Dynamic: Good Standing - Static: Fair Standing - Dynamic: Poor Plan Plan Times per week: 7 x week Times per day: Twice a day(daily on weekend) Current Treatment Recommendations: Strengthening, Gait Training, Balance Training, Neuromuscular Re-education, Functional Mobility Training, Endurance Training, Home Exercise Program, Transfer Training, Safety Education & Training Safety Devices Type of devices: All fall risk precautions in place AM-PAC Score AM-PAC Inpatient Mobility without Stair Climbing Raw Score : 9 (08/07/19 [facility]) AM-PAC Inpatient without Stair Climbing T-Scale Score : 32.44 (08/07/19 [facility]) Mobility Inpatient CMS 0-100% Score: 76.07 (08/07/19 [facility]) Mobility Inpatient without Stair CMS G-Code Modifier : CL (08/07/19 [facility]) Goals Short term goals Time Frame for Short term goals: 10 days Short term goal 1: Pt to perform bed mobility independently. Short term goal 2: Pt to tolerate 20-30 mins ther ex/act for improved strength and endurance for ADL's. Short term goal 3: Pt to demonstrate good standing balance while maintaining TTWB left LE. Short term goal 4: Pt to transfer sit to stand with min A while maintaining TTWB left LE. Patient Goals Patient goals : home following discharge Therapy Time Individual Concurrent Group Co-treatment Time In 0808 Time Out 0831 Minutes 23 Brittanie Stewart, PT, DPT, CMPT * Rosalba Gordon OTA - 08/07/2019 11:06 AM EDT Occupational Therapy Facility/Department: [facility] MED [facility]G Daily Treatment Note NAME: Crista Woodard : 1955 Date of Service: 08/07/2019 Discharge Recommendations: Continue to assess pending progress, Subacute/Longterm Facility Assessment Performance deficits / Impairments: Decreased balance;Decreased safe awareness;Decreased functionalmobility ;Decreased coordination;Decreased ADL status;Decreased endurance;Decreased strength Assessment: Pt is a 64 y.o female being treated with a L hip fracte. Post op, pt precautions are TTWB LLE. Pt also has a fractured L humerus, resulting in wearing a sling to NWB LUE. Pt presents withabove listed deficits and would benefit from skills services to improved independence, endurance, and safety with ADL and functional tasks. Prognosis: Good Decision Making: Medium Complexity OT Education: OT Role;Plan of Care;ADL Adaptive Strategies;Equipment Patient Education: Educated on use of sock aid and radio sales account executive to facilitate LB dressing. Pt provided with and educated on discharge folder. Verbalized understanding. Educated on TTWB status of L LE and NWB of L UE with poor carryover. Barriers to Learning: cognition/carryover REQUIRES OT FOLLOW UP: Yes Activity Tolerance Activity Tolerance: Patient Tolerated treatment well;Patient limited by pain Safety Devices Safety Devices in place: Yes Type of devices: Left in chair;Call light within reach;Chair alarm in place Patient Diagnosis(es): The primary encounter diagnosis was Closed fracture of left hip, initial encounter ([facility]). A diagnosis of Other closed nondisplaced fracture of proximal end of left humerus, initial encounter was also pertinent to this visit. has a past medical history of Anxiety, Depression, Headache(784.0), Hyperlipidemia, Irritable bowelsyndrome, Osteoarthritis, Peripheral vascular disease ([facility]), Schizophrenia ([facility]), and Stroke (cerebrum) ([facility]). has a past surgical history that includes Tonsillectomy (1959); Knee arthroscopy (Right, 2009); Skin cancer excision (2009); Colonoscopy (2009); Hip fracture surgery (Left, 08/06/2019); and Hip fracture surgery (Left, 08/06/2019). Restrictions Restrictions/Precautions Restrictions/Precautions: Weight Bearing Lower Extremity Weight Bearing Restrictions Left Lower Extremity Weight Bearing: Toe Touch Weight Bearing Upper Extremity Weight Bearing Restrictions Right Upper Extremity Weight Bearing: Non Weight Bearing Subjective General Chart Reviewed: Yes Patient assessed for rehabilitation services?: Yes Response to previous treatment: Patient with no complaints from previous session Family / Caregiver Present: No Referring Practitioner: Dr. Regan Diagnosis: L Hip Fracture Subjective Subjective: Pt denies pain this date. General Comment Comments: Pt agreeable to OT participation. Orientation Objective ADL Equipment Provided: Cytogenetics Technologist;Sock aid LE Dressing: Moderate assistance(utilized AE to don/doff socks) Additional Comments: Pt educated on use of AE to facilitate LB dressing with fair carryover noted. Pt educated on discharge folder. Verbalized understanding. Cognition Overall Cognitive Status: WFL Type of ROM/Therapeutic Exercise Type of ROM/Therapeutic Exercise: Free weights Comment: Pt completed R UE ther ex with 2# dumbell, 15 reps x 2 sets x 5 planes with 2 rest breaks noted. LUE AROM (degrees) LUE AROM : Exceptions LUE General AROM: Not Tested due to pt in sling secondary to humerus fracture Left Hand AROM (degrees) Left Hand AROM: WFL RUE AROM (degrees) RUE AROM : WFL Right Hand AROM (degrees) Right Hand AROM: WFL Plan Plan Times per week: 7x/week Times per day: Daily Current Treatment Recommendations: Strengthening, Endurance Training, Patient/Caregiver Education & Training, Self-Care / ADL, Balance Training, Functional Mobility Training, Safety Education & Training G-Code OutComes Score AM-PAC Score Goals Short term goals Time Frame for Short term goals: 10 visits Short term goal 1: Pt will engage in 15 minutes RUE therex/theract to increase UB strength for increased independence with ADL and functional transfers. Short term goal 2: Pt will complete functional transfers with adherence to WB precautions with CGA to increase safety with functional tasks. Short term goal 3: Pt will engage in dressing tasks with use of AE PRN with modA to increase safetyand independence with ADL tasks. Short term goal 4: Pt will verbalize precuations with good understanding and carryover. Therapy Time Individual Concurrent Group Co-treatment Time In 951 Time Out 1015 Minutes 23 FREEMAN Goodson * Riley Montgomery OT - 08/07/2019 10:56 AM EDT Occupational Therapy Occupational Therapy Initial Assessment Date: 08/07/2019 Patient Name: Crista Woodard : 1955 Date of Service: 08/07/2019 Discharge Recommendations: Continue to assess pending progress, Subacute/Longterm Facility Assessment Performance deficits / Impairments: Decreased balance;Decreased safe awareness;Decreased functionalmobility ;Decreased coordination;Decreased ADL status;Decreased endurance;Decreased strength Assessment: Pt is a 64 y.o female being treated with a L hip fracte. Post op, pt precautions are TTWB LLE. Pt also has a fractured L humerus, resulting in wearing a sling to NWB LUE. Pt presents withabove listed deficits and would benefit from skills services to improved independence, endurance, and safety with ADL and functional tasks. Prognosis: Good Decision Making: Medium Complexity OT Education: OT Role;Plan of Care Barriers to Learning: cognition/carryover REQUIRES OT FOLLOW UP: Yes Activity Tolerance Activity Tolerance: Patient Tolerated treatment well;Patient limited by pain Safety Devices Safety Devices in place: Yes Type of devices: Left in chair;Call light within reach;Nurse notified(Nurse Present) Patient Diagnosis(es): The primary encounter diagnosis was Closed fracture of left hip, initial encounter ([facility]). A diagnosis of Other closed nondisplaced fracture of proximal end of left humerus, initial encounter was also pertinent to this visit. has a past medical history of Anxiety, Depression, Headache(784.0), Hyperlipidemia, Irritable bowelsyndrome, Osteoarthritis, Peripheral vascular disease ([facility]), Schizophrenia ([facility]), and Stroke (cerebrum) ([facility]). has a past surgical history that includes Tonsillectomy (1959); Knee arthroscopy (Right, 2009); Skin cancer excision (2009); Colonoscopy (2009); Hip fracture surgery (Left, 08/06/2019); and Hip fracture surgery (Left, 08/06/2019). Diagnosis: L Hip fracture Restrictions Restrictions/Precautions Restrictions/Precautions: Weight Bearing Lower Extremity Weight Bearing Restrictions Left Lower Extremity Weight Bearing: Toe Touch Weight Bearing Upper Extremity Weight Bearing Restrictions Right Upper Extremity Weight Bearing: Non Weight Bearing Subjective General Chart Reviewed: Yes Patient assessed for rehabilitation services?: Yes Response to previous treatment: Patient with no complaints from previous session Family / Caregiver Present: No Referring Practitioner: Dr. Regan Diagnosis: L Hip Fracture Subjective Subjective: Pt reporst 9/10 pain upon moving in L hip this date. Pt also reports that she doesn't have full feeling in LLE yet. General Comment Comments: Pt in bed on therapist arrival, agreeable to OT evaluation. Height and Weight Height: 5' 4 (162.6 cm) Social/Functional History Social/Functional History Lives With: Alone Type of Home: House Home Layout: Two level, Bed/Bath upstairs Home Access: Ramped entrance Bathroom Shower/Tub: Tub/Shower unit Bathroom Equipment: Shower chair Home Equipment: 4 wheeled walker, Cane Receives Help From: Home health ADL Assistance: Needs assistance Homemaking Assistance: Needs assistance Homemaking Responsibilities: No Ambulation Assistance: Independent Transfer Assistance: Independent Active Clamp Truck Driver: No Additional Comments: Pt reports that she just returned home from 4 months of rehab following her stroke. She gets home health PT and has aides who come shower her twice a week. Objective Vision: Within Functional Limits Hearing: Within functional limits ADL Equipment Provided: Cytogenetics Technologist;Sock aid Feeding: Setup Grooming: Moderate assistance UE Bathing: Moderate assistance;Maximum assistance LE Bathing: Maximum assistance;Dependent/Total UE Dressing: Maximum assistance LE Dressing: Maximum assistance;Dependent/Total Toileting: Maximum assistance(currently with catheter) Additional Comments: Bed mobility Supine to Sit: Moderate assistance;Maximum assistance Scooting: Maximal assistance Transfers Sit Pivot Transfers: Moderate assistance Transfer Comments: Pt attempted sit to stand transfer, but was unable to maintain adherence to WB precautions, putting foot through LLE. Sit pivot transfer completed. Cognition Overall Cognitive Status: WFL LUE AROM (degrees) LUE AROM : Exceptions LUE General AROM: Not Tested due to pt in sling secondary to humerus fracture Left Hand AROM (degrees) Left Hand AROM: WFL RUE AROM (degrees) RUE AROM : WFL Right Hand AROM (degrees) Right Hand AROM: WFL LUE Strength LUE Strength Comment: Not tested due to pt in sling secondary to humerus fracture. RUE Strength Gross RUE Strength: WFL RUE Strength Comment: Grossly 4-/5 Plan Plan Times per week: 7x/week Times per day: Daily Current Treatment Recommendations: Strengthening, Endurance Training, Patient/Caregiver Education & Training, Self-Care / ADL, Balance Training, Functional Mobility Training, Safety Education & Training AM-PAC Score [facility] Inpatient Daily Activity Raw Score: 13 (08/07/19 1055) AM-PAC Inpatient ADL T-Scale Score : 32.03 (08/07/19 1055) ADL Inpatient CMS 0-100% Score: 63.03 (08/07/19 1055) ADL Inpatient [facility] G-Code Modifier : CL (08/07/19 1055) Goals Short term goals Time Frame for Short term goals: 10 visits Short term goal 1: Pt will engage in 15 minutes RUE therex/theract to increase UB strength for increased independence with ADL and functional transfers. Short term goal 2: Pt will complete functional transfers with adherence to WB precautions with CGA to increase safety with functional tasks. Short term goal 3: Pt will engage in dressing tasks with use of AE PRN with modA to increase safetyand independence with ADL tasks. Short term goal 4: Pt will verbalize precuations with good understanding and carryover. Therapy Time Individual Concurrent Group Co-treatment Time In 0816 Time Out 0830 Minutes 14 Riley Montgomery OT * Allegra Diaz, DEREK - 08/07/2019 10:21 AM EDT SW received return call from pt's boyfriend Warren. SW discussed with him potential discharge plans.Warren reports that he knows that she wants to go home and he feels ok with this. Warren states that he is working with [facility] to see if they can offer more visits for her and he has cameras to be able to watch her on his phone. Warren also reports that he has meals on wheels lined up for her. Warren reports that they have a rollator and BSC. SW discussed that pt may need a wheelchair or differenttype of walker due to arm and hip fracture. Warren reports that he is in [place] at the [place] for cancer screenings for lung and prostate and these are not scheduled for him until August 10 and he will not be back before then. SW discussed safety concerns with pt being alone and needing to be able to transfer and be able to get meals and be functional at home. SW suggested a short stay at [facility] he would return and he states that she wants to go home and he feels it is ok. SW will see how pt does with therapy and update with pt and Warren again. Allegra REED 08/07/2019 * Allegra Diaz, DEREK - 08/07/2019 9:46 AM EDT SW met with pt to complete assessment. Pt is alert and oriented and pleasant during SW visit. Pt shyam 64 year old female admitted for s/p left hip fracture requiring operative repair and fractured left shoulder. Pt reports that she lives alone in her home in [place]. Pt states that her boyfriend is home with her on the weekends and then he is gone during the week. Pt reports that she has home health care services through [facility]. SW called to [facility] and spoke with Anne-Marie who confirms that pt has skilled home health services through them for nursing and PT. Pt recently discharged from [facility] after an extended stay and [facility] called and spoke with [facility] regarding skilleddays. Pt did not use all of her skilled days and had converted to medicaid during her stay there. [facility] states that they would be willing to take her back if pt will agree. [facility] also to check if they have guardianship papers for pt's boyfriend to be her guardian. Pt reports that she has a cane, walker, and shower chair at home for use. Pt also has an elevated toilet seat and BSC. Pt reports that she uses the cab service to get around in [place] for appointments. Pt is a full code and follows with Dr Johnson as her PCP. Pt does not have advance directives. Kingsleyfrienshaun had stated to staff in notes last night that he has guardianship and [facility] to see if they have these papers. Pt reports that her medications are very affordable. SW and pt discussed plans for discharge and pt states that she wants to go home. Pt feels that she has plenty of help with her HH agency. SW encouraged pt to consider going back to [facility] for a little while until she is able to be more independent. Pt again expresses that she wants to go home. SW will visit with pt again after she has worked with therapy. SW left a message for pt's boyfriend and requested a return call. SW received another call from [facility] stating that the boyfriend never got guardianship. The SW at the facility was working with them to get a POA in place but pt never signed this either. Pt used38 skilled days at the facility and they were making plans to have her go to [place] assisted living through a medicaid waiver for assisted living but pt abruptly decided that she was discharging to home and left on 07/30/2019. Facility also reports that pt receives visits from SUSAN Hobson at [phone]. SW will continue to follow and remain available and will readdress skilled care with pt. Allegra PRUITTW 08/07/2019 * Bryan Contreras, RD, LD - 08/07/2019 9:19 AM EDT Nutrition Assessment Type and Reason for Visit: Initial Nutrition Recommendations: Continue current diet Nutrition Assessment: Increased nutrient needs r/t acute injury or trauma, AEB post op hip, after fall. Admittedly gained a lot of weight in ECF after a CVA 4 months ago and has been eating a lot of candy and drinking a lot of Pepsi. No residual chew/swallow concerns reported. Advised to avoid simple sugars to help contain weight gains. Malnutrition Assessment: Malnutrition Status: No malnutrition Context: Acute illness or injury Findings of the 6 clinical characteristics of malnutrition (Minimum of 2 out of 6 clinical characteristics is required to make the diagnosis of moderate or severe Protein Calorie Malnutrition based on AND/ASPEN Guidelines): 1. Energy Intake-Less than or equal to 75% of estimated energy requirement, 2. Weight Loss-No significant weight loss, 3. Fat Loss-No significant subcutaneous fat loss, 4. Muscle Loss-No significant muscle mass loss, 5. Fluid Accumulation-Mild fluid accumulation, Extremities 6. Lean Manufacturing Leader Strength-Not measured Nutrition Risk Level: Moderate, Low Nutrition Diagnosis: Problem: Increased nutrient needs Etiology: related to Acute injury/trauma ? Signs and symptoms: as evidenced by Presence of wounds Objective Information: Nutrition-Focused Physical Findings: no malnutrition indices Wound Type: Surgical Wound Current Nutrition Therapies: Oral Diet Orders: General Oral Diet intake: Unable to assess(No PO records) Oral Nutrition Supplement (ONS) Orders: Standard High Calorie Oral Supplement Anthropometric Measures: Ht: 5' 4 (162.6 cm) Current Body Wt: 163 lb 11.2 oz (74.3 kg) Admission Body Wt: 140 lb (63.5 kg)(likely stated value) Usual Body Wt: (140-150# since April) % Weight Change: , 16.9% increase with surgery? [place] Body Wt: 120 lb (54.4 kg), % [place] Body 136% BMI Classification: BMI 25.0 - 29.9 Overweight Lab Results Component Value Date NA 137 08/07/2019 K 4.6 08/07/2019 CL 105 08/07/2019 CO2 18 (L) 08/07/2019 BUN 18 08/07/2019 CREATININE 0.86 08/07/2019 GLUCOSE 164 (H) 08/07/2019 CALCIUM 7.7 (L) 08/07/2019 PROT 6.6 05/29/2019 LABALBU 3.8 05/29/2019 BILITOT 0.19 (L) 05/29/2019 ALKPHOS 118 (H) 05/29/2019 AST 16 05/29/2019 ALT 17 05/29/2019 LABGLOM >60 08/07/2019 GFRAA >60 08/07/2019 Lab Results Component Value Date LABA1C 5.2 05/29/2019 Lab Results Component Value Date EAG 103 05/29/2019 Nutrition Interventions: Continue current diet, Continue current ONS Continued Inpatient Monitoring Nutrition Evaluation: Evaluation: Goals set Goals: PO >75% meals and supplements Monitoring: Meal Intake, Supplement Intake, Weight, I&O, Monitor Bowel Function, Pertinent Labs Contact Number: [phone] * Venita Bustillos, 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 [employer] - 08/07/2019 7:56 AM EDT Crista Woodard is a 64 y.o. female patient who underwent a left femur IM nail last evening. She states that she is still numb from the block and does not have any pain to her hip or her shoulder today. She does report numbness now to her left arm and does not have pain. She denies any neck pain. 1. Closed fracture of left hip, initial encounter ([facility]) 2. Other closed nondisplaced fracture of proximal end of left humerus, initial encounter Past Medical History: Diagnosis Date Anxiety Depression Headache(784.0) Hyperlipidemia Irritable bowel syndrome Osteoarthritis Peripheral vascular disease ([facility]) Schizophrenia ([facility]) Dr. Magaña Stroke (cerebrum) ([facility]) 2009 No past surgical history pertinent negatives on file. Scheduled Meds: albuterol sulfate HFA 2 puff Inhalation TID atorvastatin 10 mg Oral Daily nicotine 1 patch Transdermal Daily sertraline 100 mg Oral QAM sodium chloride flush 10 mL Intravenous 2 times per day enoxaparin 40 mg Subcutaneous Daily sodium chloride flush 10 mL Intravenous 2 times per day sennosides-docusate sodium 1 tablet Oral BID ceFAZolin (ANCEF) IVPB 1 g Intravenous Q8H sertraline 200 mg Oral Daily Continuous Infusions: sodium chloride 75 mL/hr at 08/07/19 0026 PRN Meds:albuterol, sodium chloride flush, polyethylene glycol, promethazine OR ondansetron, sodium chloride flush, magnesium hydroxide, oxyCODONE OR oxyCODONE, HYDROmorphone OR HYDROmorphone, ondansetron OR ondansetron Allergies Allergen Reactions Penicillins Hives and Nausea And Vomiting Active Problems: Encounter for pre-operative cardiovascular clearance History of cardioembolic cerebrovascular accident (CVA) Hip fracture requiring operative repair, left, closed, initial encounter ([facility]) Resolved Problems: * No resolved hospital problems. * Blood pressure 109/68, pulse 101, temperature 97.2 F (36.2 C), temperature source Temporal, resp. rate 18, height 5' 4 (1.626 m), weight 163 lb 11.2 oz (74.3 kg), SpO2 95 %, not currently . Subjective: Diet: Adequate intake. Activity level: Activity impairment: resting in bed. Pain control: Well controlled. Objective: Vital signs (most recent): Blood pressure 109/68, pulse 101, temperature 97.2 F (36.2 C), temperature source Temporal, resp. rate 18, height 5' 4 (1.626 m), weight 163 lb 11.2 oz (74.3 kg), SpO2 95 %, not currently . General appearance: Comfortable, well-appearing, in no acute distress and not in pain. Lungs: Normal respiratory rate and normal effort. Heart: Normal rate. Chest: Symmetric chest wall expansion. Abdomen: Abdomen is soft. Wound: There is no drainage (dressings are clean, dry and intact). Extremities: There is no deformity. (Left upper extremity has full ROM of fingers and wrist. She isable to make a closed fist. Swelling and ecchymosis noted to proximal humerus. Diminished sensationto light touch to the entire upper extremity. Palpable pulses and brisk capillary refill. Left lower extremity has full ROM of foot and ankle. Diminished sensation to light touch to entire left lower extremity due to nerve block pre-operatively. Palpable pulses and brisk capillary refill.Negative rupa's sign bilaterally.). Neurological: The patient is alert and oriented to person, place and time. Pupils are equal, round,and reactive to light. WBC 10.7 3.5 - 11.3 k/uL Final 08/07/2019 5:27 AM [facility] RBC 3.19Low 3.95 - 5.11 m/uL Final 08/07/2019 5:27 AM [facility] Hemoglobin 10.2Low 11.9 - 15.1 g/dL Final 08/07/2019 5:27 AM [facility] Hematocrit 31.6Low 36.3 - 47.1 % Final 08/07/2019 5:27 AM [facility] MCV 99.1 82.6 - 102.9 fL Final 08/07/2019 5:27 AM [facility] MCH 32.0 25.2 - 33.5 pg Final 08/07/2019 5:27 AM [facility] MCHC 32.3 28.4 - 34.8 g/dL Final 08/07/2019 5:27 AM [facility] RDW 13.5 11.8 - 14.4 % Final 08/07/2019 5:27 AM [facility] Platelets 138 - 453 k/uL Final 08/07/2019 5:27 AM [facility] See Reflexed IPF Result MPV NOT REPORTED 8.1 - 13.5 fL Final 08/07/2019 5:27 AM [facility] NRBC Automated 0.0 0.0 per 100 WBC Final 08/07/2019 5:27 AM [facility] Differential Type NOT REPORTED Final 08/07/2019 5:27 AM [facility] WBC Morphology NOT REPORTED Final 08/07/2019 5:27 AM [facility] RBC Morphology NOT REPORTED Final 08/07/2019 5:27 AM [facility] Platelet Estimate NOT REPORTED Final 08/07/2019 5:27 AM [facility] Seg Neutrophils 85High 36 - 65 % Final 08/07/2019 5:27 AM [facility] Lymphocytes 9Low 24 - 43 % Final 08/07/2019 5:27 AM [facility] Monocytes 6 3 - 12 % Final 08/07/2019 5:27 AM [facility] Eosinophils % 0Low 1 - 4 % Final 08/07/2019 5:27 AM [facility] Basophils 0 0 - 2 % Final 08/07/2019 5:27 AM [facility] Immature Granulocytes 0 0 % Final 08/07/2019 5:27 AM [facility] Segs Absolute 9.10High 1.50 - 8.10 k/uL Final 08/07/2019 5:27 AM [facility] Absolute Lymph # 0.92Low 1.10 - 3.70 k/uL Final 08/07/2019 5:27 AM [facility] Absolute [place] # 0.64 0.10 - 1.20 k/uL Final 08/07/2019 5:27 AM [facility] Absolute Eos # <0.03 0.00 - 0.44 k/uL Final 08/07/2019 5:27 AM [facility] Basophils Absolute <0.03 0.00 - 0.20 k/uL Final 08/07/2019 5:27 AM [facility] Absolute Immature Granulocyte 0.04 0.00 - 0.30 k/uL Final 08/07/2019 5:27 AM [facility] Assessment: Post-op: 1 day. Condition: In stable condition. Plan: Transfer Plan: Vitals stable, Hg 10.2. Notified staff of numbness to left arm. Will continue to follow. Activity Plan: toe touch weight bear with walker, will need assist with left proximal humerus fx. Continue wound care as written. MARCIA Salcedo CNP 08/07/2019 * Tanesha Higuera, RN - 08/06/2019 11:52 PM EDT Cardiology consult faxed at this time. * Tanesha Higuera RN - 08/06/2019 11:30 PM EDT Navigator completed at this time except for home medications since home health staff sets up medication for patient. Pt usually wears upper dentures and glasses but both were left at home. Event Marketing Representative and Larisa GOULD verified patient has $1445 in purse. Purse locked into safe at this time. * Larisa Ramirez RN - 08/06/2019 11:20 PM EDT The chart writer called the patient's Boyfriend to give him the update on the patient but he did not pickup the phone, so voicemail has been left on his phone. Patient aware of it. * Larisa Ramirez RN - 08/06/2019 11:05 PM EDT The patient has arrived to the floor from surgery. Vitals are checked and are within the normal limit. Patient is alert and oriented to person, place and situation but disoriented to time. [place] is intact. Needs are assessed. Bedside table and call light are within the reach. Will continue to monitor and follow the admission/postop orders. * Lia Jarrell RCP - 08/06/2019 11:03 PM EDT RESPIRATORY ASSESSMENT PROTOCOL Patient Name: Crista Woodard Room#: 0315/0315-01 : 1955 Admitting diagnosis: Hip fracture requiring operative repair, left, closed, initial encounter ([facility])[S72.002A] Medical History: Past Medical History: Diagnosis Date Anxiety Depression Headache(784.0) Hyperlipidemia Irritable bowel syndrome Osteoarthritis Peripheral vascular disease ([facility]) Schizophrenia ([facility]) Dr. Magaña Stroke (cerebrum) ([facility]) 2009 PATIENT ASSESSMENT LABORATORY DATA Hematology: Lab Results Component Value Date WBC 17.8 08/06/2019 RBC 4.01 08/06/2019 HGB 12.8 08/06/2019 HCT 40.8 08/06/2019 PLT 243 08/06/2019 Chemistry: No results found for: PHART, MLE2WRN, PO2ART, T2FPQHKW, YTE6HHZ, PBEA Blood Culture: Sputum Culture: VITALS Pulse: 105 Resp: 18 BP: (!) 109/50 SpO2: 94 % O2 Device: Nasal cannula Temp: 97.5 F (36.4 C) Comment: SKIN COLOR [x] Normal [] Pale [] Dusky [] Cyanotic RESPIRATORY PATTERN [x] Normal [] Dyspnea [] Jt-Samuel [] Kussmaul [] Biots AMBULATORY [] Yes [] No [x] With Assistance PEAK FLOW Predicted: Personal Best: VITAL CAPACITY Predicted value: ml Actual Value: ml 30% of Predicted: ml Patient Acuity 0 1 2 3 4 Score Level of Concious (LOC) [x] Alert & Oriented or Pt normal LOC [] Confused;follows directions [] Confused & uncooper-ative [] Obtunded [] Comatose 0 Respiratory Rate (RR) [x] Reg. rate & pattern. 12 - 20 bpm [] Increased RR. Greater than 20 bpm [] SOB w/ exertion or RR greater than 24 bpm [] Access- ory muscle use at rest. Abn. resp. [] SOB at rest. 0 Bilateral Breath Sounds (BBS) [] Clear [] Diminish-ed bases [] Diminish-ed t/o, or rales [x] Sporadic, scattered wheezes or rhonchi [] Persistentwheezes and, or absent BBS 3 Cough [x] Strong, effective, & non-prod. [] Effective & prod. Less than 25 ml (2 TBSP) over past 24 hrs [] Ineffective & non-prod to less than 25 ML over past 24 hrs [] Ineffective and, or greater than 25 ml sputum prod. past 24 hrs. [] Nonspon- taneous; Requires suctioning 0 Pulmonary History (PULM HX) [] No smoking and no chronic pulmonaryhistory [] Former smoker. Quit over 12 mos. ago [x] Current smoker or quit w/ in 12 mos [] Pulm. History and, or 20 pk/yr smoking hx [] Admitted w/ acute pulm. dx and, or has been admitted w/ pulm. dx 2 or more times over past 12 mos 2 Surgical History this Admit (SURG HX) [] No surgery [x] General surgery [] Lower abdominal [] Thoracic or upper abdominal [] Thoracic w/ pulm. disease 1 Chest X-Ray (CXR)/CT Scan [x] Clear or not applicable [] Not available [] Atelect- asis or pleural effusions [] Localized infiltrate or pulm. edema [] Con-solidated Infiltrates, bilateral, or in more than 1 lobe 0 Slow or Forced VC, FEV1 OR PEFR (PULM FXN) [x] 80% or greater, or not indicated [] Pt. unable to perform [] FEV1 or PEFR or VC 51-79%. [] FEV1 or PEFR or VC 30-49% [] FEV1 or PEFR or VC less than 30% 0 TOTAL ACUITY: 6 CARE PLAN If Acuity Level is 2, 3, or 4 in any of the following: [] BILATERAL BREATH SOUNDS (BBS) [x] PULMONARY HISTORY (PULM HX) [] PULMONARY FUNCTION (PULM FX) Goal: Improve respiratory functions in patients with airway disease and decrease WOB [x] AEROSOL PROTOCOL Total Acuity: 16-32 [] Secondary Assessment in 24 hrs Total Acuity: 9-15 [] Secondary Assessment in 24 hrs Total Acuity: 4-8 [x] Secondary Assessment in 48 hrs Total Acuity: 0-3 [] Secondary Assessment in 72 hrs HHN AEROSOL THERAPY with [physician-ordered bronchodilator(s)] q 4 & Albuterol PRN q2 hrs. Breath-Actuated Neb if BBS Acuity = 4, and pt. can use MP. Notify physician if condition deteriorates. HHN AEROSOL THERAPY with [physician-ordered bronchodilator(s)] QID and Albuterol PRN q4 hrs. Breath-Actuated Neb if BBS Acuity = 4, and pt. can use MP. Notify physician if condition deteriorates. MDI THERAPY with 2 actuations of [physician-ordered bronchodilator(s)] via spacer TID Albuterol and PRNq4 hrs. If unable to utilize MDI: HHN [physician-ordered bronchodilator(s)] TID and Albuterol PRN q4 hrs. Notify physician if condition deteriorates. MDI THERAPY with [physician-ordered bronchodilator(s)] via spacer TID PRN. If unable to utilize MDI: HHN [physician-ordered bronchodilator(s)] TID PRN. Notify physician if condition deteriorates. If Acuity Level is 2, 3, or 4 in any of the following: [] COUGH [] SURGICAL HISTORY (SURG HX) [] CHEST XRAY (CXR) Goal: Improvement in sputum mobilization in patients with ineffective airway clearance. Reverse atelectasis. [] Bronchopulmonary Hygiene Protocol Total Acuity: 16-32 [] Secondary Assessment in 24 hrs Total Acuity: 9-15 [] Secondary Assessment in 24 hrs Total Acuity: 4-8 [] Secondary Assessment in 48 hrs Total Acuity: 0-3 [] Secondary Assessment in 72 hrs METANEB QID with [physician-ordered bronchodilator(s)] if CXR Acuity = 4; otherwise: PD&P, PEP, or Vest QID & PRN NT Sxn PRN for ineffective cough METANEB QID with [physician-ordered bronchodilator(s)] if CXR Acuity = 4; otherwise: PD&P, PEP, or Vest TID & PRN NT Sxn PRN for ineffective cough Instruct patient to self-perform IS q1hr WA Directed Cough self-performed q1hr WA If Acuity Level is 2 or above in the following: [] PULMONARY HISTORY (PULM HX) Goal: Assist patient in quitting smoking to slow or stop the progression of lung disease. [] Smoking Cessation Protocol SMOKING CESSATION EDUCATION provided according to policy RT_201: (nina with an X) ____Yes ____ No ____ NA Smoking Cessation Booklet given: ____Yes ____No ____Patient Refused * Mandy Carlos RN - 08/06/2019 9:56 PM EDT 0940 Report given to Tavares Mckeon RN documented in this encounter Reason for Referral No Reason for Referral RecordedNo Reason for Referral Recorded Instructions Instructions not supported for this document type No Instructions Recorded Instructions not supported for this document type No Instructions Recorded Family History Includes: Family History in patient's chart No Family History Recorded Includes: Family History in patient's chart No Family History RecordedNo Family History Records Found Includes: Family History in patient's chart No Family History Recorded Includes: Family History in patient's chart No Family History Recorded Includes: Family History in patient's chart No Family History Recorded Includes: Family History in patient's chart No Family History Recorded Includes: Family History in patient's chart No Family History Recorded Includes: Family History in patient's chart No Family History Recorded Includes: Family History in patient's chart No Family History Recorded Includes: Family History in patient's chart No Family History Recorded Includes: Family History in patient's chart No Family History Recorded Includes: Family History in patient's chart No Family History Recorded Includes: Family History in patient's chart No Family History RecordedNo Family History Records Found Includes: Family History in patient's chart No Family History RecordedNo Family History Records Found Includes: Family History in patient's chart No Family History Recorded Review of System Review of Systems not supported for this document type No Review of Systems Recorded Review of Systems not supported for this document type No Review of Systems Recorded Physical Exam Physical Exam not supported for this document type No Physical Exam Recorded Physical Exam not supported for this document type No Physical Exam Recorded Physical Exam not supported for this document type No Physical Exam Recorded Physical Exam not supported for this document type No Physical Exam Recorded Physical Exam not supported for this document type No Physical Exam Recorded Physical Exam not supported for this document type No Physical Exam Recorded Physical Exam not supported for this document type No Physical Exam Recorded Physical Exam not supported for this document type No Physical Exam Recorded Physical Exam not supported for this document type No Physical Exam Recorded Physical Exam not supported for this document type No Physical Exam Recorded Physical Exam not supported for this document type No Physical Exam Recorded Physical Exam not supported for this document type No Physical Exam Recorded Physical Exam not supported for this document type No Physical Exam Recorded Physical Exam not supported for this document type No Physical Exam Recorded Physical Exam not supported for this document type No Physical Exam Recorded Summary Purpose Additional Source Comments Reason for Visit (unrecogniz ed section and content) Reason Comments Altered Mental Status pt arrives via EMS with c/o from pt boyfriend that she has stopped taking her meds and seems confused Reason Comments Hypotension was just discharged from 3rd floor today at 1647. Patient has refused a blood transfusion due to being a Confucianist and it is aganist her presybeterian Reason Comments Other unable to care for s elf. Hasn't gotten off couch since Sunday. Reason Comments Other Patient was seen ear lier today for altered mental status left arm fx Reason Comments Fall Loss of Consciousness states she passed out and then fell Reason Comments Altered Mental Status adult protective s ervices - found in [facility] delirious ideations. Thinks is 21, lives in mansion Reason Comments Altered Mental Status [facility] staff call [facility] EMS today stating pt was unresponsive x 2. Pt was recently admitted for aUTI Reason Comments Fatigue Patient had stroke 4 months ago, was discharged from rehab 1 week ago. Today therapy was at her house and she was too weak to walk. Evaluations & Outcomes (unre cognized section and content) Includes: Evaluations & Outcomes for active GoalsNo Outcomes Recorded Includes: Evaluations & Outcomes for active GoalsNo Outcomes Recorded Medical History (unrecognize d section and content) Description A recent immunization for flu 03/16/2020 No previous hospitalizations 03/16/2020 dementia ~ ~schizophrenia 09/01/2019 History of hyperlipidemia 09/01/2019 INFORMATION SOURCE (unrecogn ized section and content) DATE CREATED AUTHOR 04/27/2020 [facility] DATE CREATED AUTHOR AUTHOR'S ORGANIZ ATION 05/23/2022 [facility] DATE CREATED AUTHOR AUTHOR'S ORGANIZ ATION 12/07/2022 [facility] FOR RECORDS PERTAINING TO PATIENTS WHO ARE OR HAVE BEEN ENROLLED IN A CHEMICAL DEPENDENCY/SUBSTANCEABUSE PROGRAM, SOME INFORMATION MAY BE OMITTED. This clinical summary was aggregated from multiple sources. Caution should be exercised in using it in the provision of clinical care. This summary normalizes information from multiple sources, and as a consequence, information in this document may materially change the coding, format and clinical context of patient data. In addition, data may be omitted in some cases. CLINICAL DECISIONS SHOULD BE BASED ON THE PRIMARY CLINICAL RECORDS. [employer] provides no warranty or guarantee of the accuracy or completeness of information in this document.
--- NOTE | 2023-02-23 09:55 | MM_ITS ---
Patient Name: TREASURE WOODARD MR#: [id number] : 1955 Exam Date: 02/23/2023 Ordering Doctor: Non-Staff Physician RADIOLOGY REPORT PROCEDURE: MM TOMOSYNTHESIS SCREENING BI COMPARISON: MG MAMM SCREEN 3D BOBO CAD, 02/15/2021. MG MAMM SCREEN 3D BOBO CAD, 02/16/2022. INDICATIONS: Screening Calculator Name NCI Breast Cancer Risk Assessment Tool 5 Year Breast Cancer Risk 3.50% Lifetime Breast Cancer Risk 11.50% Personal Breast Cancer No Personal Ovarian Cancer No Treatments None Family Cancers Mother with breast cancer at age 19. LOCATION: [facility] BREAST COMPOSITION: Scattered areas fibroglandular density. FINDINGS: DIAGNOSTIC CATEGORY 2--BENIGN FINDING. NO CHANGE FROM COMPARISON. Scattered benign-appearing nodules are present. Scattered benign-appearing calcifications are present. Scattered benign-appearing lymph nodes are present. Additional mammographic views were obtained for breast implant evaluation and show benign capsular calcifications, but no other implant-related abnormalities. RIGHT BREAST: No new suspicious finding. Multiple axillary tail nodules likely silicone leakage from an implant and stable LEFT BREAST: No significant suspicious finding. RECOMMENDATIONS: ROUTINE MAMMOGRAM AND CLINICAL EVALUATION IN 12 MONTHS. PLEASE NOTE: A NORMAL MAMMOGRAM DOES NOT EXCLUDE THE POSSIBILITY OF BREAST CANCER. A CLINICALLY SUSPICIOUS PALPABLE LUMP SHOULD BE BIOPSIED. Dictated by: Candido Lee MD on 02/23/2023 at 12:18 Approved by: Candido Lee MD on 02/23/2023 at 12:20
== END 2023-02-23 09:18 | disposition home or self-care (01) ==
LOC: MAMMO 09:17
DX: Z12.31 Encounter for screening mammogram for malignant neoplasm of breast (principal); Z80.3 Family history of malignant neoplasm of breast
CPT/HCPCS: 77063; 77067